=== PATIENT | female | born 1990 | race African-American/Black ===

== ENCOUNTER 2017-12-08 15:58 | Emergency (ER) | payer BC, OTHER ==
--- NOTE | 2017-12-08 16:56 | EDPHYS ---
Physician Documentation [facility] Name: Kera Deng Age: 27 yrs Sex: Female : 1990 Arrival Date: 12/08/2017 Time: 15:59 Bed 25 Private MD: ED Physician Jevon Mishra HPI: 12/08 16:54 This 27 yrs old Black Female presents to ER via Ambulatory with complaints of Rash. pm1 16:54 The patient's rash thought to be caused by an unknown cause. The rash is located on the pm1 right proximal inner thigh. The rash can be described as vesicular. Onset: The symptoms/episode began/occurred 2 day(s) ago. Associated signs and symptoms: Pertinent positives: Pain Pertinent negatives: fever, dysuria. Treatment given at home: none. The patient has not experienced similar symptoms in the past. 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 patient with vesicular rash without any drainage that is present to right inner thigh. Patient is and is sexually active with the use of protection. 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 - Social history:: Smoking status: Patient/guardian denies using tobacco. - Ebola Screening: : Patient negative for fever greater than or equal to 101.5 degrees Fahrenheit, and additional compatible Ebola Virus Disease symptoms Patient denies exposure to infectious person Patient denies travel to an Ebola-affected area in the 21 days before illness onset No symptoms or risks identified at this time. ROS: 16:54 Constitutional: Negative for fever, chills, and weight loss, Eyes: Negative for injury, pm1 pain, redness, and discharge, ENT: Negative for injury, pain, and discharge, Neck: Negative for injury, pain, and swelling, Cardiovascular: Negative for chest pain, palpitations, and edema, Respiratory: Negative for shortness of breath, cough, wheezing, and pleuritic chest pain, Abdomen/GI: Negative for abdominal pain, nausea, vomiting, diarrhea, and constipation, Back: Negative for injury and pain, : Negative for injury, bleeding, discharge, and swelling, MS/Extremity: Negative for injury and deformity. 16:54 Neuro: Negative for headache, weakness, numbness, tingling, and seizure. 16:54 Skin: Positive for rash, of the right proximal inner thigh. Exam: 16:54 Constitutional: This is a well developed, well nourished patient who is awake, alert, pm1 and in no acute distress. Head/Face: Normocephalic, atraumatic. Eyes: Pupils equal round and reactive to light, extra-ocular motions intact. Lids and lashes normal. Conjunctiva and sclera are non-icteric and not injected. Cornea within normal limits. Periorbital areas with no swelling, redness, or edema. ENT: Nares patent. No nasal discharge, no septal abnormalities noted. Tympanic membranes are normal and external auditory canals are clear. Oropharynx with no redness, swelling, or masses, exudates, or evidence of obstruction, uvula midline. Mucous membranes moist. Neck: Trachea midline, no thyromegaly or masses palpated, and no cervical lymphadenopathy. Supple, full range of motion without nuchal rigidity, or vertebral point tenderness. No Meningismus. Chest/axilla: Normal chest wall appearance and motion. Nontender with no deformity. No lesions are appreciated. Cardiovascular: Regular rate and rhythm with a normal S1 and S2. No gallops, murmurs, or rubs. Normal PMI, no JVD. No pulse deficits. Respiratory: Lungs have equal breath sounds bilaterally, clear to auscultation and percussion. No rales, rhonchi or wheezes noted. No increased work of breathing, no retractions or nasal flaring. 16:54 MS/ Extremity: Pulses equal, no cyanosis. Neurovascular intact. Full, normal range of motion. 16:54 Abdomen/GI: Inspection: gravid appearance, is noted, Palpation: abdomen is soft and non-tender, Rectal exam: is unremarkable, the exam is chaperoned by the nurse, No rash present in rectal area or perineum. 16:54 : Pelvic Exam: External exam: is normal, no lesions, no ulcerations, no warts seen, the nurse was present for the exam, Sexual behavior: the patient is sexually active, and reports a single partner, method of control is none. 16:54 Neuro: Orientation: is normal, Motor: is normal, moves all fours, Gait: is steady, at a normal pace, without difficulty. Vital Signs: 16:10 BP 150 / 76; Pulse 117; Resp 20; Temp 98.2; Pulse Ox 100% on R/A; Weight 110.68 kg; aj Height 5 ft. 5 in. (165.10 cm); 17:07 BP 148 / 73; Pulse 91; Resp 20; Pulse Ox 100% on R/A; Pain 6/10; ed1 16:10 Body Mass Index 40.60 (110.68 kg, 165.10 cm) aj MDM: 16:14 Patient medically screened. pm1 16:53 Data reviewed: vital signs. Data interpreted: Pulse oximetry: on room air is 100 %. pm1 Interpretation:. 16:53 Data interpreted: Pulse oximetry: Interpretation: normal. pm1 16:54 Counseling: I had a detailed discussion with the patient and/or guardian regarding: the pm1 historical points, exam findings, and any diagnostic results supporting the discharge/admit diagnosis, the need for outpatient follow up, an OB/Gyne specialist, to return to the emergency department if symptoms worsen or persist or if there are any questions or concerns that arise at home. Administered Medications: No medications were administered Disposition: 17:46 Co-signature as Attending Physician, Jevon Mishra MD I agree with the assessment and kdr plan of care. Disposition: 12/08/17 16:55 Discharged to Home. Impression: Herpesviral [herpes simplex] infections. - Condition is Stable. - Discharge Instructions: Genital Herpes. - Prescriptions for Valtrex 1 g Oral Tablet - take 1 tablet by ORAL route every 12 hours for 10 days; 20 tablet. - Medication Reconciliation Form, Thank You Letter, Antibiotic Education form. - Follow up: Emergency Department; When: As needed; Reason: Worsening of condition. Follow up: Private Physician; When: 2 - 3 days; Reason: Recheck today's complaints, Continuance of care, Re-evaluation by your physician. - Problem is new. - Symptoms have improved. Signatures: Shannon Gallo RN RN aj Rittger, Kevin, MD MD kdr Riggs, Erika, HEALTH AND PHYSICAL EDUCATION PROFESSOR HEALTH AND PHYSICAL EDUCATION PROFESSOR ed1 Álvaro Carrillo, PHYSICAL EDUCATION DEPARTMENT CHAIR PHYSICAL EDUCATION DEPARTMENT CHAIR pm1 Corrections: (The following items were deleted from the chart) 17:12 16:55 12/08/2017 16:55 Discharged to Home. Impression: Herpesviral [herpes simplex] ed1 infections. Condition is Stable. Forms are Medication Reconciliation Form, Thank You Letter, Antibiotic Education, Prescription Opioid Use. Follow up: Emergency Department; When: As needed; Reason: Worsening of condition. Follow up: Private Physician; When: 2 - 3 days; Reason: Recheck today's complaints, Continuance of care, Re-evaluation by your physician. Problem is new. Symptoms have improved. pm1
--- NOTE | 2017-12-08 16:56 | ER ---
Nurse's Notes [facility] Name: Kera Deng Age: 27 yrs Sex: Female : 1990 Arrival Date: 12/08/2017 Time: 15:59 Bed 25 Private MD: Diagnosis: Herpesviral [herpes simplex] infections Presentation: 12/08 16:08 Presenting complaint: Patient states: Vesicular rash to right upper thigh/groin area, aj that started 2 days ago while patient. Patient reports rash started with Itching. Transition of care: patient was not received from another setting of care. Onset of symptoms was December 06, 2017. Risk Assessment: Do you want to hurt yourself or someone else? Patient reports no desire to harm self or others. Initial Sepsis Screen: Does the patient meet any 2 criteria? No. Patient's initial sepsis screen is negative. Does the patient have a suspected source of infection? No. Patient's initial sepsis screen is negative. Care prior to arrival: None. 16:08 Method Of Arrival: Ambulatory 16:08 Acuity: MEG 4 aj Triage Assessment: 16:10 Bite description: bite. General: Appears in no apparent distress. comfortable, Behavior aj is anxious. Pain: Complains of pain in right femoral area. Neuro: Level of Consciousness is awake, alert, obeys commands, Oriented to person, place, time, situation, Appropriate for age. Respiratory: Airway is patent Respiratory effort is even, unlabored, Respiratory pattern is regular, symmetrical. Derm: Skin is intact, is healthy with good turgor, Skin is pink, warm \T\ dry. normal, Rash noted that is vesicular, on right femoral area. 17:25 Bite description: bite sustained to right femoral area by N/A, animal information: ed1 vaccination(s) is not applicable. 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 - Social history:: Smoking status: Patient/guardian denies using tobacco. - Ebola Screening: : Patient negative for fever greater than or equal to 101.5 degrees Fahrenheit, and additional compatible Ebola Virus Disease symptoms Patient denies exposure to infectious person Patient denies travel to an Ebola-affected area in the 21 days before illness onset No symptoms or risks identified at this time. Screenin:14 Abuse screen: Denies threats or abuse. Denies injuries from another. Nutritional ed1 screening: No deficits noted. Tuberculosis screening: No symptoms or risk factors identified. Fall Risk None identified. Assessment: 16:14 General: Appears uncomfortable, Behavior is calm, cooperative. Pain: Complains of pain ed1 in pelvis Pain does not radiate. Pain currently is 6 out of 10 on a pain scale. Quality of pain is described as sharp, Pain began 2-3 days ago. Neuro: Level of Consciousness is awake, alert, obeys commands, Oriented to person, place, time, situation. Cardiovascular: Denies chest pain, Heart tones S1 S2 present. Respiratory: Airway is patent Respiratory effort is even, unlabored, Respiratory pattern is regular, symmetrical, Breath sounds are clear bilaterally. GI: No signs and/or symptoms were reported involving the gastrointestinal system. : No signs and/or symptoms were reported regarding the genitourinary system. EENT: No signs and/or symptoms were reported regarding the EENT system. Derm: Skin is healthy with good turgor, Skin is dry, Skin is normal, Skin temperature is warm Rash noted that is vesicular, on medial aspect of right thigh. Musculoskeletal: Circulation, motion, and sensation intact. 16:20 General: The previous assessment is accurate. Call light remains within reach. . 17:07 Reassessment: Patient appears in no apparent distress at this time. No changes from ed1 previously documented assessment. Patient and/or family updated on plan of care and expected duration. Pain level reassessed. Patient is alert, oriented x 3, equal unlabored respirations, skin warm/dry/pink. Vital Signs: 16:10 BP 150 / 76; Pulse 117; Resp 20; Temp 98.2; Pulse Ox 100% on R/A; Weight 110.68 kg; aj Height 5 ft. 5 in. (165.10 cm); 17:07 BP 148 / 73; Pulse 91; Resp 20; Pulse Ox 100% on R/A; Pain 6/10; ed1 16:10 Body Mass Index 40.60 (110.68 kg, 165.10 cm) ED Course: 15:59 Patient arrived in ED. as 16:10 Triage completed. aj 16:10 Arm band placed on left wrist. Patient placed in an exam room. aj 16:13 Hilaria Jeffery LVN is Primary Nurse. ed1 16:14 Álvaro Carrillo NP is PHCP. pm1 16:14 Jevon Mishra MD is Attending Physician. pm1 16:14 Patient has correct armband on for positive identification. ed1 17:07 No provider procedures requiring assistance completed. Patient did not have IV access ed1 during this emergency room visit. Administered Medications: No medications were administered Outcome: 16:55 Discharge ordered by MD. pm1 17:07 Discharged to home ambulatory, with family. ed1 17:07 Condition: good 17:07 Discharge instructions given to patient, Instructed on discharge instructions, follow up and referral plans. medication usage, Demonstrated understanding of instructions, follow-up care, medications, Prescriptions given X 1. 17:12 Patient left the ED. ed1 Signatures: Shannon Gallo RN RN aj Martinez, Amelia as Smirch, Shelby, RN RN Hilaria Jeffery LVN LVN ed1 Álvaro Carrillo NP TIMBER ESTIMATOR pm1
== END 2017-12-08 17:12 | disposition home or self-care (01) ==
LOC: ER 15:58
DX: O26.40 Herpes gestationis, unspecified trimester (principal); Z3A.00 Weeks of gestation of pregnancy not specified
CPT/HCPCS: 99282

== ENCOUNTER 2018-10-11 13:13 | Emergency (ER) | payer OTHER, SELFPAY ==
--- NOTE | 2018-10-11 14:11 | ER ---
Nurse's Notes [facility] Name: Kera Deng Age: 28 yrs Sex: Female : 1990 Arrival Date: 10/11/2018 Time: 13:16 Bed 18 Private MD: Diagnosis: Abscess of breast associated with Presentation: 10/11 13:25 Presenting complaint: Patient states: left breast abscess, swelling x 2 days. sv Transition of care: patient was not received from another setting of care. Onset of symptoms was October 09, 2018. Care prior to arrival: None. 13:25 Method Of Arrival: Ambulatory sv 13:25 Acuity: MEG 3 sv Historical: - Allergies: 13:25 No Known Allergies; sv - PMHx: 13:25 None; sv - PSHx: 13:25 [place] Teeth; sv - Immunization history:: Adult Immunizations up to date. - Social history:: Smoking status: Patient/guardian denies using tobacco. - Ebola Screening: : No symptoms or risks identified at this time. Screenin:00 Abuse screen: Denies threats or abuse. Nutritional screening: No deficits noted. em Tuberculosis screening: No symptoms or risk factors identified. Fall Risk None identified. Assessment: 14:00 General: Appears in no apparent distress. comfortable, Behavior is calm, cooperative, em Denies fever. Pain: Complains of pain in left breast. Neuro: Level of Consciousness is awake, alert, obeys commands, Oriented to person, place, time, situation. Cardiovascular: Capillary refill < 3 seconds Patient's skin is warm and dry. Respiratory: Airway is patent Respiratory effort is even, unlabored, Respiratory pattern is regular, symmetrical. Derm: Skin is intact, is healthy with good turgor, Skin is pink, warm \T\ dry. Wound noted left breast Wound is tenderness and redness noted on left breast. Musculoskeletal: Capillary refill < 3 seconds, Range of motion: intact in all extremities. Vital Signs: 13:25 BP 125 / 69; Pulse 106; Resp 18; Temp 99(O); Pulse Ox 100% ; Weight 90.72 kg; Height 5 sv ft. 5 in. (165.10 cm); 14:00 BP 114 / 71; Pulse 78; Resp 18; Pulse Ox 99% on R/A; em 13:25 Body Mass Index 33.28 (90.72 kg, 165.10 cm) ED Course: 13:16 Patient arrived in ED. as 13:25 Triage completed. sv 13:26 Arm band placed on. sv 13:36 Delgado Flynn LVN is Primary Nurse. em 13:39 [facility]. nh 13:40 Jevon Mishra MD is Attending Physician. nh 14:00 Patient has correct armband on for positive identification. Bed in low position. Call em light in reach. Adult w/ patient. 14:36 No provider procedures requiring assistance completed. Patient did not have IV access em during this emergency room visit. Administered Medications: No medications were administered Outcome: 14:10 Discharge ordered by . nh 14:36 Discharged to home ambulatory, with family. em 14:36 Condition: stable 14:36 Discharge instructions given to patient, family, Instructed on discharge instructions, follow up and referral plans. medication usage, Demonstrated understanding of instructions, follow-up care, medications, Prescriptions given X 2. 14:37 Patient left the ED. em Signatures: Elidia Dasilva, RN RN Jen Siegel FNP FNP hi Delgado Flynn LVN LVN em Maida West as
--- NOTE | 2018-10-11 14:11 | EDPHYS ---
Physician Documentation [facility] Name: Kera Deng Age: 28 yrs Sex: Female : 1990 Arrival Date: 10/11/2018 Time: 13:16 Bed 18 Private MD: ED Physician Jevon Mishra HPI: 10/11 14:04 This 28 yrs old Black Female presents to ER via Ambulatory with complaints of Breast nh Pain/Swelling. 14:04 Onset: The symptoms/episode began/occurred 3 day(s) ago. Associated signs and symptoms: nh Pertinent positives: The patient does not have any pertinent positive signs or symptoms associated with pediatric illness. Pertinent negatives: abdominal pain, chest pain, congestion, constipation, cough, diarrhea, dysuria, earache, fever, headache, nasal discharge, seizure, shortness of breath, sore throat, vomiting, wheezing. 14:04 Modifying factors: The patient symptoms are alleviated by nothing, the patient symptoms nh are aggravated by nothing. The patient has not experienced similar symptoms in the past. The patient has not recently seen a physician. Patient reports painful lump under left breast x 3 days.. Historical: - Allergies: 13:25 No Known Allergies; sv - PMHx: 13:25 None; sv - PSHx: 13:25 [place] Teeth; sv - Immunization history:: Adult Immunizations up to date. - Social history:: Smoking status: Patient/guardian denies using tobacco. - Ebola Screening: : No symptoms or risks identified at this time. ROS: 14:04 Constitutional: Negative for fever, chills, and weight loss, Eyes: Negative for injury, nh pain, redness, and discharge, ENT: Negative for injury, pain, and discharge, Neck: Negative for injury, pain, and swelling, Cardiovascular: Negative for chest pain, palpitations, and edema, Respiratory: Negative for shortness of breath, cough, wheezing, and pleuritic chest pain, Abdomen/GI: Negative for abdominal pain, nausea, vomiting, diarrhea, and constipation, Back: Negative for injury and pain, : Negative for injury, bleeding, discharge, and swelling, MS/Extremity: Negative for injury and deformity, Neuro: Negative for headache, weakness, numbness, tingling, and seizure, Psych: Negative for depression, anxiety, suicide ideation, homicidal ideation, and hallucinations, Allergy/Immunology: Negative for hives, rash, and allergies, Endocrine: Negative for neck swelling, polydipsia, polyuria, polyphagia, and marked weight changes, Hematologic/Lymphatic: Negative for swollen nodes, abnormal bleeding, and unusual bruising. 14:04 Skin: Positive for abscess. Exam: 14:04 Constitutional: This is a well developed, well nourished patient who is awake, alert, nh and in no acute distress. Head/Face: Normocephalic, atraumatic. Eyes: Pupils equal round and reactive to light, extra-ocular motions intact. Lids and lashes normal. Conjunctiva and sclera are non-icteric and not injected. Cornea within normal limits. Periorbital areas with no swelling, redness, or edema. ENT: Nares patent. No nasal discharge, no septal abnormalities noted. Tympanic membranes are normal and external auditory canals are clear. Oropharynx with no redness, swelling, or masses, exudates, or evidence of obstruction, uvula midline. Mucous membranes moist. Neck: Trachea midline, no thyromegaly or masses palpated, and no cervical lymphadenopathy. Supple, full range of motion without nuchal rigidity, or vertebral point tenderness. No Meningismus. Chest/axilla: Normal chest wall appearance and motion. Nontender with no deformity. No lesions are appreciated. Cardiovascular: Regular rate and rhythm with a normal S1 and S2. No gallops, murmurs, or rubs. Normal PMI, no JVD. No pulse deficits. Respiratory: Lungs have equal breath sounds bilaterally, clear to auscultation and percussion. No rales, rhonchi or wheezes noted. No increased work of breathing, no retractions or nasal flaring. Abdomen/GI: Soft, non-tender, with normal bowel sounds. No distension or tympany. No guarding or rebound. No evidence of tenderness throughout. Back: No spinal tenderness. No costovertebral tenderness. Full range of motion. MS/ Extremity: Pulses equal, no cyanosis. Neurovascular intact. Full, normal range of motion. Neuro: Awake and alert, GCS 15, oriented to person, place, time, and situation. Cranial nerves II-XII grossly intact. Motor strength 5/5 in all extremities. Sensory grossly intact. Cerebellar exam normal. Normal gait. Psych: Awake, alert, with orientation to person, place and time. Behavior, mood, and affect are within normal limits. 14:04 Skin: induration, that is moderate is noted, located on the left breast. Vital Signs: 13:25 BP 125 / 69; Pulse 106; Resp 18; Temp 99(O); Pulse Ox 100% ; Weight 90.72 kg; Height 5 sv ft. 5 in. (165.10 cm); 14:00 BP 114 / 71; Pulse 78; Resp 18; Pulse Ox 99% on R/A; em 13:25 Body Mass Index 33.28 (90.72 kg, 165.10 cm) sv MDM: 13:40 Patient medically screened. nh 14:04 Data reviewed: vital signs, nurses notes, I have discussed the patient's nh presentation/case with the attending Emergency Department Physician; and as a result, I will discharge patient. Counseling: I had a detailed discussion with the patient and/or guardian regarding: the historical points, exam findings, and any diagnostic results supporting the discharge/admit diagnosis, the need for outpatient follow up, to return to the emergency department if symptoms worsen or persist or if there are any questions or concerns that arise at home. Administered Medications: No medications were administered Disposition: 10/11/18 14:10 Discharged to Home. Impression: Abscess of breast associated with . - Condition is Stable. - Discharge Instructions: Skin Abscess. - Prescriptions for Doxycycline Hyclate 100 mg Oral Tablet - take 1 tablet by ORAL route every 12 hours; 20 tablet. Bactrim DS 800- 160 mg Oral Tablet - take 1 tablet by ORAL route every 12 hours for 10 days; 20 tablet. - Medication Reconciliation Form, Thank You Letter, Antibiotic Education, Prescription Opioid Use form. - Follow up: Private Physician; When: 5 - 6 days; Reason: Recheck today's complaints. - Problem is new. - Symptoms are unchanged. Addendum: 10/13/2018 06:52 Co-signature as Attending Physician, Jevon Mishra MD I agree with the assessment and [facility] plan of care. Signatures: Elidia Dasilva, RN RN Jevon Kapadia MD MD kdr Jen Siegel, DIESEL ENGINE INSPECTOR DIESEL ENGINE INSPECTOR nh Delgado Flynn, ART SPECIALIST ART SPECIALIST em Corrections: (The following items were deleted from the chart) 10/11 14:37 14:10 10/11/2018 14:10 Discharged to Home. Impression: Abscess of breast associated em with . Condition is Stable. Forms are Medication Reconciliation Form, Thank You Letter, Antibiotic Education, Prescription Opioid Use. Follow up: Private Physician; When: 5 - 6 days; Reason: Recheck today's complaints. Problem is new. Symptoms are unchanged. nh
== END 2018-10-11 14:37 | disposition home or self-care (01) ==
LOC: ER 13:13
DX: O91.13 Abscess of breast associated with lactation (principal)
CPT/HCPCS: 99282

== ENCOUNTER 2019-07-24 09:46 | Emergency (ER) | payer SELFPAY ==
--- OUTSIDE RECORDS SUMMARY | 2019-07-24 09:48 | XMS REPORT ---
:1990 Author Organization [facility] Address [address] [place] [address] [address] [place] [address] Care Team Providers Name Role Phone Unavailable Unavailable Unavailable Problems This patient has no known problems. Allergies, Adverse Reactions, Alerts This patient has no known allergies or adverse reactions. Medications This patient has no known medications.
[2019-07-24] MEDS ORDERED: METHYLPREDNISOLONE 125 MG INJ ONE (10:15)
[2019-07-24] MEDS ORDERED: IBUPROFEN 400 MG TAB ONE (10:15)
--- NOTE | 2019-07-24 10:59 | ER ---
Nurse's Notes [facility] Name: Kera Deng Age: 29 yrs Sex: Female : 1990 Arrival Date: 07/24/2019 Time: 09:48 Bed 13 Private MD: Diagnosis: Acute pharyngitis Presentation: 07/23 10:13 Chief complaint: Patient states: Sore throat. Coronavirus screen: The patient has NOT ae4 traveled to a country currently being monitored by the CDC within the last 14 days. The patient has NOT had contact with any known and/or suspected case of coronavirus. Proceed with normal triage procedures. 10:13 Acuity: MEG 4 ae4 10:13 Method Of Arrival: Ambulatory ae4 ARMATURE TESTER: 10:01 LMP 07/16/2019 ae4 Vital Signs: 10:01 BP 121 / 74; Pulse 105; Resp 19; Temp 99.7; Weight 102.06 kg (R); Height 5 ft. 5 in. ae4 (165.10 cm); 10:12 Pulse Ox 99% on R/A; ae4 11:22 Temp 97.8(O); ae4 10:01 Body Mass Index 37.44 (102.06 kg, 165.10 cm) ae4 ED Course: 09:48 Patient arrived in ED. mr 09:50 Anmol Asher FNP-C is [facility]. la1 09:50 Jevon Mishra MD is Attending Physician. la1 09:51 Anmol Asher FNP-C [facility]. la1 09:51 Jevon Mishra MD is Attending Physician. la1 09:54 Isreal Zhong, VENKAT is Primary Nurse. ae4 10:13 Triage completed. ae4 Administered Medications: 10:15 Drug: SOLU-Medrol 125 mg Route: IM; Site: right gluteus; ae4 10:15 Drug: Ibuprofen 800 mg Route: PO; ae4 Outcome: 10:57 Discharge ordered by . la1 11:22 Patient left the ED. ae4 Signatures: Dianne Earl Anmol Asher FNP-C TRIAL MANAGEMENT ASSOCIATE-Cla1 Isreal Zhong, RN RN ae4
--- NOTE | 2019-07-24 10:59 | EDPHYS ---
Physician Documentation [facility] Name: Kera Deng Age: 29 yrs Sex: Female : 1990 Arrival Date: 07/24/2019 Time: 09:48 Bed 13 Private MD: ED Physician Jevon Mishra HPI: 07/23 10:00 This 29 yrs old Black Female presents to ER via Unassigned with complaints of Sore la1 Throat. 10:00 The patient presents with sore throat. The patient describes throat pain as raw, la1 scratchy. Onset: The symptoms/episode began/occurred 5 day(s) ago. Severity of symptoms: At their worst the symptoms were moderate. Associated signs and symptoms: Pertinent negatives chills, fever. The patient has not experienced similar symptoms in the past. pt was seen at urgent care on Saturday and given augmentin, states she is still not feeling better. 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 10:02 Neck: Negative for injury, pain, and swelling, Cardiovascular: Negative for chest pain, palpitations, and edema, Respiratory: Negative for shortness of breath, cough, wheezing, and pleuritic chest pain, Abdomen/GI: Negative for abdominal pain, nausea, vomiting, diarrhea, and constipation, Back: Negative for injury and pain, MS/Extremity: Negative for injury and deformity, Skin: Negative for injury, rash, and discoloration, Neuro: Negative for headache, weakness, numbness, tingling, and seizure. 10:02 ENT: Positive for sore throat. Exam: 10:02 Constitutional: This is a well developed, well nourished patient who is awake, alert, la1 and in no acute distress. Head/Face: Normocephalic, atraumatic. Eyes: Pupils equal round and reactive to light, extra-ocular motions intact. 10:02 Neck: Trachea midline, no thyromegaly or masses palpated, and no cervical lymphadenopathy. Supple, full range of motion without nuchal rigidity, or vertebral point tenderness. No Meningismus. Chest/axilla: Normal chest wall appearance and motion. Nontender with no deformity. No lesions are appreciated. Cardiovascular: Regular rate and rhythm with a normal S1 and S2. No gallops, murmurs, or rubs. Normal PMI, no JVD. No pulse deficits. Respiratory: Lungs have equal breath sounds bilaterally, clear to auscultation Back: No spinal tenderness. No costovertebral tenderness. Full range of motion. Skin: Warm, dry with normal turgor. Normal color with no rashes, no lesions, and no evidence of cellulitis. MS/ Extremity: Pulses equal, no cyanosis. Neurovascular intact. Full, normal range of motion. 10:02 ENT: External ear(s): are unremarkable, TM's: are normal, Nose: is normal, Mouth: is normal, Posterior pharynx: Tonsils: bilaterally enlarged, with erythema, with exudate, no ulcerations, Uvula: normal, midline, peritonsillar mass, is not appreciated. Vital Signs: 10:01 BP 121 / 74; Pulse 105; Resp 19; Temp 99.7; Weight 102.06 kg (R); Height 5 ft. 5 in. ae4 (165.10 cm); 10:12 Pulse Ox 99% on R/A; ae4 11:22 Temp 97.8(O); ae4 10:01 Body Mass Index 37.44 (102.06 kg, 165.10 cm) ae4 MDM: 09:51 Patient medically screened. la1 10:48 Data reviewed: vital signs, nurses notes, lab test result(s), and as a result, I will la1 discharge patient. Data interpreted: Pulse oximetry: on room air. Counseling: I had a detailed discussion with the patient and/or guardian regarding: the historical points, exam findings, and any diagnostic results supporting the discharge/admit diagnosis, lab results, the need for outpatient follow up, a family practitioner, to return to the emergency department if symptoms worsen or persist or if there are any questions or concerns that arise at home. Special discussion: Based on the history and exam findings, there is no indication for further emergent testing or inpatient evaluation. I discussed with the patient/guardian the need to see the primary care provider for further evaluation of the symptoms. ED course: discussed need for FU with PCP, no need for more abx at this time. Pt should continue taking augmentin and wait for culture reports, will provide steroids for symptomatic control. . 07/23 09:55 Order name: Strep ae4 07/23 10:00 Order name: Flu la1 07/23 10:35 Order name: Throat Culture EDDE Administered Medications: 10:15 Drug: SOLU-Medrol 125 mg Route: IM; Site: right gluteus; ae4 10:15 Drug: Ibuprofen 800 mg Route: PO; ae4 Disposition: 07/24/19 10:57 Discharged to Home. Impression: Acute pharyngitis. - Condition is Stable. - Discharge Instructions: Pharyngitis, Sore Throat, [id number]. - Prescriptions for Medrol (Alexx) 4 mg Oral Tablets, Dose Pack - take 1 tablet by ORAL route as directed - follow package instructions; 1 packet. - Medication Reconciliation Form, Thank You Letter form. - Follow up: Private Physician; When: 2 - 3 days; Reason: Recheck today's complaints, Re-evaluation by your physician. - Problem is new. - Symptoms have improved. Signatures: Dispatcher [employer] [facility] Anmol Asher, LOCKER ROOM MANAGER-C LOCKER ROOM MANAGER-Cla1 Isreal Zhong, RN RN ae4 Corrections: (The following items were deleted from the chart) 10:03 10:01 Influenza Screen (A \T\ B)+[id number].LAB.BRZ ordered. [facility] 11:22 10:57 07/24/2019 10:57 Discharged to Home. Impression: Acute pharyngitis. Condition is ae4 Stable. Forms are Medication Reconciliation Form, Thank You Letter, Antibiotic Education, Prescription Opioid Use. Follow up: Private Physician; When: 2 - 3 days; Reason: Recheck today's complaints, Re-evaluation by your physician. Problem is new. Symptoms have improved. la1
[2019-07-24 11:30] VITALS: BP 121/74
[2019-07-24 11:31] VITALS: O2SAT 99
[2019-07-24 11:32] VITALS: TEMP 97.8
== END 2019-07-24 11:22 | disposition home or self-care (01) ==
LOC: ER 09:46
DX: J02.9 Acute pharyngitis, unspecified (principal)
CPT/HCPCS: 87070; 87081; 87804; 96372; 99283; J2930

== ENCOUNTER 2019-12-14 09:36 | Emergency (ER) | payer SELFPAY, OTHER ==
--- NOTE | 2019-12-14 10:54 | ER ---
Nurse's Notes [facility] Name: Kera Deng Age: 29 yrs Sex: Female : 1990 Arrival Date: 12/14/2019 Time: 09:42 Bed 25 Private MD: Diagnosis: Acute upper respiratory infection, unspecified;Fever, unspecified Presentation: 12/13 10:16 Chief complaint: Patient states: Hx of Sinus infections/allergy. Started Saturday night, ca1 pressure on sinuses, head, around the eyes. Runny nose and congestion. Fatigued and tired. Body aches on Saturday, but not anymore. 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 Coronavirus screen: Client denies travel out of the [place] in the last 14 days. congestion, fatigue, headache, runny nose, Client presents with at least one sign or symptom that may indicate coronavirus-19. Standard/surgical mask placed on the client. Provider contacted for isolation considerations. Ebola Screen: Patient negative for fever greater than or equal to 101.5 degrees Fahrenheit, and additional compatible Ebola Virus Disease symptoms Patient denies exposure to infectious person. Patient denies travel to an Ebola-affected area in the 21 days before illness onset. No symptoms or risks identified at this time. Initial Sepsis Screen: Does the patient meet any 2 criteria? No. Patient's initial sepsis screen is negative. Does the patient have a suspected source of infection? No. Patient's initial sepsis screen is negative. Risk Assessment: Do you want to hurt yourself or someone else? Patient reports no desire to harm self or others. Onset of symptoms was December 14, 2019. 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 - Social history:: Smoking status: Patient denies any tobacco usage or history of. - Family history:: not pertinent. Screenin:23 Abuse screen: Denies threats or abuse. Denies injuries from another. Nutritional ca1 screening: No deficits noted. Tuberculosis screening: No symptoms or risk factors identified. Fall Risk None identified. Assessment: 10:23 General: Appears in no apparent distress. comfortable, Behavior is calm, cooperative, ca1 appropriate for age, Reports fatigue for 2-3 days. Pain: Complains of pain in forehead and nose Pain currently is 3 out of 10 on a pain scale. Pain began 2-3 days ago. Neuro: Level of Consciousness is awake, alert, obeys commands, Oriented to person, place, time, situation. Respiratory: Airway is patent Respiratory effort is even, unlabored, Respiratory pattern is regular, symmetrical, Breath sounds are clear bilaterally. EENT: Reports nasal congestion. Derm: Skin is intact, is healthy with good turgor, Skin is pink, warm \T\ dry. Musculoskeletal: Circulation, motion, and sensation intact. Capillary refill < 3 seconds. 11:12 Reassessment: Patient appears in no apparent distress at this time. Patient is alert, ca1 oriented x 3, equal unlabored respirations, skin warm/dry/pink. Vital Signs: 10:16 BP 114 / 85; Pulse 97; Resp 18 S; Temp 100.1(O); Pulse Ox 99% on R/A; Weight 102.06 kg ca1 (R); Height 5 ft. 5 in. (165.10 cm) (R); 11:12 Temp 97.5(O); ca1 10:16 Body Mass Index 37.44 (102.06 kg, 165.10 cm) ca1 ED Course: 09:42 Patient arrived in ED. ag5 10:19 Triage completed. ca1 10:20 Arm band placed on right wrist. ca1 10:23 Inder Washington MD is Attending Physician. nate 10:23 Patient has correct armband on for positive identification. Bed in low position. Call ca1 light in reach. Side rails up X 1. Pulse ox on. NIBP on. 10:48 COVID-19 Sent. ca1 10:50 Chiara Rivas RN is Primary Nurse. ca1 10:52 No provider procedures requiring assistance completed. Patient did not have IV access ca1 during this emergency room visit. 10:53 Benji Lovell MD is Referral Physician. nate Administered Medications: 10:51 Drug: Decadron 2 mg Route: PO; ca1 11:13 Follow up: Response: No adverse reaction ca1 10:52 Drug: Tylenol 650 mg Route: PO; ca1 11:13 Follow up: Response: No adverse reaction ca1 11:13 Follow up: Response: Temperature is decreased ca1 10:53 Drug: Zithromax 500 mg Route: PO; ca1 11:13 Follow up: Response: No adverse reaction ca1 Outcome: 10:53 Discharge ordered by MD. sullivan 11:15 Patient left the ED. ca1 Addendum: 12/15/2019 18:22 Addendum: COVID-19 Result: Positive result giiven to ED physician to notify pt. a a5 Physician: Inder Washington MD Physician was able to contact pt and pt was notified of positive COVID-19 swab result. Physician answered pt questions. Signatures: Inder Washington MD MD cha Calderon, Audri, RN RN aa5 Chiara Rivas RN RN ca1 Mike Lee ag5
--- NOTE | 2019-12-14 10:54 | EDPHYS ---
Physician Documentation [facility] Name: Kera Deng Age: 29 yrs Sex: Female : 1990 Arrival Date: 12/14/2019 Time: 09:42 Bed 25 Private MD: ED Physician Inder Washington HPI: 12/13 10:47 This 29 yrs old Black Female presents to ER via Ambulatory with complaints of Allergy nate Symptoms. 10:47 The patient or guardian reports cough, flu symptoms. Onset: The symptoms/episode nate began/occurred 2 day(s) ago. Severity of symptoms: At their worst the symptoms were mild, in the emergency department the symptoms are unchanged. Modifying factors: The symptoms are alleviated by nothing, the symptoms are aggravated by nothing. The patient reports fever, that was measured at 101 degrees Fahrenheit. Modifying factors: there are no obvious modifying factors. Associated signs and symptoms: Pertinent positives: fever, rhinorrhea, sore throat. Associated signs and symptoms: Pertinent positives: chills, cough. Severity of symptoms: At their worst the symptoms were mild moderate in the emergency department the symptoms are unchanged. 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 - Social history:: Smoking status: Patient denies any tobacco usage or history of. - Family history:: not pertinent. ROS: 10:47 Eyes: Negative for injury, pain, redness, and discharge, Neck: Negative for injury, nate pain, and swelling, Cardiovascular: Negative for chest pain, palpitations, and edema, Respiratory: Negative for shortness of breath, cough, wheezing, and pleuritic chest pain, Abdomen/GI: Negative for abdominal pain, nausea, vomiting, diarrhea, and constipation, Back: Negative for injury and pain, : Negative for injury, bleeding, discharge, and swelling, MS/Extremity: Negative for injury and deformity, Skin: Negative for injury, rash, and discoloration, Neuro: Negative for headache, weakness, numbness, tingling, and seizure, Psych: Negative for depression, anxiety, suicide ideation, homicidal ideation, and hallucinations, Allergy/Immunology: Negative for hives, rash, and allergies, Endocrine: Negative for neck swelling, polydipsia, polyuria, polyphagia, and marked weight changes. 10:47 Constitutional: Positive for 10:47 ENT: Positive for rhinorrhea. Exam: 10:47 Head/Face: Normocephalic, atraumatic. Eyes: Pupils equal round and reactive to light, nate extra-ocular motions intact. Lids and lashes normal. Conjunctiva and sclera are non-icteric and not injected. Cornea within normal limits. Periorbital areas with no swelling, redness, or edema. ENT: Nares patent. No nasal discharge, no septal abnormalities noted. Tympanic membranes are normal and external auditory canals are clear. Oropharynx with no redness, swelling, or masses, exudates, or evidence of obstruction, uvula midline. Mucous membranes moist. Neck: Trachea midline, no thyromegaly or masses palpated, and no cervical lymphadenopathy. Supple, full range of motion without nuchal rigidity, or vertebral point tenderness. No Meningismus. Chest/axilla: Normal chest wall appearance and motion. Nontender with no deformity. No lesions are appreciated. Cardiovascular: Regular rate and rhythm with a normal S1 and S2. No gallops, murmurs, or rubs. Normal PMI, no JVD. No pulse deficits. Respiratory: Lungs have equal breath sounds bilaterally, clear to auscultation and percussion. No rales, rhonchi or wheezes noted. No increased work of breathing, no retractions or nasal flaring. Abdomen/GI: Soft, non-tender, with normal bowel sounds. No distension or tympany. No guarding or rebound. No evidence of tenderness throughout. Back: No spinal tenderness. No costovertebral tenderness. Full range of motion. Skin: Warm, dry with normal turgor. Normal color with no rashes, no lesions, and no evidence of cellulitis. MS/ Extremity: Pulses equal, no cyanosis. Neurovascular intact. Full, normal range of motion. Neuro: Awake and alert, GCS 15, oriented to person, place, time, and situation. Cranial nerves II-XII grossly intact. Motor strength 5/5 in all extremities. Sensory grossly intact. Cerebellar exam normal. Normal gait. Psych: Awake, alert, with orientation to person, place and time. Behavior, mood, and affect are within normal limits. 10:47 ENT: Nose: External nose: no obvious acute abnormality, Nasal mucosa: cracked, nasal drainage, that is minimal, and is seen coming from both nares, that is clear. Vital Signs: 10:16 BP 114 / 85; Pulse 97; Resp 18 S; Temp 100.1(O); Pulse Ox 99% on R/A; Weight 102.06 kg ca1 (R); Height 5 ft. 5 in. (165.10 cm) (R); 11:12 Temp 97.5(O); ca1 10:16 Body Mass Index 37.44 (102.06 kg, 165.10 cm) ca1 MDM: 10:23 Patient medically screened. [facility] 10:50 Differential diagnosis: viral Infection, bacterial infection, URI, bronchitis, nate pneumonia. Differential Diagnosis: Bronchitis Influenza Upper Respiratory Infection Sinusitis Pharyngitis Otitis Media Allergic Rhinitis Viral Syndrome Pneumonia. Data reviewed: vital signs, nurses notes. Data interpreted: laboratory monitor: not applicable for this patient encounter. rate is 97 beats/min, rhythm is. Test interpretation: by ED physician or midlevel provider:. Counseling: I had a detailed discussion with the patient and/or guardian regarding: the historical points, exam findings, and any diagnostic results supporting the discharge/admit diagnosis, lab results, radiology results. 12/13 10:33 Order name: COVID-19 [facility] Administered Medications: 10:51 Drug: Decadron 2 mg Route: PO; ca1 11:13 Follow up: Response: No adverse reaction ca1 10:52 Drug: Tylenol 650 mg Route: PO; ca1 11:13 Follow up: Response: No adverse reaction ca1 11:13 Follow up: Response: Temperature is decreased ca1 10:53 Drug: Zithromax 500 mg Route: PO; ca1 11:13 Follow up: Response: No adverse reaction ca1 Disposition: 12/14/19 10:53 Discharged to Home. Impression: Acute upper respiratory infection, unspecified, Fever, unspecified. - Condition is Stable. - Discharge Instructions: Fever, Adult, Upper Respiratory Infection, Adult, Cool Mist Vaporizer, Upper Respiratory Infection, Adult, [id number], Cough, Adult, COVID-19. - Prescriptions for dexamethasone 2 mg Oral tablet - take 1 tablet by ORAL route 3 times per day; 15 tablet. Dexamethasone 0.5 mg Oral Tablet - take 1 tablet by ORAL route 3 times per day; 30 tablet. Zithromax Z- Alexx 250 mg Oral Tablet - take 1 tablet by ORAL route as directed for 5 days Day 1 - take two (2) tablets one time. Day 2, 3, 4 , 5 take one (1) tablet once daily.; 6 tablet. - Medication Reconciliation Form, Thank You Letter, Antibiotic Education, Prescription Opioid Use, Work release form form. - Follow up: Private Physician; When: 2 - 3 days; Reason: Recheck today's complaints, Continuance of care, Re-evaluation by your physician. Follow up: Benji Lovell MD; When: 1 - 2 days; Reason: Recheck today's complaints, Re-evaluation by your physician. - Problem is new. - Symptoms have improved. Signatures: Dispatcher [employer] EDInder Pandey MD MD cha Acob, Cheryl RN RN ca1 Corrections: (The following items were deleted from the chart) 11:15 10:53 12/14/2019 10:53 Discharged to Home. Impression: Acute upper respiratory ca1 infection, unspecified; Fever, unspecified. Condition is Stable. Forms are Medication Reconciliation Form, Thank You Letter, Antibiotic Education, Prescription Opioid Use. Follow up: Private Physician; When: 2 - 3 days; Reason: Recheck today's complaints, Continuance of care, Re-evaluation by your physician. Follow up: Benji Lovell; When: 1 - 2 days; Reason: Recheck today's complaints, Re-evaluation by your physician. Problem is new. Symptoms have improved. nate
[2019-12-14] MEDS ORDERED: dexAMETHasone 4 MG TAB ONE (11:05)
[2019-12-14] MEDS ORDERED: ACETAMINOPHEN 325 MG TABLET ONE (11:05)
[2019-12-14] MEDS ORDERED: AZITHROMYCIN 250 MG TAB ONE (11:05)
--- OUTSIDE RECORDS SUMMARY | 2019-12-14 11:12 | XMS REPORT | Continuity of Care Document ---
:1990 Author Organization [facility] t Address [address] [place] [address] [address] [place] [address] Care Team Providers Name Role Phone Unavailable Unavailable Unavailable Problems This patient has no known problems. Allergies, Adverse Reactions, Alerts This patient has no known allergies or adverse reactions. Medications This patient has no known medications. Procedures This patient has no known procedures. Results This patient has no known results.
[2019-12-14 11:28] VITALS: BP 114/85; O2SAT 99
[2019-12-14 11:29] VITALS: TEMP 97.5
== END 2019-12-14 11:15 | disposition home or self-care (01) ==
LOC: ER 09:36
DX: U07.1 COVID-19 (principal); J06.9 Acute upper respiratory infection, unspecified
CPT/HCPCS: 99283; J8540; U0002

== ENCOUNTER 2020-12-04 18:31 | Emergency (ER) | payer MEDICARE, OTHER, SELFPAY ==
--- OUTSIDE RECORDS SUMMARY | 2020-12-04 18:34 | XMS REPORT | Continuity of Care Document ---
:1990 Author Organization [facility] t Address [address] [place] [address] Care Team Providers Name Role Phone Les YEH Attending Clinician Jeronimo Brewster DO Attending Clinician Problems This patient has no known problems. Allergies, Adverse Reactions, Alerts This patient has no known allergies or adverse reactions. Medications This patient has no known medications. Procedures This patient has no known procedures. Encounters Start End Encounter Admission Attending Care Care Encounter Source Date/Time Date/Time Type Type Clinicians Facility Department ID 2020-09-07 2020-09-07 Outpatient [facility] [id number] [facility] 00:00:00 00:00:00 [facility] Man[facility] ent Clinics 2020-08-29 2020-08-29 TelemedicCHERYL Winkler [id number] 12:34:09 13:04:09 ne Visit Nava Moy [id number] Сергей [id number] Dom [phone] [address] 2020-08-222020-08-22 Outpatient [facility] [id number] [facility] 00:[facility] 00[facility]00:00 [facility] 2020-08-16 2020-08-16 Outpatient [facility] [id number] [facility] 00:00[facility] 00:00:[facility] 2020-08-02 2020-08-02 Patient Ney MNBRADY [id number] 00:00:00 00:00:00 Outreach [facility] [id number] [facility] [id number] HARSHA [phone] [id number] 2020-07-28 2020-07-28 Office CHERYL Saldana [id number] 08:44:06 09:14:06 Visit Nava Chinmay [id number] [place] [id number] Professkm [phone] [facility] [address] Results This patient has no known results.
--- NOTE | 2020-12-04 21:59 | RAD REPORT ---
EXAM DESCRIPTION: US - UPPER EXTREMITY VENOUS UNILATE - 12/04/2020 9:50 pm CLINICAL HISTORY: Left arm pain COMPARISON: No comparisons FINDINGS: The left internal jugular, subclavian, axillary, brachial, cephalic, basilic, radial, and ulnar veins are compressible and patent. IMPRESSION: No left upper extremity deep venous thrombosis identified
--- NOTE | 2020-12-04 22:01 | RAD REPORT ---
EXAM DESCRIPTION: RAD - Forearm Left - 12/04/2020 9:51 pm CLINICAL HISTORY: PAIN COMPARISON: No comparisons FINDINGS: No left forearm fracture identified. No radiopaque foreign body. IMPRESSION: Unremarkable left forearm
--- NOTE | 2020-12-06 16:55 | ER ---
Nurse's Notes [facility] Name: Kera Deng Age: 30 yrs Sex: Female : 1990 Arrival Date: 12/04/2020 Time: 18:50 Bed 17 Private MD: Diagnosis: Pain in left arm Presentation: 12/04 18:56 Chief complaint: Patient states: pain to L elbow/forearm that radiates at times towards ss L shoulder. Pt reports that she was diagnosed with anxiety in July and that is when the pain started. "It seems like when I think about it, it gets worse and if I am busy doing something than it isn't that bad. I just want to be safe.". Coronavirus screen: Client denies travel out of the [place] in the last 14 days. Ebola Screen: Patient denies exposure to infectious person. Patient denies travel to an Ebola-affected area in the 21 days before illness onset. Initial Sepsis Screen: Does the patient meet any 2 criteria? No. Patient's initial sepsis screen is negative. Does the patient have a suspected source of infection? No. Patient's initial sepsis screen is negative. Risk Assessment: Do you want to hurt yourself or someone else? Patient reports no desire to harm self or others. Onset of symptoms was July 2020. 18:56 Method Of Arrival: Ambulatory ss 18:56 Acuity: MEG 3 ss Historical: - Allergies: 19:04 No Known Allergies; ss - PMHx: 19:04 Anemia; Anxiety; ss - Immunization history:: Adult Immunizations up to date. - Social history:: Smoking status: Patient denies any tobacco usage or history of. Screenin:50 Abuse screen: Denies threats or abuse. Nutritional screening: No deficits noted. jb4 Tuberculosis screening: No symptoms or risk factors identified. Fall Risk None identified. Assessment: 20:50 General: Appears in no apparent distress. uncomfortable, Behavior is calm, cooperative, jb4 appropriate for age. Pain: Complains of pain in back and left arm Pain does not radiate. Pain currently is 5 out of 10 on a pain scale. Neuro: Level of Consciousness is awake, alert, obeys commands, Oriented to person, place, time, situation. Cardiovascular: Patient's skin is warm and dry. Respiratory: Airway is patent Respiratory effort is even, unlabored, Respiratory pattern is regular, symmetrical. GI: No deficits noted. : No signs and/or symptoms were reported regarding the genitourinary system. EENT: No signs and/or symptoms were reported regarding the EENT system. Derm: Skin is intact, Skin is dry, Skin is normal, Skin temperature is warm. Musculoskeletal: Circulation, motion, and sensation intact. Range of motion: intact in all extremities. 22:00 Reassessment: Patient appears in no apparent distress at this time. Patient and/or jb4 family updated on plan of care and expected duration. Pain level reassessed. Patient is alert, oriented x 3, equal unlabored respirations, skin warm/dry/pink. Vital Signs: 18:56 BP 131 / 89; Pulse 98; Resp 16; Temp 98.1(TE); Pulse Ox 100% on R/A; Weight 97.52 kg; ss Height 5 ft. 5 in. (165.10 cm); Pain 5/10; 22:00 BP 115 / 73; Pulse 78; Resp 16; Pulse Ox 99% on R/A; jb4 18:56 Body Mass Index 35.78 (97.52 kg, 165.10 cm) ED Course: 18:50 Patient arrived in ED. am2 19:04 Triage completed. ss 19:04 Arm band placed on right wrist. ss 20:50 Inder Nolan PA is PHCP. cp 20:50 Addison Acevedo MD is Attending Physician. cp 20:50 Patient has correct armband on for positive identification. Placed in gown. Bed in low jb4 position. Call light in reach. Side rails up X 1. Pulse ox on. NIBP on. 21:50 UPPER EXTREMITY VENOUS UNILATE In Process Unspecified. EDMS 21:51 XRAY Forearm LEFT In Process Unspecified. EDMS 22:30 No provider procedures requiring assistance completed. Patient did not have IV access jb4 during this emergency room visit. 22:48 Rufus Lawton, VENKAT is Primary Nurse. jb4 Administered Medications: No medications were administered Outcome: 22:19 Discharge ordered by . cp 22:30 Discharged to home ambulatory, with family. jb4 22:30 Condition: stable 22:30 Discharge instructions given to patient, Instructed on discharge instructions, follow up and referral plans. medication usage, Demonstrated understanding of instructions, follow-up care, medications, Prescriptions given X 1. 22:48 Patient left the ED. jb4 Signatures: Dispatcher [employer] EDMS Stephenie Bass RN RN Inder Muñoz PA PA cp Bryson, James, RN RN jb4 Shannon Borges
--- NOTE | 2020-12-06 16:55 | EDPHYS ---
Physician Documentation [facility] Name: Kera Deng Age: 30 yrs Sex: Female : 1990 Arrival Date: 12/04/2020 Time: 18:50 Bed 17 Private MD: ED Physician Addison Acevedo HPI: 12/04 21:15 This 30 yrs old Black Female presents to ER via Ambulatory with complaints of Left Arm cp Pain. 21:15 The patient or guardian complains of pain, that is chronic, tenderness. The complaints cp affect the dorsal aspect of left forearm. Context: resulted from unknown cause. Onset: The symptoms/episode began/occurred 4 month(s) ago. Treatment prior to arrival includes: no previous treatment. Modifying factors: the symptoms are aggravated by movement. Associated signs and symptoms: The patient has no apparent associated signs or symptoms. Patient reports intermittent radiating pain to left shoulder and left upper back. Historical: - Allergies: 19:04 No Known Allergies; ss - PMHx: 19:04 Anemia; Anxiety; ss - Immunization history:: Adult Immunizations up to date. - Social history:: Smoking status: Patient denies any tobacco usage or history of. ROS: 21:20 MS/extremity: Positive for pain, tenderness, Negative for injury or acute deformity, cp decreased range of motion, paresthesias. 21:20 Eyes: Negative for injury, pain, redness, and discharge. cp 21:20 Constitutional: Negative for body aches, chills, fever, poor PO intake. 21:20 Cardiovascular: Negative for chest pain, edema, palpitations. 21:20 Respiratory: Negative for cough, shortness of breath, wheezing. 21:20 Abdomen/GI: Negative for abdominal pain, nausea, vomiting, and diarrhea. 21:20 Back: Positive for radiated pain, of the left scapular area, Negative for injury or acute deformity. 21:20 Skin: Negative for rash. 21:20 Neuro: Negative for headache, numbness, tingling, weakness. 21:20 All other systems are negative. Exam: 21:25 Constitutional: The patient appears in no acute distress, alert, awake, cp non-diaphoretic, non-toxic, well developed, well nourished, obese. 21:25 Head/Face: Normocephalic, atraumatic. cp 21:25 Neck: C-spine: vertebral tenderness, is not appreciated, crepitus, is not appreciated, ROM/movement: is normal, is supple, without pain, no range of motions limitations, no nuchal rigidity. 21:25 Chest/axilla: Inspection: normal, Palpation: is normal, no crepitus, no tenderness. 21:25 Cardiovascular: Rate: normal, Rhythm: regular, Pulses: Pulses are 2+ in right radial artery and left radial artery. 21:25 Respiratory: the patient does not display signs of respiratory distress, Respirations: normal, no use of accessory muscles, no retractions, no splinting, labored breathing, is not present, Breath sounds: are clear throughout, no decreased breath sounds, no stridor, no wheezing. 21:25 Abdomen/GI: Exam negative for discomfort, distension, guarding, Inspection: abdomen appears normal. 21:25 Back: pain, that is very mild, of the left scapular area, ROM is normal. 21:25 Musculoskeletal/extremity: Extremities: grossly normal except: noted in the left forearm: tenderness, There is no evidence of deformity, rash, swelling, the left arm Sensation intact. Joints: All joints are normal except the left elbow displays mild tenderness to medial epicondyle. 21:25 Skin: cellulitis, is not appreciated, no rash present. Vital Signs: 18:56 BP 131 / 89; Pulse 98; Resp 16; Temp 98.1(TE); Pulse Ox 100% on R/A; Weight 97.52 kg; ss Height 5 ft. 5 in. (165.10 cm); Pain 5/10; 22:00 BP 115 / 73; Pulse 78; Resp 16; Pulse Ox 99% on R/A; jb4 18:56 Body Mass Index 35.78 (97.52 kg, 165.10 cm) ss MDM: 21:00 Patient medically screened. cp 22:00 Differential diagnosis: contusion, tendonitis, strain, DVT. cp 22:19 Patient medically screened. cp 22:19 Data reviewed: vital signs, nurses notes, radiologic studies, plain films, ultrasound. cp 22:19 Counseling: I had a detailed discussion with the patient and/or guardian regarding: the cp historical points, exam findings, and any diagnostic results supporting the discharge/admit diagnosis, radiology results, the need for outpatient follow up, a family practitioner, to return to the emergency department if symptoms worsen or persist or if there are any questions or concerns that arise at home. 12/04 21:04 Order name: XRAY Forearm LEFT; Complete Time: 22:18 cp 12/04 22:18 Interpretation: Report reviewed. cp 12/04 21:08 Order name: UPPER EXTREMITY VENOUS UNILATE; Complete Time: 22:18 EDMS 12/04 22:18 Interpretation: Report reviewed. cp Administered Medications: No medications were administered Disposition Summary: 12/04/20 22:19 Discharge Ordered Location: Home cp Problem: new cp Symptoms: have improved cp Condition: Stable cp Diagnosis - Pain in left arm cp Followup: cp - With: Private Physician - When: 2 - 3 days - Reason: Worsening of condition Discharge Instructions: - Discharge Summary Sheet cp - Musculoskeletal Pain cp Forms: - Medication Reconciliation Form cp - Thank You Letter cp - Antibiotic Education cp - Prescription Opioid Use cp Prescriptions: - Diclofenac Sodium 75 mg Oral Tablet Sustained Release - take 1 tablet by ORAL route 2 times per day; 30 tablet; Refills: 0, Product cp Selection Permitted Signatures: Dispatcher [employer] [facility] Stephenie Bass RN RN ss Inder Nolan PA PA cp Corrections: (The following items were deleted from the chart) 21:08 21:05 Extremity Venous [email or web address] ordered. [facility] 12/05 16:55 12/04 21:15 This 30 yrs old Black Female presents to ER via Ambulatory with complaints cp of Back Pain. cp
[2020-12-07 00:38] VITALS: TEMP 98.1
[2020-12-07 00:39] VITALS: BP 115/73; O2SAT 99
== END 2020-12-04 22:48 | disposition home or self-care (01) ==
LOC: ER 18:31
DX: M79.602 Pain in left arm (principal)
CPT/HCPCS: 93971; 99283

== ENCOUNTER 2021-03-28 12:19 | Emergency (ER) | payer MEDICARE, OTHER ==
--- OUTSIDE RECORDS SUMMARY | 2021-03-28 12:23 | XMS REPORT | Continuity of Care Document ---
:1990 Author Organization [facility] t Address [address] [place] [address] Care Team Providers Name Role Phone Pcp, Does Not Have A Primary Care Physician JENNIFER Attending Clinician Unavailable Jennifer YHE Attending Clinician Jeronimo Brewster DO Attending Clinician Payers Payer Name Policy Type Policy Number Effective Date Expiration Date S ource HIM BCBS BLUE [id number] 2020 ADVANTAGE O 00:00:00 Problems Condition Condition Condition Status Onset Resolution Last Treating Co mments Source Name Details Category Date Date Treatment Clinician Date Presence Presence Disease Active 2017-05 Unive rs of of 52 of of 52 0-24 ity of mg mg 00:00: [place] levonorges levonorges 00 Me dical trel-relea trel-relea Br anch sing sing intrauteri intrauteri ne device ne device (IUD) (IUD) Term Term Disease Active Univers 01-11 ity of 00:00: [place] 00 Medical Branch 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 [place] 2 (HSV-2[place] 2 (HSV-2) 00 Medi justo infection infection Bran ch affecting affecting in third in third trimester trimester Abnormal Abnormal Disease Active Unive rs maternal maternal 6-07 ity of glucose glucose 00:00: [place] tolerance, tolerance, 00 Me dical antepartum antepartum Br anch Back pain Back pain Disease Active Uni vers with with 6-01 ity of right-side [place] sciatica d sciatica 00 Me dical Branch Excessive Excessive Disease Active Uni vers weight weight 6-01 ity of gain gain 00:00: [place] affecting affecting 00 Medi justo Bran ch Enlarged Enlarged Disease Active Unive rs thyroid thyroid 4-06 ity of 00:00: [place] 00 Medical Branch Fatigue, Fatigue, Disease Active Unive rs unspecifie unspecifie 4-06 it y of d type d type 00:00: [place] 00 Medical Branch Yeast Yeast Disease Active Univers infection infection 4-04 ity of 00:00: [place] 00 Medical Branch UTI in UTI in Disease Active Overview: Univer s 309 Formattin i ty of 00:00: g of this [place] 00 note Medical might be Branch different from the original. SANJAY at next visit Rubella Rubella Disease Active Overview: Univ ers non-immune non-immune 306 Formattin ity of status, status, 00:00: g of this [place] antepartum antepartum 00 note Me dical might be Branch different from the original. Address pp Multiparit Multiparit Disease Active U nivers y y 3-05 ity of 00:00: [place] 00 Medical Branch History of History of Disease Active U nivers 3-05 ity of induced induced 00:00: [place] hypertensi hypertensi 00 Me dical on on Branch Supervisio Supervisio Disease Active U nivers n of n of 3-05 ity of high-risk high-risk 00:[place] just[place] Branch Obesity Obesity Disease Active Univers affecting affecting 3-05 [place] Anemia Anemia Disease Active 2015-05 Univers complicati complicati 1-10 it y of ng ng 00:00: [place] , , 00 Me dical third third Branch trimester trimester Family Family Disease Active Univers history of history of 12-01 it y of sickle sickle 00:00: [place] cell trait cell trait 00 Me dical Branch History of History of Disease Active U nivers abnormal abnormal 12-01 ity of cervical cervical 00:00: [place] Pap smear Pap smear 00 [facility] Branch Acanthosis Acanthosis Disease Active U nivers nigricans nigricans 12-01 ity of 00:00: [place] 00 Medical Branch Allergies, Adverse Reactions, Alerts Allergy Allergy Status Severity Reaction(s) Onset Inactive Treating Comm ents Source Name Type Date Date Clinician NO KNOWN Drug Active Univers ALLERGIE Class ity of [facility] Social History Social Habit Start Date Stop Date Quantity Comments Source History [facility] o [facility] [place] Alcohol Frequency Medical Branch History [facility] o f [place] Alcohol Std Drinks Medica l Branch History [facility] o [facility] Alcohol Binge Medical [facility] Exposure to Not sure [facility] SARS-CoV-2 (event) Medica l Branch Alcohol intake 2020-07-28 2020-07-28 0 /d [facility] 00:00:00 00:00:00 [facility] [place] Tobacco use and 2015-05-19 2015-05-19 Never used [facility] exposure 00:00:00 00:00:00 Medical Branch Alcohol Comment 2015-05-19 2015-05-19 socially [facility] 00:00:00 00:00:00 [facility] Branch Sex [birth year] [facility] 00:00:00 00:00:00 [facility] [place] Smoking Status Start Date Stop Date Source Never smoker [facility] Medications Ordered Filled Start Stop Current Ordering Indication Dosage Frequency Signature Comments Components Source Medication Medication Date Date Medication? Clinician (SIG) Name Name valacyclovi 2020- No Take by U nivers r HCl 02-03 mouth. ity of (VALTREX 09:09: 00:00 [place] ORAL) 23 :00 Medical Branch acyclovir 2020- Yes 400mg Take 1 Univ ers 400 mg 02-03 tablet by ity of tablet 00:00: 04:59 mouth 3 [place] 00 :00 (three) Medical times Branch daily for 7 days. LORazepam 2020- No .5mg Take 0.5 Uni vers 0.5 mg 4-19 04-19 mg by ity of tablet 18:26: 00:00 mouth. 26 :00 Medical Branch valacyclovi Yes Take by Un justin r HCl 3-18 mouth. ity of (VALTREX 14:01: [place] ORAL) 08 Medical Branch LORazepam Yes .5mg Take 0.5 Univ ers 0.5 mg 3-18 mg by ity of tablet 14:01: mouth. Medical Branch valacyclovi Yes Take by Un justin r HCl 3-18 mouth. ity of (VALTREX 14:01: [place] ORAL) 08 Medical Branch LORazepam Yes .5mg Take 0.5 Univ ers 0.5 mg 3-18 mg by ity of tablet 14:01: mouth. Medical Branch valacyclovi Yes Take by Un justin r HCl 3-18 mouth. ity of (VALTREX 14:01: [place] ORAL) Medical Branch LORazepam Yes .5mg Take 0.5 Univ ers 0.5 mg 3-18 mg by ity of tablet 14:01: mouth. Medical Branch valacyclovi Yes Take by Un justin r HCl 3-18 mouth. ity of (VALTREX 14:01: [place] ORAL) 08 Medical Branch SERTraline Yes [id number] 25mg Take 1 Univers (ZOLOFT) 25 3-18 [id number] tablet by ity of mg tablet 00:00: mouth 00 daily. Medical Branch SERTraline Yes [id number] 25mg Take 1 Univers (ZOLOFT) 25 3-18 [id number] tablet by ity of mg tablet 00:00: mouth 00 daily. Medical Branch SERTraline Yes [id number] 25mg Take 1 Univers (ZOLOFT) 25 3-18 [id number] tablet by ity of mg tablet 00:00: mouth 00 daily. Medical Branch SERTraline 2020- No [id number] 25mg Take 1 Univers (ZOLOFT) 25 3-18 04-19 [id number] tablet by ity of mg tablet 00:00: 00:00 mouth [place] 00 :00 daily. Medical Branch acyclovir 2020- No [id number] 400mg Take 1 Univers 400 mg 07-28- tablet by ity of tablet 00:00: 04:59 mouth 3 [place] 00 :00 (three) Medical times Branch daily for 7 days. acyclovir 2020- No [id number] 400mg Take 1 Univers 400 mg 07-28- tablet by ity of tablet 00:00: 04:59 mouth 3 [place] 00 :00 (three) Medical times Branch daily for 7 days. acyclovir 2020- No [id number] 400mg Take 1 Univers 400 mg 07-28- tablet by ity of tablet 00:00: 04:59 mouth 3 [place] 00 :00 (three) Medical times Branch daily for 7 days. ferrous 2018-0 Yes 325mg Take 1 Univers sulfate 325 9-03 tablet by ity of mg (65 mg 00:00: mouth 2 [place] iron) 00 (two) Medical tablet times Branch daily. ibuprofen 2018-0 Yes 600mg Take 1 Unive rs 600 mg 9-03 tablet by ity of tablet 00:00: mouth [place] 00 every 6 Medical (six) Branch hours as needed for Pain (scale 1-3) or Pain (scale 4-6) (Pain). Take with food or milk. ferrous 2018-0 Yes 325mg Take 1 Univers sulfate 325 9-03 tablet by ity of mg (65 mg 00:00: mouth 2 [place] iron) 00 (two) Medical tablet times Branch daily. ibuprofen 2018-0 Yes 600mg Take 1 Unive rs 600 mg 9-03 tablet by ity of tablet 00:00: mouth [place] 00 every 6 Medical (six) Branch hours as needed for Pain (scale 1-3) or Pain (scale 4-6) (Pain). Take with food or milk. ferrous 2018-0 Yes 325mg Take 1 Univers sulfate 325 9-03 tablet by ity of mg (65 mg 00:00: mouth 2 [place] iron) 00 (two) Medical tablet times Branch daily. ibuprofen 2018-0 Yes 600mg Take 1 Unive rs 600 mg 9-03 tablet by ity of tablet 00:00: mouth [place] 00 every 6 Medical (six) Branch hours as needed for Pain (scale 1-3) or Pain (scale 4-6) (Pain). Take with food or milk. ferrous 2018-0 Yes 325mg Take 1 Univers sulfate 325 9-03 tablet by ity of mg (65 mg 00:00: mouth 2 [place] iron) 00 (two) Medical tablet times Branch daily. ibuprofen 2018-0 Yes 600mg Take 1 Unive rs 600 mg 9-03 tablet by ity of tablet 00:00: mouth [place] 00 every 6 Medical (six) Branch hours as needed for Pain (scale 1-3) or Pain (scale 4-6) (Pain). Take with food or milk. ferrous 2018-0 Yes 325mg Take 1 Univers sulfate 325 9-03 tablet by ity of mg (65 mg 00:00: mouth 2 [place] iron) 00 (two) Medical tablet times Branch daily. ibuprofen 2018-0 Yes 600mg Take 1 Unive rs 600 mg 9-03 tablet by ity of tablet 00:00: mouth [place] 00 every 6 Medical (six) Branch hours as needed for Pain (scale 1-3) or Pain (scale 4-6) (Pain). Take with food or milk. Immunizations Ordered Filled Immunization Date Status Comments [facility] e Immunization Name Name [facility] 2018-01-13 Completed University of 00:00:00 [facility] 2018-01-13 Completed University of 00:00:00 [facility] 2018-01-13 Completed University of 00:00:00 [facility] 2018-01-13 Completed University of 00:00:00 [facility] 2018-01-13 Completed University of 00:00:00 [facility] TDAP 2017-11-12 Completed University of 00:00:00 [facility] TDAP 2017-11-12 Completed University of 00:00:00 [facility] TDAP 2017-11-12 Completed University of 00:00:00 [facility] TDAP 2017-11-12 Completed University of 00:00:00 [facility] TDAP 2017-11-12 Completed University of 00:00:00 [facility] TDAP 2016-03-15 Completed University of 00:00:00 [facility] TDAP 2016-03-15 Completed University of 00:00:00 [facility] TDAP 2016-03-15 Completed University of 00:00:00 [facility] TDAP 2016-03-15 Com[facility] 00:[facility]:00 [facility] Influenza Virus 2016-02-24 Completed Universit y of Vaccine Quad IM 3+ 00:00:00 [facility] Branch Influenza Virus 2016-02-24 Completed Universit y of Vaccine Quad IM 3+ 00:00:00 [facility] Influenza Virus 2016-02-24 Completed Universit y of Vaccine Quad IM 3+ 00:00:00 [facility] Influenza Virus 2016-02-24 Completed Universit y of Vaccine Quad IM 3+ 00:00:00 [facility] Influenza Virus 2016-02-24 Completed Universit y of Vaccine Quad IM 3+ 00:00:00 [facility] Vital Signs Vital Name Observation Time Observation Value Comments Source Body weight 2020-07-28 13:58:00 96.888 kg Universi ty of [facility] BMI 2020-07-28 13:58:00 35.54 kg/m2 Universi ty [facility] Systolic blood 2020-07-28 13:58:00 121 mm[Hg] Univer sity of pressure [facility] Diastolic blood 2020-07-28 13:58:00 82 mm[Hg] Unive rsity of pressure [facility] Heart rate 2020-07-28 13:58:00 92 /min Universi ty of [facility] Body temperature 2020-07-28 13:58:00 36.89 Sally Univ ersity of [facility] Respiratory rate 2020-07-28 13:58:00 18 /min [facility] Body height 2020-07-28 13:58:00 165.1 cm Universi ty [facility] Body weight 2020-07-28 13:58:00 96.888 kg Universi ty [facility] BMI 2020-07-28 13:58:00 35.54 kg/m2 Universi ty of [facility] Branch Systolic blood 2020-07-28 13:58:00 121 mm[Hg] Univer sity of pressure [facility] Diastolic blood 2020-07-28 13:58:00 82 mm[Hg] Unive rsity of pressure [facility] Heart rate 2020-07-28 13:58:00 92 /min Universi ty of [facility] Body temperature 2020-07-28 13:58:00 36.89 Sally [facility] Respiratory rate 2020-07-28 13:58:00 18 /min [facility] Body height 2020-07-28 13:58:00 165.1 cm [facility] Procedures This patient has no known procedures. Encounters Start End Encounter Admission Attending Care Care Encounter Source Date/Time Date/Time Type Type Clinicians Facility Department ID 2021-08-09 2021-08-09 Outpatient R JENNIFER [facility] [id number] Univers 14:30:00 14:30:[id number] [facility] 2021-08-09 2021-08-09 Outpatient R JENNIFER [facility] [id number] Univers 14:30:00 14:30:[address] [facility] 2021-02-03 2021-02-03 Patient Jennifer [facility] [id number] Univers 00:00:00 00:00:00 Secure Msg Nava [place] [id number] ity of [id number] Profess[place] [phone] [place] dicid [place]al [address] [place] [address] 2020-09-07 2020-09-07 Outpatient STLMLC [facility] [id number] [facility] 2020-08-29 2020-08-29 Outpatient R JENNIFER [facility] [id number] Univers 13:15:00 13:15:[id number] [facility] 2020-08-29 2020-08-29 Outpatient R JENNIFER [facility] [id number] Univers 13:15:00 13:15:[address] [facility] 2020-08-29 2020-08-29 [facility] [id number] Univers 12:34:09 13:04:09 ne Visit Nava [place] [id number] ity [id number] [phone] [place] [address] 2020-08-29 2020-08-29 Telemedici Jennifer [facility] [id number] 12:34:09 13:04:09 ne Visit Nava [place] [id number] [place] [id number] Professio [phone] [address] 2020-08-22 2020-08-22 [facility] [id number] 2020-08-16 2020-08-16 [facility] [id number] [facility] 2020-08-02 2020-08-02 [facility] [id number] Univers 00:00:00 00:00:00 Outreach Arnaldo PRIMARY [id number] i ty of [facility] [id number] [phone] [place] dic[address] 2020-08-02 2020-08-02 Patient Ney [facility] [id number] 00:00:00 00:00:00 Outreach Arnaldo PRIMARY [id number] Jeronimo CARE [id number] PAVILLION [phone] [facility] 2020-07-28 2020-07-28 Office Jennifer MDBRADY [id number] 08:44:06 09:14:06 Visit Nava [place]oy [id number] [place] [id number] Professio [phone] [address] 2020-07-28 2020-07-28 Office Jennifer [facility] [id number] [facility] 08:44:06 09:14:06 Visit Nava [place] [id number] i ty of [id number] [phone] [place] [address] 2020-07-28 2020-07-28 Outpatient R JENNIFER [facility] [id number] Univers 08:30:00 08:30:[id number] [facility] 2020-07-28 2020-07-28 Outpatient Temo RODRIGUEZ [facility] [id number] [facility] 08:30:00 08:30:[address] [facility] Results This patient has no known results.
[2021-03-28 13:11] LABS: Urine Blood Negative (Negative); Urine Glucose Negative (Negative); Urine Protein Negative (Negative); Urine Specific Gravity 1.025 (1.005-1.030); Urine pH 6.5 (5.0-7.0)
[2021-03-28 13:21] LABS: Urine Specific Gravity/Preg 1.025 (1.005-1.030)
--- NOTE | 2021-03-28 13:23 | RAD REPORT ---
EXAM DESCRIPTION: CT - Head Brain Wo Cont - 03/28/2021 1:16 pm CLINICAL HISTORY: HEADACHE COMPARISON: No comparisons TECHNIQUE: All CT scans are performed using dose optimization technique as appropriate and may inclu de automated exposure control or mA/KV adjustment according to patient size. FINDINGS: No intracranial hemorrhage, hydrocephalus or extra-axial fluid collection.No areas of brai n edema or evidence of midline shift. The paranasal sinuses and mastoids are clear. The calvarium is intact. IMPRESSION: No acute intracranial abnormality.
[2021-03-28 13:27] LABS: Urine Bacteria >50 /HPF (<20); Urine RBC <5 /HPF (NONE SEEN)
[2021-03-28 13:56] LABS: Basophils % 0.4 % (0-1.3); Hematocrit 35.4 % (36.0-45.0); Lymphocytes % 34.9 % (15.3-44.8); MPV 7.6 fL (7.6-11.3); RBC Red Blood Cell Count 4.74 M/uL (3.86-4.86)
[2021-03-28 14:10] LABS: BUN Blood Urea Nitrogen 13 mg/dL (7-18); Bicarbonate 23 mmol/L (21-32); Glucose Level 94 mg/dL (74-106); Sodium Level 140 mmol/L (136-145)
--- NOTE | 2021-03-28 14:32 | EDPHYS ---
Physician Documentation [facility] Name: Kera Deng Age: 30 yrs Sex: Female : 1990 Arrival Date: 03/28/2021 Time: 12:25 Bed 12 Private MD: ED Physician Levy Rodríguez HPI: 03/28 13:42 This 30 yrs old Black Female presents to ER via Ambulatory with complaints of High rn Blood Pressure, Headache. 13:42 The patient complains of pain to the top of head and forehead. The patient describes rn the headache as aching. 13:42 Onset: The symptoms/episode began/occurred yesterday. Associated signs and symptoms: rn Pertinent negatives: altered mental status, fever, nausea, neck stiffness, rash, vision changes, vision loss, vomiting, weakness, vertigo. Severity of symptoms: At its worst the pain was moderate, in the emergency department the pain has improved. Headache History: Denies prior headaches. The symptoms are alleviated by nothing. the symptoms are aggravated by nothing. The patient has not experienced similar symptoms in the past. The patient has not recently seen a physician. Patient reports feeling hot and flushed yesterday and began with headache. Denies history of headaches. No head injury. Noted to have high blood pressure when went to school nurse and does not have a history of high blood pressure. Does report poor sleeping habits recently and increased stress. Headache has improved but not totally gone.. Historical: - Allergies: 12:29 No Known Allergies; ll1 - PMHx: 12:29 Anemia; Anxiety; ll1 - PSHx: 12:29 None; ll1 - Immunization history:: Client reports having NOT received the Covid vaccine. Flu vaccine status is unknown. - Social history:: Smoking status: Patient denies any tobacco usage or history of. - Family history:: not pertinent. - Hospitalizations: : No recent hospitalization is reported. ROS: 13:42 Constitutional: Negative for fever, chills, and weight loss, Eyes: Negative for injury, rn pain, redness, and discharge, ENT: Negative for injury, pain, and discharge, Neck: Negative for injury, pain, and swelling, Cardiovascular: Negative for chest pain, palpitations, and edema, Respiratory: Negative for shortness of breath, cough, wheezing, and pleuritic chest pain, Abdomen/GI: Negative for abdominal pain, nausea, vomiting, diarrhea, and constipation, Back: Negative for injury and pain, : Negative for injury, bleeding, discharge, and swelling, MS/Extremity: Negative for injury and deformity, Skin: Negative for injury, rash, and discoloration, Neuro: Negative for weakness, numbness, tingling, and seizure. Exam: 13:42 Constitutional: This is a well developed, well nourished patient who is awake, alert, rn and in no acute distress. Head/Face: Normocephalic, atraumatic. Eyes: Periorbital areas with no swelling, redness, or edema. Neck: Trachea midline, no thyromegaly or masses palpated, and no cervical lymphadenopathy. Supple, full range of motion without nuchal rigidity, or vertebral point tenderness. No Meningismus. Cardiovascular: Regular rate and rhythm. No pulse deficits. Respiratory: No increased work of breathing, no retractions or nasal flaring. Abdomen/GI: Soft, non-tender Skin: Warm, dry MS/ Extremity: Pulses equal, no cyanosis. Neuro: Awake and alert, GCS 15, oriented to person, place, time, and situation. Cranial nerves II-XII grossly intact. Motor strength 5/5 in all extremities. Sensory grossly intact. Cerebellar exam normal. Normal gait. Vital Signs: 12:31 BP 127 / 75; Pulse 93; Resp 17; Temp 97.0; Pulse Ox 98% ; Weight 95.71 kg; Height 5 ft. ll1 5 in. (165.10 cm); Pain 4/10; 13:47 BP 117 / 80; Pulse 80; Resp 16; Pulse Ox 100% ; vg1 14:45 BP 108 / 62; Pulse 78; Resp 16; Pulse Ox 100% ; vg1 12:31 Body Mass Index 35.11 (95.71 kg, 165.10 cm) ll1 [place] Coma Score: 14:30 Eye Response: spontaneous(4). Verbal Response: oriented(5). Motor Response: obeys rn commands(6). Total: 15. MDM: 12:46 Patient medically screened. rn 14:30 Differential diagnosis: hypertensive headache, intracerebral hemorrhage, migraine, rn tension headache, vasomotor headache. Data reviewed: vital signs, nurses notes, lab test result(s), EKG, radiologic studies, CT scan, and as a result, I will discharge patient. Counseling: I had a detailed discussion with the patient and/or guardian regarding: the historical points, exam findings, and any diagnostic results supporting the discharge/admit diagnosis, lab results, radiology results, the need for outpatient follow up, to return to the emergency department if symptoms worsen or persist or if there are any questions or concerns that arise at home. Counseling: I had a detailed discussion with the patient and/or guardian regarding: the presence of at least one elevated blood pressure reading (>120/80) during this emergency department visit. Response to treatment: the patient's symptoms have markedly improved after treatment, and as a result, I will discharge patient. Special discussion: I have referred the patient to see his PCP for further evaluation of high blood pressure. I discussed with the patient/guardian in detail that at this point there is no indication for admission to the hospital. It is understood, however, that if the symptoms persist or worsen the patient needs to return immediately for re-evaluation. ED course: No acute findings and lab work/EKG/CT head. Will DC home with instructions to take blood pressure journal and presented to her PCP. Also recommend better sleep.. 03/28 12:54 Order name: CBC with Diff; Complete Time: 14:15 rn 03/28 12:54 Order name: Basic Metabolic Panel; Complete Time: 14:15 rn 03/28 12:54 Order name: CT Head Brain wo Cont; Complete Time: 13:25 rn 03/28 12:54 Order name: Urine Microscopic Only; Complete Time: 14:15 rn 03/28 13:10 Order name: Urine Dipstick-Ancillary; Complete Time: 13:25 EDMS 03/28 13:14 Order name: Urine --Ancillary (enter results); Complete Time: 13:25 bd 03/28 12:54 Order name: IV Start; Complete Time: 13:47 rn 03/28 12:54 Order name: Urine Dipstick-Ancillary (obtain specimen); Complete Time: 13:13 rn 03/28 12:54 Order name: Urine Test (obtain specimen); Complete Time: 13:13 rn 03/28 12:54 Order name: EKG; Complete Time: 12:55 rn 03/28 12:54 Order name: EKG - Nurse/Tech; Complete Time: 13:47 rn Administered Medications: No medications were administered Disposition Summary: 03/28/21 14:31 Discharge Ordered Location: Home rn Problem: new rn Symptoms: have improved rn Condition: Stable rn Diagnosis - Headache rn - Essential (primary) hypertension rn Followup: rn - With: Private Physician - When: As needed - Reason: Recheck today's complaints, Re-evaluation by your physician Discharge Instructions: - Discharge Summary Sheet rn - General Headache Without Cause rn - Hypertension, Adult rn - How to Take Your Blood Pressure, Hivy-jh-Udal rn Forms: - Medication Reconciliation Form rn - Thank You Letter rn - Antibiotic rn employee health - Prescription Opioid Use rn Signatures: Dispatcher [employer] Levy Bull MD MD rn Butch Tarango, RN RN 1
--- NOTE | 2021-03-28 14:32 | ER ---
Nurse's Notes [facility] Name: Kera Deng Age: 30 yrs Sex: Female : 1990 Arrival Date: 03/28/2021 Time: 12:25 Bed 12 Private MD: Diagnosis: Headache;Essential (primary) hypertension Presentation: 03/28 12:31 Chief complaint: Patient states: States she was hot yesterday at work, LOPEZ after work. ll1 Today she has LOPEZ, and just not feeling normal. Went to school nurse BP was 150/80. No fever or cough. Coronavirus screen: Vaccine status: Patient reports being unvaccinated. Client denies travel out of the [place] in the last 14 days. At this time, the client does not indicate any symptoms associated with coronavirus-19. Ebola Screen: Patient denies travel to an Ebola-affected area in the 21 days before illness onset. Initial Sepsis Screen: Does the patient meet any 2 criteria? No. Patient's initial sepsis screen is negative. Does the patient have a suspected source of infection? No. Patient's initial sepsis screen is negative. Risk Assessment: Do you want to hurt yourself or someone else? Patient reports no desire to harm self or others. Onset of symptoms was March 27, 2021. 12:31 Method Of Arrival: Ambulatory ll1 12:31 Acuity: MEG 3 ll1 Triage Assessment: 14:45 Headache History: The patient has had previous headaches and this one is similar to vg1 previous episodes. Historical: - Allergies: 12:29 No Known Allergies; ll1 - PMHx: 12:29 Anemia; Anxiety; ll1 - PSHx: 12:29 None; ll1 - Immunization history:: Client reports having NOT received the Covid vaccine. Flu vaccine status is unknown. - Social history:: Smoking status: Patient denies any tobacco usage or history of. - Family history:: not pertinent. - Hospitalizations: : No recent hospitalization is reported. Screenin:48 Abuse screen: Denies threats or abuse. Nutritional screening: No deficits noted. vg1 Tuberculosis screening: No symptoms or risk factors identified. Fall Risk No fall in past 12 months (0 pts). No secondary diagnosis (0 pts). No IV (0 pts). Ambulatory Aid- None/Bed Rest/Nurse Assist (0 pts). Gait- Normal/Bed Rest/Wheelchair (0 pts) Mental Status- Oriented to own ability (0 pts). Total [place] Fall Scale indicates No Risk (0-24 pts). Assessment: 12:46 General: Appears in no apparent distress. comfortable, Behavior is calm, cooperative. vg1 Pain: Complains of pain in head Pain currently is 6 out of 10 on a pain scale. Pain began 1 day ago. Neuro: Level of Consciousness is awake, alert, obeys commands, Oriented to person, place, time, situation, Reports headache Denies blurred vision dizziness, photophobia. Cardiovascular: Denies chest pain, Patient's skin is warm and dry. Respiratory: Airway is patent Respiratory effort is even, unlabored, Denies cough, shortness of breath. GI: Abdomen is round non-distended, Patient currently denies nausea, vomiting. : No signs and/or symptoms were reported regarding the genitourinary system. EENT: No signs and/or symptoms were reported regarding the EENT system. Derm: Skin is intact, is healthy with good turgor. Musculoskeletal: Circulation, motion, and sensation intact. 13:47 Reassessment: Patient appears in no apparent distress at this time. No changes from vg1 previously documented assessment. Patient and/or family updated on plan of care and expected duration. Pain level reassessed. Patient is alert, oriented x 3, equal unlabored respirations, skin warm/dry/pink. 14:44 Reassessment: Patient appears in no apparent distress at this time. Patient and/or vg1 family updated on plan of care and expected duration. Pain level reassessed. Patient is alert, oriented x 3, equal unlabored respirations, skin warm/dry/pink. Patient denies pain at this time. Vital Signs: 12:31 BP 127 / 75; Pulse 93; Resp 17; Temp 97.0; Pulse Ox 98% ; Weight 95.71 kg; Height 5 ft. ll1 5 in. (165.10 cm); Pain 4/10; 13:47 BP 117 / 80; Pulse 80; Resp 16; Pulse Ox 100% ; vg1 14:45 BP 108 / 62; Pulse 78; Resp 16; Pulse Ox 100% ; vg1 12:31 Body Mass Index 35.11 (95.71 kg, 165.10 cm) ll1 [place] Coma Score: 14:30 Eye Response: spontaneous(4). Verbal Response: oriented(5). Motor Response: obeys rn commands(6). Total: 15. ED Course: 12:25 Patient arrived in ED. mr 12:29 Arm band placed on Patient placed in an exam room, on a stretcher. ll1 12:34 Triage completed. ll1 12:45 Levy Rodríguez MD is Attending Physician. rn 12:46 Michelle Marie RN is Primary Nurse. vg1 12:48 Patient has correct armband on for positive identification. Bed in low position. Call vg1 light in reach. Side rails up X 1. 12:48 No provider procedures requiring assistance completed. vg1 13:16 CT Head Brain wo Cont In Process Unspecified. EDMS 13:47 Initial lab(s) drawn, by me, sent to lab. Inserted saline lock: 20 gauge in right vg1 antecubital area, using aseptic technique. Blood collected. 14:45 IV discontinued, intact, bleeding controlled, No redness/swelling at site. Pressure vg1 dressing applied. Administered Medications: No medications were administered Outcome: 14:31 Discharge ordered by . rn 14:45 Discharged to home ambulatory. vg1 14:45 Condition: stable 14:45 Discharge instructions given to patient, Instructed on discharge instructions, follow up and referral plans. Demonstrated understanding of instructions, follow-up care. 14:45 Patient left the ED. vg1 Signatures: Dispatcher [employer] SHASHIOR Rajat Dianne campbell Levy Rodríguez MD MD rn Garcia, Victoria, RN RN 1 Butch Tarango RN RN 1 Corrections: (The following items were deleted from the chart) 12:35 12:31 Chief complaint: Patient states: States she was hot yesterday at work, LOPEZ after ll1 work. Today she feels headache today, and just not feeling normal. Went to school nurse BP was 150/80. No fever or cough. ll1
[2021-03-28 15:10] VITALS: O2SAT 100
[2021-03-28 15:12] VITALS: TEMP 97
[2021-03-28 15:13] VITALS: BP 108/62
--- NOTE | 2021-03-29 17:00 | EKG ---
Test Date: 2021-03-28 Test Time: 13:36:06 Chief Passenger Ship Steward/Stewardess: AURELIO MEASUREMENT RESULTS: Intervals: Rate: 82 NM: 150 QRSD: 74 QT: 354 QTc: 413 Macy: P: 50 NM: 150 QRS: 57 T: 46 INTERPRETIVE STATEMENTS: Normal sinus rhythm Normal ECG No previous ECG available for comparison Electronically Signed On 03-29-21 16:57:16 METEOROLOGIST LIAISON by Liu Rodriguez
== END 2021-03-28 14:45 | disposition home or self-care (01) ==
LOC: ER 12:19
DX: I10 Essential (primary) hypertension (principal)
CPT/HCPCS: 36415; 70450; 80048; 81003; 81015; 81025; 85025; 93005; 99283

== ENCOUNTER 2023-09-12 23:17 | Emergency (ER) | payer OTHER ==
--- OUTSIDE RECORDS SUMMARY | 2023-09-12 23:21 | XMS REPORT | Continuity of Care Document ---
Author Name Unknown Address [address] [place] [address] [facility] thconnect Address [address] [place] [address] Care Team Providers Care Coal Trimmer Name Role Phone Pcp, Patient Does Not Have A Primary Care Physic paul Davide Parmar Attending Clinician Unavailable VONDA BUNCH Attending Clinician VONDA Locke Attending Clinician CARIOT Soria Attending Clinician UnavailCarito Calle CNM Attending Clinician [phone] NATALYA CHIANG Attending Clinician Unavailable NATALYA CHIANG Attending Clinician Unavailable Doctor Unassigned, [place] Attending Clinician SHANNON Sparks Attending Clinician Unavailable Shannon Eddy MD Attending Clinician [phone] Unknown, Attending Attending Clinician UnavailMIGUEL ÁNGEL Cowart Attending Clinician Unavailable Miguel Ángel Balderrama Attending Clinician SHEREE RODRIGUEZ Attending Clinician Unavailable Sheree Rodriguez PA-C Attending Clinician [phone] Meena Washington MD Attending Clinician [phone] Ebkaila DOWEL PIN MAN, Fredrick Attending Clinician [phone] FREDRICK ACEVEDO Attending Clinician Unavailable Richard Canales MD Attending Clinician [phone] RICHARD CANALES Attending Clinician Unavailable Silverio ROBLEDO, Gayle Attending Clinician Unavail jermaine Shepard RN, Ashely Issa Attending Clinician Unavailable Rubi ROBLEDO, Rianna Fitzgerald Attending Clinician Unavailab SHARON Hernandez III Attending Clinician Unavailprema Carpio III, MD, Sharon Soria Attending Clinician [phone] Frank ROBLEDO, Jenn Mishra Attending Clinician Unavaila ble Only, Ang Db Test Attending Clinician UnavailJamie EDWARDS, Yosvany Attending Clinician [phone] YOSVANY BARKER Attending Clinician Unavailable Arnaldo Brewster DO Attending Clinician [phone] Payers Payer Name Policy Type Policy Number Effective Date Expirati on Date Source Blue Cross and Blue Shield O C1 [id number] 2020 00:00:00 [facility] Problems Condition Name Condition Details Condition Category Status Onset Date Resolution Date Last Treatment Date Treating Clinician Comments Source Cramping affecting , antepartum Cramping affecting , antepartum Disease Active 06-25 00:00: 00 [facility] Declines flu vaccine Declines flu vaccine Disease Active 06-25 00:00: 00 [facility] Back pain affecting Back pain affecting Disease Active 06-25 00:00: 00 [facility] Scoliosis, unspecifie d Scoliosis, unspecifie d Disease Active 06-25 00:00: 00 [facility] Generalize d anxiety disorder Generalize d anxiety disorder Disease Active 2022-05 00:00: 00 [facility] Mixed hyperlipid emia Mixed hyperlipid emia Disease Active 2022-05 00:00: 00 [facility] Obesity (BMI 30-39.9) Obesity (BMI 30-39.9) Disease Active 2022-05 00:00: 00 [facility] Obesity affecting Obesity affecting Disease Active 2022-05 00:00: 00 [facility] Presence of of 52 mg levonorges trel-relea sing intrauteri ne device (IUD) Presence of of 52 mg levonorges trel-relea sing intrauteri ne device (IUD) Disease Active 2017-05 024 00:00: 00 [facility] Herpes simplex type 2 infection complicati ng Herpes simplex type 2 infection complicati ng Disease Active 8 00:00: 00 [facility] Back pain with right-side d sciatica Back pain with right-side d sciatica Disease Active 6 00:00: 00 [facility] Enlarged thyroid Enlarged thyroid Disease Active 08-16 00:00: 00 [facility] Fatigue, unspecifie d type Fatigue, unspecifie d type Disease Active 4 00:00: 00 [facility] Anemia of mother in , antepartum Anemia of mother in , antepartum Disease Active 08-16 00:00: 00 [facility] Yeast infection Yeast infection Disease Active 404 00:00: 00 [facility] Rubella non-immune status, antepartum Rubella non-immune status, antepartum Disease Active 07-16 00:00: 00 Overview: Formattin g of this note might be different from the original. Address pp [facility] Nausea and vomiting during Nausea and vomiting during Disease Active 2015-05 00:00: 00 [facility] Family history of sickle cell trait Family history of sickle cell trait Disease Active 12-01 00:00: 00 [facility] History of abnormal cervical Pap smear History of abnormal cervical Pap smear Disease Active 12-01 00:00: 00 [facility] Acanthosis nigricans Acanthosis nigricans Disease Active 12-01 00:00: 00 [facility] [id number] Panic disorder [episodic paroxysmal anxiety] Problem Active [facility] [id number] Other obesity due to excess calories Problem Active [facility] Allergies, Adverse Reactions, Alerts Allergy Name Allergy Type Status Severity Reaction(s) Onset Date Inactive Date Treating Clinician Comments Source NO KNOWN ALLERGIE S Drug Class Active [facility] Social History Social Habit Start Date Stop Date Quantity Comments Source ASSERTION 2023-05-03 00:00:00 [facility] History SDOH Alcohol Frequency [facility] History SDOH Alcohol Std Drinks [facility] History SDOH Alcohol Binge [facility] Gender identity [facility] Sexual orientation U [facility] History of Tobacco Use [facility] Sex Assigned At [facility] Alcohol intake 2023-08-20 00:00:00 2023-08-20 00:00:00 Ex-drinker (finding) [facility] History of Social function 2023-06-25 00:00:00 2023-06-25 00:00:00 [facility] Exposure to SARS-CoV-2 (event) 2022-04-05 00:00:00 2022-04-15 09:28:00 Not sure [facility] Tobacco use and exposure 2021-11-24 00:00:00 2021-11-24 00:00:00 Smokeless tobacco non-user [facility] Alcohol Comment 2015-05-19 00:00:00 2015-05-19 00:00:00 socially [facility] Smoking Status Start Date Stop Date Source Never smoked tobacco [facility] Medications Ordered Medication Name Filled Medication Name Start Date Stop Date Current Medication? Ordering Clinician Indication Dosage Frequency Signature (SIG) Comments Components Source Iron Fum & P-FA-Vit B & C No.9 (INTEGRA PLUS) 125 mg iron- 1 mg Cap 07-22 00:00: 00 Yes [id number] 1{capsu le} Take 1 capsule by mouth in the morning. [facility] ZINC ACETATE ORAL 06-25 13:57: 10 06-25 00:00 :00 No Take by mouth. [facility] multivitami n with minerals (MULTI-SHREYAS MIN W/MINERALS ORAL) 06-25 13:56: 48 06-25 00:00 :00 No Take by mouth. [facility] ascorbic acid (VITAMIN C ORAL) 06-25 13:56: 36 06-25 00:00 :00 No Take by mouth. [facility] proMETHazin e 25 mg tablet 06-25 00:00: 00 Yes [id number] 25mg Take 1 tablet by mouth every 4 (four) hours as needed for Nausea and Vomiting (N/V). [facility] PNV 67-iron ps-folate no.1-dha (VITAFOL ULTRA) 29 mg iron- 1 mg-200 mg Cap 06-25 00:00: 00 Yes [id number] 1{capsu le} Take 1 capsule by mouth in the morning. [facility] levonorgest reL (MIRENA) 20 mcg/24 hours (7 yrs) 52 mg IUD 2022-05 15:06: 54 04-15 00:00 :00 No 1{devic e} 1 Device by Intrauteri ne route once now. Insertion - 8 [facility] norethindro ne-e.estrad ioL-iron (LOESTRIN FE 06/01) 1 mg-20 mcg (21)/75 mg (7) tablet 2022-05- 00:00: 00 06-25 00:00 :00 No [id number] 1{tbl} Take 1 tablet by mouth in the morning. [facility] valACYclovi r (VALTREX) 1 gram tablet 2022-05 2- 00:00: 00 06-25 00:00 :00 No [id number] 1g Take 1 tablet by mouth in the morning and 1 tablet in the evening. [facility] benzonatate 100 mg capsule 2022-05- 00:00: 00 06-25 00:00 :00 No [id number] 200mg Take 2 capsules by mouth every 8 (eight) hours as needed for Cough. [facility] oseltamivir (TAMIFLU) 75 mg capsule 2022-05 1-20 00:00: 00 04-07 05:59 :00 No [id number] 75mg Take 1 capsule by mouth in the morning and 1 capsule in the evening. Do all this for 5 days. [facility] nirmatrelvi r-ritonavir (PAXLOVID) 300 mg (150 mg x 2)-100 mg tablet 8- 00:00: 00 01-13 04:59 :00 No [id number] 3{tbl} Take 3 tablets by mouth in the morning and 3 tablets in the evening. Do all this for 5 days. [facility] valACYclovi r (VALTREX) 500 mg tablet 2021-05 00:00: 00 06-25 00:00 :00 No [id number] 500mg Take 1 tablet by mouth in the morning and 1 tablet in the evening. [facility] penicillin g proc & benzathine (BICILLIN C-R) 1,200,000 unit/ 2 mL(600k/600 k) injection 1.2 Million Units 2021-05 2 16:45: 00 04-15 16:08 :00 No [id number] 1.210 [facility] fexofenadin e-pseudoeph edrine 180-240 mg per 24 hr tablet 2021-05 00:00: 00 06-25 00:00 :00 No [id number] 1{tbl} Take 1 tablet by mouth in the morning. [facility] oseltamivir (TAMIFLU) 75 mg capsule 2021-05 0- 00:00: 00 03-13 04:59 :00 No [id number] 75mg Take 1 capsule by mouth in the morning and 1 capsule in the evening. Do all this for 5 days. [facility] valACYclovi r (VALTREX) 500 mg tablet 9-19 00:00: 00 04-29 00:00 :00 No [id number] 500mg Take 1 tablet by mouth in the morning and 1 tablet in the evening. [facility] metroNIDAZO LE 500 mg tablet 11-27 00:00: 00 11-28 04:59 :00 No [id number] 2000mg Take 4 tablets by mouth once now for 1 dose. Do not drink alcohol while taking this medication . [facility] fluconazole (DIFLUCAN) 150 mg tablet 11-24 00:00: 00 11-29 04:59 :00 No [id number] 150mg Take 1 tablet by mouth every 72 (seventy-t wo) hours for 2 doses. [facility] metroNIDAZO LE 500 mg tablet 08-16 00:00: 00 11-27 00:00 :00 No [id number] 500mg Take 1 tablet by mouth every 12 (twelve) hours. [facility] metroNIDAZO LE 500 mg tablet 08-10 00:00: 00 11-27 00:00 :00 No [id number] 500mg Take 1 tablet by mouth every 12 (twelve) hours. [facility] levonorgest reL (MIRENA) 20 mcg/24 hours (7 yrs) 52 mg IUD 08-09 14:50: 12 Yes 1{devic e} 1 Device by Intrauteri ne route once now. Insertion - 8 [facility] multivitami n with minerals (MULTI-SHREYAS MIN W/MINERALS ORAL) 08-09 14:50: 12 Yes Take by mouth. [facility] nystatin 100,000 unit/gram powder 330 00:00: 00 06-25 00:00 :00 No [id number] Apply to area(s) 2 (two) times daily. [facility] Bactrim DS 800-160 MG Bactrim DS 800-160 MG 4-12 00:00: 00 08-27 00:00 :00 No 1{table t} BID Bactrim DS 800-160 MG ferrous sulfate 325 mg (65 mg iron) tablet 9- 00:00: 00 11-24 00:00 :00 No 325mg Take 1 tablet by mouth 2 (two) times daily. [facility] ibuprofen 600 mg tablet 01-13 00:00: 00 11-24 00:00 :00 No 600mg Take 1 tablet by mouth every 6 (six) hours as needed for Pain (scale 1-3) or Pain (scale 4-6) (Pain). Take with food or milk. [facility] Sertraline HCl 25 MG Sertraline HCl 25 MG No 1{table t} QD Sertraline HCl 25 MG Lorazepam 0.5 MG Lorazepam 0.5 MG No 1{table t_at_be dtime_a s_neede d} QD Lorazepam 0.5 MG Immunizations Ordered Immunization Name Filled Immunization Name Date Status Comments Source [facility] 2018-01-13 00:00:00 Completed [facility] MMR 2018-01-13 00:00:00 Completed [facility] 2018-01-13 00:00:00 Completed [facility] MMR 2018-01-13 00:00:00 Completed [facility] MMR 2018-01-13 00:00:00 Completed [facility] MMR 2018-01-13 00:00:00 Completed [facility] 2018-01-13 00:00:00 Completed [facility] MMR 2018-01-13 00:00:00 Completed [facility] MMR 2018-01-13 00:00:00 Completed [facility] MMR 2018-01-13 00:00:00 Completed [facility] MMR 2018-01-13 00:00:00 Completed [facility] MMR 2018-01-13 00:00:00 Completed [facility] MMR 2018-01-13 00:00:00 Completed [facility] MMR 2018-01-13 00:00:00 Completed [facility] TDAP 2017-11-12 00:00:00 Completed [facility] TDAP 2017-11-12 00:00:00 Completed [facility] TDAP 2017-11-12 00:00:00 Completed [facility] TDAP 2017-11-12 00:00:00 Completed [facility] TDAP 2017-11-12 00:00:00 Completed [facility] TDAP 2017-11-12 00:00:00 Completed [facility] TDAP 2017-11-12 00:00:00 Completed [facility] TDAP 2017-11-12 00:00:00 Completed [facility] TDAP 2017-11-12 00:00:00 Completed [facility] TDAP 2017-11-12 00:00:00 Completed [facility] TDAP 2017-11-12 00:00:00 Completed [facility] TDAP 2017-11-12 00:00:00 Completed [facility] TDAP 2017-11-12 00:00:00 Completed [facility] TDAP 2017-11-12 00:00:00 Completed [facility] TDAP 2016-03-15 00:00:00 Completed [facility] TDAP 2016-03-15 00:00:00 Completed [facility] TDAP 2016-03-15 00:00:00 Completed [facility] TDAP 2016-03-15 00:00:00 Completed [facility] TDAP 2016-03-15 00:00:00 Completed [facility] TDAP 2016-03-15 00:00:00 Completed [facility] TDAP 2016-03-15 00:00:00 Completed [facility] TDAP 2016-03-15 00:00:00 Completed [facility] TDAP 2016-03-15 00:00:00 Completed [facility] TDAP 2016-03-15 00:00:00 Completed [facility] TDAP 2016-03-15 00:00:00 Completed [facility] TDAP 2016-03-15 00:00:00 Completed [facility] TDAP 2016-03-15 00:00:00 Completed [facility] TDAP 2016-03-15 00:00:00 Completed [facility] Influenza Virus Vaccine Quad IM 3+ YRS 2016-02-24 00:00:00 Completed [facility] Influenza Virus Vaccine Quad IM 3+ YRS 2016-02-24 00:00:00 Completed [facility] Influenza Virus Vaccine Quad IM 3+ YRS 2016-02-24 00:00:00 Completed [facility] Influenza Virus Vaccine Quad IM 3+ YRS 2016-02-24 00:00:00 Completed [facility] Influenza Virus Vaccine Quad IM 3+ YRS 2016-02-24 00:00:00 Completed [facility] Influenza Virus Vaccine Quad IM 3+ YRS 2016-02-24 00:00:00 Completed [facility] Influenza Virus Vaccine Quad IM 3+ YRS 2016-02-24 00:00:00 Completed [facility] Influenza Virus Vaccine Quad IM 3+ YRS 2016-02-24 00:00:00 Completed [facility] Influenza Virus Vaccine Quad IM 3+ YRS 2016-02-24 00:00:00 Completed [facility] Influenza Virus Vaccine Quad IM 3+ YRS 2016-02-24 00:00:00 Completed [facility] Influenza Virus Vaccine Quad IM 3+ YRS 2016-02-24 00:00:00 Completed [facility] Influenza Virus Vaccine Quad IM 3+ YRS 2016-02-24 00:00:00 Completed [facility] Influenza Virus Vaccine Quad IM 3+ YRS 2016-02-24 00:00:00 Completed [facility] Influenza Virus Vaccine Quad IM 3+ YRS 2016-02-24 00:00:00 Completed [facility] Influenza Virus Vaccine Quad IM 3+ YRS Unknown Completed [facility] TDAP Unknown Completed [facility] TDAP Unknown Completed [facility] MMR Unknown Completed [facility] Influenza Virus Vaccine Quad IM 3+ YRS Unknown Completed [facility] TDAP Unknown Completed [facility] TDAP Unknown Completed [facility] MMR Unknown Completed [facility] Influenza Virus Vaccine Quad IM 3+ YRS Unknown Completed [facility] TDAP Unknown Completed [facility] TDAP Unknown Completed [facility] MMR Unknown Completed [facility] Influenza Virus Vaccine Quad IM 3+ YRS Unknown Completed [facility] TDAP Unknown Completed [facility] TDAP Unknown Completed [facility] MMR Unknown Completed [facility] Influenza Virus Vaccine Quad IM 3+ YRS Unknown Completed [facility] TDAP Unknown Completed [facility] TDAP Unknown Completed [facility] MMR Unknown Completed [facility] Influenza Virus Vaccine Quad IM 3+ YRS Unknown Completed [facility] TDAP Unknown Completed [facility] TDAP Unknown Completed [facility] MMR Unknown Completed [facility] Influenza Virus Vaccine Quad IM 3+ YRS Unknown Completed [facility] TDAP Unknown Completed [facility] TDAP Unknown Completed [facility] MMR Unknown Completed [facility] Influenza Virus Vaccine Quad IM 3+ YRS Unknown Completed [facility] TDAP Unknown Completed [facility] TDAP Unknown Completed [facility] MMR Unknown Completed [facility] Influenza Virus Vaccine Quad IM 3+ YRS Unknown Completed [facility] TDAP Unknown Completed [facility] TDAP Unknown Completed [facility] MMR Unknown Completed [facility] Influenza Virus Vaccine Quad IM 3+ YRS Unknown Completed [facility] TDAP Unknown Completed [facility] TDAP Unknown Completed [facility] MMR Unknown Completed [facility] Influenza Virus Vaccine Quad IM 3+ YRS Unknown Completed [facility] TDAP Unknown Completed [facility] TDAP Unknown Completed [facility] MMR Unknown Completed [facility] Influenza Virus Vaccine Quad IM 3+ YRS Unknown Completed [facility] TDAP Unknown Completed [facility] TDAP Unknown Completed [facility] MMR Unknown Completed [facility] Influenza Virus Vaccine Quad IM 3+ YRS Unknown Completed [facility] TDAP Unknown Completed [facility] TDAP Unknown Completed [facility] MMR Unknown Completed [facility] Influenza Virus Vaccine Quad IM 3+ YRS Unknown Completed [facility] TDAP Unknown Completed [facility] TDAP Unknown Completed [facility] MMR Unknown Completed [facility] Influenza Virus Vaccine Quad IM 3+ YRS Unknown Completed [facility] TDAP Unknown Completed [facility] TDAP Unknown Completed [facility] MMR Unknown Completed [facility] Influenza Virus Vaccine Quad IM 3+ YRS Unknown Completed [facility] TDAP Unknown Completed [facility] TDAP Unknown Completed [facility] MMR Unknown Completed [facility] Influenza Virus Vaccine Quad IM 3+ YRS Unknown Completed [facility] TDAP Unknown Completed [facility] TDAP Unknown Completed [facility] MMR Unknown Completed [facility] Influenza Virus Vaccine Quad IM 3+ YRS Unknown Completed [facility] TDAP Unknown Completed [facility] TDAP Unknown Completed [facility] MMR Unknown Completed [facility] Influenza Virus Vaccine Quad IM 3+ YRS Unknown Completed [facility] TDAP Unknown Completed [facility] TDAP Unknown Completed [facility] MMR Unknown Completed [facility] Vital Signs Vital Name Observation Time Observation Value Comments Primitivo garrett Systolic blood pressure 2023-08-20 18:03:00 137 mm[Hg] [facility] Diastolic blood pressure 2023-08-20 18:03:00 78 mm[Hg] [facility] Heart rate 2023-08-20 18:03:00 110 /min Unive [facility] Body temperature 2023-08-20 18:03:00 36.72 Sally [facility] Respiratory rate 2023-08-20 18:03:00 17 /min [facility] Body height 2023-08-20 18:03:[address] [facility] Body weight 2023-08-20 18:03:[address] [facility] BMI 2023-08-20 18:03:00 38.84 kg/m2 [facility] Systolic blood pressure 2023-07-23 16:05:00 115 mm[Hg] [facility] Diastolic blood pressure 2023-07-23 16:05:00 77 mm[Hg] [facility] Heart rate 2023-07-23 16:05:00 121 /min Unive [facility] Body temperature 2023-07-23 16:05:00 36.39 Sally [facility] Respiratory rate 2023-07-23 16:05:00 17 /min [facility] Body height 2023-07-23 16:05:[address] [facility] Body weight 2023-07-23 16:05:[address] [facility] BMI 2023-07-23 16:05:00 38.01 kg/m2 [facility] Systolic blood pressure 2023-06-25 19:25:00 138 mm[Hg] [facility] Diastolic blood pressure 2023-06-25 19:25:00 80 mm[Hg] [facility] Heart rate 2023-06-25 19:25:00 116 /min Unive [facility] Body temperature 2023-06-25 19:25:00 36.56 Sally [facility] Respiratory rate 2023-06-25 19:25:00 19 /min [facility] Body height 2023-06-25 19:25:00 165.1 cm [facility] Body weight 2023-06-25 19:25:00 103.783 kg [facility] BMI 2023-06-25 19:25:00 38.07 kg/m2 [facility] Systolic blood pressure 2023-04-15 21:34:00 134 mm[Hg] [facility] Diastolic blood pressure 2023-04-15 21:34:00 88 mm[Hg] [facility] Heart rate 2023-04-15 21:33:00 102 /min [facility] Body temperature 2023-04-15 21:33:00 36.5 Sally [facility] Respiratory rate 2023-04-15 21:33:00 18 /min [facility] Body height 2023-04-15 21:33:00 165.1 cm [facility] Body weight 2023-04-15 21:33:[address] [facility] BMI 2023-04-15 21:33:00 36.91 kg/m2 [facility] Oxygen saturation in Arterial blood by Pulse oximetry 2023-04-15 21:33:00 99 /min [facility] Systolic blood pressure 2023-04-01 18:38:00 118 mm[Hg] [facility] Diastolic blood pressure 2023-04-01 18:38:00 82 mm[Hg] [facility] Heart rate 2023-04-01 18:38:00 92 /min [facility] Body temperature 2023-04-01 18:38:00 37.11 Sally [facility] Respiratory rate 2023-04-01 18:38:00 18 /min [facility] Body weight 2023-04-01 18:38:[address] [facility] BMI 2023-04-01 18:38:00 37.18 kg/m2 [facility] Oxygen saturation in Arterial blood by Pulse oximetry 2023-04-01 18:38:00 92 /min [facility] Systolic blood pressure 2023-03-29 16:56:00 119 mm[Hg] [facility] Diastolic blood pressure 2023-03-29 16:56:00 73 mm[Hg] [facility] Heart rate 2023-03-29 16:56:00 105 /min [facility] Body weight 2023-03-29 16:56:00 99.882 kg [facility] BMI 2023-03-29 16:56:00 36.64 kg/m2 [facility] Systolic blood pressure 2023-01-07 21:48:00 122 mm[Hg] [facility] Diastolic blood pressure 2023-01-07 21:48:00 81 mm[Hg] [facility] Heart rate 2023-01-07 21:48:00 112 /min [facility] Body temperature 2023-01-07 21:48:00 37.28 Sally [facility] Respiratory rate 2023-01-07 21:48:00 20 /min [facility] Body weight 2023-01-07 21:48:[address] [facility] BMI 2023-01-07 21:48:00 37.44 kg/m2 [facility] Oxygen saturation in Arterial blood by Pulse oximetry 2023-01-07 21:48:00 99 /min [facility] Systolic blood pressure 2022-04-15 15:33:00 120 mm[Hg] [facility] Diastolic blood pressure 2022-04-15 15:33:00 78 mm[Hg] [facility] Heart rate 2022-04-15 15:33:00 122 /min [facility] Body temperature 2022-04-15 15:33:00 37.83 Sally [facility] Respiratory rate 2022-04-15 15:33:00 17 /min [facility] Body height 2022-04-15 15:33:00 165.1 cm [facility] Body weight 2022-04-15 15:33:00 96.934 kg [facility] BMI 2022-04-15 15:33:00 35.56 kg/m2 [facility] Oxygen saturation in Arterial blood by Pulse oximetry 2022-04-15 15:33:00 98 /min [facility] Systolic blood pressure 2022-03-07 16:02:00 116 mm[Hg] [facility] Diastolic blood pressure 2022-03-07 16:02:00 73 mm[Hg] [facility] Heart rate 2022-03-07 16:02:00 88 /min [facility] Body temperature 2022-03-07 16:02:00 36.89 Sally [facility] Respiratory rate 2022-03-07 16:02:00 18 /min [facility] Body height 2022-03-07 16:02:00 165.1 cm [facility] Body weight 2022-03-07 16:02:00 96.701 kg [facility] BMI 2022-03-07 16:02:00 35.48 kg/m2 [facility] Oxygen saturation in Arterial blood by Pulse oximetry 2022-03-07 16:02:00 100 /min [facility] Systolic blood pressure 2021-11-24 19:33:00 138 mm[Hg] [facility] Diastolic blood pressure 2021-11-24 19:33:00 81 mm[Hg] [facility] Heart rate 2021-11-24 19:33:00 103 /min [facility] Body temperature 2021-11-24 19:33:00 36.89 Sally [facility] Respiratory rate 2021-11-24 19:33:00 18 /min [facility] Body height 2021-11-24 19:33:00 165.1 cm [facility] Body weight 2021-11-24 19:33:00 99.791 kg [facility] BMI 2021-11-24 19:33:00 36.61 kg/m2 [facility] height 2020-09-07 16:30:00 65 [in_i] Commo n [facility] weight 2020-09-07 16:30:00 211.9 [lb_av] Co mmon [facility] temperature 2020-09-07 16:30:00 96.9 [degF] Com [facility] bmi 2020-09-07 16:30:00 35.26 kg/m2 Comm on [facility] oximetry 2020-09-07 16:30:00 98 % Commo n [facility] respiratory rate 2020-09-07 16:30:00 17 /min Common [facility] blood pressure systolic 2020-09-07 16:30:00 127 mm[Hg] [facility] blood pressure diastolic 2020-09-07 16:30:00 69 mm[Hg] [facility] height 2020-08-16 14:40:00 65 [in_i] Commo n [facility] weight 2020-08-16 14:40:00 211.6 [lb_av] Co on [facility] temperature 2020-08-16 14:40:00 97.3 [degF] Com mon [facility] bmi 2020-08-16 14:40:00 35.21 kg/m2 Comm on [facility] oximetry 2020-08-16 14:40:00 100 % Commo n [facility] respiratory rate 2020-08-16 14:40:00 17 /min [facility] blood pressure systolic 2020-08-16 14:40:00 125 mm[Hg] [facility] blood pressure diastolic 2020-08-16 14:40:00 75 mm[Hg] [facility] Procedures Procedure Date / Time Performed Performing Clinician Source ALPHA FETOPROTEIN-MATERNAL SER 2023-08-20 18:45:00 Carito Gleason [facility] POCT URINALYSIS 2023-08-20 18:03:00 Carito Gleason [facility] POCT URINALYSIS 2023-07-23 00:00:00 Carito Gleason [facility] GLUCOSE 1 HOUR POST PRANDIAL 2023-06-25 20:26:00 Carito Gleason [facility] THYROID STIMULATING HORMONE 2023-06-25 20:26:00 Carito Gleason [facility] CBC WITH DIFF 2023-06-25 20:26:00 Carito Gleason [facility] HEPATITIS B SURFACE ANTIGEN 2023-06-25 20:26:00 Carito Gleason [facility] HCV ANTIBODY 2023-06-25 20:26:00 [facility] 2023-06-25 20:26:00 Carito Gleason [facility] HIV 1/2 AG-AB WITH REFLEX 2023-06-25 20:26:00 Carito Gleason [facility] POCT TEST 2023-06-25 19:19:00 Yolanda Gleason [facility] POCT URINALYSIS W/O SPECIFIC GRAVITY 2023-06-25 19:19:00 Carito Gleason [facility] REPORT OF 2023-06-24 06:01:00 Doctor Venus nassigned, [place] [facility] PAP SMEAR-LIQUID BASED-CP 2023-04-15 21:58:00 Vonda Bunch [facility] CONSENT FOR CONTRACEPTION 2023-04-15 06:01:00 Doctor Unassigned, [place] [facility] POCT TEST 2023-04-15 00:00:00 Vonda Bunch [facility] POCT MOLECULAR FLU 2023-04-01 18:49:00 Unknown, Attend ing [facility] CONSENT FOR CONTRACEPTION 2023-03-29 06:01:00 Doctor Unassigned, [place] [facility] CONSENT/REFUSAL FOR DIAGNOSIS AND TREATMENT 2023-01-07 21:41:16 Doctor Unassigned, [place] [facility] ASSIGNMENT OF BENEFITS 2023-01-07 21:41:00 Docto r Unassigned, [place] [facility] POCT SARS-COV-2 ANTIGEN (BINAX NOW) 2023-01-07 21:34:00 Miguel Ángel Tavarez [facility] POCT MOLECULAR FLU 2022-04-15 15:39:00 Unknown, Attend [facility] POCT MOLECULAR STREP 2022-04-15 15:38:00 Unknown, Attsheron farr [facility] POCT MOLECULAR FLU 2022-03-07 16:11:00 Unknown, Attend [facility] Encounters Start Date/Time End Date/Time Encounter Type Admission Type Attending [facility] Care Facility Care Department Encounter ID Source 2021-06-07 13:12:47 [facility] [id number] [facility] 2021-06-07 12:57:23 [facility] [id number] [facility] 2021-06-07 12:50:05 [facility] [id number] [facility] 2021-06-07 12:48:30 [facility] [id number] [facility] 2023-09-10 00:00:00 2023-09-10 00:00:00 Case Management Carito Gleason [facility] CUTTING INSPECTOR [facility] 1.2.840.114 350.1.13.10 4.2.7.2.686 [id number] [facility] 2023-09-09 13:00:00 2023-09-09 13:00:00 Outpatient NATALYA FISHMAN SANGEETA [facility] [id number] [facility] 2023-08-20 12:45:00 2023-08-20 13:43:07 Outpatient CARITO FONTANA [facility] [id number] [facility] 2023-08-20 12:45:00 2023-08-20 13:43:07 Routine Visit PavelYolanda dyeadis Issa [facility] CUTTING INSPECTOR [facility] CHILD [facility] 1.2840.114 350.1.13.10 4.2.7.2.686 [id number] [facility] 2023-07-23 11:00:00 2023-07-23 11:30:38 Outpatient R CARITO GLEASON [facility] [id number] [facility] 2023-07-23 11:00:00 2023-07-23 11:30:38 Routine Visit OctavioYolanda fitzgeraldnda Maegan [facility] CUTTING INSPECTOR [facility] & CHILD [facility] 1.0.114 350.1.13.10 4.2.7.2.686 [id number] [facility] 2023-06-26 00:00:00 2023-06-26 00:00:00 Patient Secure [facility] & CHILD [facility] 1..114 350.1.13.10 4.2.7.2.686 [id number] 107 [id number] [facility] 2023-06-25 13:45:00 2023-06-25 14:34:23 Outpatient R OCTAVIOLia CARITO [facility] [id number] [facility] 2023-06-25 13:45:00 2023-06-25 14:34:23 Initial Visit OctavioliaCarito [facility] CUTTING INSPECTOR [facility] & CHILD [facility] 1..114 350.1.13.10 4.2.7.2.686 [id number] [facility] 2023-06-24 00:00:00 2023-06-24 00:00:00 Orders Only Doctor Unassigned, [place] [facility] 1.0.114 350.1.13.10 4.2.7.2.686 [id number] [facility] 2023-04-15 15:30:00 2023-04-15 16:01:09 Outpatient R MORENO-JAE S, VONDA MORENO-JAE S, VONDA [facility] [id number] [facility] 2023-04-15 15:30:00 2023-04-15 16:01:09 Office Visit Moreno-Jae s Vonda [facility] 1.840.114 350.1.13.10 4.2.7.2.686 [id number] [facility] 2023-04-15 00:00:00 2023-04-15 00:00:00 Orders Only Doctor Unassigned, [place] [facility] 1.84.114 350.1.13.10 4.2.7.2.686 [id number] [facility] 2023-04-01 12:20:00 2023-04-01 13:05:05 Outpatient R SHANNON EDDY [facility] [id number] [facility] 2023-04-01 12:20:00 2023-04-01 12:40:00 Urgent Care Shannon Eddy Unknown, Attending [facility] 1..840.114 350.1.13.10 4.2.7.2.686 [id number] [facility] 2023-03-29 11:00:00 2023-03-29 11:17:57 Outpatient R MORENO-JAE S, VONDA MORENO-JAE S, VONDA [facility] [id number] [facility] 2023-03-29 11:00:00 2023-03-29 11:17:57 Office Visit Moreno-Jae s Vonda [facility] 1..840.114 350.1.13.10 4.2.7.2.686 [id number] 134 [id number] [facility] 2023-03-29 00:00:00 2023-03-29 00:00:00 Orders Only Doctor Unassigned, [place] [facility] 1.2840.114 350.1.13.10 4.2.7.2.686 [id number] [facility] 2023-01-07 16:40:00 2023-01-07 16:52:58 Outpatient R MIGUEL ÁNGEL TAVAREZ [facility] [id number] [facility] 2023-01-07 16:40:00 2023-01-07 16:52:58 Urgent Care Miguel Ángel Tavarez Unknown, Attending [facility] 1.840.114 350.1.13.10 4.2.7.2.686 [id number] [facility] 2023-01-07 00:00:00 2023-01-07 00:00:00 Orders Only Doctor Unassigned, [place] [facility] 1..114 350.1.13.10 4.2.7.2.686 [id number] [facility] 2023-01-07 00:00:00 2023-01-07 00:00:00 Letter (Out) Miguel Ángel Tavarez [facility] 1.84.114 350.1.13.10 4.2.7.2.686 [id number] [facility] 2022-04-30 00:00:00 2022-04-30 00:00:00 Patient Secure Msg RodriguezSheree [facility] NAL BUILD[facility] 1.2840.114 350.1.13.10 4.2.7.2.686 [id number] 134 [id number] [facility] 2022-04-29 00:00:00 2022-04-29 00:00:00 Refill Sheree Rodriguez [facility] 1.2.840.114 350.1.13.10 4.2.7.2.686 [id number] [facility] 2022-04-29 00:00:00 2022-04-29 00:00:00 Refill Sheree Rodriguez [facility] 1.2.840.114 350.1.13.10 4.2.7.2.686 [id number] [facility] 2022-04-15 10:00:00 2022-04-15 10:37:41 Outpatient R SURJIT SHANNON [facility] [id number] [facility] 2022-04-15 10:00:00 2022-04-15 10:37:41 Urgent Care Meena Washington, [facility] 1..840.114 350.1.13.10 4.2.7.2.686 [id number] 370 [id number] [facility] 2022-04-15 00:00:00 2022-04-15 00:00:00 Letter (Out) [facility] 1.2.840.114 350.1.13.10 4.2.7.2.686 [id number] [facility] 2022-03-07 11:00:00 2022-03-07 11:20:00 Urgent Care Fredrick Acevedo, Attending [facility] OFFICE BUILDING 1..840.114 350.1.13.10 4.2.7.2.686 [id number] [facility] 2022-03-07 11:00:00 2022-03-07 11:00:00 Outpatient R FREDRICK ACEVEDO [facility] [id number] [facility] 2022-03-07 00:00:00 2022-03-07 00:00:00 Letter (Out) CurtisFredrick [facility] 1.20.114 350.1.13.10 4.2.7.2.686 [id number] [facility] 2022-01-29 00:00:00 2022-01-29 00:00:00 Case Management Les [facility] BUILDING 1.20.114 350.1.13.10 4.2.7.2.686 [id number] 134 [id number] [facility] 2022-01-29 00:00:00 2022-01-29 00:00:00 Patient Secure Msg Les [facility] BUILDING 1..114 350.1.13.10 4.2.7.2.686 [id number] [facility] 2021-12-06 00:00:00 2021-12-06 00:00:00 Patient Secure Msg Parker Richard [facility] 1.2840.114 350.1.13.10 4.2.7.2.686 [id number] [facility] 2021-11-27 00:00:00 2021-11-27 00:00:00 Case Management Richard Canales [facility] 1.20.114 350.1.13.10 4.2.7.2.686 [id number] [facility] 2021-11-24 16:15:00 2021-11-24 16:15:00 Office Visit Parker Richard [facility] 1.20.114 350.1.13.10 4.2.7.2.686 [id number] 134 [id number] [facility] 2021-11-24 16:15:00 2021-11-24 14:53:52 Outpatient R RICHARD CANALES [facility] [id number] Gabriella s [facility] 2021-11-24 00:00:00 2021-11-24 00:00:00 Patient Secure Msg [facility] 1.2.840.114 350.1.13.10 4.2.7.2.686 [id number] [facility] 2021-08-16 00:00:00 2021-08-16 00:00:00 Patient Secure Msg Ashely Shepard [facility] 1.2.840.114 350.1.13.10 4.2.7.2.686 [id number] 134 [id number] [facility] 2021-08-10 00:00:00 2021-08-10 00:00:00 Case Management Sheree Rodriguez [facility] 1.2.840.114 350.1.13.10 4.2.7.2.686 [id number] [facility] 2021-08-09 14:30:00 2021-08-09 15:21:31 Office Visit [facility] 1.2.840.114 350.1.13.10 4.2.7.2.686 [id number] [facility] 2021-08-09 14:30:00 2021-08-09 15:21:31 Outpatient R SHEREE RODRIGUEZ [facility] [id number] [facility] 2021-08-09 14:30:00 2021-08-09 14:30:00 Outpatient R SHEREE RODRIGUEZ [facility] [id number] [facility] 2021-08-09 00:00:00 2021-08-09 00:00:00 Letter (Out) Sheree Rodriguez [facility] NAL BUILDING 1.2.840.114 350.1.13.10 4.2.7.2.686 [id number] [facility] 2021-06-29 00:00:00 2021-06-29 00:00:00 Letter (Out) RubiRianna [facility] 1.2.840.114 350.1.13.10 4.2.7.2.686 [id number] [facility] 2021-06-28 09:20:00 2021-06-28 09:54:13 Outpatient SHARON HOWE III [facility] [id number] [facility] 2021-06-28 09:20:00 2021-06-28 09:40:00 Urgent Care Sharon Carpio Unknown, Attending Fredrick Acevedo [facility] 1..840.114 350.1.13.10 4.2.7.2.686 [id number] [facility] 2021-05-27 00:00:00 2021-05-27 00:00:00 Telephone Jenn Marie [facility] 1.2.840.114 350.1.13.10 4.2.7.2.686 [id number] [facility] 2021-05-26 11:45:00 2021-05-26 12:00:00 Laboratory Only Only, Ang Db Test Francisco [facility] 1.2.840.114 350.1.13.10 4.2.7.2.686 [id number] [facility] 2021-05-26 11:45:00 2021-05-26 11:45:00 Outpatient R FRANCISCO YOSVANY [facility] [id number] [facility] 2021-05-26 00:00:00 2021-05-26 00:00:00 Orders Only Doctor Unassigned, [place] [facility] 1.2.840.114 350.1.13.10 4.2.7.2.686 [id number] [facility] 2021-05-18 00:00:00 2021-05-18 00:00:00 Patient Secure [facility] 1.2.840.114 350.1.13.10 4.2.7.2.686 [id number] 134 [id number] [facility] 2021-05-01 00:00:00 2021-05-01 00:00:00 Patient Secure Sheree Samuels [facility] 1.2.840.114 350.1.13.10 4.2.7.2.686 [id number] [facility] 2021-05-01 00:00:00 2021-05-01 00:00:00 Telephone Sheree Rodriguez [facility] 1.2.840.114 350.1.13.10 4.2.7.2.686 [id number] 134 [id number] [facility] 2021-05-01 00:00:00 2021-05-01 00:00:00 Patient Secure Sheree Samuels [facility] 1.2.840.114 350.1.13.10 4.2.7.2.686 [id number] [facility] 2021-02-03 00:00:00 2021-02-03 00:00:00 Patient Secure Sheree Samuels [facility] Building 1.2.840.114 350.1.13.10 4.2.7.2.686 [id number] [facility] 2020-09-07 00:00:00 2020-09-07 00:00:00 OFFICE VISIT EST PT LEVEL 3 STLMLC STLMLC [id number] [facility] 2020-08-29 13:15:00 2020-08-29 13:15:00 Outpatient R SHEREE RODRIGUEZ [facility] [id number] [facility] 2020-08-29 12:34:09 2020-08-29 13:04:09 Telemedici ne Visit Sheree Rodriguez [facility] 1.2.840.114 350.1.13.10 4.2.7.2.686 [id number] [facility] 2020-08-29 12:34:09 2020-08-29 13:04:09 Telemedici ne Visit Sheree Rodriguez [facility] 1.2.840.114 350.1.13.10 4.2.7.2.686 [id number] 134 [id number] 2020-08-22 00:00:00 2020-08-22 00:00:00 (TEL) STLMLC STLMLC [id number] [facility] 2020-08-16 00:00:00 2020-08-16 00:00:00 PREV VISIT NEW AGE 18-39 STLMLC STLMLC [id number] [facility] 2020-08-02 00:00:00 2020-08-02 00:00:00 Patient Outreach Arnaldo Brewster [facility] 1.2.840.114 350.1.13.10 4.2.7.2.686 [id number] 2020-08-02 00:00:00 2020-08-02 00:00:00 Patient Outreach Arnaldo Brewster [facility] 1.2.840.114 350.1.13.10 4.2.7.2.686 [id number] [facility] 2020-07-28 08:44:06 2020-07-28 09:14:06 Office Visit VanSheree purcell [facility] 1.2.840.114 350.1.13.10 4.2.7.2.686 [id number] 134 [id number] 2020-07-28 08:44:06 2020-07-28 09:14:06 [facility] 1.2.840.114 350.1.13.10 4.2.7.2.686 [id number] [facility] 2020-07-28 08:30:00 2020-07-28 08:30:00 Outpatient R SHEREE RODRIGUEZ [facility] [id number] [facility] Results Test Description Test Time Test Comments Results Result Co mments Source [facility] URINALYSIS W SPECIFIC [id number] 18:03:00* Test Item Value Reference Range Interpretation Comme nts POCT U SP GRAV (test code = 3255) . 1.005-1.025 POCT PH U (test code = 3254) 7 mg/dl 5-8 POCT U LEUK EST (test code = 3263) Neg Negative - Negative POCT U NIT (test code = 3262) Neg Negative - Negati ve POCT U PROT (test code = 3259) Trace Negative - Negat feng POCT U GLU (test code = 3256) Nml Negative - Negati ve POCT U KETONE (test code = 3258) None Negative - Neg ative POCT U UROBILI (test code = 3260) . 0.2-1 POCT U BILI (test code = 3261) . Negative - Negat feng POCT U BLD (test code = 3257) Neg Negative - Negati ve POCT U COLOR (test code = 3266) . POCT U APPEAR (test code = 3267) . [facility] SPECIFIC [id number] 16:14:00* Test Item Value Reference Range Interpretation Comme nts POCT U SP GRAV (test code = 3255) . 1.005-1.025 POCT PH U (test code = 3254) 7 mg/dl 5-8 POCT U LEUK EST (test code = 3263) negative Negative - Negative POCT U NIT (test code = 3262) negative Negative - Negati ve POCT U PROT (test code = 3259) 1+ Negative - Negat feng POCT U GLU (test code = 3256) normal Negative - Negati ve POCT U KETONE (test code = 3258) negative Negative - Neg ative POCT U UROBILI (test code = 3260) . 0.2-1 POCT U BILI (test code = 3261) . Negative - Negat feng POCT U BLD (test code = 3257) negative Negative - Negati ve POCT U COLOR (test code = 3266) . POCT U APPEAR (test code = 3267) . [facility] URINALYSIS W SPECIFIC [id number] 16:14:00* Test Item Value Reference Range Interpretation Comme nts POCT U SP GRAV (test code = 3255) . 1.005-1.025 POCT PH U (test code = 3254) 7 mg/dl 5-8 POCT U LEUK EST (test code = 3263) negative Negative - Negative POCT U NIT (test code = 3262) negative Negative - Negati ve POCT U PROT (test code = 3259) 1+ Negative - Negat feng POCT U GLU (test code = 3256) normal Negative - Negati ve POCT U KETONE (test code = 3258) negative Negative - Neg ative POCT U UROBILI (test code = 3260) . 0.2-1 POCT U BILI (test code = 3261) . Negative - Negat feng POCT U BLD (test code = 3257) negative Negative - Negati ve POCT U COLOR (test code = 3266) . POCT U APPEAR (test code = 3267) . [facility] Urinalysis w/o Specific [id number] 19:20:00* Test Item Value Reference Range Interpretation Comme nts POCT PH U (test code = 3254) 5 mg/dl 5-8 POCT U LEUK EST (test code = 3263) ++ Negative - Negative POCT U NIT (test code = 3262) neg Negative - Negati ve POCT U PROT (test code = 3259) trace Negative - Negat feng POCT U GLU (test code = 3256) neg Negative - Negati ve POCT U KETONE (test code = 3258) neg Negative - Neg ative POCT U BLD (test code = 3257) trace Negative - Negati ve [facility] [id number] 19:19:00* Test Item Value Reference Range Interpretation Comme nts POCT PREG (test code = 1605) Positive On board controls acceptable with C Line (test code = 3574) Yes POCT PREG LOT # (test code = 3575) POCT PREG TEST DATE ( test code = 3576) [facility] [id number] 21:32:00* Test Item Value Reference Range Interpretation Comme nts POCT PREG (test code = 1605) Negative On board controls acceptable with C Line (test code = 3574) Yes POCT PREG LOT # (test code = 3575) POCT PREG TEST DATE ( test code = 3576) [facility] [id number] 21:32:00* Test Item Value Reference Range Interpretation Comme nts POCT PREG (test code = 1605) Negative On board controls acceptable with C Line (test code = 3574) Yes POCT PREG LOT # (test code = 3575) POCT PREG TEST DATE ( test code = 3576) [facility] MOLECULAR [id number] 18:53:30* Test Item Value Reference Range Interpretation Comme nts POCT Molecular FluB (test co de = 76820-3) Positive Negative A Lab Interpretation (test cod e = 27164-4) Abnormal [facility] SARS-COV-2 ANTIGEN (BINAX NOW)2023-01-07 21:49:00* Test Item Value Reference Range Interpretation Comme nts POCT SARS-COV-2 ANTIGEN (ron t code = 18306-5) Positive Not Detected A On board controls acceptable with C Line (test code = 3574) Yes Lab Interpretation (test cod e = 14147-6) Abnormal [facility] MOLECULAR [id number] 15:51:31* Test Item Value Reference Range Interpretation Comme nts POCT Molecular FluA (test co de = 56221-5) Negative Negative POCT Molecular FluB (test co de = 18171-0) Negative Negative Lab Interpretation (test cod e = 74584-7) Normal [facility] MOLECULAR [id number] 15:51:31* Test Item Value Reference Range Interpretation Comme nts POCT Molecular FluA (test co de = 37417-6) Negative Negative POCT Molecular FluB (test co de = 67692-9) Negative Negative Lab Interpretation (test cod e = 56072-8) Normal [facility] MOLECULAR [id number] 15:42:53* Test Item Value Reference Range Interpretation Comme nts POCT Molecular Strep (test c ode = 33842-9) Positive Negative A Lab Interpretation (test cod e = 44739-2) Abnormal [facility] MOLECULAR [id number] 15:42:53* Test Item Value Reference Range Interpretation Comme nts POCT Molecular Strep (test c ode = 61914-4) Positive Negative A Lab Interpretation (test cod e = 22645-9) Abnormal [facility] MOLECULAR [id number] 16:16:12* Test Item Value Reference Range Interpretation Comme nts POCT Molecular FluA (test co de = 33350-2) Positive Negative A Lab Interpretation (test cod e = 94558-6) Abnormal [facility] Notes Date/Time Note Provider Source 2023-07-23 11:00:00 [id number]+[id number]/os4Y3710-11-16W66:00:00A ddended by: CARITO GLEASON CNM on: 07/23/2023 01:36 PMModules accepted: Level of Service [id number] [id number]:36:00Addendum [id number] for patient [id number]t C-CDA narrative [address] R[id number] [id number]:36:001.2.840 .[id number]|[id number]. [id number] [facility]"
[2023-09-13 00:39] LABS: Absolute Eosinophils 0.2 K/uL (0-0.5); Absolute Lymphocytes (CBC) 2.3 K/uL (0.7-4.9); Absolute Neutrophil 7.9 K/uL (1.8-8.0); Basophils % 0.4 % (0-1.3); Eosinophils % 1.6 % (0-4.4); Hematocrit 32.3 % (36.0-45.0); Hemoglobin 10.4 g/dL (12.0-15.0); Lymphocytes % 20.1 % (15.3-44.8); MCH 24.6 pg (27.0-35.0); MCHC 32.1 g/dL (32.0-36.0); MCV 76.6 fL (80-100); MPV 7.8 fL (7.6-11.3); Monocytes % 8.8 % (3.3-12.3); Neutrophils % 69.1 % (41.7-73.7); Platelets 321 thou/uL (152-406); RBC Red Blood Cell Count 4.22 M/uL (3.86-4.86)
[2023-09-13 01:00] LABS: Anion Gap 11.1 mEq/L (5.0-15.0); Potassium 4.1 mEq/L (3.5-5.1); Troponin High Sensitivity 3.3 pg/mL (<58.9)
--- NOTE | 2023-09-13 01:14 | ER ---
Nurse's Notes [facility] Name: Kera Deng Age: 33 yrs Sex: Female : 1990 Arrival Date: 09/12/2023 Time: 23:17 Bed 5 Private MD: Diagnosis: Anxiety disorder, unspecified Presentation: 09/11 23:52 Chief complaint: Patient states: That she has recently been dealing with increased cm10 stressors and feeling more stressed. Pt states that her anxiety has been increased today. Pt states that she just wanted to get checked out because "my anxiety affects the left side of my body and I had a headache today.". Coronavirus screen: Client denies travel out of the [place] in the last 14 days. At this time, the client does not indicate any symptoms associated with coronavirus-19. Ebola Screen: Patient denies travel to an Ebola-affected area in the 21 days before illness onset. No symptoms or risks identified at this time. Initial Sepsis Screen: Does the patient meet any 2 criteria? HR > 90 bpm. Does the patient have a suspected source of infection? No. Patient's initial sepsis screen is negative. Risk Assessment: Do you want to hurt yourself or someone else? Patient reports no desire to harm self or others. Onset of symptoms was September 12, 2023. 23:52 Method Of Arrival: Ambulatory cm10 23:52 Acuity: MEG 3 cm10 Triage Assessment: 23:58 General: Appears in no apparent distress. Behavior is crying. Pain: Denies pain. Neuro: cm10 No deficits noted. Level of Consciousness is awake, alert, obeys commands, Oriented to person, place, time, situation, Appropriate for age. CRIBBER: 23:58 3, Full Term 2, Living 2, LMP 04/19/2023, Verified, EDC 01/24/2024, cm10 Gestational age from LMP: 21 weeks 0 days Historical: - Allergies: 23:57 No Known Allergies; cm10 - PMHx: 23:57 Anemia; Anxiety; cm10 - Immunization history:: Adult Immunizations up to date. - Infectious Disease History:: Denies. - Social history:: Smoking status: Patient denies any tobacco usage or history of. Screenin/03 00:36 Abuse screen: Denies threats or abuse. Denies injuries from another. Nutritional ha1 screening: No deficits noted. Tuberculosis screening: No symptoms or risk factors identified. 00:[address] [facility] ED Fall Risk Assessment (Adult) History of falling in the last 3 months, km8 including since admission No falls in past 3 months (0 pts) Confusion or Disorientation No (0 pts) Intoxicated or Sedated No (0 pts) Impaired Gait No (0 pts) Mobility Assist Device Used No (0 pt) Altered Elimination No (0 pt) Score/Fall Risk Level 0 - 2 = Low Risk Oriented to surroundings, Maintained a safe environment, Educated pt \\T\\ family on fall prevention, incl call for assistance when getting out of bed, Assessed \\T\\ reinforced patient's understanding of fall precautions. Assessment: 00:00 General: Appears comfortable, Behavior is cooperative. Pain: Complains of pain in left ha1 shoulder Pain does not radiate. Pain currently is 6 out of 10 on a pain scale. Quality of pain is described as aching. Neuro: Level of Consciousness is awake, alert, obeys commands, Oriented to person, place, time, situation. Cardiovascular: Patient's skin is warm and dry. Respiratory: Airway is patent Respiratory effort is even, unlabored, Respiratory pattern is regular, symmetrical. GI: Abdomen is round non-distended, obese. : No signs and/or symptoms were reported regarding the genitourinary system. Derm: Skin is pink, warm \\T\\ dry. Musculoskeletal: Circulation, motion, and sensation intact. Range of motion: intact in all extremities. 01:00 Reassessment: Patient and/or family updated on plan of care and expected duration. Pain ha1 level reassessed. Patient is alert, oriented x 3, equal unlabored respirations, skin warm/dry/pink. Patient states feeling better. Patient states symptoms have improved. Vital Signs: 09/11 23:52 BP 123 / 77; Pulse 105; Resp 18; Temp 98.1; Pulse Ox 100% on R/A; Weight 107.2 kg; cm10 Height 5 ft. 5 in. ; Pain 0/10; 09/12 00:35 BP 106 / 66; Pulse 88; Resp 18 S; Pulse Ox 100% on R/A; km8 01:29 BP 109 / 67; Pulse 89; Resp 16 S; Temp 97.9; Pulse Ox 99% on R/A; ha1 09/11 23:52 Body Mass Index 39.33 (107.20 kg, 165.1 cm) cm10 09/11 23:52 Pain Scale: Adult cm10 ED Course: 09/11 23:19 Patient arrived in ED. ra3 23:24 Mini Rodney PA-C is PHCP. sb4 23:24 Inder Washington MD is Attending Physician. sb4 23:57 Triage completed. cm10 23:58 Arm band placed on Patient placed in an exam room, on a stretcher, on pulse oximetry. cm10 09/12 00:00 Patient has correct armband on for positive identification. Placed in gown. Bed in low ha1 position. Call light in reach. Side rails up X 1. Adult w/ patient. 00:15 Missed attempt(s): 20 gauge in right antecubital area. Bleeding controlled, band aid ha1 applied, catheter tip intact. 00:33 Basic Metabolic Panel Sent. ha1 00:33 CBC with Diff Sent. ha1 00:33 Troponin HS Sent. ha1 00:54 No provider procedures requiring assistance completed. km8 01:30 Provided Education on: follow ups. ha1 01:30 Patient did not have IV access during this emergency room visit. ha1 Administered Medications: No medications were administered Medication: 00:54 VIS not applicable for this client. km8 Outcome: 01:14 Discharge ordered by . sb4 01:30 Discharged to home ambulatory, with family, ha1 01:30 Condition: stable 01:30 Discharge instructions given to patient, family, Instructed on discharge instructions, follow up and referral plans. Demonstrated understanding of instructions, follow-up care, 01:31 Patient left the ED. ha1 Signatures: Divya Abdul RN RN ha1 Mini Rodney PA-C PA-C sb4 Christina West RN RN cm10 Kim Escobedo RN RN km8 Lucero Hopkins ra3 Corrections: (The following items were deleted from the chart) 00:55 00:35 BP 102 / 65; Pulse 92bpm; Resp 18bpm; Spontaneous; Pulse Ox 100% RA; ha1 km8
--- NOTE | 2023-09-13 01:14 | EDPHYS ---
Physician Documentation [facility] Name: Kera Deng Age: 33 yrs Sex: Female : 1990 Arrival Date: 09/12/2023 Time: 23:17 Bed 5 Private MD: ED Physician Inder Washington HPI: 09/12 00:39 This 33 yrs old Black Female presents to ER via Ambulatory with complaints of 21wks sb4 preg,anxiety with left shoulder pain. 00:39 Patient presents with left arm pain that she believes is secondary to her anxiety but sb4 wanted to be sure it was not anything else. She is 21 weeks and has had adequate care, had her 20-week anatomy scan last week that was normal, is due in January. States that she has been very overwhelmed with work and her kids and is unsure how to cope with her. Does have help at home with her mom and her aunt. Denies any prior history of anxiety. Does not take any daily medications for anxiety or depression. 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 - Infectious Disease History:: Denies. - Social history:: Smoking status: Patient denies any tobacco usage or history of. ROS: 09/12 00:39 Constitutional: Negative for fever, chills, and weight loss, sb4 MS/extremity: Positive for Left arm pain, Psych: Positive for anxiety, All other systems are negative, Exam: 00:39 Head/Face: Normocephalic, atraumatic. Eyes: Extra-ocular motions intact. Periorbital sb4 areas with no swelling, redness, or edema. ENT: Mucous membranes moist. Cardiovascular: Regular rate and rhythm with a normal S1 and S2. Respiratory: Lungs have equal breath sounds bilaterally, clear to auscultation and percussion. No rales, rhonchi or wheezes noted. No increased work of breathing, no retractions or nasal flaring. Abdomen/GI: Soft, non-tender, no distension. Skin: Warm, dry with normal turgor. Normal color with no rashes, no lesions, and no evidence of cellulitis. MS/ Extremity: Pulses equal, no cyanosis. Neurovascular intact. Full, normal range of motion. 00:39 Constitutional: The patient appears alert, awake, anxious, Tearful Vital Signs: 09/11 23:52 BP 123 / 77; Pulse 105; Resp 18; Temp 98.1; Pulse Ox 100% on R/A; Weight 107.2 kg; cm10 Height 5 ft. 5 in. ; Pain 0/10; 09/12 00:35 BP 106 / 66; Pulse 88; Resp 18 S; Pulse Ox 100% on R/A; km8 01:29 BP 109 / 67; Pulse 89; Resp 16 S; Temp 97.9; Pulse Ox 99% on R/A; ha1 09/11 23:52 Body Mass Index 39.33 (107.20 kg, 165.1 cm) cm10 09/11 23:52 Pain Scale: Adult cm10 MDM: 09/11 23:42 Patient medically screened. [facility] 09/12 01:13 Data reviewed: vital signs, nurses notes, lab test result(s), EKG, and as a result, I [facility] will discharge patient. Counseling: I had a detailed discussion with the patient and/or guardian regarding the historical points, exam findings, and any diagnostic results supporting the discharge/admit diagnosis, lab results, to return to the emergency department if symptoms worsen or persist or if there are any questions or concerns that arise at home. 09/11 23:54 Order name: Basic Metabolic Panel; Complete Time: 01:01 [facility] 09/11 23:54 Order name: CBC with Diff; Complete Time: 00:45 [facility] 09/11 23:54 Order name: Troponin HS; Complete Time: 01:01 [facility] 09/11 23:54 Order name: Cardiac monitoring; Complete Time: 00:32 [facility] 09/11 23:54 Order name: EKG - Nurse/Tech; Complete Time: 01:09 [facility] 09/11 23:54 Order name: IV Saline Lock; Complete Time: 00:32 [facility] 09/11 23:54 Order name: Labs collected and sent; Complete Time: 00:32 [facility] 09/11 23:54 Order name: O2 Per Protocol; Complete Time: 00:32 sb4 09/11 23:54 Order name: O2 Sat Monitoring; Complete Time: 00:32 sb4 EC:11 Rate is 93 beats/min. Rhythm is regular, Normal Sinus Rhythm. CT interval is normal at sb4 160 msec. QRS interval is normal at 78 msec. QT interval is normal at 350 msec. No Q waves. T waves are Normal. No ST changes noted. Clinical impression: Normal ECG. Interpreted by me. Reviewed by me. Administered Medications: No medications were administered Disposition Summary: 09/13/23 01:14 Discharge Ordered Notes: Location: Home sb4 Problem: new sb4 Symptoms: have improved sb4 Condition: Stable sb4 Diagnosis - Anxiety disorder, unspecified sb4 Followup: sb4 - With: Private Physician - When: As needed - Reason: Recheck today's complaints, Re-evaluation by your physician Discharge Instructions: - Discharge Summary Sheet sb4 - Managing Stress During sb4 Forms: - Work release form ha1 - Patient Portal Instructions sb4 - Leadership Thank You Letter sb4 Signatures: Dispatcher [employer] Inder Mabry MD MD cha Brown, Sophia PA-C PA-C sb4 Christina West, RN RN cm10
[2023-09-13 02:08] VITALS: BP 109/67; TEMP 97.9; O2SAT 99
--- NOTE | 2023-09-13 14:35 | EKG ---
Test Date: 2023-09-13 Test Time: 01:03:37 Social Service Technician: AXEL MEASUREMENT RESULTS: Intervals: Rate: 93 MN: 160 QRSD: 78 QT: 350 QTc: 435 [place]: P: 54 MN: 160 QRS: 54 T: 32 INTERPRETIVE STATEMENTS: Normal sinus rhythm Normal ECG Compared to ECG 04/03/2023 22:28:35 No significant changes Electronically Signed On 09-13-23 14:35:09 CDT by Karan Childers
== END 2023-09-13 01:31 | disposition home or self-care (01) ==
LOC: ER 23:17
DX: O99.342 Other mental disorders complicating pregnancy, second trimester (principal); F41.9 Anxiety disorder, unspecified; Z3A.21 21 weeks gestation of pregnancy
CPT/HCPCS: 36415; 80048; 84484; 85025; 93005; 99283

== ENCOUNTER 2024-01-15 20:38 | Emergency (ER) | payer OTHER ==
--- OUTSIDE RECORDS SUMMARY | 2024-01-15 20:44 | XMS REPORT | Continuity of Care Document ---
Author Name Unknown Address [address] [facility] [address] [place] [address] [facility] thconnect Address [address] [facility] [address] [place] [address] Care Team Providers Care Animal Cytologist Name Role Phone Pcp, Patient Does Not Have A Primary Care Physic paul Davide Parmar Attending Clinician Unavailable VONDA BUNCH Attending Clinician VONDA Locke Attending Clinician GAMA Haskins Attending Clinician Unavailable Debbie Ochoa Attending Clinician + DEBBIE GUIDRY Attending Clinician Unavail able NATALYA SHETH Attending Clinician Unavailable NATALYA SHETH Attending Clinician Unavailable NATALYA SHETH Attending Clinician Unavailable Natalya Sheth MD Attending Clinician [phone] Jesus Manuel Baron MD Attending Clinician [phone] Daryl Yun MD Attending Clinician [phone] CARITO BARRERA Attending Clinician Unavaila ble Bruce CNM, Carito A Attending Clinician +[phone] Bruce CNM, Carito A Attending Clinician [phone] BETTYE CAT Attending Clinician Unavailable BETTYE CAT Attending Clinician Unavailable Ultrasound, Ang-Mfm Attending Clinician Unavaila ANDREW Guzman Attending Clinician Unavailable ANDREW CHARLES Attending Clinician Unavailable Lana Brooks DO Attending Clinician [phone] Visit, [facility] Nurse Attending Clinician Unava meño JIANGPDebbie Attending Clinician + Lab, [facility] Attending Clinician Unavailable JAKE RYAN Attending Clinician Unavailable Zainab Oliver Attending Clinician UnavailJake Ferris MD Attending Clinician [phone] Doctor Unassigned, [place] Attending Clinician U SHANNON Park Attending Clinician Unavailable Surjit SMITH, Shannon Attending Clinician [phone] Unknown, Attending Attending Clinician Unavailab MIGUEL ÁNGEL Sotelo Attending Clinician Unavailable Miguel Ángel Balderrama Attending Clinician [phone] SHEREE RODRIGUEZ Attending Clinician Unavailable Sheree Rodriguez PA-C Attending Clinician [phone] Meena Washington MD Attending Clinician +- [phone] EbFredrcik Shrestha Attending Clinician [phone] FREDRICK ACEVEDO Attending Clinician Unavailable Richard Canales MD Attending Clinician [phone] RICHARD CANALES Attending Clinician Unavailable Gayle Sawyer RN Attending Clinician Unavail jermaine Shepard RN, Ashely Issa Attending Clinician Unavailable Rubi ROBLEDO, Rianna Valdivia Attending Clinician Unavailab SHARON Hernandez III Attending Clinician Unavailprema Carpio III, MD, James C Attending Clinician [phone] Frank ROBLEDO, Jenn Mishra Attending Clinician Unavaila ble Only, Ang Db Test Attending Clinician UnavailYosvany Colindres Attending Clinician YOSVANY BARKER Attending Clinician Unavailable Arnaldo Brewster DO Attending Clinician VONDA BUNCH Admitting Clinician NATALYA Mercado Admitting Clinician Unavailable Natalya Sheth MD Admitting Clinician Payers Payer Name Policy Type Policy Number Effective Date Expirati on Date Source [facility] [id number] 2023 00:00:00 [employer] HMO C1 [id number] 2020 00:00:00 [facility] Problems Condition Name Condition Details Condition Category Status Onset Date Resolution Date Last Treatment Date Treating Clinician Comments Source (spontaneo us vaginal delivery) (spontaneo us vaginal delivery) Disease Active 01-11 00:00: 00 [facility] Single liveborn infant Single liveborn Disease Active 01-11 00:00: 00 [facility] Decreased movement affecting , antepartum Decreased movement affecting , antepartum Disease Active 01-09 00:00: 00 [facility] History of hemorrhage History of hemorrhage Disease Active 01-09 00:00: 00 [facility] History of shoulder dystocia in prior History of shoulder dystocia in prior Disease Active 01-09 00:00: 00 [facility] Gestationa l diabetes mellitus, antepartum Gestationa l diabetes mellitus, antepartum Disease Active 10-17 00:00: 00 Overview: Formattin g of this note might be different from the original. Failed 3hr gtt 11/07 glyburide 2.5. 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 Disease Active 09-16 00:00: 00 [facility] Declines flu vaccine Declines flu vaccine Disease Active 2 00:00: 00 [facility] Scoliosis, unspecifie d Scoliosis, unspecifie d Disease Active 2 00:00: 00 [facility] Generalize d anxiety disorder Generalize d anxiety disorder Disease Active 2022-05 2 00:00: 00 [facility] Obesity (BMI 30-39.9) Obesity (BMI 30-39.9) Disease Active 2022-05 00:00: 00 [facility] Obesity affecting Obesity affecting Disease Active 2022-05 00:00: 00 [facility] 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 Address pp [facility] [id number] Panic disorder [episodic paroxysmal anxiety] Problem Active [facility] [id number] Other obesity due to excess calories Problem Active [facility] Abnormal maternal glucose tolerance, antepartum Abnormal maternal glucose tolerance, antepartum Disease Resolve d 10-17 00:00: 00 2023-11-01 00:00:00 2023-11-01 12:27:13 [facility] Cramping affecting , antepartum Cramping affecting , antepartum Disease Resolve d 2-13 00:00: 00 2023-08-21 00:00:00 2023-08-21 18:46:27 [facility] Back pain affecting Back pain affecting Disease Resolve d 06-25 00:00: 00 2023-08-21 00:00:00 2023-08-21 18:46:30 [facility] Nausea and vomiting during Nausea and vomiting during Disease Resolve d 2015-05 2 00:00: 00 2023-08-21 00:00:00 2023-08-21 18:46:20 [facility] Mixed hyperlipid emia Mixed hyperlipid emia Disease Resolve d 2022-05 2 00:00: 00 2023-06-25 00:00:00 2023-06-25 13:30:25 [facility] Presence of of 52 mg levonorges trel-relea sing intrauteri ne device (IUD) Presence of of 52 mg levonorges trel-relea sing intrauteri ne device (IUD) Disease Resolve d 2017-05 0-24 00:00: 00 2023-06-25 00:00:00 2023-06-25 13:28:56 [facility] Back pain with right-side d sciatica Back pain with right-side d sciatica Disease Resolve d 6-01 00:00: 00 2023-06-25 00:00:00 2023-06-25 13:30:08 [facility] Fatigue, unspecifie d type Fatigue, unspecifie d type Disease Resolve d 0 4-06 00:00: 00 2023-06-25 00:00:00 2023-06-25 13:29:41 [facility] Family history of sickle cell trait Family history of sickle cell trait Disease Resolve d 12-01 00:00: 00 2023-06-25 00:00:00 2023-06-25 13:30:23 [facility] History of abnormal cervical Pap smear History of abnormal cervical Pap smear Disease Resolve d 12-01 00:00: 00 2023-06-25 00:00:00 2023-06-25 13:29:36 [facility] Acanthosis nigricans Acanthosis nigricans Disease Resolve d 12-01 00:00: 00 2023-06-25 00:00:00 2023-06-25 13:30:09 [facility] Yeast infection Yeast infection Disease Resolve d 2017-0 4-04 00:00: 00 2023-04-15 00:00:00 2023-04-15 15:06:06 [facility] Term Term Disease Resolve d 2017-0 9-01 00:00: 00 2021-08-09 00:00:00 2021-08-09 15:41:42 [facility] Excessive weight gain affecting Excessive weight gain affecting Disease Resolve d 2017-0 6-01 00:00: 00 2021-08-09 00:00:00 2021-08-09 15:41:47 [facility] UTI in UTI in Disease Resolve d 0 3-09 00:00: 00 2021-08-09 00:00:00 2021-08-09 15:42:02 [facility] Multiparit y Multiparit y Disease Resolve d 0 3-05 00:00: 00 2021-08-09 00:00:00 2021-08-09 15:41:57 [facility] History of induced hypertensi on History of induced hypertensi on Disease Resolve d 0 3-05 00:00: 00 2021-08-09 00:00:00 2021-08-09 15:41:55 [facility] Supervisio n of high-risk Supervisio n of high-risk Disease Resolve d 0 3-05 00:00: 00 2021-08-09 00:00:00 2021-08-09 15:41:54 [facility] Obesity affecting Obesity affecting Disease Resolve d 0 3-05 00:00: 00 2021-08-09 00:00:00 2021-08-09 15:41:58 [facility] Anemia complicati ng , third trimester Anemia complicati ng , third trimester Disease Resolve d 2015-05 1-10 00:00: 00 2021-08-09 00:00:00 2021-08-09 15:42:01 [facility] Full-term premature rupture of membranes Full-term premature rupture of membranes Disease Resolve d 9- 00:00: 00 2018-02-20 00:00:00 2018-02-20 14:29:46 [facility] 38 weeks gestation of 38 weeks gestation of Disease Resolve d 2017- 9- 00:00: 00 2018-02-20 00:00:00 2018-02-20 14:29:46 [facility] headache in second trimester headache in second trimester Disease Resolve d 5-04 00:00: 00 2018-01-03 00:00:00 2018-01-03 15:31:08 [facility] High-risk , second trimester High-risk , second trimester Disease Resolve d 4-06 00:00: 00 2018-01-03 00:00:00 2018-01-03 15:31:14 [facility] Other immediate hemorrhage , with delivery Other immediate hemorrhage , with delivery Disease Resolve d 2-23 00:00: 00 2017-07-15 00:00:00 2017-07-15 11:10:45 [facility] Gestationa l hypertensi on, third trimester Gestationa l hypertensi on, third trimester Disease Resolve d 2015-05 2-30 00:00: 00 2017-07-15 00:00:00 2017-07-15 11:10:43 [facility] High-risk , third trimester High-risk , third trimester Disease Resolve d 2015-05 1-16 00:00: 00 2017-07-15 00:00:00 2017-07-15 11:10:40 [facility] History of chlamydia History of chlamydia Disease Resolve d - 00:00: 00 2017-07-15 00:00:00 2017-07-15 11:10:31 [facility] Nausea and vomiting in prior to 22 weeks gestation Nausea and vomiting in prior to 22 weeks gestation Disease Resolve d - 00:00: 00 2017-07-15 00:00:00 2017-07-15 11:10:33 [facility] Slow transit constipati on Slow transit constipati on Disease Resolve d 12-01 00:00: 00 2017-07-15 00:00:00 2017-07-15 11:10:35 [facility] Elevated blood pressure affecting in third trimester, antepartum Elevated blood pressure affecting in third trimester, antepartum Disease Resolve d 2015-05 00:00: 00 2016-07-05 00:00:00 2016-07-05 15:50:43 [facility] Uterine size-date discrepanc y, antepartum , third trimester Uterine size-date discrepanc y, antepartum , third trimester Disease Resolve d 2015-05 00:00: 00 2016-07-05 00:00:00 2016-07-05 15:50:26 [facility] Excessive weight gain during , third trimester Excessive weight gain during , third trimester Disease Resolve d 2015-05 00:00: 00 2016-07-05 00:00:00 2016-07-05 15:50:49 [facility] Low back pain during in third trimester Low back pain during in third trimester Disease Resolve d 2015-05 00:00: 00 2016-07-05 00:00:00 2016-07-05 15:50:52 [facility] BV (bacterial vaginosis) BV (bacterial vaginosis) Disease Resolve d 12-05 00:00: 00 2016-07-05 00:00:00 2016-07-05 15:50:36 [facility] UTI in , first trimester UTI in , first trimester Disease Resolve d 12-01 00:00: 00 2016-07-05 00:00:00 2016-07-05 15:50:30 [facility] Vaginal discharge during in first trimester Vaginal discharge during in first trimester Disease Resolve d 12-01 00:00: 00 2016-07-05 00:00:00 2016-07-05 15:50:33 [facility] Liveborn infant, of correa , born in hospital by vaginal delivery Liveborn , of correa , born in hospital by vaginal delivery Disease Resolve d 05-25 00:00: 00 2016-05-31 00:00:00 2016-05-31 11:52:45 [facility] Third-stag e hemorrhage Third-stag e hemorrhage Disease Resolve d 05-25 00:00: 00 2016-05-31 00:00:00 2016-05-31 11:52:45 [facility] Uterine atony Uterine atony Disease Resolve d 05-25 00:00: 00 2016-05-31 00:00:00 2016-05-31 11:52:45 [facility] (spontaneo us vaginal delivery) (spontaneo us vaginal delivery) Disease Resolve d 05-25 00:00: 00 2016-05-31 00:00:00 2016-05-31 11:52:45 [facility] 37 weeks gestation of 37 weeks gestation of Disease Resolve d 05-23 00:00: 00 2016-05-31 00:00:00 2016-05-31 11:52:45 [facility] - induced hypertensi on in third trimester - induced hypertensi on in third trimester Disease Resolve d 2015-05 00:00: 00 2016-05-31 00:00:00 2016-05-31 11:52:45 [facility] 34 weeks gestation of 34 weeks gestation of Disease Resolve d 2015-05 00:00: 00 2016-05-31 00:00:00 2016-05-31 11:52:45 [facility] High-risk , second trimester High-risk , second trimester Disease Resolve d 12-29 00:00: 00 2016-03-28 00:00:00 2016-03-28 11:21:48 [facility] High-risk supervisio n, first trimester High-risk supervisio n, first trimester Disease Resolve d 12-01 00:00: 00 2015-12-30 00:00:00 2015-12-30 13:49:57 [facility] Allergies, Adverse Reactions, Alerts Allergy Name Allergy Type Status Severity Reaction(s) Onset Date Inactive Date Treating Clinician Comments Source NO KNOWN ALLERGIE S Drug Class Active [facility] Social History Social Habit Start Date Stop Date Quantity Comments Source ASSERTION 2023-05-03 00:00:00 [facility] History SDOH Alcohol Frequency [facility] History SDOH Alcohol Std Drinks [facility] History SDOH Alcohol Binge [facility] of Tobacco Use [facility] Sex Assigned At [facility] Alcoholic beverage intake 2024-01-11 00:00:00 2024-01-11 00:00:00 Ex-drinker (finding) [facility] Alcohol intake 2023-08-20 00:00:00 2023-08-20 00:00:00 Ex-drinker (finding) [facility] History of Social function 2023-06-25 00:00:00 2023-06-25 00:00:00 [facility] Exposure to SARS-CoV-2 (event) 2022-04-05 00:00:00 2022-04-15 09:28:00 Not sure [facility] Tobacco use and exposure 2021-11-24 00:00:00 2021-11-24 00:00:00 Smokeless tobacco non-user [facility] Alcohol Comment 2015-05-19 00:00:00 2015-05-19 00:00:00 socially [facility] Smoking Status Start Date Stop Date Source Never smoked tobacco [facility] Medications Ordered Medication Name Filled Medication Name Start Date Stop Date Current Medication? Ordering Clinician Indication Dosage Frequency Signature (SIG) Comments Components Source vitamin w/FA tablet 01-11 00:00: 00 Yes [id number] 1{tbl} Take 1 tablet by mouth in the morning. [facility] docusate 100 mg capsule 01-11 00:00: 00 Yes [id number] 200mg Take 2 capsules by mouth once daily as needed for Constipati on. [facility] ferrous sulfate 325 mg (65 mg iron) tablet 01-11 00:00: 00 Yes [id number] 325mg Take 1 tablet by mouth in the morning. [facility] ibuprofen 800 mg tablet 01-11 00:00: 00 Yes [id number] 800mg Take 1 tablet by mouth every 8 (eight) hours as needed (pain). Take with food or milk. [facility] rho(D) immune globulin (RHOPHYLAC) injection 300 mcg 01-10 11:11: 26 Yes 300ug [facility] ibuprofen (IBU) tablet 600 mg 01-10 11:11: 23 Yes 600mg 600 mg, Oral, Q6HPRN, Starting on 01/11/24 at 0611, Until Discontinu ed, Routine, Pain (scale 4-6) [facility] acetaminoph en (TYLENOL) tablet 650 mg 01-10 11:11: 23 Yes 650mg 650 mg, Oral, Q6HPRN, Starting on 01/11/24 at 0611, Until Discontinu ed, Routine, Pain (scale 1-3) [facility] diphenhydrA MINE (BENADRYL) tablet 25 mg 01-10 11:11: 23 Yes 25mg [facility] ondansetron (ZOFRAN (PF)) injection 4 mg 01-10 11:11: 23 Yes 4mg [facility] simethicone (GAS RELIEF (SIMETHICON E)) chewable tablet 160 mg 01-10 11:11: 23 Yes 160mg [facility] docusate (COLACE) capsule 200 mg 01-10 11:11: 23 Yes 200mg 200 mg, Oral, QDAILYPRN, Starting on 01/11/24 at 0611, Until Discontinu ed, Routine, Constipati on [facility] magnesium hydroxide (MILK OF MAGNESIA) 400 mg/5 mL suspension 30 mL 01-10 11:11: 23 Yes 30mL [facility] benzocaine- menthol (DERMOPLAST ) 20-0.5 % topical spray 01-10 11:11: 23 Yes Topical, PRN, Starting on 01/11/24 at 0611, Until Discontinu ed, Routine, Perineum discomfort [facility] morphine (2 mg/mL) injection 4 mg 01-10 08:30: 00 01-10 08:03 :00 No 4mg 4 mg, Slow IV Push, ONCE, 1 dose, On Sat01/11/24 at 0330, Routine [facility] ropivacaine 0.2 % (NAROPIN (PF)) epidural infusion 01-10 02:47: 00 01-10 12:32 :22 No Epidural, CONTINUOUS PRN, Starting on Sat01/10/24 at 2147, Until Sat01/11/24 at 0732, Routine, Intra-op [facility] lidocaine-e pinephrine (XYLOCAINE W/EPINEPHRI NE) 1.5 %-1:200,000 injection 01-10 02:42: 00 01-10 12:32 :22 No Epidural, ONCE INTRA PROCEDURE, Starting on Sat01/10/24 at 2142, Until Sat01/11/24 at 0732, Routine, Intra-op [facility] lactated ringers IV infusion 500 mL 01-10 01:45: 00 01-10 01:48 :11 No 500mL at 999 mL/hr, 500 mL, IV Infusion, ONCE, 1 dose, On Sat01/10/24 at 2045, Routine [facility] lactated ringers IV infusion 500 mL 01-10 00:48: 10 01-10 08:38 :09 No 500mL at 999 mL/hr, 500 mL, IV Infusion, PRN - SEE INSTRUCTIO NS, 1 dose, Starting on Sat01/10/24 at 1948, Until Sat01/11/24 at 0338, Routine [facility] sodium citrate-cit gretel acid (BICITRA) 500-334 mg/5 mL solution 30 mL 01-10 00:48: 10 01-10 01:46 :00 No 30mL 30 mL, Oral, PRE-PROCED URE ONCE, 1 dose, Starting on Sat01/10/24 at 1948, Until Sat01/10/24 at 2046, Routine, Surgery/Pr ocedure [facility] Sliding Scale Insulin-Reg ular 01-09 21:30: 00 01-10 11:11 :25 No Subcutaneo us, AC+HS, First dose on Sat01/10/24 at 1630, Until Discontinu ed, Routine [facility] oxytocin (PITOCIN) 30 units in NS 500 mL IV infusion 01-09 17:14: 10 01-10 11:11 :25 No 2mU/min at 2-40 mL/hr, IV Infusion, TITRATE, Starting on Sat01/10/24 at 1214, Until 01/11/24 at 0611, [facility],000 mL 01-09 17:13: 16 01-10 11:11 :25 No 1000mL at 1-125 mL/hr, IV Infusion, TITRATE, Starting on Sat01/10/24 at 1213, Until 01/11/24 at 0611, Routine [facility] valACYclovi r (VALTREX) 500 mg tablet 12-26 00:00: 00 01-11 00:00 :00 No [id number] 500mg Take 1 tablet by mouth in the morning and 1 tablet in the evening. [facility] valACYclovi r (VALTREX) tablet 1,000 mg 11-21 21:40: 00 11-21 21:56 :00 No 1000mg 1,000 mg, Oral, ONCE NOW, 1 dose, On Sat11/22/23 at 1645, [facility] ondansetron (ZOFRAN) tablet 8 mg 11-21 21:25: 00 11-21 21:30 :00 No 8mg 8 mg, Oral, ONCE, 1 dose, On Sat11/22/23 at 1630, [facility] glyBURIDE 5 mg tablet 11-14 00:00: 00 01-11 00:00 :00 No [id number] 5mg Take 1 tablet by mouth at bedtime. [facility] glyBURIDE 2.5 mg tablet 6-28 00:00: 00 11-14 00:00 :00 No [id number] 2.5mg Take 1 tablet by mouth at bedtime. [facility] metroNIDAZO LE 500 mg tablet 11-04 00:00: 00 11-12 04:59 :00 Yes [id number] 500mg Take 1 tablet by mouth in the morning and 1 tablet in the evening. Do all this for 7 days. [facility] fluconazole (DIFLUCAN) 150 mg tablet 11-04 00:00: 00 11-05 04:59 :00 Yes [id number] 150mg Take 1 tablet by mouth once now for 1 dose. [facility] Blood-Gluco se Meter (ONETOUCH ULTRA2 METER) Kit 10-20 00:00: 00 01-11 00:00 :00 No [id number] Check blood glucose 4x daily [facility] blood sugar diagnostic (ONETOUCH ULTRA TEST) strip 10-20 00:00: 00 01-11 00:00 :00 No [id number] Check blood glucose 4x daily [facility] Lancets (ONETOUCH ULTRASOFT LANCETS) [facility] 10-20 00:00: 00 01-11 00:00 :00 No [id number] Check blood glucose 4x daily [facility] Blood-Gluco se Meter (FREESTYLE LITE METER) Kit 10-17 00:00: 00 01-11 00:00 :00 No [id number] Check blood glucose 4x daily [facility] lancets (FREESTYLE LANCETS) 28 gauge Misc 10-17 00:00: 00 01-11 00:00 :00 No [id number] Check glucose 4x daily [facility] blood sugar diagnostic (FREESTYLE LITE STRIPS) strip 10-17 00:00: 00 01-11 00:00 :00 No [id number] Check blood glucose 4x daily [facility] SERTraline (ZOLOFT) 50 mg tablet 5-28 00:00: 00 01-11 00:00 :00 No [id number] 109 50mg Take 1 tablet by mouth in the morning. [facility] SERTraline (ZOLOFT) 50 mg tablet 5-07 00:00: 00 10-07 00:00 :00 No [id number] 109 50mg Take 1 tablet by mouth in the morning. [facility] Iron Fum & P-FA-Vit B & C No.9 (INTEGRA PLUS) 125 mg iron- 1 mg Cap 3-12 00:00: 00 01-11 00:00 :00 No [id number] 1{capsu le} Take 1 capsule by mouth in the morning. [facility] ZINC ACETATE ORAL 2- 13:57: 10 06-25 00:00 :00 No Take by mouth. [facility] multivitami n with minerals (MULTI-SHREYAS MIN W/MINERALS ORAL) 06-25 13:56: 48 06-25 00:00 :00 No Take by mouth. [facility] ascorbic acid (VITAMIN C ORAL) 2- 13:56: 36 06-25 00:00 :00 No Take by mouth. [facility] proMETHazin e 25 mg tablet 2- 00:00: 00 01-11 00:00 :00 No [id number] 25mg Take 1 tablet by mouth every 4 (four) hours as needed for Nausea and Vomiting (N/V). [facility] PNV 67-iron ps-folate no.1-dha (VITAFOL ULTRA) 29 mg iron- 1 mg-200 mg Cap 2-13 00:00: 00 01-11 00:00 :00 No [id number] 1{capsu le} Take 1 capsule by mouth in the morning. [facility] levonorgest reL (MIRENA) 20 mcg/24 hours (7 yrs) 52 mg IUD 2022-05 2- 15:06: 54 04-15 00:00 :00 No 1{devic e} 1 Device by Intrauteri ne route once now. Insertion -201 8 [facility] belkys eckertestrad ioL-iron (LOESTRIN FE 06/01) 1 mg-20 mcg (21)/75 mg (7) tablet 2022-05- 00:00: 00 06-25 00:00 :00 No [id number] 1{tbl} Take 1 tablet by mouth in the morning. [facility] valACYclovi r (VALTREX) 1 gram tablet 2022-05 00:00: 00 06-25 00:00 :00 No [id number] 1g Take 1 tablet by mouth in the morning and 1 tablet in the evening. [facility] benzonatate 100 mg capsule 2022-05 00:00: 00 06-25 00:00 :00 No [id number] 200mg Take 2 capsules by mouth every 8 (eight) hours as needed for Cough. [facility] oseltamivir (TAMIFLU) 75 mg capsule 2022-05 00:00: 00 04-07 05:59 :00 No [id number] 75mg Take 1 capsule by mouth in the morning and 1 capsule in the evening. Do all this for 5 days. [facility] nirmatrelvi r-ritonavir (PAXLOVID) 300 mg (150 mg x 2)-100 mg tablet 01-07 00:00: 00 01-13 04:59 :00 No [id number] 3{tbl} Take 3 tablets by mouth in the morning and 3 tablets in the evening. Do all this for 5 days. [facility] valACYclovi r (VALTREX) 500 mg tablet 2021-05 00:00: 00 06-25 00:00 :00 No [id number] 500mg Take 1 tablet by mouth in the morning and 1 tablet in the evening. [facility] penicillin g proc & benzathine (BICILLIN C-R) 1,200,000 unit/ 2 mL(600k/600 k) injection 1.2 Million Units 2021-05 16:45: 00 04-15 16:08 :00 No [id number] 1.210 [facility] fexofenadin e-pseudoeph edrine 180-240 mg per 24 hr tablet 2021-05 2-04 00:00: 00 06-25 00:00 :00 No [id number] 1{tbl} Take 1 tablet by mouth in the morning. [facility] oseltamivir (TAMIFLU) 75 mg capsule 2021-05 0-26 00:00: 00 03-13 04:59 :00 No [id number] 75mg Take 1 capsule by mouth in the morning and 1 capsule in the evening. Do all this for 5 days. [facility] valACYclovi r (VALTREX) 500 mg tablet 9-19 00:00: 00 04-29 00:00 :00 No [id number] 500mg Take 1 tablet by mouth in the morning and 1 tablet in the evening. [facility] metroNIDAZO LE 500 mg tablet 7-18 00:00: 00 11-28 04:59 :00 No [id number] 2000mg Take 4 tablets by mouth once now for 1 dose. Do not drink alcohol while taking this medication . [facility] fluconazole (DIFLUCAN) 150 mg tablet 7-15 00:00: 00 11-29 04:59 :00 No [id number] 150mg Take 1 tablet by mouth every 72 (seventy-t wo) hours for 2 doses. [facility] metroNIDAZO LE 500 mg tablet 4-06 00:00: 00 11-27 00:00 :00 No [id number] 500mg Take 1 tablet by mouth every 12 (twelve) hours. [facility] metroNIDAZO LE 500 mg tablet 3-31 00:00: 00 11-27 00:00 :00 No [id number] 500mg Take 1 tablet by mouth every 12 (twelve) hours. [facility] levonorgest reL (MIRENA) 20 mcg/24 hours (7 yrs) 52 mg IUD 3-30 14:50: 12 Yes 1{devic e} 1 Device by Intrauteri ne route once now. Insertion - 8 [facility] multivitami n with minerals (MULTI-SHREYAS MIN W/MINERALS ORAL) 08-09 14:50: 12 Yes Take by mouth. [facility] nystatin 100,000 unit/gram powder 08-09 00:00: 00 06-25 00:00 :00 No [id number] Apply to area(s) 2 (two) times daily. [facility] Bactrim DS 800-160 MG Bactrim DS 800-160 MG 08-22 00:00: 00 08-27 00:00 :00 No 1{table t} BID Bactrim DS 800-160 MG ferrous sulfate 325 mg (65 mg iron) tablet 01-13 00:00: 00 11-24 00:00 :00 No 325mg Take 1 tablet by mouth 2 (two) times daily. [facility] ibuprofen 600 mg tablet 01-13 00:00: 00 11-24 00:00 :00 No 600mg Take 1 tablet by mouth every 6 (six) hours as needed for Pain (scale 1-3) or Pain (scale 4-6) (Pain). Take with food or milk. [facility] Sertraline HCl 25 MG Sertraline HCl 25 MG No 1{table t} QD Sertraline HCl 25 MG Lorazepam 0.5 MG Lorazepam 0.5 MG No 1{table t_at_be dtime_a s_neede d} QD Lorazepam 0.5 MG Immunizations Ordered Immunization Name Filled Immunization Name Date Status Comments Source [facility] 2018-01-13 00:00:00 Completed [facility] 2018-01-13 00:00:00 [facility] 2018-01-13 00:00:00 [facility] 2018-01-13 00:00:00 [facility] 2018-01-13 00:00:00 [facility] 2018-01-13 00:00:00 [facility] 2018-01-13 00:00:00 [facility] 2018-01-13 00:00:00 Completed [facility] MMR 2018-01-13 00:00:00 Completed [facility] MMR 2018-01-13 00:00:00 Completed [facility] MMR 2018-01-13 00:00:00 Completed [facility] MMR 2018-01-13 00:00:00 Completed [facility] MMR 2018-01-13 00:00:00 Completed [facility] MMR 2018-01-13 00:00:00 Completed [facility] TDAP 2017-11-12 00:00:00 Completed [facility] TDAP 2017-11-12 00:00:00 Completed [facility] TDAP 2017-11-12 00:00:00 Completed [facility] TDAP 2017-11-12 00:00:00 Completed [facility] TDAP 2017-11-12 00:00:00 Completed [facility] TDAP 2017-11-12 00:00:00 Completed [facility] TDAP 2017-11-12 00:00:00 Completed [facility] TDAP 2017-11-12 00:00:00 Completed [facility] TDAP 2017-11-12 00:00:00 Completed [facility] TDAP 2017-11-12 00:00:00 Completed [facility] TDAP 2017-11-12 00:00:00 Completed [facility] TDAP 2017-11-12 00:00:00 Completed [facility] TDAP 2017-11-12 00:00:00 Completed [facility] TDAP 2017-11-12 00:00:00 Completed [facility] TDAP 2016-03-15 00:00:00 Completed [facility] TDAP 2016-03-15 00:00:00 Completed [facility] TDAP 2016-03-15 00:00:00 Completed [facility] TDAP 2016-03-15 00:00:00 Completed [facility] TDAP 2016-03-15 00:00:00 Completed [facility] TDAP 2016-03-15 00:00:00 Completed [facility] TDAP 2016-03-15 00:00:00 Completed [facility] TDAP 2016-03-15 00:00:00 Completed [facility] TDAP 2016-03-15 00:00:00 Completed [facility] TDAP 2016-03-15 00:00:00 Completed [facility] TDAP 2016-03-15 00:00:00 Completed [facility] TDAP 2016-03-15 00:00:00 Completed [facility] TDAP 2016-03-15 00:00:00 Completed [facility] TDAP 2016-03-15 00:00:00 Completed [facility] Influenza Virus Vaccine Quad IM 3+ YRS 2016-02-24 00:00:00 Completed [facility] Influenza Virus Vaccine Quad IM 3+ YRS 2016-02-24 00:00:00 Completed [facility] Influenza Virus Vaccine Quad IM 3+ YRS 2016-02-24 00:00:00 Completed [facility] Influenza Virus Vaccine Quad IM 3+ YRS 2016-02-24 00:00:00 Completed [facility] Influenza Virus Vaccine Quad IM 3+ YRS 2016-02-24 00:00:00 Completed [facility] Influenza Virus Vaccine Quad IM 3+ YRS 2016-02-24 00:00:00 Completed [facility] Influenza Virus Vaccine Quad IM 3+ YRS 2016-02-24 00:00:00 Completed [facility] Influenza Virus Vaccine Quad IM 3+ YRS 2016-02-24 00:00:00 Completed [facility] Influenza Virus Vaccine Quad IM 3+ YRS 2016-02-24 00:00:00 Completed [facility] Influenza Virus Vaccine Quad IM 3+ YRS 2016-02-24 00:00:00 Completed [facility] Influenza Virus Vaccine Quad IM 3+ YRS 2016-02-24 00:00:00 Completed [facility] Influenza Virus Vaccine Quad IM 3+ YRS 2016-02-24 00:00:00 Completed [facility] Influenza Virus Vaccine Quad IM 3+ YRS 2016-02-24 00:00:00 Completed [facility] Influenza Virus Vaccine Quad IM 3+ YRS 2016-02-24 00:00:00 Completed [facility] Influenza Virus Vaccine Quad IM 3+ YRS Unknown Completed [facility] TDAP Unknown Completed [facility] TDAP Unknown Completed [facility] MMR Unknown Completed [facility] Influenza Virus Vaccine Quad IM 3+ YRS Unknown Completed [facility] TDAP Unknown Completed [facility] TDAP Unknown Completed [facility] MMR Unknown Completed [facility] Influenza Virus Vaccine Quad IM 3+ YRS Unknown Completed [facility] TDAP Unknown Completed [facility] TDAP Unknown Completed [facility] MMR Unknown Completed [facility] Influenza Virus Vaccine Quad IM 3+ YRS Unknown Completed [facility] TDAP Unknown Completed [facility] TDAP Unknown Completed [facility] MMR Unknown Completed [facility] Influenza Virus Vaccine Quad IM 3+ YRS Unknown Completed [facility] TDAP Unknown Completed [facility] TDAP Unknown Completed [facility] MMR Unknown Completed [facility] Influenza Virus Vaccine Quad IM 3+ YRS Unknown Completed [facility] TDAP Unknown Completed [facility] TDAP Unknown Completed [facility] MMR Unknown Completed [facility] Influenza Virus Vaccine Quad IM 3+ YRS Unknown Completed [facility] TDAP Unknown Completed [facility] TDAP Unknown Completed [facility] MMR Unknown Completed [facility] Influenza Virus Vaccine Quad IM 3+ YRS Unknown Completed [facility] TDAP Unknown Completed [facility] TDAP Unknown Completed [facility] MMR Unknown Completed [facility] Influenza Virus Vaccine Quad IM 3+ YRS Unknown Completed [facility] TDAP Unknown Completed [facility] TDAP Unknown Completed [facility] MMR Unknown Completed [facility] Influenza Virus Vaccine Quad IM 3+ YRS Unknown Completed [facility] TDAP Unknown Completed [facility] TDAP Unknown Completed [facility] MMR Unknown Completed [facility] Influenza Virus Vaccine Quad IM 3+ YRS Unknown Completed [facility] TDAP Unknown Completed [facility] TDAP Unknown Completed [facility] MMR Unknown Completed [facility] Influenza Virus Vaccine Quad IM 3+ YRS Unknown Completed [facility] TDAP Unknown Completed [facility] TDAP Unknown Completed [facility] MMR Unknown Completed [facility] Influenza Virus Vaccine Quad IM 3+ YRS Unknown Completed [facility] TDAP Unknown Completed [facility] TDAP Unknown Completed [facility] MMR Unknown Completed [facility] Influenza Virus Vaccine Quad IM 3+ YRS Unknown Completed [facility] TDAP Unknown Completed [facility] TDAP Unknown Completed [facility] MMR Unknown Completed [facility] Influenza Virus Vaccine Quad IM 3+ YRS Unknown Completed [facility] TDAP Unknown Completed [facility] TDAP Unknown Completed [facility] MMR Unknown Completed [facility] Influenza Virus Vaccine Quad IM 3+ YRS Unknown Completed [facility] TDAP Unknown Completed [facility] TDAP Unknown Completed [facility] MMR Unknown Completed [facility] TDAP Unknown Completed [facility] Influenza Virus Vaccine Quad IM 3+ YRS Unknown Completed [facility] TDAP Unknown Completed [facility] TDAP Unknown Completed [facility] MMR Unknown Completed [facility] TDAP Unknown Completed [facility] Influenza Virus Vaccine Quad IM 3+ YRS Unknown Completed [facility] TDAP Unknown Completed [facility] TDAP Unknown Completed [facility] MMR Unknown Completed [facility] TDAP Unknown Completed [facility] Influenza Virus Vaccine Quad IM 3+ YRS Unknown Completed [facility] TDAP Unknown Completed [facility] TDAP Unknown Completed [facility] MMR Unknown Completed [facility] Influenza Virus Vaccine Quad IM 3+ YRS Unknown Completed [facility] TDAP Unknown Completed [facility] TDAP Unknown Completed [facility] MMR Unknown Completed [facility] TDAP Unknown Completed [facility] Influenza Virus Vaccine Quad IM 3+ YRS Unknown Completed [facility] TDAP Unknown Completed [facility] TDAP Unknown Completed [facility] MMR Unknown Completed [facility] TDAP Unknown Completed [facility] Influenza Virus Vaccine Quad IM 3+ YRS Unknown Completed [facility] TDAP Unknown Completed [facility] TDAP Unknown Completed [facility] MMR Unknown Completed [facility] Influenza Virus Vaccine Quad IM 3+ YRS Unknown Completed [facility] TDAP Unknown Completed [facility] TDAP Unknown Completed [facility] MMR Unknown Completed [facility] TDAP Unknown Completed [facility] Influenza Virus Vaccine Quad IM 3+ YRS Unknown Completed [facility] TDAP Unknown Completed [facility] TDAP Unknown Completed [facility] MMR Unknown Completed [facility] TDAP Unknown Completed [facility] Influenza Virus Vaccine Quad IM 3+ YRS Unknown Completed [facility] TDAP Unknown Completed [facility] TDAP Unknown Completed [facility] MMR Unknown Completed [facility] TDAP Unknown Completed [facility] Influenza Virus Vaccine Quad IM 3+ YRS Unknown Completed [facility] TDAP Unknown Completed [facility] TDAP Unknown Completed [facility] MMR Unknown Completed [facility] TDAP Unknown Completed [facility] Influenza Virus Vaccine Quad IM 3+ YRS Unknown Completed [facility] TDAP Unknown Completed [facility] TDAP Unknown Completed [facility] MMR Unknown Completed [facility] TDAP Unknown Completed [facility] Influenza Virus Vaccine Quad IM 3+ YRS Unknown Completed [facility] TDAP Unknown Completed [facility] TDAP Unknown Completed [facility] MMR Unknown Completed [facility] TDAP Unknown Completed [facility] Influenza Virus Vaccine Quad IM 3+ YRS Unknown Completed [facility] TDAP Unknown Completed [facility] TDAP Unknown Completed [facility] MMR Unknown Completed [facility] TDAP Unknown Completed [facility] Influenza Virus Vaccine Quad IM 3+ YRS Unknown Completed [facility] TDAP Unknown Completed [facility] TDAP Unknown Completed [facility] MMR Unknown Completed [facility] TDAP Unknown Completed [facility] Influenza Virus Vaccine Quad IM 3+ YRS Unknown Completed [facility] TDAP Unknown Completed [facility] TDAP Unknown Completed [facility] MMR Unknown Completed [facility] TDAP Unknown Completed [facility] Influenza Virus Vaccine Quad IM 3+ YRS Unknown Completed [facility] TDAP Unknown Completed [facility] TDAP Unknown Completed [facility] MMR Unknown Completed [facility] TDAP Unknown Completed [facility] Influenza Virus Vaccine Quad IM 3+ YRS Unknown Completed [facility] TDAP Unknown Completed [facility] TDAP Unknown Completed [facility] MMR Unknown Completed [facility] TDAP Unknown Completed [facility] Influenza Virus Vaccine Quad IM 3+ YRS Unknown Completed [facility] TDAP Unknown Completed [facility] TDAP Unknown Completed [facility] MMR Unknown Completed [facility] TDAP Unknown Completed [facility] Influenza Virus Vaccine Quad IM 3+ YRS Unknown Completed [facility] TDAP Unknown Completed [facility] TDAP Unknown Completed [facility] MMR Unknown Completed [facility] TDAP Unknown Completed [facility] Influenza Virus Vaccine Quad IM 3+ YRS Unknown Completed [facility] TDAP Unknown Completed [facility] TDAP Unknown Completed [facility] MMR Unknown Completed [facility] TDAP Unknown Completed [facility] Influenza Virus Vaccine Quad IM 3+ YRS Unknown Completed [facility] TDAP Unknown Completed [facility] TDAP Unknown Completed [facility] MMR Unknown Completed [facility] TDAP Unknown Completed [facility] Influenza Virus Vaccine Quad IM 3+ YRS Unknown Completed [facility] TDAP Unknown Completed [facility] TDAP Unknown Completed [facility] MMR Unknown Completed [facility] TDAP Unknown Completed [facility] Influenza Virus Vaccine Quad IM 3+ YRS Unknown Completed [facility] TDAP Unknown Completed [facility] TDAP Unknown Completed [facility] MMR Unknown Completed [facility] TDAP Unknown Completed [facility] Influenza Virus Vaccine Quad IM 3+ YRS Unknown Completed [facility] TDAP Unknown Completed [facility] TDAP Unknown Completed [facility] MMR Unknown Completed [facility] TDAP Unknown Completed [facility] MMR Unknown Completed [facility] Influenza Virus Vaccine Quad IM 3+ YRS Unknown Completed [facility] TDAP Unknown Completed [facility] TDAP Unknown Completed [facility] MMR Unknown Completed [facility] TDAP Unknown Completed [facility] MMR Unknown Completed [facility] Influenza Virus Vaccine Quad IM 3+ YRS Unknown Completed [facility] TDAP Unknown Completed [facility] TDAP Unknown Completed [facility] MMR Unknown Completed [facility] Influenza Virus Vaccine Quad IM 3+ YRS Unknown Completed [facility] TDAP Unknown Completed [facility] TDAP Unknown Completed [facility] MMR Unknown Completed [facility] Influenza Virus Vaccine Quad IM 3+ YRS Unknown Completed [facility] TDAP Unknown Completed [facility] TDAP Unknown Completed [facility] MMR Unknown Completed [facility] Influenza Virus Vaccine Quad IM 3+ YRS Unknown Completed [facility] TDAP Unknown Completed [facility] TDAP Unknown Completed [facility] MMR Unknown Completed [facility] Influenza Virus Vaccine Quad IM 3+ YRS Unknown Completed [facility] TDAP Unknown Completed [facility] TDAP Unknown Completed [facility] MMR Unknown Completed [facility] Influenza Virus Vaccine Quad IM 3+ YRS Unknown Completed [facility] TDAP Unknown Completed [facility] TDAP Unknown Completed [facility] MMR Unknown Completed [facility] Influenza Virus Vaccine Quad IM 3+ YRS Unknown Completed [facility] TDAP Unknown Completed [facility] TDAP Unknown Completed [facility] MMR Unknown Completed [facility] Influenza Virus Vaccine Quad IM 3+ YRS Unknown Completed [facility] TDAP Unknown Completed [facility] TDAP Unknown Completed [facility] MMR Unknown Completed [facility] Influenza Virus Vaccine Quad IM 3+ YRS Unknown Completed [facility] TDAP Unknown Completed [facility] TDAP Unknown Completed [facility] MMR Unknown Completed [facility] Influenza Virus Vaccine Quad IM 3+ YRS Unknown Completed [facility] TDAP Unknown Completed [facility] TDAP Unknown Completed [facility] MMR Unknown Completed [facility] Influenza Virus Vaccine Quad IM 3+ YRS Unknown Completed [facility] TDAP Unknown Completed [facility] TDAP Unknown Completed [facility] MMR Unknown Completed [facility] Influenza Virus Vaccine Quad IM 3+ YRS Unknown Completed [facility] TDAP Unknown Completed [facility] TDAP Unknown Completed [facility] MMR Unknown Completed [facility] Influenza Virus Vaccine Quad IM 3+ YRS Unknown Completed [facility] TDAP Unknown Completed [facility] TDAP Unknown Completed [facility] MMR Unknown Completed [facility] Influenza Virus Vaccine Quad IM 3+ YRS Unknown Completed [facility] TDAP Unknown Completed [facility] TDAP Unknown Completed [facility] MMR Unknown Completed [facility] Influenza Virus Vaccine Quad IM 3+ YRS Unknown Completed [facility] TDAP Unknown Completed [facility] TDAP Unknown Completed [facility] MMR Unknown Completed [facility] Influenza Virus Vaccine Quad IM 3+ YRS Unknown Completed [facility] TDAP Unknown Completed [facility] TDAP Unknown Completed [facility] MMR Unknown Completed [facility] Influenza Virus Vaccine Quad IM 3+ YRS Unknown Completed [facility] TDAP Unknown Completed [facility] TDAP Unknown Completed [facility] MMR Unknown Completed [facility] Influenza Virus Vaccine Quad IM 3+ YRS Unknown Completed [facility] TDAP Unknown Completed [facility] TDAP Unknown Completed [facility] MMR Unknown Completed [facility] Vital Signs Vital Name Observation Time Observation Value Comments S ource Systolic blood pressure 2024-01-12 15:11:00 133 mm[Hg] [facility] Diastolic blood pressure 2024-01-12 15:11:00 88 mm[Hg] [facility] Heart rate 2024-01-12 15:11:00 86 /min [facility] Body temperature 2024-01-12 15:11:00 36.61 Sally [facility] Respiratory rate 2024-01-12 15:11:00 16 /min [facility] Oxygen saturation in Arterial blood by Pulse oximetry 2024-01-12 15:11:00 99 /min [facility] Body height 2024-01-10 17:20:00 165.1 cm [facility] Body weight 2024-01-10 17:20:00 113.399 kg [facility] BMI 2024-01-10 17:20:00 41.60 kg/m2 [facility] Systolic blood pressure 2024-01-10 12:40:00 131 mm[Hg] [facility] Diastolic blood pressure 2024-01-10 12:40:00 80 mm[Hg] [facility] Heart rate 2024-01-10 12:40:00 103 /min [facility] Body temperature 2024-01-10 12:40:00 36.22 Sally [facility] Respiratory rate 2024-01-10 12:40:00 17 /min [facility] Body height 2024-01-10 12:40:00 165.1 cm [facility] Body weight 2024-01-10 12:40:00 113.263 kg [facility] BMI 2024-01-10 12:40:00 41.55 kg/m2 [facility] Systolic blood pressure 2024-01-07 12:43:00 129 mm[Hg] [facility] Diastolic blood pressure 2024-01-07 12:43:00 78 mm[Hg] [facility] Heart rate 2024-01-07 12:43:00 98 /min [facility] Body temperature 2024-01-07 12:43:00 36.17 Sally [facility] Respiratory rate 2024-01-07 12:43:00 18 /min [facility] Body height 2024-01-07 12:43:00 165.1 cm [facility] Body weight 2024-01-07 12:43:00 112.095 kg [facility] BMI 2024-01-07 12:43:00 41.12 kg/m2 [facility] Systolic blood pressure 2024-01-03 12:36:00 126 mm[Hg] [facility] Diastolic blood pressure 2024-01-03 12:36:00 74 mm[Hg] [facility] Heart rate 2024-01-03 12:36:00 101 /min [facility] Body temperature 2024-01-03 12:36:00 36.39 Sally [facility] Respiratory rate 2024-01-03 12:36:00 18 /min [facility] Body height 2024-01-03 12:36:00 165.1 cm [facility] Body weight 2024-01-03 12:36:00 111.766 kg [facility] BMI 2024-01-03 12:36:00 41.00 kg/m2 [facility] Systolic blood pressure 2023-12-31 12:23:00 123 mm[Hg] [facility] Diastolic blood pressure 2023-12-31 12:23:00 73 mm[Hg] [facility] Heart rate 2023-12-31 12:23:00 104 /min [facility] Body temperature 2023-12-31 12:23:00 36 Sally [facility] Respiratory rate 2023-12-31 12:23:00 18 /min [facility] Body height 2023-12-31 12:23:00 165.1 cm [facility] Body weight 2023-12-31 12:23:00 112.175 kg [facility] BMI 2023-12-31 12:23:00 41.15 kg/m2 [facility] Systolic blood pressure 2023-12-27 12:00:00 125 mm[Hg] [place] [facility] Diastolic blood pressure 2023-12-27 12:00:00 79 mm[Hg] [facility] Heart rate 2023-12-27 12:00:00 111 /min [facility] Body temperature 2023-12-27 11:53:00 35.83 Sally [facility] Respiratory rate 2023-12-27 11:53:00 18 /min [facility] Body height 2023-12-27 11:53:00 165.1 cm [facility] Body weight 2023-12-27 11:53:00 112.52 kg [facility] BMI 2023-12-27 11:53:00 41.28 kg/m2 [facility] Systolic blood pressure 2023-12-24 12:19:00 138 mm[Hg] [facility] Diastolic blood pressure 2023-12-24 12:19:00 86 mm[Hg] [facility] Heart rate 2023-12-24 12:19:00 102 /min [facility] Body temperature 2023-12-24 12:19:00 35.5 Sally [facility] Respiratory rate 2023-12-24 12:19:00 18 /min [facility] Body height 2023-12-24 12:19:00 165.1 cm [facility] Body weight 2023-12-24 12:19:00 112.764 kg [facility] BMI 2023-12-24 12:19:00 41.37 kg/m2 [facility] Systolic blood pressure 2023-12-19 19:47:00 122 mm[Hg] [place] [facility] Diastolic blood pressure 2023-12-19 19:47:00 77 mm[Hg] [facility] Heart rate 2023-12-19 19:47:00 100 /min [facility] Body temperature 2023-12-19 19:47:00 36.22 Sally [facility] Body height 2023-12-19 19:47:00 165.1 cm [facility] Body weight 2023-12-19 19:47:00 112.764 kg [facility] BMI 2023-12-19 19:47:00 41.37 kg/m2 [facility] Systolic blood pressure 2023-12-17 20:17:00 128 mm[Hg] [facility] Diastolic blood pressure 2023-12-17 20:17:00 74 mm[Hg] [facility] Heart rate 2023-12-17 20:17:00 91 /min [facility] Body temperature 2023-12-17 20:17:00 36.17 Sally [facility] Respiratory rate 2023-12-17 20:17:00 20 /min [facility] Body height 2023-12-17 20:17:00 165.1 cm [facility] Body weight 2023-12-17 20:17:00 112.492 kg [facility] BMI 2023-12-17 20:17:00 41.27 kg/m2 [facility] Systolic blood pressure 2023-12-13 13:40:00 117 mm[Hg] [facility] acute hospital Diastolic blood pressure 2023-12-13 13:40:00 75 mm[Hg] General acute hospital Heart rate 2023-12-13 13:40:00 108 /min [facility] Body temperature 2023-12-13 13:40:00 36.39 Sally [facility] Respiratory rate 2023-12-13 13:40:00 17 /min [facility] Body weight 2023-12-13 13:40:00 110.451 kg [facility] BMI 2023-12-13 13:40:00 40.52 kg/m2 [facility] Systolic blood pressure 2023-12-10 20:07:00 123 mm[Hg] General acute hospital Diastolic blood pressure 2023-12-10 20:07:00 78 mm[Hg] General acute hospital Heart rate 2023-12-10 20:07:00 113 /min [facility] Body temperature 2023-12-10 20:03:00 36.22 Sally [facility] Respiratory rate 2023-12-10 20:03:00 18 /min [facility] Body height 2023-12-10 20:03:00 165.1 cm [facility] Body weight 2023-12-10 20:03:00 110.876 kg [facility] BMI 2023-12-10 20:03:00 40.68 kg/m2 [facility] Systolic blood pressure 2023-12-06 13:15:00 124 mm[Hg] General acute hospital Diastolic blood pressure 2023-12-06 13:15:00 75 mm[Hg] General acute hospital Heart rate 2023-12-06 13:15:00 102 /min [facility] Body temperature 2023-12-06 13:15:00 35.56 Sally [facility] Respiratory rate 2023-12-06 13:15:00 20 /min [facility] Body height 2023-12-06 13:15:00 165.1 cm [facility] Body weight 2023-12-06 13:15:00 110.819 kg [facility] BMI 2023-12-06 13:15:00 40.66 kg/m2 [facility] Systolic blood pressure 2023-12-03 19:53:00 126 mm[Hg] General acute hospital Diastolic blood pressure 2023-12-03 19:53:00 81 mm[Hg] General acute hospital Heart rate 2023-12-03 19:53:00 116 /min [facility] Body temperature 2023-12-03 19:53:00 36.33 Sally [facility] Respiratory rate 2023-12-03 19:53:00 18 /min [facility] Body height 2023-12-03 19:53:00 165.1 cm [facility] Body weight 2023-12-03 19:53:00 109.856 kg [facility] BMI 2023-12-03 19:53:00 40.30 kg/m2 [facility] Systolic blood pressure 2023-11-27 14:03:00 127 mm[Hg] General acute hospital Diastolic blood pressure 2023-11-27 14:03:00 75 mm[Hg] General acute hospital Heart rate 2023-11-27 14:03:00 96 /min [facility] Body temperature 2023-11-27 14:02:00 35.94 Sally [facility] Respiratory rate 2023-11-27 14:02:00 18 /min [facility] Body height 2023-11-27 14:02:00 165.1 cm [facility] Body weight 2023-11-27 14:02:00 108.183 kg [facility] BMI 2023-11-27 14:02:00 39.69 kg/m2 [facility] Systolic blood pressure 2023-11-22 21:31:00 127 mm[Hg] General acute hospital Diastolic blood pressure 2023-11-22 21:31:00 64 mm[Hg] General acute hospital Respiratory rate 2023-11-22 21:31:00 16 /min [facility] Heart rate 2023-11-22 21:30:00 98 /min [facility] Oxygen saturation in Arterial blood by Pulse oximetry 2023-11-22 21:30:00 100 /min [facility] acute hospital Body temperature 2023-11-22 19:00:00 36.61 Sally [facility] Body height 2023-11-22 18:37:00 165.1 cm [facility] Body weight 2023-11-22 18:37:00 108.636 kg [facility] BMI 2023-11-22 18:37:00 39.85 kg/m2 [facility] Systolic blood pressure 2023-11-15 16:13:00 117 mm[Hg] General acute hospital Diastolic blood pressure 2023-11-15 16:13:00 81 mm[Hg] General acute hospital Heart rate 2023-11-15 16:13:00 110 /min [facility] Body temperature 2023-11-15 16:13:00 36.11 Sally [facility] Respiratory rate 2023-11-15 16:13:00 18 /min [facility] Body height 2023-11-15 16:13:00 165.1 cm [facility] Body weight 2023-11-15 16:13:00 109.572 kg [facility] BMI 2023-11-15 16:13:00 40.20 kg/m2 [facility] Systolic blood pressure 2023-11-08 15:57:00 115 mm[Hg] General acute hospital Diastolic blood pressure 2023-11-08 15:57:00 77 mm[Hg] General acute hospital Heart rate 2023-11-08 15:57:00 107 /min [facility] Body temperature 2023-11-08 15:54:00 36.11 Sally [facility] Respiratory rate 2023-11-08 15:54:00 20 /min [facility] Body height 2023-11-08 15:54:00 165.1 cm [facility] Body weight 2023-11-08 15:54:00 110.252 kg [facility] BMI 2023-11-08 15:54:00 40.45 kg/m2 [facility] Systolic blood pressure 2023-11-01 15:19:00 138 mm[Hg] General acute hospital Diastolic blood pressure 2023-11-01 15:19:00 80 mm[Hg] General acute hospital Heart rate 2023-11-01 15:19:00 109 /min Unive [facility] Body temperature 2023-11-01 15:07:00 35.89 Sally [facility] Respiratory rate 2023-11-01 15:07:00 20 /min [facility] Body height 2023-11-01 15:07:00 165.1 cm [facility] Body weight 2023-11-01 15:07:00 109.487 kg Univ [facility] BMI 2023-11-01 15:07:00 40.17 kg/m2 [facility] Body temperature 2023-10-24 15:18:00 36.06 Sally [facility] Respiratory rate 2023-10-24 15:18:00 18 /min [facility] Body height 2023-10-24 15:18:00 165.1 cm [facility] Body weight 2023-10-24 15:18:00 109.374 kg [facility] BMI 2023-10-24 15:18:00 40.13 kg/m2 [facility] Systolic blood pressure 2023-10-08 17:39:00 128 mm[Hg] General acute hospital Diastolic blood pressure 2023-10-08 17:39:00 79 mm[Hg] General acute hospital Heart rate 2023-10-08 17:39:00 116 [facility] Body temperature 2023-10-08 17:39:00 36.33 Sally [facility] Respiratory rate 2023-10-08 17:39:00 18 /min [facility] Body height 2023-10-08 17:39:00 165.1 cm [facility] Body weight 2023-10-08 17:39:00 109.181 kg [facility] BMI 2023-10-08 17:39:00 40.05 kg/m2 [facility] Systolic blood pressure 2023-09-17 20:04:00 127 mm[Hg] [place] [facility] Diastolic blood pressure 2023-09-17 20:04:00 74 mm[Hg] General acute hospital Heart rate 2023-09-17 20:04:00 115 /min [facility] Body temperature 2023-09-17 20:01:00 36.22 Sally [facility] Respiratory rate 2023-09-17 20:01:00 20 /min [facility] Body height 2023-09-17 20:01:00 165.1 cm [facility] Body weight 2023-09-17 20:01:00 107.729 kg [facility] BMI 2023-09-17 20:01:00 39.52 kg/m2 [facility] Systolic blood pressure 2023-08-20 18:03:00 137 mm[Hg] [place] [facility] Diastolic blood pressure 2023-08-20 18:03:00 78 mm[Hg] General acute hospital Heart rate 2023-08-20 18:03:00 110 /min Unive [facility] Body temperature 2023-08-20 18:03:00 36.72 Sally [facility] Respiratory rate 2023-08-20 18:03:00 17 /min [facility] Body height 2023-08-20 18:03:00 165.1 cm [facility] Body weight 2023-08-20 18:03:00 105.858 kg [facility] BMI 2023-08-20 18:03:00 38.84 kg/m2 [facility] Systolic blood pressure 2023-07-23 16:05:00 115 mm[Hg] General acute hospital Diastolic blood pressure 2023-07-23 16:05:00 77 mm[Hg] General acute hospital Heart rate 2023-07-23 16:05:00 121 /min Unive [facility] Body temperature 2023-07-23 16:05:00 36.39 Sally [facility] Respiratory rate 2023-07-23 16:05:00 17 /min [facility] Body height 2023-07-23 16:05:00 165.1 cm [facility] Body weight 2023-07-23 16:05:00 103.602 kg [facility] BMI 2023-07-23 16:05:00 38.01 kg/m2 [facility] Systolic blood pressure 2023-06-25 19:25:00 138 mm[Hg] General acute hospital Diastolic blood pressure 2023-06-25 19:25:00 80 mm[Hg] General acute hospital Heart rate 2023-06-25 19:25:00 116 /min Unive [facility] Body temperature 2023-06-25 19:25:00 36.56 Sally [facility] Respiratory rate 2023-06-25 19:25:00 19 /min [facility] Body height 2023-06-25 19:25:00 165.1 cm [facility] Body weight 2023-06-25 19:25:00 103.783 kg [facility] BMI 2023-06-25 19:25:00 38.07 kg/m2 [facility] Systolic blood pressure 2023-04-15 21:34:00 134 mm[Hg] General acute hospital Diastolic blood pressure 2023-04-15 21:34:00 88 mm[Hg] General acute hospital Heart rate 2023-04-15 21:33:00 102 /min Un[facility] Body temperature 2023-04-15 21:33:00 36.5 Sally [facility] Respiratory rate 2023-04-15 21:33:00 18 /min [facility] Body height 2023-04-15 21:33:00 165.1 cm [facility] Body weight 2023-04-15 21:33:00 100.608 kg [facility] BMI 2023-04-15 21:33:00 36.91 kg/m2 [facility] Oxygen saturation in Arterial blood by Pulse oximetry 2023-04-15 21:33:00 99 /min General acute hospital Systolic blood pressure 2023-04-01 18:38:00 118 mm[Hg] General acute hospital Diastolic blood pressure 2023-04-01 18:38:00 82 mm[Hg] General acute hospital Heart rate 2023-04-01 18:38:00 92 /min Un[facility] Body temperature 2023-04-01 18:38:00 37.11 Sally [facility] Respiratory rate 2023-04-01 18:38:00 18 /min [facility] Body weight 2023-04-01 18:38:00 101.334 kg [facility] BMI 2023-04-01 18:38:00 37.18 kg/m2 [facility] Oxygen saturation in Arterial blood by Pulse oximetry 2023-04-01 18:38:00 92 /min General acute hospital Systolic blood pressure 2023-03-29 16:56:00 119 mm[Hg] General acute hospital Diastolic blood pressure 2023-03-29 16:56:00 73 mm[Hg] General acute hospital Heart rate 2023-03-29 16:56:00 105 /min Un[facility] Body weight 2023-03-29 16:56:00 99.882 kg [facility] BMI 2023-03-29 16:56:00 36.64 kg/m2 [facility] Systolic blood pressure 2023-01-07 21:48:00 122 mm[Hg] General acute hospital Diastolic blood pressure 2023-01-07 21:48:00 81 mm[Hg] General acute hospital Heart rate 2023-01-07 21:48:00 112 /min Un[facility] Body temperature 2023-01-07 21:48:00 37.28 Sally [facility] Respiratory rate 2023-01-07 21:48:00 20 /min [facility] Body weight 2023-01-07 21:48:00 102.059 kg [facility] BMI 2023-01-07 21:48:00 37.44 kg/m2 [facility] Oxygen saturation in Arterial blood by Pulse oximetry 2023-01-07 21:48:00 99 /min General acute hospital Systolic blood pressure 2022-04-15 15:33:00 120 mm[Hg] General acute hospital Diastolic blood pressure 2022-04-15 15:33:00 78 mm[Hg] General acute hospital Heart rate 2022-04-15 15:33:00 122 /min Un[facility] Body temperature 2022-04-15 15:33:00 37.83 Sally [facility] Respiratory rate 2022-04-15 15:33:00 17 /min [facility] Body height 2022-04-15 15:33:00 165.1 cm [facility] Body weight 2022-04-15 15:33:00 96.934 kg Univ [facility] BMI 2022-04-15 15:33:00 35.56 kg/m2 [facility] Oxygen saturation in Arterial blood by Pulse oximetry 2022-04-15 15:33:00 98 /min General acute hospital Systolic blood pressure 2022-03-07 16:02:00 116 mm[Hg] General acute hospital Diastolic blood pressure 2022-03-07 16:02:00 73 mm[Hg] General acute hospital Heart rate 2022-03-07 16:02:00 88 /min Un[facility] Body temperature 2022-03-07 16:02:00 36.89 Sally [facility] Respiratory rate 2022-03-07 16:02:00 18 /min [facility] Body height 2022-03-07 16:02:00 165.1 cm [facility] Body weight 2022-03-07 16:02:00 96.701 kg [facility] BMI 2022-03-07 16:02:00 35.48 kg/m2 [facility] Oxygen saturation in Arterial blood by Pulse oximetry 2022-03-07 16:02:00 100 /min General acute hospital Systolic blood pressure 2021-11-24 19:33:00 138 mm[Hg] General acute hospital Diastolic blood pressure 2021-11-24 19:33:00 81 mm[Hg] General acute hospital Heart rate 2021-11-24 19:33:00 103 /min Un[facility] Body temperature 2021-11-24 19:33:00 36.89 Sally [facility] Respiratory rate 2021-11-24 19:33:00 18 /min [facility] Body height 2021-11-24 19:33:00 165.1 cm [facility] Body weight 2021-11-24 19:33:00 99.791 kg [facility] BMI 2021-11-24 19:33:00 36.61 kg/m2 [facility] height 2020-09-07 16:30:00 65 [in_i] Commo n [facility] weight 2020-09-07 16:30:00 211.9 [lb_av] Co mmon [facility] temperature 2020-09-07 16:30:00 96.9 [degF] Com mon [facility] bmi 2020-09-07 16:30:00 35.26 kg/m2 Comm on [facility] oximetry 2020-09-07 16:30:00 98 % Commo n [facility] respiratory rate 2020-09-07 16:30:00 17 /min Common [facility] blood pressure systolic 2020-09-07 16:30:00 127 mm[Hg] Common [facility] blood pressure diastolic 2020-09-07 16:30:00 69 mm[Hg] [facility] height 2020-08-16 14:40:00 65 [in_i] Commo n [facility] weight 2020-08-16 14:40:00 211.6 [lb_av] Co on [facility] temperature 2020-08-16 14:40:00 97.3 [degF] Com mon [facility] bmi 2020-08-16 14:40:00 35.21 kg/m2 Comm on [facility] oximetry 2020-08-16 14:40:00 100 % Commo n [facility] respiratory rate 2020-08-16 14:40:00 17 /min Common [facility] blood pressure systolic 2020-08-16 14:40:00 125 mm[Hg] Common [facility] blood pressure diastolic 2020-08-16 14:40:00 75 mm[Hg] [facility] Procedures Procedure Date / Time Performed Performing Clinician Source CBC WITH DIFF 2024-01-12 09:10:00 Temo Javier [facility] VENOUS CORD GAS 2024-01-11 09:21:00 Felicia Stubbs [facility] POCT GLUCOSE (AUTOMATED) 2024-01-11 06:49:00 Domenic Jhon lea [facility] POCT GLUCOSE (AUTOMATED) 2024-01-11 03:05:00 Domenic Jhon brownta [facility] CENTRAL NEURAXIAL BLOCK 2024-01-11 02:39:00 Jesus Manuel Benson [facility] POCT GLUCOSE (AUTOMATED) 2024-01-10 22:38:00 Domenic Jhon lea [facility] HEPATITIS B SURFACE ANTIGEN 2024-01-10 17:47:00 Felicia Stubbs [facility] HB ABO GROUPING 2024-01-10 17:47:00 Felicia Stubbs [facility] RHO (D) IMMUNE GLOBULIN 2024-01-10 17:47:00 Demetrice Sawyer [facility] SYPHILIS IGG/IGM 2024-01-10 17:47:00 [facility] 2024-01-10 17:44:00 Domenic Jhon brownta [facility] NON-STRESS TEST 2024-01-10 13:51:19 Celso Guidry [facility] POCT GLUCOSE (AUTOMATED) 2024-01-10 13:30:00 Debbie Guidry [facility] POCT URINALYSIS 2024-01-10 12:55:00 Carito Barrera [facility] NON-STRESS TEST 2024-01-07 13:59:47 Sherry Barrera [facility] POCT URINALYSIS 2024-01-07 12:49:00 Carito Barrera [facility] NON-STRESS TEST 2024-01-03 13:15:22 Sherry Barrera [facility] POCT URINALYSIS 2024-01-03 00:00:00 Carito Barrera [facility] NON-STRESS TEST 2023-12-31 12:58:47 Sherry Barrera [facility] POCT URINALYSIS 2023-12-31 12:26:00 Carito Barrera [facility] NON-STRESS TEST 2023-12-27 12:43:16 Sherry Barrera [facility] POCT URINALYSIS 2023-12-27 11:57:00 Carito Barrera [facility] NON-STRESS TEST 2023-12-24 16:30:21 Sherry Barrera [facility] POCT URINALYSIS 2023-12-24 12:22:00 Carito Barrera [facility] NON-STRESS TEST 2023-12-20 00:53:32 Sherry Barrera [facility] POCT URINALYSIS 2023-12-19 20:58:00 Carito Barrera [facility] NON-STRESS TEST 2023-12-17 21:09:44 Sherry Barrera [facility] POCT URINALYSIS 2023-12-17 20:17:00 Carito Barrera [facility] NON-STRESS TEST 2023-12-13 16:41:14 Sherry Barrera [facility] POCT URINALYSIS 2023-12-13 00:00:00 Carito Barrera [facility] NON-STRESS TEST 2023-12-10 23:29:50 Sherry Barrera [facility] POCT URINALYSIS 2023-12-10 20:12:00 Carito Barrera [facility] SECOND AND THIRD TRIMESTER ULTRASOUND 2023-12-07 15:22:00 Carito Barrera [facility] NON-STRESS TEST 2023-12-06 20:29:19 Sherry Barrera [facility] POCT URINALYSIS 2023-12-06 13:16:00 Carito Barrera [facility] NON-STRESS TEST 2023-12-03 20:59:50 Sherry Barrera [facility] POCT URINALYSIS 2023-12-03 19:27:00 Carito Barrera [facility] POCT URINALYSIS 2023-11-27 14:14:00 Carito Barrera [facility] SGOT (ASPARTATE AMINO TRANSFER) 2023-11-22 20:05:00 [facility] CREATININE 2023-11-22 20:05:00 [facility] ALANINE AMINO TRANSFERASE(SGPT 2023-11-22 20:05:00 [facility] LACTATE DEHYDROGENASE 2023-11-22 20:05:00 [facility] URIC ACID 2023-11-22 20:05:00 [facility] COMP. METABOLIC PANEL (87182) 2023-11-22 20:05:00 [facility] CBC WITH DIFF 2023-11-22 20:05:00 [facility] PROTEIN CREAT RATIO URINE RANDOM 2023-11-22 20:05:00 [facility] POCT GLUCOSE (AUTOMATED) 2023-11-22 18:36:00 Doc tor Unassigned, [place] [facility] POCT URINALYSIS 2023-11-15 16:43:00 Carito Barrera [facility] TDAP VACCINE, >11 YRS, IM 2023-11-01 15:43:35 Carito Barrera [facility] POCT URINALYSIS 2023-11-01 15:17:00 Carito Barrera [facility] 3 HR GLUCOSE TOLERANCE TEST 2023-10-14 15:09:00 Carito Barrera [facility] 2 HR GLUCOSE TOLERANCE TEST 2023-10-14 14:09:00 Carito Barrera [facility] 1 HR GLUCOSE TOLERANCE TEST 2023-10-14 13:09:00 Carito Barrera [facility] GLUCOSE FASTING 2023-10-14 12:06:00 Carito Barrera [facility] 3 HR GLUCOSE TOLERANCE PANEL 2023-10-14 12:06:00 Carito Barrera [facility] POCT URINALYSIS 2023-10-08 19:18:00 Carito Barrera [facility] POCT URINALYSIS 2023-09-17 20:02:00 Carito Barrera [facility] SECOND AND THIRD TRIMESTER ULTRASOUND 2023-09-09 19:40:46 Carito Barrera [facility] ALPHA FETOPROTEIN-MATERNAL SER 2023-08-20 18:45:00 Carito Barrera [facility] POCT URINALYSIS 2023-08-20 18:03:00 Carito Barrera [facility] POCT URINALYSIS 2023-07-23 00:00:00 Carito Barrera [facility] GLUCOSE 1 HOUR POST PRANDIAL 2023-06-25 20:26:00 Carito Barrera [facility] THYROID STIMULATING HORMONE 2023-06-25 20:26:00 Carito Barrera [facility] CBC WITH DIFF 2023-06-25 20:26:00 Carito Barrera [facility] HEPATITIS B SURFACE ANTIGEN 2023-06-25 20:26:00 Carito Barrera [facility] HCV ANTIBODY 2023-06-25 20:26:00 [facility] 2023-06-25 20:26:00 Carito Barrera [facility] HIV 1/2 AG-AB WITH REFLEX 2023-06-25 20:26:00 Carito Barrera [facility] POCT TEST 2023-06-25 19:19:00 Karyn Barrera [facility] POCT URINALYSIS W/O SPECIFIC GRAVITY 2023-06-25 19:19:00 Carito Barrera [facility] REPORT OF 2023-06-24 06:01:00 Doctor Venus bryantgned, [place] [facility] PAP SMEAR-LIQUID BASED-CP 2023-04-15 21:58:00 Lanette Bunchsol [facility] CONSENT FOR CONTRACEPTION 2023-04-15 06:01:00 Doctor Unassigned, [place] [facility] POCT TEST 2023-04-15 00:00:00 Lanette Bunchsol [facility] POCT MOLECULAR FLU 2023-04-01 18:49:00 Unknown, Attend [facility] CONSENT FOR CONTRACEPTION 2023-03-29 06:01:00 Doctor Unassigned, [place] [facility] CONSENT/REFUSAL FOR DIAGNOSIS AND TREATMENT 2023-01-07 21:41:16 Doctor Unassigned, [place] [facility] ASSIGNMENT OF BENEFITS 2023-01-07 21:41:00 Docto r Unassigned, [place] [facility] POCT SARS-COV-2 ANTIGEN (BINAX NOW) 2023-01-07 21:34:00 Miguel Ángel Palumbo [facility] POCT MOLECULAR FLU 2022-04-15 15:39:00 Unknown, Attend [facility] POCT MOLECULAR STREP 2022-04-15 15:38:00 Unknown, Roz farr [facility] POCT MOLECULAR FLU 2022-03-07 16:11:00 Unknown, Attend [facility] Encounters Start Date/Time End Date/Time Encounter Type Admission Type Attending [facility] Care Facility Care Department Encounter ID Source 2023-11-22 17:14:51 Outpatient X [facility] BELIA [id number] [facility] 2021-06-07 13:12:47 Outpatient Parmar, [facility] [id number] [facility] 2021-06-07 12:57:23 Outpatient Parmar, [facility] [id number] [facility] 2021-06-07 12:50:05 Outpatient Parmar, [facility] [id number] [facility] 2021-06-07 12:48:30 Outpatient Parmar, [facility] [id number] [facility] 2024-01-14 00:00:00 2024-01-14 15:21:19 Telephone Debbie Guidry [facility] ATTENDANT [facility] [id number] [facility] 2024-01-14 08:00:00 2024-01-14 08:00:00 Outpatient R DEBBIE GUIDRY [facility] [id number] [facility] 2024-01-10 11:13:00 2024-01-12 13:41:00 Inpatient NATALYA FISHMAN, NATALYA LEVIN [facility] [id number] [facility] 2024-01-10 11:13:00 2024-01-12 13:41:00 Hospital Encounter Natalya Sheth [facility] [id number] [facility] 2024-01-10 20:55:00 2024-01-11 05:22:00 Anesthesia Event Jesus Manuel Baron Daniel [facility] [id number] [id number] [id number] [facility] 2024-01-10 07:45:00 2024-01-10 08:53:17 Outpatient R DEBBIE GUIDRY [facility] [id number] [facility] 2024-01-10 07:45:00 2024-01-10 08:53:17 Routine Visit Debbie Guidry FLBRADY ATTENDANT [facility] [id number] [id number] [id number] [facility] 2024-01-07 07:30:00 2024-01-07 08:31:05 Outpatient R CARITO BARRERA [facility] [id number] [facility] 2024-01-07 07:30:00 2024-01-07 08:31:05 [facility] 1..840.114 [id number] [id number] [facility] 2024-01-03 06:45:00 2024-01-03 08:15:21 Outpatient R CARITO BARRERA [facility] [id number] [facility] 2024-01-03 06:45:00 2024-01-03 08:15:21 [facility] 1..840.114 350.1.13.10 [id number] [facility] 2023-12-31 07:00:00 2023-12-31 07:57:21 Outpatient R [facility]ARR[facility]A [facility] [facility] [id number] [facility] 2023-12-31 07:00:00 2023-12-31 07:57:21 Routine Visit Carito Barrera [facility] ATTENDANT HONOR BAR [facility] ..840.114 350.1.13.10 4.2.7.2.686 [id number] 107 [id number] [facility] 2023-12-27 06:45:00 2023-12-27 07:50:24 Outpatient R CARITO BARRERA [facility] [id number] [facility] 2023-12-27 06:45:00 2023-12-27 07:50:24 [facility] BAR [facility] 1.2.840.114 350.1.13.10 4.2.7.2.686 [id number] 107 [id number] [facility] 2023-12-26 00:00:00 2023-12-26 07:16:31 Patient Secure Msg Carito Barrera [facility] ATTENDANT HONOR BAR [facility] 1.2.840.114 350.1.13.10 4.2.7.2.686 [id number] 107 [id number] [facility] 2023-12-24 07:00:00 2023-12-24 08:25:27 Outpatient R CARITO BARRERA [facility] [id number] [facility] 2023-12-24 07:00:00 2023-12-24 08:25:27 Routine Visit Carito Barrera [facility] ATTENDANT HONOR [facility] 1.2840.114 350.1.13.10 4.2.7.2.686 [id number] 107 [id number] [facility] 2023-12-19 14:45:00 2023-12-19 16:20:41 Outpatient R CARITO BARRERA [facility] [id number] [facility] 2023-12-19 14:45:00 2023-12-19 16:20:41 Routine Visit Carito Barrera [facility] ATTENDANT HONOR BAR [facility] 1.2.840.114 350.1.13.10 4.2.7.2.686 [id number] 107 [id number] [facility] 2023-12-17 14:45:00 2023-12-17 15:54:15 Outpatient R CARITO BARRERA [facility] [id number] [facility] 2023-12-17 14:45:00 2023-12-17 15:54:15 Routine Visit Carito Barrera [facility] ATTENDANT HONOR BAR [facility] 1.2.840.114 350.1.13.10 4.2.7.2.686 [id number] 107 [id number] [facility] 2023-12-13 08:45:00 2023-12-13 09:20:29 Outpatient R CÉSARKARYN RESENDEZNDA [facility] [id number] [facility] 2023-12-13 08:45:00 2023-12-13 09:20:29 Routine Visit Bruce Carito [facility] ATTENDANT HONOR BAR [facility] 1..840.114 350.1.13.10 4.2.7.2.686 [id number] 107 [id number] [facility] 2023-12-10 15:30:00 2023-12-10 15:41:54 Outpatient [facility] [id number] [facility] 2023-12-10 15:30:00 2023-12-10 15:41:54 [facility]ine [facility]iolia [facility] ATTEND[facility] HON[facility] BAR [facility] ..840.114 350.1.13.10 4.2.7.2.686 [id number] 107 [id number] [facility] 2023-12-08 00:00:00 2023-12-08 17:24:36 Case Management Octaviolia [facility] ATTENDANT HONOR BAR [facility] ..840.114 350.1.13.10 4.2.7.2.686 [id number] 107 [id number] [facility] 2023-12-07 10:15:00 2023-12-07 10:23:36 Outpatient P BETTYE CAT FARANAK [facility] [id number] [facility] 2023-12-07 10:15:00 2023-12-07 10:23:36 Production Tester Visit Ultrasound, PhoebeBettye Spaulding [facility] ATTENDANT HONOR BAR [facility] 1.2.840.114 350.1.13.10 4.2.7.2.686 [id number] [facility] 2023-12-06 07:15:00 2023-12-06 08:53:07 Outpatient R ANDREW CHARLES JELISA [facility] [id number] [facility] 2023-12-06 07:15:00 2023-12-06 08:53:07 Routine Visit Carito Barrera Jelisa [facility] ATTENDANT HONOR BAR [facility] 1..840.114 350.1.13.10 4.2.7.2.686 [id number] 107 [id number] [facility] 2023-12-03 14:45:00 2023-12-03 15:31:27 Outpatient R CARITO BARRERA [facility] [id number] [facility] 2023-12-03 14:45:00 2023-12-03 15:31:27 Routine Visit Carito Barrera [facility] ATTENDANT HONOR BAR [facility] 1..840.114 350.1.13.10 4.2.7.2.686 [id number] 107 [id number] [facility] 2023-11-27 09:00:00 2023-11-27 09:32:41 Outpatient R CARITO BARRERA [facility] [id number] [facility] 2023-11-27 09:00:00 2023-11-27 09:32:41 Routine Visit Carito Barrera [facility] ATTENDANT HONOR BAR [facility] 1..840.114 350.1.13.10 4.2.7.2.686 [id number] 107 [id number] [facility] 2023-10-17 00:00:00 2023-11-23 18:25:06 Patient Secure Msg Carito Barrera [facility] ATTENDANT HONOR BAR [facility] 1.840.114 350.1.13.10 4.2.7.2.686 [id number] 107 [id number] [facility] 2023-11-22 13:39:00 2023-11-22 17:05:00 Outpatient X MENA-JAE S, VONDA MENA-JAE S, VONDA [facility] BELIA [id number] [facility] 2023-11-22 13:39:00 2023-11-22 17:05:00 Emergency Todd Lanara Anne-Marie Mena-Jae s, Vonda [facility] 1.84.114 350.1.13.10 4.2.7.2.686 [id number] [facility] 2023-11-21 11:00:00 2023-11-21 11:00:00 Outpatient R CARITO BARRERA [facility] [id number] [facility] 2023-11-15 11:15:00 2023-11-15 11:36:59 Outpatient R CARITO BARRERA [facility] [id number] [facility] 2023-11-15 11:15:00 2023-11-15 11:36:59 Routine Visit Carito Barrera [facility] ATTENDANT HONOR BAR [facility] 1.840.114 350.1.13.10 4.2.7.2.686 [id number] 107 [id number] [facility] 2023-11-08 10:30:00 2023-11-08 11:19:34 Outpatient R CARITO BARRERA [facility] [id number] [facility] 2023-11-08 10:30:00 2023-11-08 11:19:34 Routine Visit Carito Barrera [facility] ATTENDANT HONOR BAR [facility] 1.840.114 350.1.13.10 4.2.7.2.686 [id number] 107 [id number] [facility] 2023-11-05 00:00:00 2023-11-05 06:47:48 Case Management Carito Barrera [facility] ATTENDANT HONOR BAR [facility] 1..840.114 350.1.13.10 4.2.7.2.686 [id number] 107 [id number] [facility] 2023-11-01 10:30:00 2023-11-01 11:16:27 Outpatient R CARITO BARRERA [facility] [id number] [facility] 2023-11-01 10:30:00 2023-11-01 11:16:27 Routine Visit Carito Barrera [facility] ATTENDANT HONOR BAR [facility] 1..840.114 350.1.13.10 4.2.7.2.686 [id number] 107 [id number] [facility] 2023-10-24 10:30:00 2023-10-24 10:45:00 Nurse Visit Visit, Ang-Rmchp Nurse Debbie Guidry [facility] ATTENDANT HONOR [facility] 1..840.114 350.1.13.10 4.2.7.2.686 [id number] 107 [id number] [facility] 2023-10-24 10:30:00 2023-10-24 10:30:00 Outpatient R DEBBIE GUIDRY [facility] [id number] [facility] 2023-10-22 10:00:00 2023-10-22 10:00:00 Outpatient R [facility] [id number] [facility] 2023-10-21 00:00:00 2023-10-21 12:22:46 Patient Secure Msg [facility]END[facility] HONOR [facility] 1..840.114 350.1.13.10 4.2.7.2.686 [id number] 107 [id number] [facility] 2023-10-21 00:00:00 2023-10-21 12:20:02 Telephone Chao Debbie C [facility] ATTENDANT HONOR BAR [facility] 1.2.840.114 350.1.13.10 4.2.7.2.686 [id number] 107 [id number] [facility] 2023-10-21 00:00:00 2023-10-21 09:13:17 Telephone DerekrandDebbie nesbitt [facility] ATTENDANT HONOR BAR [facility] 1.2.840.114 350.1.13.10 4.2.7.2.686 [id number] 107 [id number] [facility] 2023-10-18 00:00:00 2023-10-18 14:43:22 Telephone DerekrandDebbie nesbitt [facility] ATTENDANT HONOR [facility] 1.2.840.114 350.1.13.10 4.2.7.2.686 [id number] 107 [id number] [facility] 2023-10-14 08:15:00 2023-10-14 10:11:52 Outpatient R CARITO BARRERA [facility] [id number] [facility] 2023-10-14 08:15:00 2023-10-14 10:11:52 Production Tester Visit Lab, Ang-Rmchp Carito Barrera [facility] ATTENDANT HONOR BAR [facility] 1.2.840.114 350.1.13.10 4.2.7.2.686 [id number] 107 [id number] [facility] 2023-09-09 00:00:00 2023-10-12 18:07:46 Patient Secure Carito Bond [facility] ATTENDANT HONOR BAR [facility] 1.2.840.114 350.1.13.10 4.2.7.2.686 [id number] 107 [id number] [facility] 2023-10-11 10:30:00 2023-10-11 11:03:09 Outpatient R JAKE RYAN [facility] [id number] [facility] 2023-10-11 10:30:00 2023-10-11 11:03:09 Telemedici ne Visit Benito Zainab KiranJake Hank [facility] ATTENDANT HONOR BAR [facility] 1.2.840.114 350.1.13.10 4.2.7.2.686 [id number] 107 [id number] [facility] 2023-10-09 00:00:00 2023-10-09 08:10:17 Telephone Carito Barrera [facility] ATTENDANT HONOR BAR [facility] 1.2.840.114 350.1.13.10 4.2.7.2.686 [id number] 107 [id number] [facility] 2023-10-09 00:00:00 2023-10-09 07:49:34 Case Management Carito Barrera [facility] ATTENDANT HONOR BAR [facility] 1.2.840.114 350.1.13.10 4.2.7.2.686 [id number] 107 [id number] [facility] 2023-10-08 12:30:00 2023-10-08 13:00:51 Outpatient R CARITO BARRERA [facility] [id number] [facility] 2023-10-08 12:30:00 2023-10-08 13:00:51 Routine Visit Carito Barrera [facility] ATTENDANT HONOR BAR [facility] 1.2.840.114 350.1.13.10 4.2.7.2.686 [id number] 107 [id number] [facility] 2023-09-17 15:00:00 2023-09-17 15:37:08 Outpatient R CARITO BARRERA [facility] [id number] [facility] 2023-09-17 15:00:00 2023-09-17 15:37:08 Routine Visit Carito Barrera [facility] ATTENDANT HONOR BAR [facility] 1.2.840.114 350.1.13.10 4.2.7.2.686 [id number] 107 [id number] [facility] 2023-09-10 00:00:00 2023-09-10 00:00:00 Case Management Carito Barrera [facility] ATTENDANT HONOR BAR [facility] 1.2.840.114 350.1.13.10 4.2.7.2.686 [id number] 107 [id number] [facility] 2023-09-09 13:00:00 2023-09-09 13:34:05 Production Tester Visit Ultrasound, Natalya Ornelas [facility] ATTENDANT HONOR BAR [facility] 1.2.840.114 350.1.13.10 4.2.7.2.686 [id number] [facility] 2023-09-09 13:00:00 2023-09-09 13:34:05 [facility] [id number] [facility] 2023-08-20 12:45:00 2023-08-20 13:43:07 Outpatient R CARITO BARRERA [facility] [id number] [facility] 2023-08-20 12:45:00 2023-08-20 13:43:07 Routine Visit Carito Barrera [facility] ATTENDANT HONOR BAR [facility] 1.2.840.114 350.1.13.10 4.2.7.2.686 [id number] 107 [id number] [facility] 2023-07-23 11:00:00 2023-07-23 11:30:38 Outpatient R CARITO BARRERA [facility] [id number] [facility] 2023-07-23 11:00:00 2023-07-23 11:30:38 Routine Visit Carito Barrera [facility] ATTENDANT HONOR BAR [facility] 1.2840.114 350.1.13.10 4.2.7.2.686 [id number] 107 [id number] [facility] 2023-06-26 00:00:00 2023-06-26 00:00:00 Patient Secure Msg Eva Barreraa Maegan [facility] ATTENDANT HONOR BAR [facility] 1.20.114 350.1.13.10 4.2.7.2.686 [id number] 107 [id number] [facility] 2023-06-25 13:45:00 2023-06-25 14:34:23 Outpatient R CARITO BARRERA [facility] [id number] [facility] 2023-06-25 13:45:00 2023-06-25 14:34:23 Initial Visit [facility] HON[facility] BAR [facility] 1.0.114 350.1.13.10 4.2.7.2.686 [id number] 107 [id number] [facility] 2023-06-24 00:00:00 2023-06-24 00:00:00 Orders Only Doctor Unassigned, [place] [facility] 1.2840.114 350.1.13.10 4.2.7.2.686 [id number] [facility] 2023-04-15 15:30:00 2023-04-15 16:01:09 Outpatient R VONDA STEWART MARISOL [facility] [id number] [facility] 2023-04-15 15:30:00 2023-04-15 16:01:09 Office Visit Vonda Stewart [facility] 1.0.114 350.1.13.10 4.2.7.2.686 [id number] 134 [id number] [facility] 2023-04-15 00:00:00 2023-04-15 00:00:00 Orders Only Doctor Unassigned, [place] [facility] 1.2840.114 350.1.13.10 4.2.7.2.686 [id number] [facility] 2023-04-01 12:20:00 2023-04-01 13:05:05 Outpatient R SHANNON EDDY [facility] [id number] [facility] 2023-04-01 12:20:00 2023-04-01 12:40:00 Urgent Care Shannon Eddy Unknown, Attending [facility] 1..840.114 350.1.13.10 4.2.7.2.686 [id number] 370 [id number] [facility] 2023-03-29 11:00:00 2023-03-29 11:17:57 Outpatient R LANETTE STEWARTSOL LANETTE STEWARTSOL [facility] [id number] [facility] 2023-03-29 11:00:00 2023-03-29 11:17:57 Office Visit Lanette Stewartsol [facility] NAL [facility]ILD[facility] 1..840.114 350.1.13.10 4.2.7.2.686 [id number] 134 [id number] [facility] 2023-03-29 00:00:00 2023-03-29 00:00:00 Orders Only Doctor Unassigned, [place] [facility] 1.840.114 350.1.13.10 4.2.7.2.686 [id number] [facility] 2023-01-07 16:40:00 2023-01-07 16:52:58 Outpatient R MIGUEL ÁNGEL PALUMBO [facility] [id number] [facility] 2023-01-07 16:40:00 2023-01-07 16:52:58 Urgent Care Miguel Ángel Palumbo Unknown, Attending [facility] 1.2.840.114 350.1.13.10 4.2.7.2.686 [id number] 370 [id number] [facility] 2023-01-07 00:00:00 2023-01-07 00:00:00 Orders Only Doctor Unassigned, [place] [facility] 1.2.840.114 350.1.13.10 4.2.7.2.686 [id number] [facility] 2023-01-07 00:00:00 2023-01-07 00:00:00 Letter (Out) [facility] 1.2.840.114 350.1.13.10 4.2.7.2.686 [id number] 370 [id number] [facility] 2022-04-30 00:00:00 2022-04-30 00:00:00 Patient Secure Jennifer Sheree [facility] 1.2.840.114 350.1.13.10 4.2.7.2.686 [id number] 134 [id number] [facility] 2022-04-29 00:00:00 2022-04-29 00:00:00 Rusty Jennifer Sheree [facility] 1.2.840.114 350.1.13.10 4.2.7.2.686 [id number] 134 [id number] [facility] 2022-04-29 00:00:00 2022-04-29 00:00:00 Rusty Jennifer Sheree [facility] 1.2.840.114 350.1.13.10 4.2.7.2.686 [id number] 134 [id number] [facility] 2022-04-15 10:00:00 2022-04-15 10:37:41 Outpatient R SURJIT SHANNON [facility] [id number] [facility] 2022-04-15 10:00:00 2022-04-15 10:37:41 Urgent Care Meena Washington, Attending Surjit [facility] DEAN?[facility] 1.84114 350.1.13.10 4.2.7.2.686 [id number] 370 [id number] [facility] 2022-04-15 00:00:00 2022-04-15 00:00:00 Letter (Out) Meena Washington [facility] DEAN?[facility] 1.84114 350.1.13.10 4.2.7.2.686 [id number] 370 [id number] [facility] 2022-03-07 11:00:00 2022-03-07 11:20:00 Urgent Care Fredrick Acevedo, Attending [facility] 1.114 350.1.13.10 4.2.7.2.686 [id number] 370 [id number] [facility] 2022-03-07 11:00:00 2022-03-07 11:00:00 Outpatient R NARESHFREDRICK Mora [facility] [id number] [facility] 2022-03-07 00:00:00 2022-03-07 00:00:00 Letter (Out) Fredrick Acevedo [facility] DEAN?[facility] 1.84114 350.1.13.10 4.2.7.2.686 [id number] 370 [id number] [facility] 2022-01-29 00:00:00 2022-01-29 00:00:00 Case Management Sheree [facility] 1.84114 350.1.13.10 4.2.7.2.686 [id number] 134 [id number] [facility] 2022-01-29 00:00:00 2022-01-29 00:00:00 Patient Secure Msg Sheree Rodriguez [facility] 1.2.840.114 350.1.13.10 4.2.7.2.686 [id number] 134 [id number] [facility] 2021-12-06 00:00:00 2021-12-06 00:00:00 Patient Secure Msg Richard Canales [facility] 1.840.114 350.1.13.10 4.2.7.2.686 [id number] 134 [id number] [facility] 2021-11-27 00:00:00 2021-11-27 00:00:00 Case Management Parker Richard [facility] 1.84.114 350.1.13.10 4.2.7.2.686 [id number] 134 [id number] [facility] 2021-11-24 16:15:00 2021-11-24 16:15:00 Office Visit Richard Canales [facility] 1..840.114 350.1.13.10 4.2.7.2.686 [id number] 134 [id number] [facility] 2021-11-24 16:15:00 2021-11-24 14:53:52 Outpatient R RICHARD CANALES [facility] [id number] [facility] 2021-11-24 00:00:00 2021-11-24 00:00:00 Patient Secure Msg Gayle Sawyer [facility] 1.2.840.114 350.1.13.10 4.2.7.2.686 [id number] 134 [id number] [facility] 2021-08-16 00:00:00 2021-08-16 00:00:00 Patient Secure Msg Case, Ashely A [facility] 1.2840.114 350.1.13.10 4.2.7.2.686 [id number] 134 [id number] [facility] 2021-08-10 00:00:00 2021-08-10 00:00:00 Case Management IsaacSheree purcell [facility] 1.2840.114 350.1.13.10 4.2.7.2.686 [id number] 370 [id number] [facility] 2021-08-09 14:30:00 2021-08-09 15:21:31 Office Visit Jennifer Sheree [facility] 1.2840.114 350.1.13.10 4.2.7.2.686 [id number] 134 [id number] [facility] 2021-08-09 14:30:00 2021-08-09 15:21:31 [facility] [id number] [facility] 2021-08-09 14:30:00 2021-08-09 14:30:00 Outpatient R [facility]ER [facility] [id number] [facility] 2021-08-09 00:00:00 2021-08-09 00:00:00 Letter (Out) Jennifer [facility] 1.2840.114 350.1.13.10 4.2.7.2.686 [id number] 134 [id number] [facility] 2021-06-29 00:00:00 2021-06-29 00:00:00 Letter (Out) Rianna Venegas [facility] 1.2840.114 350.1.13.10 4.2.7.2.686 [id number] [facility] 2021-06-28 09:20:00 2021-06-28 09:54:13 Outpatient R SHARON CARPIO III [facility] [id number] [facility] 2021-06-28 09:20:00 2021-06-28 09:40:00 Urgent Care Sharon Carpio Unknown, Attending Fredrick Acevedo [facility] 1.2840.114 350.1.13.10 4.2.7.2.686 [id number] [facility] 2021-05-27 00:00:00 2021-05-27 00:00:00 Telephone Jenn Marie [facility] 1.84.114 350.1.13.10 4.2.7.2.686 [id number] [facility] 2021-05-26 11:45:00 2021-05-26 12:00:00 Laboratory Only Only, Ang Db Test Francisco [facility] OFF[facility] BU[facility] 1.84.114 350.1.13.10 4.2.7.2.686 [id number] [facility] 2021-05-26 11:45:00 2021-05-26 11:45:00 Outpatient R FRANCISCO YOSVANY [facility] [id number] [facility] 2021-05-26 00:00:00 2021-05-26 00:00:00 Orders Only Doctor Unassigned, [place] [facility] 1.114 350.1.13.10 4.2.7.2.686 [id number] [facility] 2021-05-18 00:00:00 2021-05-18 00:00:00 Patient Secure Sheree Samuels [facility] 1.84.114 350.1.13.10 4.2.7.2.686 [id number] 134 [id number] [facility] 2021-05-01 00:00:00 2021-05-01 00:00:00 Patient Secure Msg Sheree Rodriguez [facility] 1.2.840.114 350.1.13.10 4.2.7.2.686 [id number] 134 [id number] [facility] 2021-05-01 00:00:00 2021-05-01 00:00:00 Telephone Sheree Rodriguez [facility] 1.2.840.114 350.1.13.10 4.2.7.2.686 [id number] 134 [id number] [facility] 2021-05-01 00:00:00 2021-05-01 00:00:00 Patient Secure Msg Sheree Rodriguez [facility] 1.2.840.114 350.1.13.10 4.2.7.2.686 [id number] 134 [id number] [facility] 2021-02-03 00:00:00 2021-02-03 00:00:00 Patient Secure Msg Sheree Rodriguez [facility] 1.2.840.114 350.1.13.10 4.2.7.2.686 [id number] 134 [id number] [facility] 2020-09-07 00:00:00 2020-09-07 00:00:00 OFFICE VISIT EST PT LEVEL 3 STLMLC STL[facility]C [id number] [facility] 2020-08-29 13:15:00 2020-08-29 13:15:00 Outpatient R SHEREE RODRIGUEZ [facility] [id number] [facility] 2020-08-29 12:34:09 2020-08-29 13:04:09 Telemedici ne Visit Sheree Rodriguez [facility] 1.2.840.114 350.1.13.10 4.2.7.2.686 [id number] 134 [id number] [facility] 2020-08-29 12:34:09 2020-08-29 13:04:09 Telemedici ne Visit Sheree Rodriguez [facility] 1.2.840.114 350.1.13.10 4.2.7.2.686 [id number] 134 [id number] 2020-08-22 00:00:00 2020-08-22 00:00:00 [facility] [id number] [facility] 2020-08-16 00:00:00 2020-08-16 00:00:00 PREV VISIT NEW AGE 18-39 [facility] [id number] [facility] 2020-08-02 00:00:00 2020-08-02 00:00:00 Patient Outreach Arnaldo Brewster [facility] 1.2.840.114 350.1.13.10 4.2.7.2.686 [id number] [facility] 2020-08-02 00:00:00 2020-08-02 00:00:00 Patient Outreach Arnaldo Brewster [facility] 1.2.840.114 350.1.13.10 4.2.7.2.686 [id number] 2020-07-28 08:44:06 2020-07-28 09:14:06 Office Visit IsaacSheree purcell [facility] [id number] 2020-07-28 08:44:06 2020-07-28 09:14:06 Office Visit Sheree Rodriguez [facility] [id number] [facility] 2020-07-28 08:30:00 2020-07-28 08:30:00 Outpatient R SHEREE RODRIGUEZ [facility] [id number] [facility] Results Test Description Test Time Test Comments Results Result Co mments Source [facility] IMMUNE [id number] 11:17:39* Test Item Value Reference Range Interpretation Comme nts RHIG CANDIDATE? (test code = 5188) No- see comment Patient is not a candidate for RhIg- Patient is Rh Positive.Performed at [facility] Laboratory Services - [facility] Blood [id number] [place] [id number] Free: [phone] No. [id number] [facility] [id number] 09:49:45* Test Item Value Reference Range Interpretation Comme nts VENOUS BASE EXCESS, CORD (te st code = 5206306891) -1.9 mEq/L VENOUS PH, CORD (test code = 6610157907) 7.34 7.25-7.45 VENOUS PC02, CORD (test code = 8107409780) 46 27-49 VENOUS PO2, CORD (test code = 1051950331) 25 17-41 VENOUS BICARBONATE, CORD (te st code = 3689174626) 24 12-29 QUES [facility] [id number] 09:49:28* Test Item Value Reference Range Interpretation Comme nts BASE EXCESS, CORD (test code = 9733830892) -3.8 mEq/L QUES AC PH, CORD (BEAKER) (test c ode = 9016263936) 7.26 7.18-7.38 PC02, CORD (test code = 3224532560) 55 32-66 PO2, CORD (test code = 1541904425) 18 10-30 BICARBONATE, CORD (test code = 8187983944) 24 17-27 [facility]2024-01-11 06:50:00* Test Item Value Reference Range Interpretation Comme nts POCT GLU (test code = 1044384408) 117 mg/dL 70-110 H Lab Interpretation (test cod e = 97382-7) Abnormal General acute hospital GLUCOSE (AUTOMATED)2024-01-11 03:15:31* Test Item Value Reference Range Interpretation Comme [facility] PO[facility]U (test code = 4023260199) 132 mg/dL 70-110 H Lab Interpretation (test cod e = 98722-0) Abnormal [facility] [id number] 02:39:00 Jesus Manuel Baron MD ? ? 01/10/2024 11:58 PM Central Neuraxial Block Date/Time: 01/10/2024 9:39PM Performed by: Jesus Manuel Baron MDAuthorized by: Natalya Sheth MD ?Patient Location: OBReason for Block: OB request, Patient request, Labor analgesia, Surgical anesthesia and Post-op pain m anagementStaff: ?Anesthesiologist: Daryl Yun MD ?Resident/CASKET LINER: Jesus Manuel Baron MD ?Performed by: resident/CRNAPreanesthetic Checklist: patient identified, IV checked, risks and benefits explained, monitors and equipment checked, timeout performed, pre-op evaluation, site marked and anesthesia consentProcedure: ?Type of Neuraxial: Epidural ?Epidural Description: 1st attempt and DPE ? Sterility Prep cap, drape, gloves, hand hygiene and mask ?Patient Position: sitting ?Prep: Betadine and patient draped ? ?Monitoring: heart rate, continuous pulse ox, heart rate / toco and NIBP ?Location: lumbar (1-5) ?Lumbar: L3-L4 ?Approach: midline ? ?Technique: catheter and TAM saline ?Guidance with: landmark technique}Epidural/Spinal Trinidad and/or Catheter: ?Epidural/Spinal Kit: BBraun ?Needle Type: Tuohy ?Needle Gauge: 17 G ?Needle Length: 3.5 in (8.89 cm) ?Needle Insertion Depth:7 ?Catheter Type: multiport ? ?Catheter Size: 19 G ? ?Catheter at Skin Depth: 12 ?Number of Attempts: 4 ?Test Dose: negative and lidocaine 1.5% with epinephrine 1-to-200,000 ? ?Dose: 3 cc ? ?CatheterSecurement Method: surgical tape and TegadermAssessment: ?Block Outcome: a full evaluation is pending, patient comfortable and patient tolerated procedure well ? ?Procedure Assessment: patient tolerated procedure well with no complicationsNotes: ? Patient identified; pre-procedure verification.Patient prepped and draped in standard sterile fashion using betadine x 3Subcutaneous infiltration with 1% Lidocaine Multiple attempts by CA-2 at L4-L5 and one at L3-L4.Attending one attempt at L3- L4 withsuccess. DPE used with return of CSF.TAM at 7 cm; catheter secured at 12 cm with mastisol, tegadermx2 and 3-inch clear tape.Aspiration test negative x 3Test dose negativePatient tolerated procedure well with no immediate complications Epidural expectations; PCEA explained and fall precautions given. General acute hospital GLUCOSE (AUTOMATED)2024-01-10 22:39:30* Test Item Value Reference Range Interpretation Comme nts POCT GLU (test code = 3256945612) 110 mg/dL 70-110 Lab Interpretation (test cod e = 06316-5) Normal [facility]entonHepatitis B Surface [id number] 19:44:14 * Test Item Value Reference Range Interpretation Comme nts HBsAg Semi-Quantitative (ron t code = 5195-3) 0.11 Negative [facility]entonType and Screen - ONCE [id number] 18:02:00 * Test Item Value Reference Range Interpretation Comme nts ABO & RH (test code = 20) A POSITIVE IAT (test code = 1185) Negative General acute hospital GLUCOSE (AUTOMATED)2024-01-10 17:53:29* Test Item Value Reference Range Interpretation Comme nts POCT GLU (test code = 9678061182) 94 mg/dL 70-110 Lab Interpretation (test cod e = 02130-3) Normal General acute hospital GLUCOSE (AUTOMATED)2024-01-10 13:33:25* Test Item Value Reference Range Interpretation Comme nts POCT GLU (test code = 8807883418) 142 mg/dL 70-110 H Lab Interpretation (test cod e = 25612-4) Abnormal General acute hospital URINALYSIS W SPECIFIC [id number] 12:56:00* Test Item Value Reference Range Interpretation Comme nts POCT U SP GRAV (test code = 3255) . 1.005-1.025 POCT PH U (test code = 3254) . 5-8 POCT U LEUK EST (test code = 3263) . Negative - N egative POCT U NIT (test code = 3262) . Negative - Negati ve POCT U PROT (test code = 3259) + Negative - Negat feng POCT U GLU (test code = 3256) neg Negative - Negati ve POCT U KETONE (test code = 3258) . Negative - Neg ative POCT U UROBILI (test code = 3260) . 0.2-1 POCT U BILI (test code = 3261) . Negative - Negat feng POCT U BLD (test code = 3257) . Negative - Negati ve POCT U COLOR (test code = 3266) POCT U APPEAR (test code = 3267) General acute hospital URINALYSIS W SPECIFIC [id number] 12:49:00* Test Item Value Reference Range Interpretation Comme nts POCT U SP GRAV (test code = 3255) . 1.005-1.025 POCT PH U (test code = 3254) 5 mg/dl 5-8 POCT U LEUK EST (test code = 3263) Trace Negative - Negative POCT U NIT (test code = 3262) Neg Negative - Negati ve POCT U PROT (test code = 3259) Trace Negative - Negat feng POCT U GLU (test code = 3256) Nml Negative - Negati ve POCT U KETONE (test code = 3258) Neg Negative - Neg ative POCT U UROBILI (test code = 3260) .. 0.2-1 POCT U BILI (test code = 3261) . Negative - Negat feng POCT U BLD (test code = 3257) Trace Negative - Negati ve POCT U COLOR (test code = 3266) POCT U APPEAR (test code = 3267) .. General acute hospital URINALYSIS W SPECIFIC [id number] 12:38:00* Test Item Value Reference Range Interpretation Comme nts POCT U SP GRAV (test code = 3255) . 1.005-1.025 POCT PH U (test code = 3254) 6 mg/dl 5-8 POCT U LEUK EST (test code = 3263) trace Negative - Negative POCT U NIT (test code = 3262) neg Negative - Negati ve POCT U PROT (test code = 3259) 1+ Negative - Negat feng POCT U GLU (test code = 3256) normal Negative - Negati ve POCT U KETONE (test code = 3258) neg Negative - Neg ative POCT U UROBILI (test code = 3260) . 0.2-1 POCT U BILI (test code = 3261) . Negative - Negat feng POCT U BLD (test code = 3257) trace Negative - Negati ve POCT U COLOR (test code = 3266) . POCT U APPEAR (test code = 3267) . General acute hospital URINALYSIS W SPECIFIC [id number] 12:26:00* Test Item Value Reference Range Interpretation Comme nts POCT U SP GRAV (test code = 3255) . 1.005-1.025 POCT PH U (test code = 3254) 7 mg/dl 5-8 POCT U LEUK EST (test code = 3263) trace Negative - Negative POCT U NIT (test code = 3262) neg Negative - Negati ve POCT U PROT (test code = 3259) trace Negative - Negat feng POCT U GLU (test code = 3256) neg Negative - Negati ve POCT U KETONE (test code = 3258) neg Negative - Neg ative POCT U UROBILI (test code = 3260) . 0.2-1 POCT U BILI (test code = 3261) . Negative - Negat feng POCT U BLD (test code = 3257) neg Negative - Negati ve POCT U COLOR (test code = 3266) . POCT U APPEAR (test code = 3267) . General acute hospital URINALYSIS W SPECIFIC [id number] 11:57:00* Test Item Value Reference Range Interpretation Comme nts POCT U SP GRAV (test code = 3255) . 1.005-1.025 POCT PH U (test code = 3254) 5 mg/dl 5-8 POCT U LEUK EST (test code = 3263) Trace Negative - Negative POCT U NIT (test [...] POCT U BLD (test code = 3257) Trace Negative - Negati ve POCT U COLOR (test code = 3266) . POCT U APPEAR (test code = 3267) . General acute hospital URINALYSIS W SPECIFIC [id number] 12:23:00* Test Item Value Reference Range Interpretation Comme nts POCT U SP GRAV (test code = 3255) . 1.005-1.025 POCT PH U (test code = 3254) 5 mg/dl 5-8 POCT U LEUK EST (test code = 3263) trace Negative - Negative POCT U NIT (test code = 3262) neg Negative - Negati ve POCT U PROT (test code = 3259) trace Negative - Negat feng POCT U GLU (test code = 3256) neg Negative - Negati ve POCT U KETONE (test code = 3258) neg Negative - Neg ative POCT U UROBILI (test code = 3260) . 0.2-1 POCT U BILI (test code = 3261) . Negative - Negat feng POCT U BLD (test code = 3257) neg Negative - Negati ve POCT U COLOR (test code = 3266) . POCT U APPEAR (test code = 3267) . General acute hospital URINALYSIS W SPECIFIC [id number] 21:00:00* Test Item Value Reference Range Interpretation Comme [...] POCT U GLU (test code = 3256) 50 Negative - Negati ve POCT U KETONE (test code = 3258) negative Negative - Neg ative POCT U UROBILI (test code = 3260) negative 0.2-1 POCT U BILI (test code = 3261) negative Negative - Negat feng POCT U BLD (test code = 3257) negative Negative - Negati ve POCT U COLOR (test code = 3266) POCT U APPEAR (test code = 3267) General acute hospital URINALYSIS W SPECIFIC [id number] 20:17:00* Test Item Value Reference Range Interpretation Comme nts POCT U SP GRAV (test code = 3255) . 1.005-1.025 POCT PH U (test code = 3254) 8 mg/dl 5-8 POCT U LEUK EST (test code = 3263) Trace Negative - Negative POCT U NIT (test code = 3262) Neg Negative - Negati ve POCT U PROT (test code = 3259) 1+ Negative - Negat feng POCT U GLU (test code = 3256) Nml Negative - Negati ve POCT U KETONE (test code = 3258) Neg Negative - Neg ative POCT U UROBILI (test code = 3260) . 0.2-1 POCT U BILI (test code = 3261) . Negative - Negat feng POCT U BLD (test code = 3257) Trace Negative - Negati ve POCT U COLOR (test code = 3266) . POCT U APPEAR (test code = 3267) . General acute hospital URINALYSIS W SPECIFIC [id number] 13:50:00* Test Item Value Reference Range Interpretation Comme nts POCT U SP GRAV (test code = 3255) . 1.005-1.025 POCT PH U (test code = 3254) 5 mg/dl 5-8 POCT U LEUK EST (test code = 3263) trace Negative - Negative POCT U NIT (test code = 3262) negative Negative - Negati ve POCT U PROT (test code = 3259) trace Negative - Negat feng POCT U GLU (test code = 3256) 50 Negative - Negati ve POCT U KETONE (test code = 3258) neg Negative - Neg ative POCT U UROBILI (test code = 3260) . 0.2-1 POCT U BILI (test code = 3261) . Negative - Negat feng POCT U BLD (test code = 3257) trace Negative - Negati ve POCT U COLOR (test code = 3266) . POCT U APPEAR (test code = 3267) . General acute hospital URINALYSIS W SPECIFIC [id number] 20:12:00* Test Item Value Reference Range Interpretation Comme nts POCT U SP GRAV (test code = 3255) . 1.005-1.025 POCT PH U (test code = 3254) 6 mg/dl 5-8 POCT U LEUK EST (test code = 3263) Trace Negative - Negative POCT U NIT (test code = 3262) Neg Negative - Negati ve POCT U PROT (test code = 3259) Trace Negative - Negat feng POCT U GLU (test code = 3256) 50 Negative - Negati ve POCT U KETONE (test code = 3258) None Negative - Neg ative POCT U UROBILI (test code = 3260) . 0.2-1 POCT U BILI (test code = 3261) . Negative - Negat feng POCT U BLD (test code = 3257) Trace Negative - Negati ve POCT U COLOR (test code = 3266) . POCT U APPEAR (test code = 3267) . General acute hospital URINALYSIS W SPECIFIC [id number] 13:16:00* Test Item Value Reference Range Interpretation Comme nts POCT U SP GRAV (test code = 3255) . 1.005-1.025 POCT PH U (test code = 3254) 6 mg/dl 5-8 POCT U LEUK EST (test [...] POCT U BLD (test code = 3257) Trace Negative - Negati ve POCT U COLOR (test code = 3266) . POCT U APPEAR (test code = 3267) .. General acute hospital URINALYSIS W SPECIFIC [id number] 19:27:00* Test Item Value Reference Range Interpretation Comme nts POCT U SP GRAV (test code = 3255) . 1.005-1.025 POCT PH U (test code = 3254) 5 mg/dl 5-8 POCT U LEUK EST (test code = 3263) Trace Negative - Negative POCT U NIT (test code = 3262) Neg Negative - Negati ve POCT U PROT (test code = 3259) Trace Negative - Negat feng POCT U GLU (test code = 3256) 50 Negative - Negati ve POCT U KETONE (test code = 3258) Neg Negative - Neg ative POCT U UROBILI (test code = 3260) . 0.2-1 POCT U BILI (test code = 3261) . Negative - Negat feng POCT U BLD (test code = 3257) Trace Negative - Negati ve POCT U COLOR (test code = 3266) . POCT U APPEAR (test code = 3267) General acute hospital URINALYSIS W SPECIFIC [id number] 14:14:00* Test Item Value Reference Range Interpretation Comme nts POCT U SP GRAV (test code = 3255) . 1.005-1.025 POCT PH U (test code = 3254) 5 mg/dl 5-8 POCT U LEUK EST (test code = 3263) Trace Negative - Negative POCT U NIT (test [...] POCT U BLD (test code = 3257) Trace Negative - Negati ve POCT U COLOR (test code = 3266) . POCT U APPEAR (test code = 3267) .. General acute hospital GLUCOSE (AUTOMATED)2023-11-22 18:38:47* Test Item Value Reference Range Interpretation Comme nts POCT GLU (test code = 3996129218) 135 mg/dL 70-110 H Lab Interpretation (test cod e = 06119-5) Abnormal General acute hospital URINALYSIS W SPECIFIC [id number] 16:45:00* Test Item Value Reference Range Interpretation Comme nts POCT U SP GRAV (test code = 3255) .. 1.005-1.025 POCT PH U (test code = 3254) 6 mg/dl 5-8 POCT U LEUK EST (test code = 3263) Trace Negative - Negative POCT U NIT (test [...] POCT U BLD (test code = 3257) Trace Negative - Negati ve POCT U COLOR (test code = 3266) POCT U APPEAR (test code = 3267) General acute hospital URINALYSIS W SPECIFIC [id number] 15:17:00* Test Item Value Reference Range Interpretation Comme nts POCT U SP GRAV (test code = 3255) . 1.005-1.025 POCT PH U (test code = 3254) 6 mg/dl 5-8 POCT U LEUK EST (test code = 3263) Trace Negative - Negative POCT U NIT (test [...] POCT U BLD (test code = 3257) Trace Negative - Negati ve POCT U COLOR (test code = 3266) . POCT U APPEAR (test code = 3267) [facility] [id number] 19:18:00* Test Item Value Reference Range Interpretation Comme nts POCT U SP GRAV (test code = 3255) . 1.005-1.025 POCT PH U (test code = 3254) 8 mg/dl 5-8 POCT U LEUK EST (test code = 3263) + Negative - Negative POCT U NIT (test code = 3262) neg Negative - Negati ve POCT U PROT (test code = 3259) trace Negative - Negat feng POCT U GLU (test code = 3256) neg Negative - Negati ve POCT U KETONE (test code = 3258) neg Negative - Neg ative POCT U UROBILI (test code = 3260) . 0.2-1 POCT U BILI (test code = 3261) . Negative - Negat feng POCT U BLD (test code = 3257) neg Negative - Negati ve POCT U COLOR (test code = 3266) POCT U APPEAR (test code = 3267) [facility] [id number] 20:02:00* Test Item Value Reference Range Interpretation Comme nts POCT U SP GRAV (test code = 3255) . 1.005-1.025 POCT PH U (test code = 3254) 5 mg/dl 5-8 POCT U LEUK EST (test code = 3263) Trace Negative - Negative POCT U NIT (test [...] POCT U BLD (test code = 3257) Trace Negative - Negati ve POCT U COLOR (test code = 3266) POCT U APPEAR (test code = 3267) [facility] FETOPROTEIN-MATERNAL [id number] 17:54:20* Test Item Value Reference Range Interpretation Comme nts AFP-MS (test code = 0301972331) 35.2 ng/mL AFP-MS MoM (test code = 9089848623) 1.05 WEIGHT (test code = 4523711938) 233.375 lbs RACE (test code = 5397263736) Black GEST. AGE (test code = 2904689300) 17w4d INS. DEP (test code = 7645055695) No LMP (test code = 6181183576) [id number] US DATE (test code = 7755922515) PE DATE (test code = 2596426315) METHOD (test code = 7986226015) LMP MULT GEST (test code = 1756325191) No Down Syndrome History (test code = 8086251864) No NTD HX (test code = 4597266166) No INITAL OR REPEAT (test code = 3662117626) Initial Testing SMOKER (test code = 9245946185) No RH (test code = 1045176229) Positive OSB INTERP (test code = 0528401052) See Note The maternal ser um AFP result is NOT elevated for a of thisgestational age. The risk of an open neural tube defect is less thanthe screening cut-off. OSB RSK (test code = 7012301631) 1:8930 The risk of OSB is equal to 1:8930The OSB cut-off is 2.59 (1:104) OSB SCRN (test code = 9727220979) Negative General acute hospital URINALYSIS W SPECIFIC [id number] 18:03:00* Test Item Value Reference Range Interpretation [...] U APPEAR (test code = 3267) . General acute hospital URINALYSIS W SPECIFIC [id number] 16:14:00* Test Item Value Reference Range Interpretation [...] U APPEAR (test code = 3267) . General acute hospital URINALYSIS W SPECIFIC [id number] 16:14:00* Test Item Value Reference Range Interpretation [...] U APPEAR (test code = 3267) . General acute hospital Urinalysis w/o Specific [id number] 19:20:00* Test Item Value Reference Range Interpretation [...] = 3257) trace Negative - Negati ve General acute hospital [id number] 19:19:00* Test Item Value Reference Range Interpretation Comme nts POCT PREG (test code = 1605) Positive On board controls acceptable with C Line (test code = 3574) Yes POCT PREG LOT # (test code = 3575) POCT PREG TEST DATE ( test code = 3576) General acute hospital [id number] 21:32:00* Test Item Value Reference Range Interpretation Comme nts POCT PREG (test code = 1605) Negative On board controls acceptable with C Line (test code = 3574) Yes POCT PREG LOT # (test code = 3575) POCT PREG TEST DATE ( test code = 3576) General acute hospital [id number] 21:32:00* Test Item Value Reference Range Interpretation Comme nts POCT PREG (test code = 1605) Negative On board controls acceptable with C Line (test code = 3574) Yes POCT PREG LOT # (test code = 3575) POCT PREG TEST DATE ( test code = 3576) General acute hospital MOLECULAR [id number] 18:53:30* Test Item Value Reference Range Interpretation Comme nts POCT Molecular FluB (test co de = 83827-0) Positive Negative A Lab Interpretation (test cod e = 99687-8) Abnormal General acute hospital SARS-COV-2 ANTIGEN (BINAX NOW)2023-01-07 21:49:00* Test Item Value Reference Range Interpretation Comme nts POCT SARS-COV-2 ANTIGEN (ron t code = 41472-5) Positive Not Detected A On board controls acceptable with C Line (test code = 3574) Yes Lab Interpretation (test cod e = 23347-9) Abnormal General acute hospital MOLECULAR [id number] 15:51:31* Test Item Value Reference Range Interpretation Comme nts POCT Molecular FluA (test co de = 90480-1) Negative Negative POCT Molecular FluB (test co de = 78670-2) Negative Negative Lab Interpretation (test cod e = 08741-9) Normal General acute hospital MOLECULAR [id number] 15:51:31* Test Item Value Reference Range Interpretation Comme nts POCT Molecular FluA (test co de = 63596-9) Negative Negative POCT Molecular FluB (test co de = 62316-3) Negative Negative Lab Interpretation (test cod e = 62796-7) Normal General acute hospital MOLECULAR [id number] 15:42:53* Test Item Value Reference Range Interpretation Comme nts POCT Molecular Strep (test c ode = 53549-3) Positive Negative A Lab Interpretation (test cod e = 45375-9) Abnormal General acute hospital MOLECULAR [id number] 15:42:53* Test Item Value Reference Range Interpretation Comme nts POCT Molecular Strep (test c ode = 32041-9) Positive Negative A Lab Interpretation (test cod e = 05720-8) Abnormal General acute hospital MOLECULAR [id number] 16:16:12* Test Item Value Reference Range Interpretation Comme nts POCT Molecular FluA (test co de = 69690-7) Positive Negative A Lab Interpretation (test cod e = 28067-1) Abnormal [facility] History and Physical Notes Date/Time Note Provider Source 2024-01-10 12:28:07 TRIAGE/L&D HISTORY & PHYSICAL IDENTIFYING DATA Kera Tracy is 33 year old, Black or , 38w0d, female with SANDRA 01/24/2024, by Last Menstrual Period. : 1990 Primary Care Physician: PATIENT DOES NOT HAVE A PCP CHIEF COMPLAINT DFM HISTORY OF PRESENT ILLNESS Kera Tracy is a 33 year old at 38w0d who presents for DFM Patient denies vaginal bleeding, denies leakage of fluid, denies contractions. Patient denies headache, denies nausea/vomiting, denies RUQ pain, denies visual abnormalities. Endorses normal movement. PAST OBSTETRIC HISTORY OB History Para Term AB Living 3 2 2 0 0 2 SAB IAB Ectopic Multiple Live Births 0 0 0 0 2 # Outcome Date GA Lbr Aldo/2nd Weight Sex Delivery Anes PTL Lv 3 Current 2 Term 01/12/18 38w3d 4451 g M VAGINAL EPI DIANN 1 Term 05/24/16 37w5d 3685 g M VAGINAL EPI DIANN Comments: Maternal Age: 24 years old, G 1, P 1 Mother's Blood Type: A+ Baby's Blood Type: A-, CARLENE negative Maternal Serological Test: negative Maternal Group B Strep Screening: negative Complications: PIH AROM 9 hours prior to delivery with clear fluid. Labor Complications: none problems: Early hypoglycemia which resolved with early feeding OAE: passed, 05/26/2016 Hepatitis B Vaccine: Most Recent Immunizations Administered Date(s) Administered Hep B, Adol or Pedi Dosage 05/24/2016 screen drawn, results pending. 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 09/17/2023 Declines flu vaccine 06/25/2023 Scoliosis, unspecified 06/25/2023 Generalized anxiety disorder 04/15/2023 Obesity affecting 03/29/2023 Herpes simplex type 2 infection complicating 01/10/2018 Anemia of mother in , antepartum 08/16/2017 Enlarged thyroid 08/16/2017 Rubella non-immune status, antepartum 07/16/2017 Operations: Past Surgical History: Procedure Laterality Date TOOTH EXTRACTION Bilateral wisdom teeth TOOTH EXTRACTION 2014 Past Medical History: Diagnosis Date Anemia Mild Anxiety 07/21/2019 [facility] / Chest Heaviness and Tightness BV (bacterial vaginosis) 12/06/2015 Enlarged thyroid 08/16/2017 Family history of sickle cell trait 12/02/2015 Generalized anxiety disorder 04/15/2023 Genital herpes HSV II by PCR, last outbreak 2022 Pap smear abnormality of cervix [address] Santamaria / 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 05/04/2016 STD (sexually transmitted disease) HSV II CURRENT HEALTH STATUS Medications: Current Facility-Administered Medications Medication Dose Route Frequency Last Rate Last Admin D5W-LR IV infusion 1,000 mL 1,000 mL IV Infusion TITRATE 125 mL/hr at 01/10/24 1250 1,000 mL at 01/10/24 1250 dextrose 50 % in water (D50W) injection 25 mL 25 mL Slow IV Push PRN glucagon HCL injection 1 mg 1 mg Intramuscular PRN lactated ringers IV infusion 500 mL 500 mL IV Infusion PRN - SEE INSTRUCTIONS lidocaine 1% (PF) (XYLOCAINE) injection 0.3 mL 0.3 mL Infiltration PRN - SEE INSTRUCTIONS lidocaine 1% (XYLOCAINE) 10 mg/mL (1 %) injection 50 mL 50 mL Infiltration PRN - SEE INSTRUCTIONS oxytocin (PITOCIN) 30 units in NS 500 mL IV infusion 2-40 sandra-units/min IV Infusion TITRATE Sliding Scale Insulin-Regular Subcutaneous AC+HS sodium citrate-citric acid (BICITRA) 500-334 mg/5 mL solution 30 mL 30 mL Oral PRE-PROCEDURE ONCE Allergies and drug reactions: Patient has no known allergies. HOME MEDICATIONS Medications Prior to Admission Medication Sig Dispense Refill Last Dose valACYclovir (VALTREX) 500 mg tablet Take 1 tablet by mouth in the morning and 1 tablet in the evening. 60 tablet 0 glyBURIDE 5 mg tablet Take 1 tablet by mouth at bedtime. 30 tablet 3 11/21/2023 blood sugar diagnostic (ONETOUCH ULTRA TEST) strip Check blood glucose 4x daily 100 Each 3 11/22/2023 Blood-Glucose Meter (ONETOUCH ULTRA2 METER) Kit Check blood glucose 4x daily 1 Kit 0 11/22/2023 Lancets (IncuvoTOUCH ULTRASOFT LANCETS) Misc Check blood glucose 4x daily 100 Each 3 11/22/2023 blood sugar diagnostic (FREESTYLE LITE STRIPS) strip Check blood glucose 4x daily 100 Each 3 11/22/2023 Blood-Glucose Meter (FREESTYLE LITE METER) Kit Check blood glucose 4x daily 1 Kit 0 11/22/2023 lancets (FREESTYLE LANCETS) 28 gauge Misc Check glucose 4x daily 100 Each 3 11/22/2023 SERTraline (ZOLOFT) 50 mg tablet Take 1 tablet by mouth in the morning. 30 tablet 11 Past Month Iron Fum & P-FA-Vit B & C No.9 (INTEGRA PLUS) 125 mg iron- 1 mg Cap Take 1 capsule by mouth in the morning. 30 capsule 6 11/22/2023 PNV 67-iron ps-folate no.1-dha (VITAFOL ULTRA) 29 mg iron- 1 mg-200 mg Cap Take 1 capsule by mouth in the morning. 60 capsule 6 11/22/2023 proMETHazine 25 mg tablet Take 1 tablet by mouth every 4 (four) hours as needed for Nausea and Vomiting (N/V). 30 tablet 2 > Month SOCIAL HISTORY Tobacco History: Social History Tobacco Use Smoking Status Never Smokeless Tobacco Never Drug History: Social History Substance and Sexual Activity Drug Use No Alcohol History: Social History Substance and Sexual Activity Alcohol Use Not Currently Comment: socially FAMILY HISTORY Family History Problem Relation Age of Onset Hypertension Mother Other - see comments NoFHx kidney stones Arthritis NoFHx Asthma NoFHx defects NoFHx Breast Cancer NoFHx Colon Cancer NoFHx Ovarian Cancer NoFHx Uterine Cancer NoFHx Cancer NoFHx Depression NoFHx Diabetes NoFHx Genetic NoFHx Heart NoFHx High cholesterol NoFHx Mental retardation NoFHx Neurological NoFHx Osteoporosis NoFHx Psychiatry NoFHx REVIEW OF SYSTEMS General: negative Skin: negative HEENT: negative Neck: negative HEME: negative Resp: negative Cardio: negative GI: negative : negative Endo: negative Neuro: negative Back: negative JAZMÍN: negative Psych: negative VITAL SIGNS BP: (120-144)/(69-86) Temp: [36.2 ?C (97.2 ?F)-36.6 ?C (97.8 ?F)] Temp source: Oral (01/09 1139) Pulse: [91-103] Resp: [17-20] SpO2: [100 %] Height: [165.1 cm (5' 5")] Weight: [113.3 kg (249 lb 11.2 oz)-113.8 kg (250 lb 14.4 oz)] BMI (calculated): [0-41.6] PHYSICAL EXAMINATIONS General: patient alert and in no acute distress HEENT: symmetric, negative for masses Lungs: unlabored breathing Breast: deferred Cardiology: peripheral pulses intact and regular Abdomen: soft, non-tender, non-distended, no liver, spleen or abnormal masses palpated and Gravid Extremities: no clubbing, cyanosis, or edema Neuro: patient moving all extremities, no facial droop : SVE- REVIEW OF LABORATORY, PATHOLOGY, AND RADIOLOGY DATA Lab results: Type & Screen Lab Results Component Value Date/Time IABORH A POSITIVE 01/10/2024 12:47 PM IAT Negative 01/10/2024 12:47 PM Serologies Lab Results Component Value Date/Time VZVIGG Positive 06/25/2023 02:26 PM HIVMULTIPLEX Non-reactive 07/15/2017 11:52 AM RUBG Equivocal 06/25/2023 02:26 PM SYPIGG Non-reactive 11/15/2023 11:37 AM SYPIGG Nonreactive 07/15/2017 11:53 AM HBSAG Negative 01/10/2024 12:47 PM HBSAG 0.11 01/10/2024 12:47 PM Chlamydia Lab Results Component Value Date/Time VCAA Negative 12/27/2023 07:45 AM Group B Strep Lab Results Component Value Date/Time CGB Negative 12/27/2023 07:45 AM GTT Lab Results Component Value Date/Time GLUF 98 10/14/2023 07:06 AM OXNU6HT 176 (H) 10/14/2023 08:09 AM GLU3H 97 10/14/2023 10:09 AM CBC Lab Results Component Value Date/Time HGB 10.3 (L) 12/27/2023 07:45 AM HCT 32.2 (L) 12/27/2023 07:45 AM PLT 340 12/27/2023 07:45 AM Active Hospital Problems Diagnosis Date Noted Decreased movement affecting , antepartum 01/10/2024 History of hemorrhage 01/10/2024 History of shoulder dystocia in prior 01/10/2024 Gestational diabetes mellitus, antepartum 10/18/2023 Failed 3hr gtt 11/07 glyburide 2.5. QHS started Serial growth, NST 2x/w at 32w Obesity affecting 03/29/2023 Herpes simplex type 2 infection complicating 01/10/2018 Anemia of mother in , antepartum 08/16/2017 Rubella non-immune status, antepartum 07/16/2017 Address pp Resolved Hospital Problems No resolved problems to display. Present on Admission: Decreased movement affecting , antepartum Rubella non-immune status, antepartum Obesity affecting Herpes simplex type 2 infection complicating Gestational diabetes mellitus, antepartum Anemia of mother in , antepartum History of hemorrhage History of shoulder dystocia in prior Placenta Accreta Screening Prior ? : No Prior Uterine Surgery?: No Placenta low lying/previa in current ? : No Ultrasound suspicion of PASD in current ?: (not specifically mentioned) Screening outcome: A positive screening outcome indicates a history of prior delivery or prior uterine surgery, AND the presence of either a placenta low lying/previa or ultrasound suspicion of PASD in the current . Negative screening. ASSESSMENT AND PLAN Kera Tracy is a 33 year old at 38w0d by d/u(20) who presents for DFM. IOL - pt reports decreased movement starting today and says her clinic told her an NST was not reassuring after 1h of monitoring - (-) Vaginal Bleeding, (-) Leakage of Fluid, (-) Contractions, decreased Movement - SVE: Plan: - Admit for IOL at 38 weeks due to DFM. Plan for FB and Pitocin - Epidural Plans: Desires Hx of shoulder - 30 second shoulder dystocia documented in 2018 delivery of G2 - relieved with Katherine and suprapubic pressure - weight was 4451g - discussed risk of shoulder dystocia given history and reviewed RBA of induction of labor, pt desires to proceed with IOL Hx of PPH - in G1 pt experienced PPH due to uterine atony - EBL was 650cc, meeting criteria for PPH at that time - pt was stable for discharge without transfusion or additional intervention HSV - reports first outbreak in 2017 - last outbreak November 22, 2023, lesions are always on her lower extremity and she has never had urogenital tract lesions - has been on Valtrex BID suppression therapy and reports adherence - denies prodromal symptoms or active lesions - no lesions visualized on speculum exam Class A2 Diabetes - Dx based on failed 1 and 3 hour GTT - Currently on glyburide 5mg daily - Baseline EKG: not done - 24-hour Urine Protein: not done HGB A1C (%) Date Value 11/15/2023 5.4 - FSBG on admission: 142 Plan: - SSI during labor with FSBG Q4H, then Q2H in active labor MPDPS - Consents signed on 11/01/23 - Counseled and Declines - Past Surgical Hx: none - Current Weight: 250 lbs Plan: - Declined, no tubal Antepartum course reviewed - sero negative, Rnot immune, VZVimmune, HPV not immune, A positive/IAT negative, GBS negative, Pap NILM (04/2023) - H/H, plt: 10.3 / 32.2, 340 on 12/27/23 - PP control plan: will consider options Fetus - Presentation on admission: cephalic - anterior placenta - EFW: 3179 g, 45%tile, AC 54%tile - FHT reactive and reassuring - Normal anatomy scan D/w Dr. Anastasia Vargas MD PhD Associated attestation - Natalya Sheth MD - 01/10/2024 4:49 PM CDT I personally examined the patient on 01/10/[address] Vargas's resident note as written. I actively participated in the decision-making process. Please see the resident's note for additional details. [facility] - [facility] Procedure Notes Date/Time Note Provider Source 2024-01-10 21:57:50 Associated Order(s): Central Neuraxial Block Central Neuraxial Block Date/Time: 01/10/2024 9:39 PM Performed by: Jesus Manuel Baron MD Authorized by: Natalya Sheth MD Patient Location: OB Reason for Block: OB request, Patient request, Labor analgesia, Surgical anesthesia and Post-op pain management Staff: Anesthesiologist: Daryl Yun MD Resident/CASKET LINER: Jesus Manuel Baron MD Performed by: resident/CASKET LINER Preanesthetic Checklist: patient identified, IV checked, risks and benefits explained, monitors and equipment checked, timeout performed, pre-op evaluation, site marked and anesthesia consent Procedure: Type of Neuraxial: Epidural Epidural Description: 1st attempt and DPE Sterility Prep cap, drape, gloves, hand hygiene and mask Patient Position: sitting Prep: Betadine and patient draped Monitoring: heart rate, continuous pulse ox, heart rate / toco and NIBP Location: lumbar (1-5) Lumbar: L3-L4 Approach: midline Technique: catheter and TAM saline Guidance with: landmark technique} Epidural/Spinal Trinidad and/or Catheter: Epidural/Spinal Kit: BBraun Needle Type: Tuohy Needle Gauge: 17 G Needle Length: 3.5 in (8.89 cm) Needle Insertion Depth: 7 Catheter Type: multiport Catheter Size: 19 G Catheter at Skin Depth: 12 Number of Attempts: 4 Test Dose: negative and lidocaine 1.5% with epinephrine 1-to-200,000 Dose: 3 cc Catheter Securement Method: surgical tape and Tegaderm Assessment: Block Outcome: a full evaluation is pending, patient comfortable and patient tolerated procedure well Procedure Assessment: patient tolerated procedure well with no complications Notes: Patient identified; pre-procedure verification. Patient prepped and draped in standard sterile fashion using betadine x 3 Subcutaneous infiltration with 1% Lidocaine Multiple attempts by CA-2 at L4-L5 and one at L3-L4. Attending one attempt at L3-L4 with success. DPE used with return of CSF. TAM at 7 cm; catheter secured at 12 cm with mastisol, tegaderm x2 and 3-inch clear tape. Aspiration test negative x 3 Test dose negative Patient tolerated procedure well with no immediate complications Epidural expectations; PCEA explained and fall precautions given. AN-ANESTHESIOLOGY [facility] 2024-01-10 16:08:44 Procedure(s): INSERT CERVICAL DILATOR Pre-Procedure Diagnose(s): 38 weeks gestation of Post-Procedure Diagnose(s): 38 weeks gestation of Kera Tracy is a 33 year old female 38w0d Jang insertion: Insertion date and time: 01/10/24 1500 Jang catheter inserted through cervix in sterile fashion and inflated with 60 cc sterile saline. Jang bulb firmly in place inside internal os. Catheter taped to patient leg under traction. Patient tolerated procedure well. Please use the table below for: SVE 350/-3 CERVIX: Consistency: moderately soft; Position: median, Station: -3 Score 0 1 2 3 Dilation (cm) 0 cm 1-2 cm 3-4 cm >5 cm Effacement 0 - 30 % 40 - 50 % 60 - 70 % > 80 % Consistency of the cervix Stiff Moderately soft Very soft Position of the cervix Posterior Median Anterior Station -3 -2 -1 to 0 +1, +2 John Vargas MD, PhD Obstetrics & Gynecology, PGY-2 T [facility] Notes Date/Time Note Provider Source 2024-01-14 15:21:12 Noted. Deidra Marie LVN [facility] 2024-01-14 15:12:45 Tiffany will call patient she has the paperwork. Onelia Acevedo [facility] 2024-01-14 15:01:22 Patient stated she needed her short term disability paperwork filled out by the end of this week. Stated her job has faxed over paperwork and stated another STOVE REFINISHER can fill out since her STOVE REFINISHER is not in clinic. Informed her will route message but can not guarantee paper work will be filled out by another STOVE REFINISHER and might need to wait until her STOVE REFINISHER is back. Pt verbalized understanding. [facility] 2024-01-14 14:42:40 Pt is requesting call back, states spoke with someone about forms. Please call back [phone] (home) ASHLEY Gould [facility] 2024-01-12 12:36:47 Problem: Falls, Risk of Goal: Absence of falls Outcome: Adequate for discharge Problem: Discharge Planning - Goal: Adequate for discharge Outcome: Adequate for discharge Goal: Mood stable Outcome: Adequate for discharge Problem: Complications of hemorrhage (risk or actual) Goal: Absence of active bleeding Outcome: Adequate for discharge Goal: Absence of complications Outcome: Adequate for discharge [facility] 2024-01-12 12:02:09 Images from the original note were not included. This note was copied from a baby's chart. Assessment (most recent) Assessment - 01/12/24 1145 General Information Visit Follow-up Percent of weight loss- 2.55 Breast Pump Has Infant Oral Assessment Oral assessment Deferred Date of 01/11/24 Time of 0408 location Mother Baby Unit mother is hold swaddled; having just finished feeding a bottle of formula Breast Assessment Breast Assessment Deferred Legal Clerk Observation Pumping No Reported reports has not breastfed yet today. States she hopes to begin breastpumping once she gets home. Follow up Mom will call staff;[facility] warmline;[facility] office Recommended Feeding Plan Recommended feeding plan Frequent xtdl-sk-[id number] time with parents;On-demand , 8-12 times in 24 hours not to exceed 6 hours between feeds;Mother choosing to supplement with formula after breastfeeds;Offer both breasts prior to formula supplementation;Pump/hand express minimum 8 times in 24 hours including nights. Pump for 15-25 min. OTHER $ SERVICES Follow-up Swetha NOVAKN, RNC-OB, IBCLC Swetha Garcia RN [facility] 2024-01-12 05:19:22 Problem: Falls, Risk of Goal: Absence of falls Outcome: Progressing as expected Problem: Discharge Planning - Goal: Adequate for discharge Outcome: Progressing as expected Goal: Mood stable Outcome: Progressing as expected Problem: Complications of hemorrhage (risk or actual) Goal: Absence of active bleeding Outcome: Progressing as expected Goal: Absence of complications Outcome: Progressing as expected [facility] 2024-01-11 09:30:00 Images from the original note were not included. This note was copied from a baby's chart. Assessment (most recent) Assessment - 01/11/24 0930 General Information Visit Initial grandmother at bedside and involved in this visit Number of voids last 24 hours- Infant 0 Number of stools last 24 hours- 0 Mom's age (years) 33 years Gestational age 39 weeks 3 Parity 3 Living Children 3 Feeding plan Breast Breastfeed previously No Used pump previously No Planned maternity leave 6 Weeks Breast Pump Ordered from [employer] Breast Pump [employer] Medicaid;[place] Delivery method Risk factors GDM;Obesity enlarged thyroid; HSV DM controlled by Meds Infant Oral Assessment Date of 01/11/24 Time of 0408 Infant location Mother Baby Unit attempting to breastfeed Breast Assessment Breast Assessment Initial Symmetry Symmetrical Size XL (F+) Shape Rounded;Pendulous recommended bra-without underwire Other Soft heavy Nipple & Areola Assessment Left Areola Pliable Right Areola Pliable Left Nipple Colostrum visible;Intact;Everted;Med ium;Wide Right Nipple Intact;Everted;Medium;Wide Literature Resources Resources guide;Understanding Mother and Baby Care; channel turned on NB channel with this visit Education 6 months exclusive , up to and beyond 1 year with complimentary foods; hunger cues;On-demand feeds at least 8 or more over 24 hours;Diaper counts/color;Benefits of breastmilk;Hand expression;Risk of formula supplementation;Delay of pacifier/artificial nipples up to 4 weeks;Benefits of skin to skin contact;Encouraged rooming-in;Waking techniques;Signs of an effective latch;Infant stomach size;Paced bottle feeding;Burping;How to obtain pump for after discharge Handouts given Croatian Legal Clerk Observation Assist with latch Infant came from complex nursery with no feeds Position left side Football;Infant latched effectively;Suckled in coordinated bursts;Audible swallows;Nipple rounded upon release 30 minutes Interventions Taught hand expression was skin to skin; deep latch video Follow up Follow up in hospital Recommended Feeding Plan Recommended feeding plan On-demand , 8-12 times in 24 hours not to exceed 6 hours between feeds;Frequent ggpu-ik-[id number] time with parents OTHER $ SERVICES Initial Marilyn Hernadez RN, BSN, IBCLC Marilyn Hernadez RN [facility] 2024-01-11 08:40:50 Problem: Falls, Risk of Goal: Absence of falls Outcome: Progressing as expected Problem: Discharge Planning - Goal: Adequate for discharge Outcome: Progressing as expected Goal: Mood stable Outcome: Progressing as expected Problem: Complications of hemorrhage (risk or actual) Goal: Absence of active bleeding Outcome: Progressing as expected Goal: Absence of complications Outcome: Progressing as expected Kristan Antoine RN [facility] 2024-01-11 07:32:31 Patient: Kera Tracy Procedure Summary Date: 01/10/24 Room / Location: Anesthesia Start: 2054 Anesthesia Stop: 01/11/24521 Procedure: CENTRAL NEURAXIAL BLOCK Diagnosis: Scheduled Providers: Responsible Provider: Daryl Yun MD Anesthesia Type: Epidural ASA Status: 3 Anesthesia Type: Epidural Last vitals BP Temp Pulse Resp SpO2 There were no known notable events for this encounter. Anesthesia Post Evaluation Patient location during evaluation: PACU Patient participation: complete - patient participated Level of consciousness: awake and alert Pain management: satisfactory to patient Airway patency: patent Cardiovascular status: acceptable and blood pressure returned to baseline Respiratory status: acceptable Hydration status: acceptable AN-ANESTHESIOLOGY ANESTHESIOLOGIST [facility] 2024-01-11 06:23:08 Problem: Falls, Risk of Goal: Absence of falls Outcome: Progressing as expected Problem: Discharge Planning - Goal: Adequate for discharge Outcome: Progressing as expected Goal: Mood stable Outcome: Progressing as expected Problem: Complications of hemorrhage (risk or actual) Goal: Absence of active bleeding Outcome: Progressing as expected Goal: Absence of complications Outcome: Progressing as expected Problem: Intrapartum process (including labor pain) Goal: Absence of or reduction of complications of labor Outcome: Resolved Goal: Able to cope with pain Outcome: Resolved Goal: Adequate to move to next level of care Outcome: Resolved Goal: Reduction in pain sensation Outcome: Resolved [facility] 2024-01-11 04:24:43 DELIVERY BY SPONTANEOUS VAGINAL DELIVERY Delivery Date: 01/11/2024 Delivery Time: 4:08 AM Review the Delivery Report for details. The patient was admitted to the Labor & Delivery unit for IOL at 38w1d due to DFM. Delivery Physician: Leticia Taylor MD OB Faculty: Bettye Cat MD Relief Operator Resident: Demetrice Javier MD Intrapartum Anesthesia/Analgesia: Epidural Mode of Delivery: Delivery of correa fetus with cephalic presentation Fetus Spontaneous vaginal delivery of head with cephalic position, left occipital anterior. As the head crowned and distended the perineum, no episiotomy was performed. A blue towel was used to protect the perineum as the head crowned and delivered. The other hand was used to exert pressure on the occiput to control the delivery of the head. The perineum was pushed with a towel-draped hand as the head and mouth was delivered over the perineum. The head was allowed to rotate externally to achieve natural body posture. Examination of neck revealed no umbilical cord. The shoulder was delivered by gentle downward traction applied to head and downward traction for the delivery of anterior shoulder. This was followed by upward traction with delivery of posterior shoulder and body. A normal, female was delivered. The umbilical cord was clamped, cut and the infant was handed off the field to the circulating nurse. The pediatricians were at the stand to evaluate the new born. Placenta Placenta was delivered spontaneously while the abdominal hand lifted the uterus cephalad and other hand keeping the umbilical cord slightly taut. Laceration Laceration Repair: No laceration repair needed. Fourth Stage Fourth stage of labor was managed by uterine massage with abdominal hand and infusion 30 units of pitocin mixed with intravenous fluid. EBL: 200 ml APGARs: 8 , 9 Weight: 3020 g Complications: none Leticia Taylor MD 01/11/24 4:25 AM Associated attestation - Bettye Cat MD - 01/11/2024 6:28 AM CDT I was the faculty on L&D on 01/11/2024. I was present for delivery of a viable . No complications noted. Bettye Cat MD -OBSTETRICS & GYNECOLOGY [facility] 2024-01-10 21:52:32 Name/ MRN / Age / Gender: Kera Tracy, [id number] 33 year old female BMI: Estimated body mass index is 41.6 kg/m? as calculated from the following: Height as of this encounter: 1.651 m (5' 5"). Weight as of this encounter: 113.4 kg (250 lb). Allergies: Patient has no known allergies. Last Vitals: BP Readings from Last 1 Encounters: 01/10/24 119/67 Pulse Readings from Last 1 Encounters: 01/10/24 129 SpO2 Readings from Last 1 Encounters: 01/10/24 100% Date of Surgery: 01/10/2024 Surgeon: * No surgeons listed * Procedure: CENTRAL NEURAXIAL BLOCK OR Location: [place] ANESTH[facility] OUT OF OR - OR LOCATION Anesthesia Preop Eval (physical exam) Anesthesia Preop: Chart Review and Dpeg-cb-Fovi [facility] Communication: 33F at 38w0d by d/u(20) requesting epidural. Past history of PPH of 650 with previous delivery and shoulder dystocia with second delivery, HSV, A2DM, Scoliosis without requiring treatment PONV Risk Factors: female Anesthesia History Anesthesia History Negative (-) Hx of anesthetic complications Previous Anesthetics/Airways Cardiovascular Negative Cardiac ROS Comments: BP Readings from Last 3 Encounters: 01/10/24 : 119/67 01/10/24 : 131/80 01/07/24 : 129/78 Pulmonary Negative Pulmonary ROS Neuro/Musculoskeletal Negative Neuro/Musculosketal ROS (+) Scoliosis (-) Spinal Cord injury (-) Positioning limitations GI/Hepatic Negative GI/Hepatic ROS Comments: ALBUMIN (g/dL) Date Value 11/22/2023 3.9 TOTAL BILI (mg/dL) Date Value 11/22/2023 0.5 ALT(SGPT) (U/L) Date Value 05/29/2016 63 ALTv (U/L) Date Value 11/22/2023 12 11/22/2023 12 AST(SGOT) (U/L) Date Value 11/22/2023 25 11/22/2023 24 ALK PHOS (U/L) Date Value 11/22/2023 110 Hematology Negative Hematology ROS Comments: WBC (10*3/?L) Date Value 12/27/2023 9.45 HGB (g/dL) Date Value 12/27/2023 10.3 (L) PLT (10*3/?L) Date Value 12/27/2023 340 No results found for: "PTINR" No results found for: "APTTMNNM" No results found for: "APTTPAT" Type and Screen Ordered: Yes Patient Accepts Blood Transfusion: Yes Renal Negative Renal ROS Comments: CREATININE (mg/dL) Date Value 11/22/2023 0.75 11/22/2023 0.74 K (mmol/L) Date Value 11/22/2023 4.0 NA (mmol/L) Date Value 11/22/2023 134 (L) Skin Negative Skin ROS Endo/Other Comments: No results found for: "[id number]" HGB A1C Date Value Ref Range Status 11/15/2023 5.4 4.0 - 5.7 % Final (+) Diabetes Mellitus Other ATTENDANT HONOR BAR Comments: 33 year old female at 38w0d requesting central neuraxial anesthesia Kera Tracy is a 33 year old at 38w0d by d/u(20) who presents for DFM. IOL - pt reports decreased movement starting today and says her clinic told her an NST was not reassuring after 1h of monitoring - (-) Vaginal Bleeding, (-) Leakage of Fluid, (-) Contractions, decreased Movement - SVE: Plan: - Admit for IOL at 38 weeks due to DFM. 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 - last outbreak November 22, 2023, lesions are always on her lower extremity and she has never had urogenital tract lesions - has been on Valtrex BID suppression therapy and reports adherence - denies prodromal symptoms or active lesions - no lesions visualized on speculum exam Class A2 Diabetes - Dx based on failed 1 and 3 hour GTT - Currently on glyburide 5mg daily - Baseline EKG: not done - 24-hour Urine Protein: not done HGB A1C (%) Date Value 11/15/2023 5.4 - FSBG on admission: 142 Plan: - SSI during labor with FSBG Q4H, then Q2H in active labor MPDPS - Consents signed on 11/01/23 - Counseled and Declines - Past Surgical Hx: none - Current Weight: 250 lbs Plan: - Declined, no tubal Antepartum course reviewed - sero negative, Rnot immune, VZVimmune, HPV not immune, A positive/IAT negative, GBS negative, Pap NILM (04/2023) - H/H, plt: 10.3 / 32.2, 340 on 12/27/23 - PP control plan: will consider options Fetus - Presentation on admission: cephalic - anterior placenta - EFW: 3179 g, 45%tile, AC 54%tile - FHT reactive and reassuring - Normal anatomy scan Pediatric Pediatric N/A N/A Preoperative Medication Instructions Continue taking all prescribed medications except: GERA inhibitors, ARBs, diuretics, all oral diabetes medications Anticoagulant Therapy: Defer to surgeons Insulin: Take 1/2 dose the night prior to surgery. Hold on DOS. Phentermine: Alert [facility] anesthesiologist SGLT2 Inhibitors: "gliflozins" to be held for 3 days prior to elective surgeries GLP1 Agonosit: stop 7 days prior to surgery MAC Cases: Continue taking GERA inhibitors and ARBs ASA Classification ASA: 3 Labs: Chemistry 11/22/2023 CBC 12/27/2023 134 (L) 104 10 96 9.45 10.3 (L) 340 4.0 22 (L) 0.75; 0.74 32.2 (L) eGFR: 108.6; 110.4 Date: 11/22/2023 ANC: 6.46 Date: 12/27/2023 LFTs 11/22/2023 Coags AST: 25; 24 AP: 110 Prot: 7.7 Ca: 9.4 PT: - Date: - ALT: 12; 12 T Buddy: 0.5 Alb: 3.9 PTT: - Date: - PO4: - Date: - INR: - Date: - Cardiac Endocrine & other pBNP: - Date: - A1C: 5.4 Date: 11/15/2023 Trop I: - Date: - POCT A1C: - Date: - CK: - Date: - TSH: 1.93 Date: 11/15/2023 CKMB: - Date: - FT4: - Date: - LDL: - Date: - Lact: - Date: - Procal: - Date: - Respiratory -|-|-|-|- D-dimer: - ABG Date: - Date: - Miscellaneous Type and Screen: A POSITIVE Antibody: Negative Date: 01/10/2024 POCT : Positive Date: 06/25/2023 Current Medications: No outpatient medications have been marked as taking for the 01/10/24 encounter (Hospital Encounter). Previous Surgeries: Past Surgical History: Procedure Laterality Date TOOTH EXTRACTION Bilateral wisdom teeth TOOTH EXTRACTION 2015 Anesthesia Physical Exam General no apparent distress and alert and oriented x 3 Neuro/Psych Dental no notable dental hx Abdominal GI exam normal Airway Mallampati score:III Neck ROM: full Mouth opening:normal Extremity Pulmonary pulmonary exam normal Other Cardiovascular cardiovascular exam normal Anesthesia Plan ASA Status: 3 Plan discussed during pre-op evaluation: General, Epidural and Spinal Anesthetic plan on DOS: Epidural Anesthesia plan discussed with: patient or assistance representative Post-Operative Analgesia: routine analgesia & antiemetics Recovery Plan: LDR Additional comments: [facility] 2024-01-10 20:04:35 Problem: Intrapartum process (including labor pain) Goal: Absence of or reduction of complications of labor 01/10/2024 2004 by Arcelia Vásquez RN Outcome: Progressing as expected 01/10/2024 2004 by Arcelia Vásquez RN Outcome: Progressing as expected Goal: Able to cope with pain 01/10/2024 2004 by Arcelia Vásquez RN Outcome: Progressing as expected 01/10/2024 2004 by Arcelia Vásquez RN Outcome: Progressing as expected Goal: Adequate to move to next level of care 01/10/2024 2004 by Arcelia Vásquez RN Outcome: Progressing as expected 01/10/2024 2004 by Arcelia Vásquez RN Outcome: Progressing as expected Goal: Reduction in pain sensation 01/10/2024 2004 by Arcelia Vásquez RN Outcome: Progressing as expected 01/10/2024 2004 by Arcelia Vásquez RN Outcome: Progressing as expected Problem: Falls, Risk of Goal: Absence of falls 01/10/2024 2004 by Arcelia Vásquez RN Outcome: Progressing as expected 01/10/2024 2004 by Arcelia Vásquez RN Outcome: Progressing as expected Arcelia Vásquez RN [facility] 2024-01-10 14:17:54 Problem: Intrapartum process (including labor pain) Goal: Absence of or reduction of complications of labor Outcome: Progressing as expected Goal: Able to cope with pain Outcome: Progressing as expected Goal: Adequate to move to next level of care Outcome: Progressing as expected Goal: Reduction in pain sensation Outcome: Progressing as expected [facility] 2023-11-22 13:45:05 Called report to Annel ROBLEDO. Dr. Pérez wants patient to be evaluated by L&D. Patient blood pressure still elevated and reports of lightheadedness. [facility] 2023-11-22 13:36:51 Patient arrived in wheelchair c/o of feeling faint this morning. Patient was able to ambulate around a store when she started to feel like she was going to pass out. Complaining mid back pain. 31 weeks. G3. Blood sugar 135 Karina Escalante RN [facility] 2023-10-21 12:22:53 Pt notified via [employer]. Deidra Marie LVN [facility] 2023-10-21 12:16:00 Supplies sent to pharmacy on file NONA Agarwal 10/21/2023 12:19 PM [facility] 2023-10-21 09:05:26 Pharmacy stated supplies are not covered and needs to be changed to one touch ultra or one touch verio. Order resent to pharmacy, pt notified. Deidra Marie LVN [facility] 2023-10-18 14:46:45 Patient diagnosed with GDM per provider. Advised patient that blood glucose monitor and supplies have been sent to her pharmacy on file. Advised patient that she will need to come in for a diabetic teaching as a nurse visit with supplies from pharmacy. Patient verbalizes understanding. Appt scheduled. Caitlyn Wills RN 10/18/23 2:46 PM Caitlyn Wills RN [facility] 2023-10-18 14:39:51 Please notify the patient she failed her 3hr gtt, she is now considered GDM, please have her clam picker her supplies, RTC for diabetic education and labs NONA Agarwal 10/18/2023 2:40 PM [facility] 2023-10-09 08:06:37 Patient informed of results and need for 3 hr gtt. Lab appt made for 10/13 at 7 am, informed to be fasting, verbalized understanding. Deidra Marie CORK INSULATOR HELPER [facility] 2023-10-09 07:49:46 Please call patient and set up 3 hour gtt [facility] 2023-07-23 11:00:00 Addended by: CARITO BARRERA CNM on: 07/23/2023 01:36 PM Modules accepted: Level of Service [facility]
--- NOTE | 2024-01-15 21:02 | ER ---
Nurse's Notes [facility] Name: Kera Deng Age: 33 yrs Sex: Female : 1990 Arrival Date: 01/15/2024 Time: 20:38 Bed 11 Private MD: Diagnosis: Person with feared health complaint in whom no diagnosis is made Presentation: 01/14 20:45 Chief complaint: Patient states: Gave on Saturday and has been feeling like her cm10 breasts are inflamed. Pt states that today she started feeling weak. Coronavirus screen: Client denies travel out of the [place] in the last 14 days. At this time, the client does not indicate any symptoms associated with coronavirus-19. Ebola Screen: Patient denies travel to an Ebola-affected area in the 21 days before illness onset. No symptoms or risks identified at this time. Initial Sepsis Screen: Does the patient meet any 2 criteria? No. Patient's initial sepsis screen is negative. Does the patient have a suspected source of infection? No. Patient's initial sepsis screen is negative. Risk Assessment: Do you want to hurt yourself or someone else? Patient reports no desire to harm self or others. Onset of symptoms was January 15, 2024. 20:45 Method Of Arrival: Ambulatory cm10 20:45 Acuity: MEG 4 cm10 Triage Assessment: 20:48 General: Appears in no apparent distress. comfortable, Behavior is calm, cooperative. cm10 Neuro: No deficits noted. Level of Consciousness is awake, alert, obeys commands, Oriented to person, place, time, situation, Appropriate for age. Respiratory: No deficits noted. Airway is patent Respiratory effort is even, unlabored, Respiratory pattern is regular, symmetrical. AUTOMATION MANAGER: 21:08 Not cm10 Historical: - Allergies: 20:48 No Known Allergies; cm10 - PMHx: 20:48 Anemia; Anxiety; cm10 - Immunization history:: Adult Immunizations up to date. - Infectious Disease History:: Denies. - Social history:: Smoking status: Patient denies any tobacco usage or history of. Screenin:06 [facility] ED Fall Risk Assessment (Adult) History of falling in the last 3 months, cm10 including since admission No falls in past 3 months (0 pts) Confusion or Disorientation No (0 pts) Intoxicated or Sedated No (0 pts) Impaired Gait No (0 pts) Mobility Assist Device Used No (0 pt) Altered Elimination No (0 pt) Score/Fall Risk Level 0 - 2 = Low Risk Oriented to surroundings, Maintained a safe environment, Provided non-skid footwear. Abuse screen: Denies threats or abuse. Denies injuries from another. Nutritional screening: No deficits noted. Tuberculosis screening: No symptoms or risk factors identified. Assessment: 21:06 Pain: Complains of pain in Both breasts. cm10 Vital Signs: 20:45 BP 149 / 104; Pulse 89; Resp 18; Temp 97.8; Pulse Ox 100% on R/A; Height 5 ft. 5 in. ; cm10 Pain 3/10; 20:50 Weight 110.4 kg; cm10 20:45 Pain Scale: Adult cm10 ED Course: 20:41 Patient arrived in ED. ra3 20:42 Melva Vann FNP-C is [facility]. kb 20:42 Inder Washington MD is Attending Physician. kb 20:48 Triage completed. cm10 20:48 Arm band placed on Patient placed in an exam room, on a stretcher. cm10 21:07 Patient has correct armband on for positive identification. Provided Education on: cm10 Follow-up instructions.. Cardiac monitoring not applicable on this patient. 21:07 No provider procedures requiring assistance completed. Patient did not have IV access cm10 during this emergency room visit. Administered Medications: No medications were administered Medication: 21:06 VIS not applicable for this client. cm10 Outcome: 21:02 Discharge ordered by . matt 21:07 Discharged to home ambulatory, cm10 21:07 Condition: good 21:07 Discharge instructions given to patient, Instructed on discharge instructions, follow up and referral plans. Demonstrated understanding of instructions, follow-up care, 21:11 Patient left the ED. cm10 Signatures: Melva Vann FNP-C FNP-Ckb Martinez, Clarissa, RN RN cm10 Lucero Hopkins ra3
--- NOTE | 2024-01-15 21:03 | EDPHYS ---
Physician Documentation [facility] Name: Kera Deng Age: 33 yrs Sex: Female : 1990 Arrival Date: 01/15/2024 Time: 20:38 Bed 11 Private MD: ED Physician Inder Washington HPI: 01/14 21:33 This 33 yrs old Black Female presents to ER via Ambulatory with complaints of Breast kb Problem - inflammed, Anxiety. 21:33 Pt is a 33 year old female who gave 5 days ago and presents for soreness and kb inflammation to breasts. States she was reading about mastitis and wanted to make sure she didn't have it. . CONTINUOUS IMPROVEMENT SPECIALIST: 21:08 Not cm10 Historical: - Allergies: 20:48 No Known Allergies; cm10 - PMHx: 20:48 Anemia; Anxiety; cm10 - Immunization history:: Adult Immunizations up to date. - Infectious Disease History:: Denies. - Social history:: Smoking status: Patient denies any tobacco usage or history of. ROS: 21:30 Constitutional: As per HPI kb Exam: 21:30 Constitutional: This is a well developed, well nourished patient who is awake, alert, kb and in no acute distress. Head/Face: Normocephalic, atraumatic. ENT: Moist Mucous membranes Chest/axilla: Normal chest wall appearance and motion. Cardiovascular: Regular rate Respiratory: Respirations even and unlabored. No increased work of breathing. Talking in full sentences Skin: Warm, dry with normal turgor. Normal color. MS/ Extremity: Pulses equal, no cyanosis. Neurovascular intact. Full, normal range of motion. Neuro: Awake and alert, GCS 15, oriented to person, place, time, and situation. Moves all extremities. Normal gait. Vital Signs: 20:45 BP 149 / 104; Pulse 89; Resp 18; Temp 97.8; Pulse Ox 100% on R/A; Height 5 ft. 5 in. ; cm10 Pain 3/10; 20:50 Weight 110.4 kg; cm10 20:45 Pain Scale: Adult cm10 MDM: 20:43 Patient medically screened. kb 21:30 Differential diagnosis: mastitis, clogged duct. Data reviewed: vital signs, nurses kb notes. Counseling: I had a detailed discussion with the patient and/or guardian regarding the historical points, exam findings, and any diagnostic results supporting the discharge/admit diagnosis, the need for outpatient follow up, an OB/Gyne specialist, to return to the emergency department if symptoms worsen or persist or if there are any questions or concerns that arise at home. ED course: Pt is afebrile, no erythema, swelling, warmth, firm areas or other signs of infection. Administered Medications: No medications were administered Disposition: 01/15 07:12 Co-signature as Attending Physician, Inder Washington MD I agree with the assessment and nate plan of care. Disposition Summary: 01/15/24 21:02 Discharge Ordered Notes: Location: Home kb Condition: Stable kb Diagnosis - Person with feared health complaint in whom no diagnosis is made kb Followup: kb - With: Emergency Department - When: As needed - Reason: Worsening of condition Followup: kb - With: Private Physician - When: 2 - 3 days - Reason: Recheck today's complaints, Continuance of care, Re-evaluation by your physician Discharge Instructions: - Discharge Summary Sheet kb - and Mastitis kb - Mastitis, [id number] kb Forms: - Medication Reconciliation Form kb - Antibiotic Education kb - Prescription Opioid Use kb - Patient Portal Instructions kb - Leadership Thank You Letter kb Signatures: Melva Vann, HARDNESS TESTER-C HARDNESS TESTER-Inder Funez MD MD cha Martinez, Clarissa, RN RN cm10
[2024-01-15 21:35] VITALS: BP 149/104; TEMP 97.8; O2SAT 100
== END 2024-01-15 21:11 | disposition home or self-care (01) ==
LOC: ER 20:38
DX: Z71.1 Person with feared health complaint in whom no diagnosis is made (principal)
CPT/HCPCS: 99282

== ENCOUNTER 2024-04-27 20:15 | Emergency (ER) | payer OTHER ==
--- OUTSIDE RECORDS SUMMARY | 2024-04-27 20:21 | XMS REPORT | Continuity of Care Document ---
Author Name Unknown Address [address] [facility] [address] [place] [address] [facility] thconnect Address [address] [facility] [address] [place] [address] Care Team Providers Care Tc Operator Name Role Phone PCP, PATIENT DOES NOT HAVE A Primary Care Physic paul Unavailable Davide Parmar Attending Clinician Unavailable CARITO BARRERA Attending Clinician UnavailYosvany Perdomo Attending Clinician [phone] Unknown, Attending Attending Clinician UnavailYOSVANY Tang Attending Clinician Unavailable Preston Salazar Attending Clinician [phone] PRESTON ENGLAND Attending Clinician Unavailable VONDA BUNCH Attending Clinician VONDA Locke Attending Clinician Carito Bhat CNM Attending Clinician Phoebe MarRmchp Attending Clinician Unavailable INDUCTION, GAMA Attending Clinician Unavailable Akinsipe WHCNP, Debbie C Attending Clinician + AKINSIPE, DEBBIE C Attending Clinician Unavail able NATALYA SHETH Attending Clinician Unavailable NATALYA SHETH Attending Clinician Unavailable NATALYA SHETH Attending Clinician Unavailable Natalya Sheth MD Attending Clinician [phone] Jesus Manuel Baron MD Attending Clinician [phone] Daryl Yun MD Attending Clinician [phone], [facility] Attending Clinician Unavailable Carito Barrera CNM Attending Clinician [phone] BETTYE CAT Attending Clinician Unavailable BETTYE CAT Attending Clinician Un[facility]ician Unavaila ANDREW Guzman Attending Clinician Unavailable ANDREW CHARLES Attending Clinician Unavailable Lana Brooks DO Attending Clinician [phone] Visit, [facility] Nurse Attending Clinician Unava ilable Akinsipe WHCNP, Debbie C Attending Clinician + Lab, [facility] Attending Clinician Unavailable JAKE RYAN Attending Clinician Unavailable Zainab Oliver Attending Clinician UnavailJake Ferris MD Attending Clinician [phone] Doctor Unassigned, [place] Attending Clinician U [place]ANNON [place] Attending Clinician Unavailable Shannon Eddy MD Attending Clinician [phone] Unknown, Attending Attending Clinician Unavailab MIGUEL ÁNGEL Sotelo Attending Clinician Unavailable Miguel Ángel Balderrama Attending Clinician [phone] SHEREE RODRIGUEZ Attending Clinician Unavailable Sheree Rodriguez PA-C Attending Clinician [phone] Meena Washington MD Attending Clinician [phone] Fredrick Mullins Attending Clinician [phone] FREDRICK ACEVEDO Attending Clinician Unavailable Richard Canales MD Attending Clinician [phone] RICHARD CANALES Attending Clinician Unavailable Silverio ROBLEDO, Gayle Attending Clinician Unavail able Devyn RN, Ashely Issa Attending Clinician Unavailable Rubi ROBLEDO, Rianna Fitzgerald Attending Clinician UnavailSHARON Silver III Attending Clinician Unavailprema Carpio III, MD, Sharon Soria Attending Clinician [phone] Frank ROBLEDO, Jenn Mishra Attending Clinician Unavaila ble Only, Ang Db Test Attending Clinician UnavailJamie LARSONP, Yosvany Attending Clinician Arnaldo Brewster DO Attending Clinician VONDA BUNCH Admitting Clinician NATALYA Mercado Admitting Clinician Unavailable Domenic SMITH, Natalya Admitting Clinician Payers Payer Name Policy Type Policy Number Effective Date Expirati on Date Source [facility] [id number] 2023 00:00:00 [employer] O C1 [id number] 2020 00:00:00 [facility] Problems Condition Name Condition Details Condition Category Status Onset Date Resolution Date Last Treatment Date Treating Clinician Comments Source Obesity (BMI 30-39.9) Obesity (BMI 30-39.9) Disease Active 2023-05 0- 00:00: 00 [facility] Gestationa l diabetes mellitus (GDM) controlled on oral hypoglycem ic drug Gestationa l diabetes mellitus (GDM) controlled on oral hypoglycem ic drug Disease Active 10-17 00:00: 00 Overview: Formattin g of this note might be different from the original. Failed 3hr gtt 11/07 glyburide 2.5. 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 Disease Active 09-16 00:00: 00 [facility] Declines flu vaccine Declines flu vaccine Disease Active 2- 00:00: 00 [facility] Generalize d anxiety disorder Generalize d anxiety disorder Disease Active 2022-05 2-04 00:00: 00 [facility] Obesity (BMI 30-39.9) Obesity (BMI 30-39.9) Disease Active 2022-05 00:00: 00 [facility] Anemia, Anemia, Disease Active 2015-05 00:00: 00 [facility] [id number] Panic disorder [episodic paroxysmal anxiety] Problem Active [facility] [id number] Other obesity due to excess calories Problem Active [facility] Obesity affecting Obesity affecting Disease Resolve d 2022-05 00:00: 00 2024-02-21 00:00:00 2024-02-21 09:45:38 [facility] Enlarged thyroid Enlarged thyroid Disease Resolve d 4-06 00:00: 00 2024-02-21 00:00:00 2024-02-21 09:45:36 [facility] (spontaneo us vaginal delivery) (spontaneo us vaginal delivery) Disease Resolve d 0 9-01 00:00: 00 2024-01-31 00:00:00 2024-01-31 10:05:21 [facility] Single liveborn infant Single liveborn infant Disease Resolve d 0 9-01 00:00: 00 2024-01-31 00:00:00 2024-01-31 10:05:22 [facility] Decreased movement affecting , antepartum Decreased movement affecting , antepartum Disease Resolve d 0 8-30 00:00: 00 2024-01-31 00:00:00 2024-01-31 10:05:08 [facility] History of hemorrhage History of hemorrhage Disease Resolve d 2023-0 8-30 00:00: 00 2024-01-31 00:00:00 2024-01-31 10:05:10 [facility] History of shoulder dystocia in prior History of shoulder dystocia in prior Disease Resolve d 2023-0 8-30 00:00: 00 2024-01-31 00:00:00 2024-01-31 10:05:17 [facility] Scoliosis, unspecifie d Scoliosis, unspecifie d Disease Resolve d 2-13 00:00: 00 2024-01-31 00:00:00 2024-01-31 11:39:57 [facility] 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 Address pp [facility] Abnormal maternal glucose tolerance, antepartum Abnormal maternal glucose tolerance, antepartum Disease Resolve d 6-07 00:00: 00 2023-11-01 00:00:00 2023-11-01 12:27:13 [facility] Cramping affecting , antepartum Cramping affecting , antepartum Disease Resolve d 2-13 00:00: 00 2023-08-21 00:00:00 2023-08-21 18:46:27 [facility] Back pain affecting Back pain affecting Disease Resolve d 2-13 00:00: 00 2023-08-21 00:00:00 2023-08-21 18:46:30 [facility] Nausea and vomiting during Nausea and vomiting during Disease Resolve d 2015- 2-22 00:00: 00 2023-08-21 00:00:00 2023-08-21 18:46:20 [facility] Nausea and vomiting during Nausea and vomiting during Disease Resolve d 2015-05 2- 00:00: 00 2023-08-21 00:00:00 2023-08-21 18:46:20 [facility] Mixed hyperlipid emia Mixed hyperlipid emia Disease Resolve d 2022-05 2-04 00:00: 00 2023-06-25 00:00:00 2023-06-25 13:30:25 [facility] Presence of of 52 mg levonorges trel-relea sing intrauteri ne device (IUD) Presence of of 52 mg levonorges trel-relea sing intrauteri ne device (IUD) Disease Resolve d 2017-05 0-24 00:00: 00 2023-06-25 00:00:00 2023-06-25 13:28:56 [facility] Back pain with right-side d sciatica Back pain with right-side d sciatica Disease Resolve d 6-01 00:00: 00 2023-06-25 00:00:00 2023-06-25 13:30:08 [facility] Fatigue, unspecifie d type Fatigue, unspecifie d type Disease Resolve d 4-06 00:00: 00 2023-06-25 00:00:00 2023-06-25 13:29:41 [facility] Family history of sickle cell trait Family history of sickle cell trait Disease Resolve d 12-01 00:00: 00 2023-06-25 00:00:00 2023-06-25 13:30:23 [facility] History of abnormal cervical Pap smear History of abnormal cervical Pap smear Disease Resolve d 7 00:00: 00 2023-06-25 00:00:00 2023-06-25 13:29:36 [facility] Acanthosis nigricans Acanthosis nigricans Disease Resolve d 7- 00:00: 00 2023-06-25 00:00:00 2023-06-25 13:30:09 [facility] Yeast infection Yeast infection Disease Resolve d 4-04 00:00: 00 2023-04-15 00:00:00 2023-04-15 15:06:06 [facility] Term Term Disease Resolve d 0 9-01 00:00: 00 2021-08-09 00:00:00 2021-08-09 15:41:42 [facility] Excessive weight gain affecting Excessive weight gain affecting Disease Resolve d 0 6-01 00:00: 00 2021-08-09 00:00:00 2021-08-09 15:41:47 [facility] UTI in UTI in Disease Resolve d 0 3-09 00:00: 00 2021-08-09 00:00:00 2021-08-09 15:42:02 [facility] Multiparit y Multiparit y Disease Resolve d 3-05 00:00: 00 2021-08-09 00:00:00 2021-08-09 15:41:57 [facility] History of induced hypertensi on History of induced hypertensi on Disease Resolve d 3-05 00:00: 00 2021-08-09 00:00:00 2021-08-09 15:41:55 [facility] Supervisio n of high-risk Supervisio n of high-risk Disease Resolve d 3-05 00:00: 00 2021-08-09 00:00:00 2021-08-09 15:41:54 [facility] Obesity affecting Obesity affecting Disease Resolve d 3-05 00:00: 00 2021-08-09 00:00:00 2021-08-09 15:41:58 [facility] Anemia complicati ng , third trimester Anemia complicati ng , third trimester Disease Resolve d 2015-05 1-10 00:00: 00 2021-08-09 00:00:00 2021-08-09 15:42:01 [facility] Full-term premature rupture of membranes Full-term premature rupture of membranes Disease Resolve d 0 9- 00:00: 00 2018-02-20 00:00:00 2018-02-20 14:29:46 [facility] 38 weeks gestation of 38 weeks gestation of Disease Resolve d 2017-0 9-01 00:00: 00 2018-02-20 00:00:00 2018-02-20 14:29:46 [facility] headache in second trimester headache in second trimester Disease Resolve d 2017-0 5-04 00:00: 00 2018-01-03 00:00:00 2018-01-03 15:31:08 [facility] High-risk , second trimester High-risk , second trimester Disease Resolve d 2017-0 4-06 00:00: 00 2018-01-03 00:00:00 2018-01-03 15:31:14 [facility] Other immediate hemorrhage , with delivery Other immediate hemorrhage , with delivery Disease Resolve d 2016-0 2-23 00:00: 00 2017-07-15 00:00:00 2017-07-15 11:10:45 [facility] Gestationa l hypertensi on, third trimester Gestationa l hypertensi on, third trimester Disease Resolve d 2015-05 2-30 00:00: 00 2017-07-15 00:00:00 2017-07-15 11:10:43 [facility] High-risk , third trimester High-risk , third trimester Disease Resolve d 2015-05 1-16 00:00: 00 2017-07-15 00:00:00 2017-07-15 11:10:40 [facility] History of chlamydia History of chlamydia Disease Resolve d - 00:00: 00 2017-07-15 00:00:00 2017-07-15 11:10:31 [facility] Nausea and vomiting in prior to 22 weeks gestation Nausea and vomiting in prior to 22 weeks gestation Disease Resolve d 7- 00:00: 00 2017-07-15 00:00:00 2017-07-15 11:10:33 [facility] Slow transit constipati on Slow transit constipati on Disease Resolve d 7- 00:00: 2017-07-15 00:00:00 2017-07-15 11:10:35 [facility] Nausea and vomiting in prior to 22 weeks gestation Nausea and vomiting in prior to 22 weeks gestation Disease Resolve d 12-01 00:00: 00 2017-07-15 00:00:00 2017-07-15 11:10:33 [facility] Elevated blood pressure affecting in third trimester, antepartum Elevated blood pressure affecting in third trimester, antepartum Disease Resolve d 2015-05 00:00: 00 2016-07-05 00:00:00 2016-07-05 15:50:43 [facility] Uterine size-date discrepanc y, antepartum , third trimester Uterine size-date discrepanc y, antepartum , third trimester Disease Resolve d 2015-05 00:00: 00 2016-07-05 00:00:00 2016-07-05 15:50:26 [facility] Excessive weight gain during , third trimester Excessive weight gain during , third trimester Disease Resolve d 2015-05 00:00: 00 2016-07-05 00:00:00 2016-07-05 15:50:49 [facility] Low back pain during in third trimester Low back pain during in third trimester Disease Resolve d 2015-05 00:00: 00 2016-07-05 00:00:00 2016-07-05 15:50:52 [facility] BV (bacterial vaginosis) BV (bacterial vaginosis) Disease Resolve d 12-05 00:00: 00 2016-07-05 00:00:00 2016-07-05 15:50:36 [facility] UTI in , first trimester UTI in , first trimester Disease Resolve d 12-01 00:00: 00 2016-07-05 00:00:00 2016-07-05 15:50:30 [facility] Vaginal discharge during in first trimester Vaginal discharge during in first trimester Disease Resolve d 12-01 00:00: 00 2016-07-05 00:00:00 2016-07-05 15:50:33 [facility] Liveborn , of correa , born in hospital by vaginal delivery Liveborn infant, of correa , born in hospital by vaginal delivery Disease Resolve d 05-25 00:00: 00 2016-05-31 00:00:00 2016-05-31 11:52:45 [facility] Third-stag e hemorrhage Third-stag e hemorrhage Disease Resolve d 05-25 00:00: 00 2016-05-31 00:00:00 2016-05-31 11:52:45 [facility] Uterine atony Uterine atony Disease Resolve d 05-25 00:00: 00 2016-05-31 00:00:00 2016-05-31 11:52:45 [facility] (spontaneo us vaginal delivery) (spontaneo us vaginal delivery) Disease Resolve d 05-25 00:00: 00 2016-05-31 00:00:00 2016-05-31 11:52:45 [facility] 37 weeks gestation of 37 weeks gestation of Disease Resolve d 05-23 00:00: 00 2016-05-31 00:00:00 2016-05-31 11:52:45 [facility] - induced hypertensi on in third trimester - induced hypertensi on in third trimester Disease Resolve d 2015-05 00:00: 00 2016-05-31 00:00:00 2016-05-31 11:52:45 [facility] 34 weeks gestation of 34 weeks gestation of Disease Resolve d 2015-05 00:00: 00 2016-05-31 00:00:00 2016-05-31 11:52:45 [facility] High-risk , second trimester High-risk , second trimester Disease Resolve d 12-29 00:00: 00 2016-03-28 00:00:00 2016-03-28 11:21:48 [facility] High-risk supervisio n, first trimester High-risk supervisio n, first trimester Disease Resolve d 12-01 00:00: 00 2015-12-30 00:00:00 2015-12-30 13:49:57 [facility] Allergies, Adverse Reactions, Alerts Allergy Name Allergy Type Status Severity Reaction(s) Onset Date Inactive Date Treating Clinician Comments Source NO KNOWN ALLERGIE S Drug Class Active [facility] Social History Social Habit Start Date Stop Date Quantity Comments Source ASSERTION 2023-05-03 00:00:00 [facility] History SDOH Alcohol Frequency [facility] History SDOH Alcohol Std Drinks [facility] History SDOH Alcohol Binge [facility] Gender identity [facility] of [facility] Sex Assigned [facility] [employer] [facility] Alcoholic beverage intake 2024-04-25 00:00:00 2024-04-25 00:00:00 Ex-drinker (finding) [facility] History of Social function 2024-02-21 00:00:00 2024-02-21 00:00:00 [facility] Alcohol intake 2023-08-20 00:00:00 2023-08-20 00:00:00 Ex-drinker (finding) [facility] Exposure to SARS-CoV-2 (event) 2022-04-05 00:00:00 2022-04-15 09:28:00 Not sure [facility] Tobacco use and exposure 2021-11-24 00:00:00 2021-11-24 00:00:00 Smokeless tobacco non-user [facility] Alcohol Comment 2015-05-19 00:00:00 2015-05-19 00:00:00 socially [facility] Smoking Status Start Date Stop Date Source Never smoked tobacco [facility] Medications Ordered Medication Name Filled Medication Name Start Date Stop Date Current Medication? Ordering Clinician Indication Dosage Frequency Signature (SIG) Comments Components Source promethazin e-dextromet horphan 6.25-15 mg/5 mL syrup 2023-05 2- 00:00: 00 Yes [id number] 5mL Take 5 mL by mouth 4 (four) times daily as needed for Cold symptoms. [facility] norethindro ne-e.estrad ioL-iron 1.5 mg-30 mcg (21)/75 mg (7) tablet 2023-05 0-11 00:00: 00 Yes [id number] 1{tbl} Take 1 tablet by mouth in the morning. [facility] vitamin w/FA tablet 01-11 00:00: 00 Yes [id number] 1{tbl} Take 1 tablet by mouth in the morning. [facility] docusate 100 mg capsule 01-11 00:00: 02-20 00:00 :00 No [id number] 200mg Take 2 capsules by mouth once daily as needed for Constipati on. [facility] ferrous sulfate 325 mg (65 mg iron) tablet 01-11 00:00: 02-20 00:00 :00 No [id number] 325mg Take 1 tablet by mouth in the morning. [facility] ibuprofen 800 mg tablet 01-11 00:00: 02-20 00:00 :00 No [id number] 800mg Take 1 tablet by mouth every 8 (eight) hours as needed (pain). Take with food or milk. [facility] rho(D) immune globulin (RHOPHYLAC) injection 300 mcg 01-10 11:11: 26 Yes 300ug [facility] ibuprofen (IBU) tablet 600 mg 01-10 11:11: 23 Yes 600mg 600 mg, Oral, Q6HPRN, Starting on 01/11/24 at 0611, Until Discontinu ed, Routine, Pain (scale 4-6) [facility] acetaminoph en (TYLENOL) tablet 650 mg 01-10 11:11: 23 Yes 650mg 650 mg, Oral, Q6HPRN, Starting on 01/11/24 at 0611, Until Discontinu ed, Routine, Pain (scale 1-3) [facility] diphenhydrA MINE (BENADRYL) tablet 25 mg 01-10 11:11: 23 Yes 25mg [facility] ondansetron (ZOFRAN (PF)) injection 4 mg 01-10 11:11: 23 Yes 4mg [facility] simethicone (GAS RELIEF (SIMETHICON E)) chewable tablet 160 mg 01-10 11:11: 23 Yes 160mg [facility] docusate (COLACE) capsule 200 mg 01-10 11:11: 23 Yes 200mg 200 mg, Oral, QDAILYPRN, Starting on 01/11/24 at 0611, Until Discontinu ed, Routine, Constipati on [facility] magnesium hydroxide (MILK OF MAGNESIA) 400 mg/5 mL suspension 30 mL 01-10 11:11: 23 Yes 30mL [facility] benzocaine- menthol (DERMOPLAST ) 20-0.5 % topical spray 01-10 11:11: 23 Yes Topical, PRN, Starting on 01/11/24 at 0611, Until Discontinu ed, Routine, Perineum discomfort [facility] morphine (2 mg/mL) injection 4 mg 01-10 08:30: 00 01-10 08:03 :00 No 4mg 4 mg, Slow IV Push, ONCE, 1 dose, On Sat01/11/24 at 0330, Routine [facility] ropivacaine 0.2 % (NAROPIN (PF)) epidural infusion 01-10 02:47: 00 01-10 12:32 :22 No Epidural, CONTINUOUS PRN, Starting on Sat01/10/24 at 2147, Until 01/11/24 at 0732, Routine, Intra-op [facility] lidocaine-e pinephrine (XYLOCAINE W/EPINEPHRI NE) 1.5 %-1:200,000 injection 01-10 02:42: 00 01-10 12:32 :22 No Epidural, ONCE INTRA PROCEDURE, Starting on Sat01/10/24 at 2142, Until 01/11/24 at 0732, Routine, Intra-op [facility] lactated ringers IV infusion 500 mL 01-10 01:45: 00 01-10 01:48 :11 No 500mL at 999 mL/hr, 500 mL, IV Infusion, ONCE, 1 dose, On Sat01/10/24 at 2045, Routine [facility] lactated ringers IV infusion 500 mL 01-10 00:48: 10 01-10 08:38 :09 No 500mL at 999 mL/hr, 500 mL, IV Infusion, PRN - SEE INSTRUCTIO NS, 1 dose, Starting on Sat01/10/24 at 1948, Until 01/11/24 at 0338, Routine [facility] sodium citrate-cit gretel acid (BICITRA) 500-334 mg/5 mL solution 30 mL 01-10 00:48: 10 01-10 01:46 :00 No 30mL 30 mL, Oral, PRE-PROCED URE ONCE, 1 dose, Starting on Sat01/10/24 at 1948, Until Sat01/10/24 at 2046, Routine, Surgery/Pr ocedure [facility] Sliding Scale Insulin-Reg ular 01-09 21:30: 00 01-10 11:11 :25 No Subcutaneo us, AC+HS, First dose on Sat01/10/24 at 1630, Until Discontinu ed, Routine [facility] oxytocin (PITOCIN) 30 units in NS 500 mL IV infusion 01-09 17:14: 10 01-10 11:11 :25 No 2mU/min at 2-40 mL/hr, IV Infusion, TITRATE, Starting on Sat01/10/24 at 1214, Until 01/11/24 at 0611, ERMELINDA [facility] D5W-LR IV infusion 1,000 mL 01-09 17:13: 16 01-10 11:11 :25 No 1000mL at 1-125 mL/hr, IV Infusion, TITRATE, Starting on Sat01/10/24 at 1213, Until 01/11/24 at 0611, Routine [facility] valACYclovi r (VALTREX) 500 mg tablet 12-26 00:00: 00 01-11 00:00 :00 No [id number] 500mg Take 1 tablet by mouth in the morning and 1 tablet in the evening. [facility] valACYclovi r (VALTREX) tablet 1,000 mg 11-21 21:40: 00 11-21 21:56 :00 No 1000mg 1,000 mg, Oral, ONCE NOW, 1 dose, On Sat11/22/23 at 1645, ERMELINDA [facility] ondansetron (ZOFRAN) tablet 8 mg 11-21 21:25: 00 11-21 21:30 :00 No 8mg 8 mg, Oral, ONCE, 1 dose, On Sat11/22/23 at 1630, ERMELINDA [facility] glyBURIDE 5 mg tablet 11-14 00:00: 00 01-11 00:00 :00 No [id number] 5mg Take 1 tablet by mouth at bedtime. [facility] glyBURIDE 2.5 mg tablet 11-07 00:00: 00 11-14 00:00 :00 No [id number] 2.5mg Take 1 tablet by mouth at bedtime. [facility] metroNIDAZO LE 500 mg tablet 11-04 00:00: 00 11-12 04:59 :00 No [id number] 500mg Take 1 tablet by mouth in the morning and 1 tablet in the evening. Do all this for 7 days. [facility] fluconazole (DIFLUCAN) 150 mg tablet 11-04 00:00: 00 11-05 04:59 :00 No [id number] 150mg Take 1 tablet by mouth once now for 1 dose. [facility] Blood-Gluco se Meter (ONETOUCH ULTRA2 METER) Kit 10-20 00:00: 00 01-11 00:00 :00 No [id number] Check blood glucose 4x daily [facility] blood sugar diagnostic (ONETOUCH ULTRA TEST) strip 10-20 00:00: 00 01-11 00:00 :00 No [id number] Check blood glucose 4x daily [facility] Lancets (ONETOUCH ULTRASOFT LANCETS) Misc 10-20 00:00: 00 01-11 00:00 :00 No [id number] Check blood glucose 4x daily [facility] Blood-Gluco se Meter (FREESTYLE LITE METER) Kit 10-17 00:00: 00 01-11 00:00 :00 No [id number] Check blood glucose 4x daily [facility] lancets (FREESTYLE LANCETS) 28 gauge Misc 10-17 00:00: 00 01-11 00:00 :00 No [id number] Check glucose 4x daily [facility] [facility] blood sugar diagnostic (FREESTYLE LITE STRIPS) strip 10-17 00:00: 00 01-11 00:00 :00 No [id number] Check blood glucose 4x daily [facility] SERTraline (ZOLOFT) 50 mg tablet 10-07 00:00: 00 01-11 00:00 :00 No [id number] 109 50mg Take 1 tablet by mouth in the morning. [facility] SERTraline (ZOLOFT) 50 mg tablet 09-16 00:00: 00 10-07 00:00 :00 No [id number] 109 50mg Take 1 tablet by mouth in the morning. [facility] Iron Fum & P-FA-Vit B & C No.9 (INTEGRA PLUS) 125 mg iron- 1 mg Cap 07-22 00:00: 00 01-11 00:00 :00 No [id number] 1{capsu le} Take 1 capsule by mouth in the morning. [facility] ZINC ACETATE ORAL 06-25 13:57: 10 06-25 00:00 :00 No Take by mouth. [facility] multivitami n with minerals (MULTI-SHREYAS MIN W/MINERALS ORAL) 06-25 13:56: 48 06-25 00:00 :00 No Take by mouth. [facility] ascorbic acid (VITAMIN C ORAL) 06-25 13:56: 36 06-25 00:00 :00 No Take by mouth. [facility] proMETHazin e 25 mg tablet 06-25 00:00: 00 01-11 00:00 :00 No [id number] 25mg Take 1 tablet by mouth every 4 (four) hours as needed for Nausea and Vomiting (N/V). [facility] PNV 67-iron ps-folate no.1-dha (VITAFOL ULTRA) 29 mg iron- 1 mg-200 mg Cap - 00:00: 00 01-11 00:00 :00 No [id number] 1{capsu le} Take 1 capsule by mouth in the morning. [facility] levonorgest reL (MIRENA) 20 mcg/24 hours (7 yrs) 52 mg IUD 2022-05- 15:06: 54 04-15 00:00 :00 No 1{devic e} 1 Device by Intrauteri ne route once now. Insertion - 8 [facility] norethindro ne-e.estrad ioL-iron (LOESTRIN FE 06/01) 1 mg-20 mcg (21)/75 mg (7) tablet 2022-05 00:00: 00 06-25 00:00 :00 No [id number] 1{tbl} Take 1 tablet by mouth in the morning. [facility] valACYclovi r (VALTREX) 1 gram tablet 2022-05 00:00: 00 06-25 00:00 :00 No [id number] 1g Take 1 tablet by mouth in the morning and 1 tablet in the evening. [facility] benzonatate 100 mg capsule 2022-05 00:00: 00 06-25 00:00 :00 No [id number] 200mg Take 2 capsules by mouth every 8 (eight) hours as needed for Cough. [facility] oseltamivir (TAMIFLU) 75 mg capsule 2022-05 00:00: 00 04-07 05:59 :00 No [id number] 75mg Take 1 capsule by mouth in the morning and 1 capsule in the evening. Do all this for 5 days. [facility] nirmatrelvi r-ritonavir (PAXLOVID) 300 mg (150 mg x 2)-100 mg tablet 2023-0 8-28 00:00: 00 01-13 04:59 :00 No [id number] 3{tbl} Take 3 tablets by mouth in the morning and 3 tablets in the evening. Do all this for 5 days. [facility] valACYclovi r (VALTREX) 500 mg tablet 2021-05 2-20 00:00: 00 06-25 00:00 :00 No [id number] 500mg Take 1 tablet by mouth in the morning and 1 tablet in the evening. [facility] penicillin g proc & benzathine (BICILLIN C-R) 1,200,000 unit/ 2 mL(600k/600 k) injection 1.2 Million Units 2021-05 16:45: 00 04-15 16:08 :00 No [id number] 1.210 [facility] fexofenadin e-pseudoeph edrine 180-240 mg per 24 hr tablet 2021-05 00:00: 00 06-25 00:00 :00 No [id number] 1{tbl} Take 1 tablet by mouth in the morning. [facility] oseltamivir (TAMIFLU) 75 mg capsule 2021-05 0-26 00:00: 00 03-13 04:59 :00 No [id number] 75mg Take 1 capsule by mouth in the morning and 1 capsule in the evening. Do all this for 5 days. [facility] valACYclovi r (VALTREX) 500 mg tablet 9-19 00:00: 00 04-29 00:00 :00 No [id number] 500mg Take 1 tablet by mouth in the morning and 1 tablet in the evening. [facility] metroNIDAZO LE 500 mg tablet 7-18 00:00: 00 11-28 04:59 :00 No [id number] 2000mg Take 4 tablets by mouth once now for 1 dose. Do not drink alcohol while taking this medication . [facility] fluconazole (DIFLUCAN) 150 mg tablet 7-15 00:00: 00 11-29 04:59 :00 No [id number] 150mg Take 1 tablet by mouth every 72 (seventy-t wo) hours for 2 doses. [facility] metroNIDAZO LE 500 mg tablet 4-06 00:00: 00 11-27 00:00 :00 No [id number] 500mg Take 1 tablet by mouth every 12 (twelve) hours. [facility] metroNIDAZO LE 500 mg tablet 331 00:00: 00 11-27 00:00 :00 No [id number] 500mg Take 1 tablet by mouth every 12 (twelve) hours. [facility] levonorgest reL (MIRENA) 20 mcg/24 hours (7 yrs) 52 mg IUD 08-09 14:50: 12 Yes 1{devic e} 1 Device by Intrauteri ne route once now. Insertion - 8 [facility] multivitami n with minerals (MULTI-SHREYAS MIN W/MINERALS ORAL) 08-09 14:50: 12 Yes Take by mouth. [facility] nystatin 100,000 unit/gram powder 08-09 00:00: 00 06-25 00:00 :00 No [id number] Apply to area(s) 2 (two) times daily. [facility] Bactrim DS 800-160 MG Bactrim DS 800-160 MG 12 00:00: 00 08-27 00:00 :00 No 1{table t} BID Bactrim DS 800-160 MG ferrous sulfate 325 mg (65 mg iron) tablet 01-13 00:00: 00 11-24 00:00 :00 No 325mg Take 1 tablet by mouth 2 (two) times daily. [facility] ibuprofen 600 mg tablet 01-13 00:00: 00 11-24 00:00 :00 No 600mg Take 1 tablet by mouth every 6 (six) hours as needed for Pain (scale 1-3) or Pain (scale 4-6) (Pain). Take with food or milk. [facility] Sertraline HCl 25 MG Sertraline HCl 25 MG No 1{table t} QD Sertraline HCl 25 MG Lorazepam 0.5 MG Lorazepam 0.5 MG No 1{table t_at_be dtime_a s_neede d} QD Lorazepam 0.5 MG Immunizations Ordered Immunization Name Filled Immunization Name Date Status Comments Source [facility] 2024-01-12 00:00:00 Completed [facility] TDAP 2023-11-01 00:00:00 Completed [facility] MMR 2018-01-13 00:00:00 Completed [facility] MMR 2018-01-13 00:00:00 Completed [facility] MMR 2018-01-13 00:00:00 Completed [facility] MMR 2018-01-13 00:00:00 Completed [facility] MMR 2018-01-13 00:00:00 Completed [facility] MMR 2018-01-13 00:00:00 Completed [facility] MMR 2018-01-13 00:00:00 Completed [facility] MMR 2018-01-13 00:00:00 Completed [facility] MMR 2018-01-13 00:00:00 Completed [facility] MMR 2018-01-13 00:00:00 Completed [facility] MMR 2018-01-13 00:00:00 Completed [facility] MMR 2018-01-13 00:00:00 Completed [facility] MMR 2018-01-13 00:00:00 Completed [facility] MMR 2018-01-13 00:00:00 Completed [facility] TDAP 2017-11-12 00:00:00 Completed TDAP 2017-11-12 00:00:00 Completed [facility] TDAP 2017-11-12 00:00:00 Completed [facility] TDAP 2017-11-12 00:00:00 Completed [facility] TDAP 2017-11-12 00:00:00 Completed [facility] TDAP 2017-11-12 00:00:00 Completed [facility] TDAP 2017-11-12 00:00:00 Completed [facility] TDAP 2017-11-12 00:00:00 Completed [facility] TDAP 2017-11-12 00:00:00 Completed [facility] TDAP 2017-11-12 00:00:00 Completed [facility] TDAP 2017-11-12 00:00:00 Completed [facility] TDAP 2017-11-12 00:00:00 Completed [facility] TDAP 2017-11-12 00:00:00 Completed [facility] TDAP 2017-11-12 00:00:00 Completed [facility] TDAP 2016-03-15 00:00:00 Completed TDAP 2016-03-15 00:00:00 Completed [facility] TDAP 2016-03-15 00:00:00 Completed [facility] TDAP 2016-03-15 00:00:00 Completed [facility] TDAP 2016-03-15 00:00:00 Completed [facility] TDAP 2016-03-15 00:00:00 Completed [facility] TDAP 2016-03-15 00:00:00 Completed [facility] TDAP 2016-03-15 00:00:00 Completed [facility] TDAP 2016-03-15 00:00:00 Completed [facility] TDAP 2016-03-15 00:00:00 Completed [facility] TDAP 2016-03-15 00:00:00 Completed [facility] TDAP 2016-03-15 00:00:00 Completed [facility] TDAP 2016-03-15 00:00:00 Completed [facility] TDAP 2016-03-15 00:00:00 Completed [facility] Influenza Virus Vaccine Quad IM 3+ YRS 2016-02-24 00:00:00 Completed [facility] Influenza Virus Vaccine Quad IM 3+ YRS 2016-02-24 00:00:00 Completed [facility] Influenza Virus Vaccine Quad IM 3+ YRS 2016-02-24 00:00:00 Completed [facility] Influenza Virus Vaccine Quad IM 3+ YRS 2016-02-24 00:00:00 Completed [facility] Influenza Virus Vaccine Quad IM 3+ YRS 2016-02-24 00:00:00 Completed [facility] Influenza Virus Vaccine Quad IM 3+ YRS 2016-02-24 00:00:00 Completed [facility] Influenza Virus Vaccine Quad IM 3+ YRS 2016-02-24 00:00:00 Completed [facility] Influenza Virus Vaccine Quad IM 3+ YRS 2016-02-24 00:00:00 Completed [facility] Influenza Virus Vaccine Quad IM 3+ YRS 2016-02-24 00:00:00 Completed [facility] Influenza Virus Vaccine Quad IM 3+ YRS 2016-02-24 00:00:00 Completed [facility] Influenza Virus Vaccine Quad IM 3+ YRS 2016-02-24 00:00:00 Completed [facility] Influenza Virus Vaccine Quad IM 3+ YRS 2016-02-24 00:00:00 Completed [facility] Influenza Virus Vaccine Quad IM 3+ YRS 2016-02-24 00:00:00 Completed [facility] Influenza Virus Vaccine Quad IM 3+ YRS 2016-02-24 00:00:00 Completed [facility] Influenza Virus Vaccine Quad IM 3+ YRS Unknown Completed [facility] TDAP Unknown Completed [facility] MMR Unknown Completed [facility] Influenza Virus Vaccine Quad IM 3+ YRS Unknown Completed [facility] TDAP Unknown Completed [facility] MMR Unknown Completed [facility] Influenza Virus Vaccine Quad IM 3+ YRS Unknown Completed [facility] TDAP Unknown Completed [facility] MMR Unknown Completed [facility] Influenza Virus Vaccine Quad IM 3+ YRS Unknown Completed [facility] TDAP Unknown Completed [facility] MMR Unknown Completed [facility] Influenza Virus Vaccine Quad IM 3+ YRS Unknown Completed [facility] TDAP Unknown Completed [facility] MMR Unknown Completed [facility] Influenza Virus Vaccine Quad IM 3+ YRS Unknown Completed [facility] TDAP Unknown Completed [facility] MMR Unknown Completed [facility] Influenza Virus Vaccine Quad IM 3+ YRS Unknown Completed [facility] TDAP Unknown Completed [facility] MMR Unknown Completed [facility] Influenza Virus Vaccine Quad IM 3+ YRS Unknown Completed [facility] TDAP Unknown Completed [facility] MMR Unknown Completed [facility] Influenza Virus Vaccine Quad IM 3+ YRS Unknown Completed [facility] MMR Unknown Completed [facility] TDAP Unknown Completed [facility] Influenza Virus Vaccine Quad IM 3+ YRS Unknown Completed [facility] TDAP Unknown Completed [facility] MMR Unknown Completed [facility] Influenza Virus Vaccine Quad IM 3+ YRS Unknown Completed [facility] MMR Unknown Completed [facility] Influenza Virus Vaccine Quad IM 3+ YRS Unknown Completed [facility] TDAP Unknown Completed [facility] MMR Unknown Completed [facility] TDAP Unknown Completed [facility] Influenza Virus Vaccine Quad IM 3+ YRS Unknown Completed [facility] TDAP Unknown Completed [facility] MMR Unknown Completed [facility] Influenza Virus Vaccine Quad IM 3+ YRS Unknown Completed [facility] TDAP Unknown Completed [facility] MMR Unknown Completed [facility] Influenza Virus Vaccine Quad IM 3+ YRS Unknown Completed [facility] TDAP Unknown Completed [facility] MMR Unknown Completed [facility] Influenza Virus Vaccine Quad IM 3+ YRS Unknown Completed [facility] TDAP Unknown Completed [facility] MMR Unknown Completed [facility] Influenza Virus Vaccine Quad IM 3+ YRS Unknown Completed [facility] TDAP Unknown Completed [facility] MMR Unknown Completed [facility] Influenza Virus Vaccine Quad IM 3+ YRS Unknown Completed [facility] TDAP Unknown Completed [facility] MMR Unknown Completed [facility] Influenza Virus Vaccine Quad IM 3+ YRS Unknown Completed [facility] TDAP Unknown Completed [facility] MMR Unknown Completed [facility] Influenza Virus Vaccine Quad IM 3+ YRS Unknown Completed [facility] TDAP Unknown Completed [facility] MMR Unknown Completed [facility] Influenza Virus Vaccine Quad IM 3+ YRS Unknown Completed [facility] TDAP Unknown Completed [facility] MMR Unknown Completed [facility] Influenza Virus Vaccine Quad IM 3+ YRS Unknown Completed [facility] TDAP Unknown Completed [facility] MMR Unknown Completed [facility] Influenza Virus Vaccine Quad IM 3+ YRS Unknown Completed [facility] TDAP Unknown Completed [facility] MMR Unknown Completed [facility] Influenza Virus Vaccine Quad IM 3+ YRS Unknown Completed [facility] TDAP Unknown Completed [facility] MMR Unknown Completed [facility] Influenza Virus Vaccine Quad IM 3+ YRS Unknown Completed [facility] TDAP Unknown Completed [facility] MMR Unknown Completed [facility] Influenza Virus Vaccine Quad IM 3+ YRS Unknown Completed [facility] TDAP Unknown Completed [facility] MMR Unknown Completed [facility] Influenza Virus Vaccine Quad IM 3+ YRS Unknown Completed [facility] TDAP Unknown Completed [facility] MMR Unknown Completed [facility] Influenza Virus Vaccine Quad IM 3+ YRS Unknown Completed [facility] TDAP Unknown Completed [facility] MMR Unknown Completed [facility] Influenza Virus Vaccine Quad IM 3+ YRS Unknown Completed [facility] TDAP Unknown Completed [facility] MMR Unknown Completed [facility] Influenza Virus Vaccine Quad IM 3+ YRS Unknown Completed [facility] TDAP Unknown Completed [facility] MMR Unknown Completed [facility] Influenza Virus Vaccine Quad IM 3+ YRS Unknown Completed [facility] TDAP Unknown Completed [facility] MMR Unknown Completed [facility] Influenza Virus Vaccine Quad IM 3+ YRS Unknown Completed [facility] TDAP Unknown Completed [facility] MMR Unknown Completed [facility] Influenza Virus Vaccine Quad IM 3+ YRS Unknown Completed [facility] TDAP Unknown Completed [facility] MMR Unknown Completed [facility] Influenza Virus Vaccine Quad IM 3+ YRS Unknown Completed [facility] TDAP Unknown Completed [facility] MMR Unknown Completed [facility] Influenza Virus Vaccine Quad IM 3+ YRS Unknown Completed [facility] TDAP Unknown Completed [facility] MMR Unknown Completed [facility] Influenza Virus Vaccine Quad IM 3+ YRS Unknown Completed [facility] TDAP Unknown Completed [facility] MMR Unknown Completed [facility] Influenza Virus Vaccine Quad IM 3+ YRS Unknown Completed [facility] TDAP Unknown Completed [facility] MMR Unknown Completed [facility] Influenza Virus Vaccine Quad IM 3+ YRS Unknown Completed [facility] TDAP Unknown Completed [facility] MMR Unknown Completed [facility] Influenza Virus Vaccine Quad IM 3+ YRS Unknown Completed [facility] TDAP Unknown Completed [facility] MMR Unknown Completed [facility] Influenza Virus Vaccine Quad IM 3+ YRS Unknown Completed [facility] TDAP Unknown Completed [facility] MMR Unknown Completed [facility] Influenza Virus Vaccine Quad IM 3+ YRS Unknown Completed [facility] TDAP Unknown Completed [facility] MMR Unknown Completed [facility] Influenza Virus Vaccine Quad IM 3+ YRS Unknown Completed [facility] TDAP Unknown Completed [facility] MMR Unknown Completed [facility] Influenza Virus Vaccine Quad IM 3+ YRS Unknown Completed [facility] TDAP Unknown Completed [facility] MMR Unknown Completed [facility] Influenza Virus Vaccine Quad IM 3+ YRS Unknown Completed [facility] TDAP Unknown Completed [facility] MMR Unknown Completed [facility] Influenza Virus Vaccine Quad IM 3+ YRS Unknown Completed [facility] TDAP Unknown Completed [facility] MMR Unknown Completed [facility] Influenza Virus Vaccine Quad IM 3+ YRS Unknown Completed [facility] TDAP Unknown Completed [facility] MMR Unknown Completed [facility] Influenza Virus Vaccine Quad IM 3+ YRS Unknown Completed [facility] TDAP Unknown Completed [facility] MMR Unknown Completed [facility] Influenza Virus Vaccine Quad IM 3+ YRS Unknown Completed [facility] MMR Unknown Completed [facility] TDAP Unknown Completed [facility] Influenza Virus Vaccine Quad IM 3+ YRS Unknown Completed [facility] TDAP Unknown Completed [facility] MMR Unknown Completed [facility] Influenza Virus Vaccine Quad IM 3+ YRS Unknown Completed [facility] TDAP Unknown Completed [facility] MMR Unknown Completed [facility] Influenza Virus Vaccine Quad IM 3+ YRS Unknown Completed [facility] MMR Unknown Completed [facility] TDAP Unknown Completed [facility] Influenza Virus Vaccine Quad IM 3+ YRS Unknown Completed [facility] TDAP Unknown Completed [facility] MMR Unknown Completed [facility] Influenza Virus Vaccine Quad IM 3+ YRS Unknown Completed [facility] TDAP Unknown Completed [facility] MMR Unknown Completed [facility] Influenza Virus Vaccine Quad IM 3+ YRS Unknown Completed [facility] TDAP Unknown Completed [facility] MMR Unknown Completed [facility] Influenza Virus Vaccine Quad IM 3+ YRS Unknown Completed [facility] MMR Unknown Completed [facility] TDAP Unknown Completed [facility] Influenza Virus Vaccine Quad IM 3+ YRS Unknown Completed [facility] TDAP Unknown Completed [facility] MMR Unknown Completed [facility] Influenza Virus Vaccine Quad IM 3+ YRS Unknown Completed [facility] TDAP Unknown Completed [facility] MMR Unknown Completed [facility] Vital Signs Vital Name Observation Time Observation Value Comments S ource Systolic blood pressure 2024-04-25 15:15:00 164 mm[Hg] [facility] Diastolic blood pressure 2024-04-25 15:15:00 89 mm[Hg] [facility] Heart rate 2024-04-25 15:15:00 111 /min [facility] Body temperature 2024-04-25 15:15:00 37 Sally [facility] Respiratory rate 2024-04-25 15:15:00 20 /min [facility] Body height 2024-04-25 15:15:00 165.1 cm [facility] Body weight 2024-04-25 15:15:00 102.785 kg [facility] BMI 2024-04-25 15:15:00 37.71 kg/m2 [facility] Oxygen saturation in Arterial blood by Pulse oximetry 2024-04-25 15:15:00 98 /min [facility] Systolic blood pressure 2024-04-24 01:33:00 137 mm[Hg] [facility] Diastolic blood pressure 2024-04-24 01:33:00 88 mm[Hg] [facility] Heart rate 2024-04-24 01:33:00 77 /min [facility] Body temperature 2024-04-24 01:33:00 37.06 Sally [facility] Respiratory rate 2024-04-24 01:33:00 15 /min [facility] Body height 2024-04-24 01:33:00 165.1 cm [facility] Body weight 2024-04-24 01:33:00 103.057 kg [facility] BMI 2024-04-24 01:33:00 37.81 kg/m2 [facility] Oxygen saturation in Arterial blood by Pulse oximetry 2024-04-24 01:33:00 98 /min [facility] Systolic blood pressure 2024-02-21 14:34:00 136 mm[Hg] [facility] Diastolic blood pressure 2024-02-21 14:34:00 89 mm[Hg] [facility] Heart rate 2024-02-21 14:34:00 73 /min [facility] Body temperature 2024-02-21 14:34:00 36.17 Sally [facility] Respiratory rate 2024-02-21 14:34:00 20 /min [facility] Body height 2024-02-21 14:34:00 165.1 cm [facility] Body weight 2024-02-21 14:34:00 104.923 kg [facility] BMI 2024-02-21 14:34:00 38.49 kg/m2 [facility] Systolic blood pressure 2024-01-31 15:23:00 112 mm[Hg] [facility] Diastolic blood pressure 2024-01-31 15:23:00 82 mm[Hg] [facility] Heart rate 2024-01-31 15:18:00 81 /min [facility] Body temperature 2024-01-31 15:18:00 36.06 Sally [facility] Respiratory rate 2024-01-31 15:18:00 18 /min [facility] Body height 2024-01-31 15:18:00 165.1 cm [facility] Body weight 2024-01-31 15:18:00 103.448 kg [facility] BMI 2024-01-31 15:18:00 37.95 kg/m2 [facility] Systolic blood pressure 2024-01-12 15:11:00 133 mm[Hg] [facility] Diastolic blood pressure 2024-01-12 15:11:00 88 mm[Hg] [facility] Heart rate 2024-01-12 15:11:00 86 /min [facility] Body temperature 2024-01-12 15:11:00 36.61 Sally [facility] Respiratory rate 2024-01-12 15:11:00 16 /min [facility] Oxygen saturation in Arterial blood by Pulse oximetry 2024-01-12 15:11:00 99 /min [facility] Body height 2024-01-10 17:20:00 165.1 cm [facility] Body weight 2024-01-10 17:20:00 113.399 kg [facility] BMI 2024-01-10 17:20:00 41.60 kg/m2 [facility] Systolic blood pressure 2024-01-10 12:40:00 131 mm[Hg] [facility] Diastolic blood pressure 2024-01-10 12:40:00 80 mm[Hg] [facility] Heart rate 2024-01-10 12:40:00 103 /min [facility] Body temperature 2024-01-10 12:40:00 36.22 Sally [facility] Respiratory rate 2024-01-10 12:40:00 17 /min [facility] Body height 2024-01-10 12:40:00 165.1 cm [facility] Body weight 2024-01-10 12:40:00 113.263 kg [facility] BMI 2024-01-10 12:40:00 41.55 kg/m2 [facility] Systolic blood pressure 2024-01-07 12:43:00 129 mm[Hg] [facility] Diastolic blood pressure 2024-01-07 12:43:00 78 mm[Hg] [facility] Heart rate 2024-01-07 12:43:00 98 /min [facility] Body temperature 2024-01-07 12:43:00 36.17 [facility] Respiratory rate 2024-01-07 12:43:00 18 /min [facility] Body height 2024-01-07 12:43:00 165.1 cm [facility] Body weight 2024-01-07 12:43:00 112.095 kg [facility] BMI 2024-01-07 12:43:00 41.12 kg/m2 [facility] Systolic blood pressure 2024-01-03 12:36:00 126 mm[Hg] [facility] Diastolic blood pressure 2024-01-03 12:36:00 74 mm[Hg] [facility] Heart rate 2024-01-03 12:36:00 101 /min [facility] Body temperature 2024-01-03 12:36:00 36.39 Sally [facility] Respiratory rate 2024-01-03 12:36:00 18 /min [facility] Body height 2024-01-03 12:36:00 [facility] 2024-01-03 12:36:00 111.766 kg [facility] BMI 2024-01-03 12:36:00 41.00 kg/m2 [facility] Systolic blood pressure 2023-12-31 12:23:00 123 mm[Hg] [facility] Diastolic blood pressure 2023-12-31 12:23:00 73 mm[Hg] [facility] Heart rate 2023-12-31 12:23:00 104 /min [facility] Body temperature 2023-12-31 12:23:00 36 Sally [facility] Respiratory rate 2023-12-31 12:23:00 18 /min [facility] Body height 2023-12-31 12:23:00 165.1 cm [facility] Body weight 2023-12-31 12:23:00 112.175 kg [facility] BMI 2023-12-31 12:23:00 41.15 kg/m2 [facility] Systolic blood pressure 2023-12-27 12:00:00 125 mm[Hg] [place] [facility] Diastolic blood pressure 2023-12-27 12:00:00 79 mm[Hg] [facility] Heart rate 2023-12-27 12:00:00 111 /min [facility] Body temperature 2023-12-27 11:53:00 35.83 Sally [facility] Respiratory rate 2023-12-27 11:53:00 18 /min [facility] Body height 2023-12-27 11:53:00 165.1 cm [facility] Body weight 2023-12-27 11:53:00 112.52 kg [facility] BMI 2023-12-27 11:53:00 41.28 kg/m2 [facility] Systolic blood pressure 2023-12-24 12:19:00 138 mm[Hg] [facility] Diastolic blood pressure 2023-12-24 12:19:00 86 mm[Hg] [facility] Heart rate 2023-12-24 12:19:00 102 /min [facility] Body temperature 2023-12-24 12:19:00 35.5 Sally [facility] Respiratory rate 2023-12-24 12:19:00 18 /min [facility] Body height 2023-12-24 12:19:00 165.1 [facility] weight 2023-12-24 12:19:00 112.764 kg [facility] BMI 2023-12-24 12:19:00 41.37 kg/m2 [facility] Systolic blood pressure 2023-12-19 19:47:00 122 mm[Hg] [facility] Diastolic blood pressure 2023-12-19 19:47:00 77 mm[Hg] [facility] Heart rate 2023-12-19 19:47:00 100 /min [facility] Body temperature 2023-12-19 19:47:00 36.22 [facility] Body height 2023-12-19 19:47:00 165.1 cm [facility] Body weight 2023-12-19 19:47:00 112.764 kg [facility] BMI 2023-12-19 19:47:00 41.37 kg/m2 [facility] Systolic blood pressure 2023-12-17 20:17:00 128 mm[Hg] [facility] Diastolic blood pressure 2023-12-17 20:17:00 74 mm[Hg] [facility] Heart rate 2023-12-17 20:17:00 91 /min [facility] Body temperature 2023-12-17 20:17:00 36.17 Sally [facility] Respiratory rate 2023-12-17 20:17:00 20 /min [facility] Body height 2023-12-17 20:17:00 165.1 cm [facility] Body weight 2023-12-17 20:17:00 112.492 kg [facility] BMI 2023-12-17 20:17:00 41.27 kg/m2 [facility] Systolic blood pressure 2023-12-13 13:40:00 117 mm[Hg] [facility] Diastolic blood pressure 2023-12-13 13:40:00 75 mm[Hg] [facility] Heart rate 2023-12-13 13:40:00 108 /min [facility] Body temperature 2023-12-13 13:40:00 36.39 Sally [facility] Respiratory rate 2023-12-13 13:40:00 17 /min [facility] Body weight 2023-12-13 13:40:00 110.451 kg [facility] BMI 2023-12-13 13:40:00 40.52 kg/m2 [facility] Systolic blood pressure 2023-12-10 20:07:00 123 mm[Hg] [facility] Diastolic blood pressure 2023-12-10 20:07:00 78 mm[Hg] [facility] Heart rate 2023-12-10 20:07:00 113 /min [facility] Body temperature 2023-12-10 20:03:00 36.22 Sally [facility] Respiratory rate 2023-12-10 20:03:00 18 /min [facility] Body height 2023-12-10 20:03:00 165.1 cm [facility] Body weight 2023-12-10 20:03:00 110.876 kg [facility] BMI 2023-12-10 20:03:00 40.68 kg/m2 [facility] Systolic blood pressure 2023-12-06 13:15:00 124 mm[Hg] [facility] Diastolic blood pressure 2023-12-06 13:15:00 75 mm[Hg] [facility] Heart rate 2023-12-06 13:15:00 102 /min [facility] Body temperature 2023-12-06 13:15:00 35.56 Sally [facility] Respiratory rate 2023-12-06 13:15:00 20 /min [facility] Body height 2023-12-06 13:15:00 165.1 [facility] Body weight 2023-12-06 13:15:00 110.819 kg [facility] BMI 2023-12-06 13:15:00 40.66 kg/m2 [facility] Systolic blood pressure 2023-12-03 19:53:00 126 mm[Hg] [facility] Diastolic blood pressure 2023-12-03 19:53:00 81 mm[Hg] [facility] Heart rate 2023-12-03 19:53:00 116 /min [facility] Body temperature 2023-12-03 19:53:00 36.33 Sally [facility] Respiratory rate 2023-12-03 19:53:00 18 /min [facility] Body height 2023-12-03 19:53:00 165.1 cm [facility] Body weight 2023-12-03 19:53:00 109.856 kg [facility] BMI 2023-12-03 19:53:00 40.30 kg/m2 [facility] Systolic blood pressure 2023-11-27 14:03:00 127 mm[Hg] [facility] Diastolic blood pressure 2023-11-27 14:03:00 75 mm[Hg] [facility] Heart rate 2023-11-27 14:03:00 96 /min [facility] Body temperature 2023-11-27 14:02:00 35.94 Sally [facility] Respiratory rate 2023-11-27 14:02:00 18 /min [facility] Body height 2023-11-27 14:02:00 165.1 cm [facility] Body weight 2023-11-27 14:02:00 108.183 kg [facility] BMI 2023-11-27 14:02:00 39.69 kg/m2 [facility] Systolic blood pressure 2023-11-22 21:31:00 127 mm[Hg] [facility] Diastolic blood pressure 2023-11-22 21:31:00 64 mm[Hg] [facility] Respiratory rate 2023-11-22 21:31:00 16 /min [facility] Heart rate 2023-11-22 21:30:00 98 /min [facility] Oxygen saturation in Arterial blood by Pulse oximetry 2023-11-22 21:30:00 100 /min [facility] Body temperature 2023-11-22 19:00:[address] [facility] Body height 2023-11-22 18:37:00 165.1 cm [facility] Body weight 2023-11-22 18:37:00 108.636 kg [facility] BMI 2023-11-22 18:37:00 39.85 kg/m2 [facility] Systolic blood pressure 2023-11-15 16:13:00 117 mm[Hg] [facility] Diastolic blood pressure 2023-11-15 16:13:00 81 mm[Hg] [facility] Heart rate 2023-11-15 16:13:00 110 /min [facility] Body temperature 2023-11-15 16:13:[address] [facility] Respiratory rate 2023-11-15 16:13:00 18 /min [facility] Body height 2023-11-15 16:13:00 165.1 cm [facility] Body weight 2023-11-15 16:13:00 109.572 kg [facility] BMI 2023-11-15 16:13:00 40.20 kg/m2 [facility] Systolic blood pressure 2023-11-08 15:57:00 115 mm[Hg] [facility] Diastolic blood pressure 2023-11-08 15:57:00 77 mm[Hg] [facility] Heart rate 2023-11-08 15:57:00 107 /min [facility] Body temperature 2023-11-08 15:54:[address] [facility] Respiratory rate 2023-11-08 15:54:00 20 /min [facility] Body height 2023-11-08 15:54:00 165.1 cm [facility] Body weight 2023-11-08 15:54:00 110.252 kg [facility] BMI 2023-11-08 15:54:00 40.45 kg/m2 [facility] Systolic blood pressure 2023-11-01 15:19:00 138 mm[Hg] [facility] Diastolic blood pressure 2023-11-01 15:19:00 80 mm[Hg] [facility] Heart rate 2023-11-01 15:19:00 109 /min [facility] Body temperature 2023-11-01 15:07:00 35.89 [facility] Respiratory rate 2023-11-01 15:07:00 20 /min [facility] Body height 2023-11-01 15:07:00 165.1 cm [facility] Body weight 2023-11-01 15:07:00 109.487 kg [facility] BMI 2023-11-01 15:07:00 40.17 kg/m2 [facility] Body temperature 2023-10-24 15:18:00 36.06 Sally [facility] Respiratory rate 2023-10-24 15:18:00 18 /min [facility] Body height 2023-10-24 15:18:00 165.1 cm [facility] Body weight 2023-10-24 15:18:00 109.374 kg [facility] BMI 2023-10-24 15:18:00 40.13 kg/m2 [facility] Systolic blood pressure 2023-10-08 17:39:00 128 mm[Hg] [facility] Diastolic blood pressure 2023-10-08 17:39:00 79 mm[Hg] [facility] Heart rate 2023-10-08 17:39:00 116 /min [facility] Body temperature 2023-10-08 17:39:00 36.33 Sally [facility] Respiratory rate 2023-10-08 17:39:00 18 /min [facility] Body height 2023-10-08 17:39:00 165.1 cm [facility] Body weight 2023-10-08 17:39:00 109.181 kg [facility] BMI 2023-10-08 17:39:00 40.05 kg/m2 [facility] Systolic blood pressure 2023-09-17 20:04:00 127 mm[Hg] [facility] Diastolic blood pressure 2023-09-17 20:04:00 74 mm[Hg] [facility] Heart rate 2023-09-17 20:04:00 115 /min [facility] Body temperature 2023-09-17 20:01:00 36.22 [facility] Respiratory rate 2023-09-17 20:01:00 20 /min [facility] Body height 2023-09-17 20:01:00 165.1 cm [facility] Body weight 2023-09-17 20:01:00 107.729 kg [facility] BMI 2023-09-17 20:01:00 39.52 kg/m2 [facility] Systolic blood pressure 2023-08-20 18:03:00 137 mm[Hg] [facility] Diastolic blood pressure 2023-08-20 18:03:00 78 mm[Hg] [facility] Heart rate 2023-08-20 18:03:00 110 /min [facility] Body temperature 2023-08-20 18:03:00 36.72 Sally [facility] Respiratory rate 2023-08-20 18:03:00 17 /min [facility] Body height 2023-08-20 18:03:00 165.1 cm [facility] Body weight 2023-08-20 18:03:00 105.858 kg [facility] BMI 2023-08-20 18:03:00 38.84 kg/m2 [facility] Systolic blood pressure 2023-07-23 16:05:00 115 mm[Hg] [facility] Diastolic blood pressure 2023-07-23 16:05:00 77 mm[Hg] [facility] Heart rate 2023-07-23 16:05:00 121 /min [facility] Body temperature 2023-07-23 16:05:00 36.39 Sally [facility] Respiratory rate 2023-07-23 16:05:00 17 /min [facility] Body height 2023-07-23 16:05:00 165.1 cm [facility] Body weight 2023-07-23 16:05:00 103.602 kg [facility] BMI 2023-07-23 16:05:00 38.01 kg/m2 [facility] Systolic blood pressure 2023-06-25 19:25:00 138 mm[Hg] [facility] Diastolic blood pressure 2023-06-25 19:25:00 80 mm[Hg] [facility] Heart rate 2023-06-25 19:25:00 116 /min [facility] Body temperature 2023-06-25 19:25:00 36.56 Sally [facility] Respiratory rate 2023-06-25 19:25:00 19 /min [facility] Body height 2023-06-25 19:25:00 165.1 cm [facility] Body weight 2023-06-25 19:25:00 103.783 kg [facility] BMI 2023-06-25 19:25:00 38.07 kg/m2 [facility] Systolic blood pressure 2023-04-15 21:34:00 134 mm[Hg] [facility] Diastolic blood pressure 2023-04-15 21:34:00 88 mm[Hg] [facility] Heart rate 2023-04-15 21:33:00 102 /min [facility] Body temperature 2023-04-15 21:33:00 36.5 Sally [facility] Respiratory rate 2023-04-15 21:33:00 18 /min [facility] Body height 2023-04-15 21:33:00 165.1 cm [facility] Body weight 2023-04-15 21:33:00 100.608 kg [facility] BMI 2023-04-15 21:33:00 36.91 kg/m2 [facility] Oxygen saturation in Arterial blood by Pulse oximetry 2023-04-15 21:33:00 99 /min [facility] Systolic blood pressure 2023-04-01 18:38:00 118 mm[Hg] [facility] Diastolic blood pressure 2023-04-01 18:38:00 82 mm[Hg] [facility] Heart rate 2023-04-01 18:38:00 92 /min [facility] Body temperature 2023-04-01 18:38:00 37.11 Sally [facility] Respiratory rate 2023-04-01 18:38:00 18 /min [facility] Body weight 2023-04-01 18:38:00 101.334 kg [facility] BMI 2023-04-01 18:38:00 37.18 kg/m2 [facility] Oxygen saturation in Arterial blood by Pulse oximetry 2023-04-01 18:38:00 92 /min [facility] Systolic blood pressure 2023-03-29 16:56:00 119 mm[Hg] [facility] Diastolic blood pressure 2023-03-29 16:56:00 73 mm[Hg] [facility] Heart rate 2023-03-29 16:56:00 105 /min [facility] Body weight 2023-03-29 16:56:00 99.882 kg [facility] BMI 2023-03-29 16:56:00 36.64 kg/m2 [facility] Systolic blood pressure 2023-01-07 21:48:00 122 mm[Hg] [facility] Diastolic blood pressure 2023-01-07 21:48:00 81 mm[Hg] [facility] Heart rate 2023-01-07 21:48:00 112 /min [facility] Body temperature 2023-01-07 21:48:00 37.28 Sally [facility] Respiratory rate 2023-01-07 21:48:00 20 /min [facility] Body weight 2023-01-07 21:48:00 102.059 kg [facility] BMI 2023-01-07 21:48:00 37.44 kg/m2 [facility] Oxygen saturation in Arterial blood by Pulse oximetry 2023-01-07 21:48:00 99 /min [facility] Systolic blood pressure 2022-04-15 15:33:00 120 mm[Hg] [facility] Diastolic blood pressure 2022-04-15 15:33:00 78 mm[Hg] [facility] Heart rate 2022-04-15 15:33:00 122 /min [facility] Body temperature 2022-04-15 15:33:00 37.83 Sally [facility] Respiratory rate 2022-04-15 15:33:00 17 /min [facility] Body height 2022-04-15 15:33:00 165.1 cm [facility] Body weight 2022-04-15 15:33:00 96.934 kg [facility] BMI 2022-04-15 15:33:00 35.56 kg/m2 [facility] Oxygen saturation in Arterial blood by Pulse oximetry 2022-04-15 15:33:00 98 /min [facility] Systolic blood pressure 2022-03-07 16:02:00 116 mm[Hg] [facility] Diastolic blood pressure 2022-03-07 16:02:00 73 mm[Hg] [facility] Heart rate 2022-03-07 16:02:00 88 /min [facility] Body temperature 2022-03-07 16:02:00 36.89 Sally [facility] Respiratory rate 2022-03-07 16:02:00 18 /min [facility] Body height 2022-03-07 16:02:00 165.1 cm [facility] Body weight 2022-03-07 16:02:00 96.701 kg [facility] BMI 2022-03-07 16:02:00 35.48 kg/m2 [facility] Oxygen saturation in Arterial blood by Pulse oximetry 2022-03-07 16:02:00 100 /min [facility] Systolic blood pressure 2021-11-24 19:33:00 138 mm[Hg] [facility] Diastolic blood pressure 2021-11-24 19:33:00 81 mm[Hg] [facility] Heart rate 2021-11-24 19:33:00 103 /min [facility] Body temperature 2021-11-24 19:33:00 36.89 Sally [facility] Respiratory rate 2021-11-24 19:33:00 18 /min [facility] Body height 2021-11-24 19:33:00 165.1 cm [facility] Body weight 2021-11-24 19:33:00 99.791 kg [facility] BMI 2021-11-24 19:33:00 36.61 kg/m2 [facility] height 2020-09-07 16:30:00 65 [in_i] Commo n [facility] weight 2020-09-07 16:30:00 211.9 [lb_av] Co mmon [facility] temperature 2020-09-07 16:30:00 96.9 [degF] Com mon [facility] bmi 2020-09-07 16:30:00 35.26 kg/m2 Comm on [facility] oximetry 2020-09-07 16:30:00 98 % Commo n [facility] respiratory rate 2020-09-07 16:30:00 17 /min Common [facility] blood pressure systolic 2020-09-07 16:30:00 127 mm[Hg] Common [facility] blood pressure diastolic 2020-09-07 16:30:00 69 mm[Hg] [facility] height 2020-08-16 14:40:00 65 [in_i] Commo n [facility] weight 2020-08-16 14:40:00 211.6 [lb_av] Co mmon [facility] temperature 2020-08-16 14:40:00 97.3 [degF] Com mon [facility] bmi 2020-08-16 14:40:00 35.21 kg/m2 Comm on [facility] oximetry 2020-08-16 14:40:00 100 % Commo n [facility] respiratory rate 2020-08-16 14:40:00 17 /min Common [facility] blood pressure systolic 2020-08-16 14:40:00 125 mm[Hg] Common [facility] blood pressure diastolic 2020-08-16 14:40:00 75 mm[Hg] [facility] Procedures Procedure Date / Time Performed Performing Clinician Source POCT MOLECULAR STREP 2024-04-25 15:15:00 Unknown, Atte yordan [facility] POCT MOLECULAR FLU 2024-04-24 01:41:00 Unknown, Attend ing [facility] POCT TEST 2024-02-21 14:48:00 Karyn Barrera [facility] CBC WITH DIFF 2024-01-12 09:10:00 Temo Javier [facility] VENOUS CORD GAS 2024-01-11 09:21:00 Felicia Stubbs [facility] POCT GLUCOSE (AUTOMATED) 2024-01-11 06:49:00 Jhon Sheth lea [facility] POCT GLUCOSE (AUTOMATED) 2024-01-11 03:05:00 Jhon Sheth lea [facility] CENTRAL NEURAXIAL BLOCK 2024-01-11 02:39:00 Jesus Manuel Benson [facility] POCT GLUCOSE (AUTOMATED) 2024-01-10 22:38:00 Jhon Sheth lea [facility] HEPATITIS B SURFACE ANTIGEN 2024-01-10 17:47:00 Felicia Stubbs [facility] HB ABO GROUPING 2024-01-10 17:47:00 Felicia Stubbs [facility] RHO (D) IMMUNE GLOBULIN 2024-01-10 17:47:00 Demetrice Sawyer [facility] SYPHILIS IGG/IGM 2024-01-10 17:47[facility] 2024-01-10 17:44:00 Jhon Sheth [facility] NON-STRESS TEST 2024-01-10 13:51:19 Celso Guidry [facility] POCT GLUCOSE (AUTOMATED) 2024-01-10 13:30:00 Debbie Guidry [facility] POCT URINALYSIS 2024-01-10 12:55:00 Carito Barrera [facility] NON-STRESS TEST 2024-01-07 13:59:47 Sherry Barrera [facility] POCT URINALYSIS 2024-01-07 12:49:00 Carito Barrera [facility] DIABETES TESTING REPORTS 2024-01-06 21:57:05 Doc tor Unassigned, [place] [facility] NON-STRESS TEST 2024-01-03 13:15:22 Sherry Barrera [facility] POCT URINALYSIS 2024-01-03 00:00:00 Carito Barrera [facility] NON-STRESS TEST 2023-12-31 12:58:47 Sherry Barrera [facility] POCT URINALYSIS 2023-12-31 12:26:00 Carito Barrera [facility] NON-STRESS TEST 2023-12-27 12:43:16 Sherry Barrera [facility] POCT URINALYSIS 2023-12-27 11:57:00 Carito Barrera [facility] NON-STRESS TEST 2023-12-24 16:30:21 Sherry Barrera [facility] POCT URINALYSIS 2023-12-24 12:22:00 Carito Barrera [facility] NON-STRESS TEST 2023-12-20 00:53:32 Sherry Barrera [facility] POCT URINALYSIS 2023-12-19 20:58:00 Carito Barrera [facility] NON-STRESS TEST 2023-12-17 21:09:44 Sherry Barrera [facility] POCT URINALYSIS 2023-12-17 20:17:00 Carito Barrera [facility] NON-STRESS TEST 2023-12-13 16:41:14 Sherry Barrera [facility] POCT URINALYSIS 2023-12-13 00:00:00 Carito Barrera [facility] NON-STRESS TEST 2023-12-10 23:29:50 Sherry Barrera [facility] POCT URINALYSIS 2023-12-10 20:12:00 Carito Barrera [facility] SECOND AND THIRD TRIMESTER ULTRASOUND 2023-12-07 15:22:00 Carito Barrera [facility] NON-STRESS TEST 2023-12-06 20:29:19 Sherry Barrera [facility] POCT URINALYSIS 2023-12-06 13:16:00 Carito Barrera [facility] NON-STRESS TEST 2023-12-03 20:59:50 Sherry Barrera [facility] POCT URINALYSIS 2023-12-03 19:27:00 Carito Barrera [facility] POCT URINALYSIS 2023-11-27 14:14:00 Carito Barrera [facility] SGOT (ASPARTATE AMINO TRANSFER) 2023-11-22 20:05:00 [facility] CREATININE 2023-11-22 20:05:00 [facility] ALANINE AMINO TRANSFERASE(SGPT 2023-11-22 20:05:00 [facility] LACTATE DEHYDROGENASE 2023-11-22 20:05:00 [facility] URIC ACID 2023-11-22 20:05:00 [facility] COMP. METABOLIC PANEL (99590) 2023-11-22 20:05:00 Vonda Bunch [facility] CBC WITH DIFF 2023-11-22 20:05:00 Anthony Bunch [facility] PROTEIN CREAT RATIO URINE RANDOM 2023-11-22 20:05:00 Vonda Bunch [facility] POCT GLUCOSE (AUTOMATED) 2023-11-22 18:36:00 Doc tor Unassigned, [place] [facility] POCT URINALYSIS 2023-11-15 16:43:00 Carito Barrera [facility] TDAP VACCINE, >11 YRS, IM 2023-11-01 15:43:35 Carito Barrera [facility] POCT URINALYSIS 2023-11-01 15:17:00 Carito Barrera [facility] 3 HR GLUCOSE TOLERANCE TEST 2023-10-14 15:09:00 Carito Barrera [facility] 2 HR GLUCOSE TOLERANCE TEST 2023-10-14 14:09:00 Carito Barrera [facility] 1 HR GLUCOSE TOLERANCE TEST 2023-10-14 13:09:00 Carito Barrera [facility] GLUCOSE FASTING 2023-10-14 12:06:00 Carito Barrera [facility] 3 HR GLUCOSE TOLERANCE PANEL 2023-10-14 12:06:00 Carito Barrera [facility] POCT URINALYSIS 2023-10-08 19:18:00 Carito Barrera [facility] POCT URINALYSIS 2023-09-17 20:02:00 Carito Barrera [facility] SECOND AND THIRD TRIMESTER ULTRASOUND 2023-09-09 19:40:46 Carito Barrera [facility] ALPHA FETOPROTEIN-MATERNAL SER 2023-08-20 18:45:00 Carito Barrera [facility] POCT URINALYSIS 2023-08-20 18:03:00 Carito Barrera [facility] POCT URINALYSIS 2023-07-23 00:00:00 Carito Barrera [facility] GLUCOSE 1 HOUR POST PRANDIAL 2023-06-25 20:26:00 Carito Barrera [facility] THYROID STIMULATING HORMONE 2023-06-25 20:26:00 Carito Barrera [facility] CBC WITH DIFF 2023-06-25 20:26:00 Carito Barrera [facility] HEPATITIS B SURFACE ANTIGEN 2023-06-25 20:26:00 Carito Barrera [facility] HCV ANTIBODY 2023-06-25 20:26:00 [facility] 2023-06-25 20:26:00 Carito Barrera [facility] HIV 1/2 AG-AB WITH REFLEX 2023-06-25 20:26:00 Carito Barrera [facility] POCT TEST 2023-06-25 19:19:00 Karyn Barrera [facility] POCT URINALYSIS W/O SPECIFIC GRAVITY 2023-06-25 19:19:00 Carito Barrera [facility] REPORT OF 2023-06-24 06:01:00 Doctor Venus nassigned, [place] [facility] PAP SMEAR-LIQUID BASED-CP 2023-04-15 21:58:00 Vonda Bunch [facility] CONSENT FOR CONTRACEPTION 2023-04-15 06:01:00 Doctor Unassigned, [place] [facility] POCT TEST 2023-04-15 00:00:00 Vonda Bunch [facility] POCT MOLECULAR FLU 2023-04-01 18:49:00 Unknown, Attend ing [facility] CONSENT FOR CONTRACEPTION 2023-03-29 06:01:00 Doctor Unassigned, [place] [facility] CONSENT/REFUSAL FOR DIAGNOSIS AND TREATMENT 2023-01-07 21:41:16 Doctor Unassigned, [place] [facility] ASSIGNMENT OF BENEFITS 2023-01-07 21:41:00 Docto r Unassigned, [place] [facility] POCT SARS-COV-2 ANTIGEN (BINAX NOW) 2023-01-07 21:34:00 Miguel Ángel Palubmo [facility] POCT MOLECULAR FLU 2022-04-15 15:39:00 Unknown, Attend [facility] POCT MOLECULAR STREP 2022-04-15 15:38:00 Unknown, Atte yordan [facility] POCT MOLECULAR FLU 2022-03-07 16:11:00 Unknown, Attend [facility] Encounters Start Date/Time End Date/Time Encounter Type Admission Type Attending [facility] Care Facility Care Department Encounter ID Source 2023-11-22 17:14:51 Outpatient X [facility] [id number] [facility] 2021-06-07 13:12:47 Outpatient Parmar[facility] [id number] [facility] 2021-06-07 12:57:23 Outpatient Parmar, [facility] [id number] [facility] 2021-06-07 12:50:05 Outpatient Parmar, [facility] [id number] [facility] 2021-06-07 12:48:30 Outpatient Parmar, [facility] [id number] [facility] 2024-04-25 09:00:00 2024-04-25 09:20:00 Urgent Care Yosvany Singh Unknown, Attending [facility] 1.2.840.114 350.1.13.10 4.2.7.2.686 [id number] [facility] 2024-04-25 09:00:00 2024-04-25 09:00:00 Outpatient YOSVANY CULP [facility] [id number] [facility] 2024-04-23 19:40:00 2024-04-23 20:00:00 Urgent Care [place] Unknown, Attending [facility] 1..840.114 350.1.13.10 4.2.7.2.686 [id number] [facility] 2024-04-23 19:40:00 2024-04-23 19:40:00 Outpatient PRESTON FLORES [facility] [id number] [facility] 2024-02-27 00:00:00 2024-02-27 13:09:13 Patient Secure Carito Bond [facility] 1..840.114 350.1.13.10 4.2.7.2.686 [id number] [facility] 2024-02-26 08:15:00 2024-02-26 10:20:01 Outpatient CARITO FONTANA [facility] [id number] [facility] 2024-02-26 08:15:00 2024-02-26 10:20:01 Training And Development Manager Visit Lab, Carito Jack Lab, Lillian [facility] 1..840.114 350.1.13.10 4.2.7.2.686 [id number] [facility] 2024-02-21 09:15:00 2024-02-21 09:54:53 Outpatient CARITO FONTANA [facility] [id number] [facility] 2024-02-21 09:15:00 2024-02-21 09:54:53 Office Visit Carito Barrera [facility] 1..840.114 350.1.13.10 4.2.7.2.686 [id number] [facility] 2023-12-26 00:00:00 2024-02-01 18:25:33 Patient Secure Msg Carito Barrera [facility] MATERNAL & CHILD [facility] 1.2.840.114 350.1.13.10 4.2.7.2.686 [id number] [facility] 2024-01-31 10:15:00 2024-01-31 10:46:29 Outpatient R OCTAVIOLia CARITO [facility] [id number] [facility] 2024-01-31 10:15:00 2024-01-31 10:46:29 Routine Visit Carito Barrera [facility] & CHILD [facility] 1.2.840.114 350.1.13.10 4.2.7.2.686 [id number] [facility] 2024-01-14 00:00:00 2024-01-14 15:21:19 Telephone Debbie Guidry [facility] & CHILD [facility] 1..840.114 350.1.13.10 4.2.7.2.686 [id number] [facility] 2024-01-14 08:00:00 2024-01-14 08:00:00 Outpatient R DEBBIE GUIDRY [facility] [id number] [facility] 2024-01-10 11:13:00 2024-01-12 13:41:00 Inpatient P NATALYA SHETH, NATALYA LEVIN [facility] [id number] [facility] 2024-01-10 11:13:00 2024-01-12 13:41:00 Hospital Encounter Natalya Sheth [facility] 1.2.840.114 350.1.13.10 4.2.7.2.686 [id number] [facility] 2024-01-10 20:55:00 2024-01-11 05:22:00 Anesthesia Event Jesus Manuel Baron Daniel [facility] 1..840.114 350.1.13.10 4.2.7.2.686 [id number] [facility] 2024-01-10 07:45:00 2024-01-10 08:53:17 Outpatient R DEBBIE GUIDRY [facility] [id number] [facility] 2024-01-10 07:45:00 2024-01-10 08:53:17 Routine Visit DerekrandDebbie nesbitt [facility] MATERNAL & CHILD [facility] 1..840.114 350.1.13.10 4.2.7.2.686 [id number] 107 [id number] [facility] 2024-01-07 07:30:00 2024-01-07 08:31:05 Outpatient R CARITO BARRERA [facility] [id number] [facility] 2024-01-07 07:30:00 2024-01-07 08:31:05 Routine Visit Carito Barrera [facility] MATERNAL & CHILD [facility] 1..840.114 350.1.13.10 4.2.7.2.686 [id number] [facility] 2024-01-03 08:00:00 2024-01-03 08:15:31 Outpatient R CARITO BARRERA [facility] [id number] [facility] 2024-01-03 08:00:00 2024-01-03 08:15:31 Routine Visit 1, Ang-Joelchp Nst Ultrasound Carito Barrera 1, Ang-[place] Nst Ultrasound [facility] MATERNAL & CHILD [facility] 1..840.114 350.1.13.10 4.2.7.2.686 [id number] [facility] 2024-01-03 06:45:00 2024-01-03 08:15:21 Routine Visit Carito Barrera [facility] MATERNAL & CHILD [facility] 1.2.840.114 350.1.13.10 4.2.7.2.686 [id number] [facility] 2023-12-31 07:00:00 2023-12-31 07:57:21 Outpatient R CARITO BARRERA [facility] [id number] [facility] 2023-12-31 07:00:00 2023-12-31 07:57:21 Routine Visit Carito Barrera [facility] MATERNAL & CHILD [facility] 1.2.840.114 350.1.13.10 4.2.7.2.686 [id number] [facility] 2023-12-27 06:45:00 2023-12-27 07:50:24 Outpatient R CARITO BARRERA [facility] [id number] [facility] 2023-12-27 06:45:00 2023-12-27 07:50:24 Routine Visit Carito Barrera [facility] MATERNAL & CHILD [facility] 1.2.840.114 350.1.13.10 4.2.7.2.686 [id number] [facility] 2023-12-26 00:00:00 2023-12-26 07:16:31 Patient Secure Msg Carito Barrera [facility] MATERNAL & CHILD [facility] 1.2.840.114 350.1.13.10 4.2.7.2.686 [id number] [facility] 2023-12-24 07:00:00 2023-12-24 08:25:27 Outpatient R CARITO BARRERA [facility] [id number] [facility] 2023-12-24 07:00:00 2023-12-24 08:25:27 Routine Visit Carito Barrera [facility] MATERNAL & CHILD [facility] 1..840.114 350.1.13.10 4.2.7.2.686 [id number] [facility] 2023-12-19 14:45:00 2023-12-19 16:20:41 Outpatient R CARITO BARRERA [facility] [id number] [facility] 2023-12-19 14:45:00 2023-12-19 16:20:41 Routine Visit Carito Barrera [facility] MATERNAL & CHILD [facility] 1..840.114 350.1.13.10 4.2.7.2.686 [id number] [facility] 2023-12-17 14:45:00 2023-12-17 15:54:15 Outpatient R CARITO BARRERA [facility] [id number] [facility] 2023-12-17 14:45:00 2023-12-17 15:54:15 Routine Visit Carito Barrera [facility] & CHILD [facility] ..840.114 350.1.13.10 4.2.7.2.686 [id number] [facility] 2023-12-13 08:45:00 2023-12-13 09:20:29 Outpatient R CARITO BARRERA [facility] [id number] [facility] 2023-12-13 08:45:00 2023-12-13 09:20:29 Routine Visit Carito Barrera [facility] & CHILD [facility] ..840.114 350.1.13.10 4.2.7.2.686 [id number] 107 [id number] [facility] 2023-12-10 15:30:00 2023-12-10 15:41:54 Outpatient R CARITO BARRERA [facility] [id number] [facility] 2023-12-10 15:30:00 2023-12-10 15:41:54 Routine Visit Carito Barrera [facility] & CHILD [facility] 1.2.840.114 350.1.13.10 4.2.7.2.686 [id number] [facility] 2023-12-08 00:00:00 2023-12-08 17:24:36 [facility] & CHILD [facility] 1.2.840.114 350.1.13.10 4.2.7.2.686 [id number] [facility] 2023-12-07 10:15:00 2023-12-07 10:23:36 Outpatient P BETTYE CAT FARANAK [facility] [id number] [facility] 2023-12-07 10:15:00 2023-12-07 10:23:36 Training And Development Manager [facility] 1..840.114 350.1.13.10 4.2.7.2.686 [id number] [facility] 2023-12-06 07:15:00 2023-12-06 08:53:07 Outpatient R ANDREW CHARLES JELISA [facility] [id number] [facility] 2023-12-06 07:15:00 2023-12-06 08:53:07 Routine Visit Carito Barrera Jelisa [facility] & CHILD [facility] 1.2.840.114 350.1.13.10 4.2.7.2.686 [id number] [facility] 2023-12-03 14:45:00 2023-12-03 15:31:27 Outpatient R CARITO BARRERA [facility] [id number] [facility] 2023-12-03 14:45:00 2023-12-03 15:31:27 Routine Visit Carito Barrera [facility] MATERNAL & CHILD [facility] 1.2.840.114 350.1.13.10 4.2.7.2.686 [id number] [facility] 2023-11-27 09:00:00 2023-11-27 09:32:41 Outpatient R CARITO BARRERA [facility] [id number] [facility] 2023-11-27 09:00:00 2023-11-27 09:32:41 Routine Visit Octaviolia Carito Maegan [facility] & CHILD [facility] 1..840.114 350.1.13.10 4.2.7.2.686 [id number] [facility] 2023-10-17 00:00:00 2023-11-23 18:25:06 Patient Secure Msg [facility] & CHILD [facility] 1..840.114 350.1.13.10 4.2.7.2.686 [id number] [facility] 2023-11-22 13:39:00 2023-11-22 17:05:00 Outpatient X REE Langford, VONDA CONTRERAS [facility] [id number] [facility] 2023-11-22 13:39:00 2023-11-22 17:05:00 Emergency Lnaa Brooks Marisol [facility] 1..840.114 350.1.13.10 4.2.7.2.686 [id number] [facility] 2023-11-21 11:00:00 2023-11-21 11:00:00 Outpatient R CARITO BARRERA [facility] [id number] [facility] 2023-11-15 11:15:00 2023-11-15 11:36:59 Outpatient R CARITO BARRERA [facility] [id number] [facility] 2023-11-15 11:15:00 2023-11-15 11:36:59 [facility] & CHILD [facility] 1.2.840.114 350.1.13.10 4.2.7.2.686 [id number] [facility] 2023-11-08 10:30:00 2023-11-08 11:19:34 Outpatient R CARITO BARRERA [facility] [id number] [facility] 2023-11-08 10:30:00 2023-11-08 11:19:34 [facility] & CHILD [facility] 1..840.114 350.1.13.10 4.2.7.2.686 [id number] 107 [id number] [facility] 2023-11-05 00:00:00 2023-11-05 06:47:48 Case Management [facility] 1..840.114 350.1.13.10 4.2.7.2.686 [id number] [facility] 2023-11-01 10:30:00 2023-11-01 11:16:27 Outpatient R CARITO BARRERA [facility] [id number] [facility] 2023-11-01 10:30:00 2023-11-01 11:16:27 [facility] & CHILD [facility] 1..840.114 350.1.13.10 4.2.7.2.686 [id number] [facility] 2023-10-24 10:30:00 2023-10-24 10:45:00 Nurse Visit Visit, Ang-Rmchp Nurse Debbie Guidry [facility] CHILD [facility] 1.2.840.114 350.1.13.10 4.2.7.2.686 [id number] [facility] 2023-10-24 10:30:00 2023-10-24 10:30:00 Outpatient R DEBBIE GUIDRY [facility] [id number] [facility] 2023-10-22 10:00:00 2023-10-22 10:00:00 Outpatient R [facility] [id number] [facility] 2023-10-21 00:00:00 2023-10-21 12:22:46 Patient Secure Carito Bond [facility] 1.2.840.114 350.1.13.10 4.2.7.2.686 [id number] 107 [id number] [facility] 2023-10-21 00:00:00 2023-10-21 12:20:02 Telephone Debbie Guidry [facility] 1.2.840.114 350.1.13.10 4.2.7.2.686 [id number] 107 [id number] [facility] 2023-10-21 00:00:00 2023-10-21 09:13:17 Telephone Debbie Guidry [facility] 1.2.840.114 350.1.13.10 4.2.7.2.686 [id number] [facility] 2023-10-18 00:00:00 2023-10-18 14:43:22 Telephone Debbie Guidry [facility] 1.2.840.114 350.1.13.10 4.2.7.2.686 [id number] 107 [id number] [facility] 2023-10-14 08:15:00 2023-10-14 10:11:52 Outpatient R CARITO BARRERA [facility] [id number] [facility] 2023-10-14 08:15:00 2023-10-14 10:11:52 Training And Development Manager Visit Lab, [facility] Carito Barrera [facility] & CHILD [facility] 1..840.114 350.1.13.10 4.2.7.2.686 [id number] [facility] 2023-09-09 00:00:00 2023-10-12 18:07:46 Patient Secure Msg Carito Barrera [facility] 1..840.114 350.1.13.10 4.2.7.2.686 [id number] 107 [id number] [facility] 2023-10-11 10:30:00 2023-10-11 11:03:09 Outpatient JAKE ROTH [facility] [id number] [facility] 2023-10-11 10:30:00 2023-10-11 11:03:09 Telemedici ne Visit Zainab Oliver Joseph W [facility] 1..840.114 350.1.13.10 4.2.7.2.686 [id number] [facility] 2023-10-09 00:00:00 2023-10-09 08:10:17 Telephone Carito Barrera [facility] 1..840.114 350.1.13.10 4.2.7.2.686 [id number] 107 [id number] [facility] 2023-10-09 00:00:00 2023-10-09 07:49:34 Case Management CésarsivakumarliaCarito [facility] MATERNAL & CHILD [facility] 1.2.840.114 350.1.13.10 4.2.7.2.686 [id number] [facility] 2023-10-08 12:30:00 2023-10-08 13:00:51 [facility] [id number] 2023-10-08 12:30:00 2023-10-08 13:00:51 Routine Visit CésarsivakumarliaCarito [facility] & CHILD [facility] 1.2.840.114 350.1.13.10 4.2.7.2.686 [id number] [facility] 2023-09-17 15:00:00 2023-09-17 15:37:08 Outpatient R BRUCEKARYNCARITO [facility] [id number] [facility] 2023-09-17 15:00:00 2023-09-17 15:37:08 [facility] & CHILD [facility] 1.2.840.114 350.1.13.10 4.2.7.2.686 [id number] [facility] 2023-09-10 00:00:00 2023-09-10 00:00:00 Case Management OctavioCarito fitzgerald [facility] MATERNAL & CHILD [facility] 1.2.840.114 350.1.13.10 4.2.7.2.686 [id number] 107 [id number] [facility] 2023-09-09 13:00:00 2023-09-09 13:34:05 Training And Development Manager Visit Ultrasound, Natalya Ornelas [facility] MATERNAL & CHILD [facility] 1.2.840.114 350.1.13.10 [id number] [id number] [facility] 2023-09-09 13:00:00 2023-09-09 13:34:05 Outpatient NATALYA FISHMAN SANGEETA [facility] [id number] [facility] 2023-08-20 12:45:00 2023-08-20 13:43:07 Outpatient R CARITO BARRERA [facility] [id number] [facility] 2023-08-20 12:45:00 2023-08-20 13:43:07 Routine Visit Carito Barrera [facility] & CHILD [facility] 1.2.840.114 350.1.13.10 [id number] [id number] [facility] 2023-07-23 11:00:00 2023-07-23 11:30:38 Outpatient R CARITO BARRERA [facility] [id number] [facility] 2023-07-23 11:00:00 2023-07-23 11:30:38 Routine Visit Carito Barrera [facility] & CHILD [facility] 1.2.840.114 350.1.13.10 4.2.7.2.686 [id number] [facility] 2023-06-26 00:00:00 2023-06-26 00:00:00 [facility] & CHILD [facility] 1.2.840.114 350.1.13.10 4.2.7.2.686 [id number] [facility] 2023-06-25 13:45:00 2023-06-25 14:34:23 Outpatient R CARITO BARERRA [facility] [id number] [facility] 2023-06-25 13:45:00 2023-06-25 14:34:23 Initial Visit Carito Barrera [facility] 1.2840.114 350.1.13.10 4.2.7.2.686 [id number] [facility] 2023-06-24 00:00:00 2023-06-24 00:00:00 Orders Only Doctor Unassigned, [place] [facility] 1.2840.114 350.1.13.10 4.2.7.2.686 [id number] [facility] 2023-04-15 15:30:00 2023-04-15 16:01:09 Outpatient R VONDA STEWART MARISOL [facility] [id number] [facility] 2023-04-15 15:30:00 2023-04-15 16:01:09 [facility] 1.840.114 350.1.13.10 4.2.7.2.686 [id number] [facility] 2023-04-15 00:00:00 2023-04-15 00:00:00 Orders Only Doctor Unassigned, [place] [facility] 1.2840.114 350.1.13.10 4.2.7.2.686 [id number] [facility] 2023-04-01 12:20:00 2023-04-01 13:05:05 Outpatient R SHANNON EDDY [facility] [id number] [facility] 2023-04-01 12:20:00 2023-04-01 12:40:00 Urgent Care Shannon Eddy Unknown, Attending [facility] 1.2840.114 350.1.13.10 4.2.7.2.686 [id number] [facility] 2023-03-29 11:00:00 2023-03-29 11:17:57 Outpatient R REE Langford, VONDA JOSEI Primitivo VONDA [facility] [id number] [facility] 2023-03-29 11:00:00 2023-03-29 11:17:57 Office Visit Vonda Stewart [facility] N[facility] 1.84.114 350.1.13.10 4.2.7.2.686 [id number] [facility] 2023-03-29 00:00:00 2023-03-29 00:00:00 Orders Only Doctor Unassigned, [place] [facility] 1.284114 350.1.13.10 4.2.7.2.686 [id number] [facility] 2023-01-07 16:40:00 2023-01-07 16:52:58 Outpatient R MIGUEL ÁNGEL PALUMBO [facility] [id number] [facility] 2023-01-07 16:40:00 2023-01-07 16:52:58 Urgent Care Miguel Ángel Palumbo Unknown, Attending [facility] 1.84114 350.1.13.10 4.2.7.2.686 [id number] 370 [id number] [facility] 2023-01-07 00:00:00 2023-01-07 00:00:00 Orders Only Doctor Unassigned, [place] [facility] 1.84114 350.1.13.10 4.2.7.2.686 [id number] [facility] 2023-01-07 00:00:00 2023-01-07 00:00:00 Letter (Out) Miguel Ángel Palumbo [facility] 1.84.114 350.1.13.10 4.2.7.2.686 [id number] [facility] 2022-04-30 00:00:00 2022-04-30 00:00:00 Patient Secure Sheree Samuels [facility] BU[facility] 1..840.114 350.1.13.10 4.2.7.2.686 [id number] [facility] 2022-04-29 00:00:00 2022-04-29 00:00:00 Refroland Rodriguez Sheree [facility] BU[facility] 1.840.114 350.1.13.10 4.2.7.2.686 [id number] [facility] 2022-04-29 00:00:00 2022-04-29 00:00:00 Refroland Rodriguez [facility] 1.84.114 350.1.13.10 4.2.7.2.686 [id number] 134 [id number] [facility] 2022-04-15 10:00:00 2022-04-15 10:37:41 Outpatient R SHANNON EDDY [facility] [id number] [facility] 2022-04-15 10:00:00 2022-04-15 10:37:41 Urgent Care Meena Washington Unknown, Attending Surjit [facility] DEAN?[facility] 1.840.114 350.1.13.10 4.2.7.2.686 [id number] [facility] 2022-04-15 00:00:00 2022-04-15 00:00:00 Letter (Out) Meena Washington [facility] DEAN?[facility] 1..840.114 350.1.13.10 4.2.7.2.686 [id number] [facility] 2022-03-07 11:00:00 2022-03-07 11:20:00 Urgent Care Fredrick Acevedo Unknown, Attending [facility] 1.2.840.114 350.1.13.10 4.2.7.2.686 [id number] [facility] 2022-03-07 11:00:00 2022-03-07 11:00:00 Outpatient R DANITA ACEVEDOLITO [facility] [id number] [facility] 2022-03-07 00:00:00 2022-03-07 00:00:00 Letter (Out) Fredrick Acevedo [facility] 1.2.840.114 350.1.13.10 4.2.7.2.686 [id number] 370 [id number] [facility] 2022-01-29 00:00:00 2022-01-29 00:00:00 Case Management Jennifer [facility] 1..840.114 350.1.13.10 4.2.7.2.686 [id number] 134 [id number] [facility] 2022-01-29 00:00:00 2022-01-29 00:00:00 Patient Secure Msg Jennifer [facility] 1..840.114 350.1.13.10 4.2.7.2.686 [id number] [facility] 2021-12-06 00:00:00 2021-12-06 00:00:00 Patient Secure Msg Richard Canales [facility] 1.840.114 350.1.13.10 4.2.7.2.686 [id number] 134 [id number] [facility] 2021-11-27 00:00:00 2021-11-27 00:00:00 Case Management Richard Canales [facility] 1.2.840.114 350.1.13.10 4.2.7.2.686 [id number] 134 [id number] [facility] 2021-11-24 16:15:00 2021-11-24 16:15:00 Office Visit [facility] 1.2840.114 350.1.13.10 4.2.7.2.686 [id number] 134 [id number] [facility] 2021-11-24 16:15:00 2021-11-24 14:53:52 Outpatient R RICHARD CANALES [facility] [id number] [facility] 2021-11-24 00:00:00 2021-11-24 00:00:00 Patient Secure Msg Gayle Sawyer [facility] BU[facility] 1.2840.114 350.1.13.10 4.2.7.2.686 [id number] 134 [id number] [facility] 2021-08-16 00:00:00 2021-08-16 00:00:00 Patient Secure Msg Ashely Shepard [facility] 1.2840.114 350.1.13.10 4.2.7.2.686 [id number] 134 [id number] [facility] 2021-08-10 00:00:00 2021-08-10 00:00:00 Case Management Sheree Rodriguez [facility] 1.2840.114 350.1.13.10 4.2.7.2.686 [id number] 370 [id number] [facility] 2021-08-09 14:30:00 2021-08-09 15:21:31 [facility] 1.2840.114 350.1.13.10 4.2.7.2.686 [id number] 134 [id number] [facility] 2021-08-09 14:30:00 2021-08-09 15:21:31 Outpatient R JENNIFER [facility] [id number] [facility] 2021-08-09 14:30:00 2021-08-09 14:30:00 Outpatient R JENNIFER [facility] [id number] [facility] 2021-08-09 00:00:00 2021-08-09 00:00:00 Letter (Out) Jennifer [facility] NAL BUILD[facility] 1..840.114 350.1.13.10 4.2.7.2.686 [id number] 134 [id number] [facility] 2021-06-29 00:00:00 2021-06-29 00:00:00 Letter (Out) Rianna Venegas [facility] 1.840.114 350.1.13.10 4.2.7.2.686 [id number] [facility] 2021-06-28 09:20:00 2021-06-28 09:54:13 Outpatient R SHARON CARPIO III [facility] [id number] [facility] 2021-06-28 09:20:00 2021-06-28 09:40:00 Urgent Care Sharon Carpio Unknown, Attending Fredrick Acevedo [facility] 1..840.114 350.1.13.10 4.2.7.2.686 [id number] [facility] 2021-05-27 00:00:00 2021-05-27 00:00:00 Telephone Jenn Marie [facility] 1.84.114 350.1.13.10 4.2.7.2.686 [id number] [facility] 2021-05-26 11:45:00 2021-05-26 12:00:00 Laboratory Only Only, Ang Db Test Green, [facility] 1.2.840.114 350.1.13.10 4.2.7.2.686 [id number] 370 [id number] [facility] 2021-05-26 11:45:00 2021-05-26 11:45:00 Outpatient R MJ YOSVANY [facility] [id number] [facility] 2021-05-26 00:00:00 2021-05-26 00:00:00 Orders Only Doctor Unassigned, [place] [facility] 1.2.840.114 350.1.13.10 4.2.7.2.686 [id number] [facility] 2021-05-18 00:00:00 2021-05-18 00:00:00 Patient Secure Msg Jennifer [facility] BUILDING 1.2.840.114 350.1.13.10 4.2.7.2.686 [id number] 134 [id number] [facility] 2021-05-01 00:00:00 2021-05-01 00:00:00 Patient Secure Msg Jennifer [facility] BUILDING 1.2.840.114 350.1.13.10 4.2.7.2.686 [id number] 134 [id number] [facility] 2021-05-01 00:00:00 2021-05-01 00:00:00 Telephone Jennifer [facility] BUILDING 1.2.840.114 350.1.13.10 4.2.7.2.686 [id number] 134 [id number] [facility] 2021-05-01 00:00:00 2021-05-01 00:00:00 Patient Secure Msg Jennifer [facility] BUILDING 1.2.840.114 350.1.13.10 4.2.7.2.686 [id number] 134 [id number] [facility] 2021-02-03 00:00:00 2021-02-03 00:00:00 Patient Secure Msg Sheree Rodriguez [facility] 1.2.840.114 350.1.13.10 4.2.7.2.686 [id number] 134 [id number] [facility] 2020-09-07 00:00:00 2020-09-07 00:00:00 OFFICE VISIT EST PT LEVEL 3 STLMLC STLMLC [id number] [facility] 2020-08-29 13:15:00 2020-08-29 13:15:00 Outpatient R JENNIFERSHEREE [facility] [id number] [facility] 2020-08-29 12:34:09 2020-08-29 13:04:09 Telemedici ne Visit Sheree Rodriguez [facility] 1.2.840.114 350.1.13.10 4.2.7.2.686 [id number] 134 [id number] 2020-08-29 12:34:09 2020-08-29 13:04:09 Telemedici ne Visit Sheree Rodriguez [facility] 1.2.840.114 350.1.13.10 4.2.7.2.686 [id number] 134 [id number] [facility] 2020-08-22 00:00:00 2020-08-22 00:00:00 (TEL) STLMLC STLMLC [id number] [facility] 2020-08-16 00:00:00 2020-08-16 00:00:00 PREV VISIT NEW AGE 18-39 STLMLC STLMLC [id number] [facility] 2020-08-02 00:00:00 2020-08-02 00:00:00 Patient Outreach Arnaldo Brewster [facility] 1.2.840.114 350.1.13.10 4.2.7.2.686 [id number] [facility] 2020-08-02 00:00:00 2020-08-02 00:00:00 Patient Outreach Arnaldo Brewster [facility] 1.2.840.114 350.1.13.10 4.2.7.2.686 [id number] 2020-07-28 08:44:06 2020-07-28 09:14:06 Office Visit [facility] 1.2.840.114 350.1.13.10 4.2.7.2.686 [id number] 134 [id number] [facility] 2020-07-28 08:44:06 2020-07-28 09:14:06 Office Visit Sheree Rodriguez [facility] Building 1.2.840.114 350.1.13.10 4.2.7.2.686 [id number] 134 [id number] 2020-07-28 08:30:00 2020-07-28 08:30:00 Outpatient R SHEREE RODRIGUEZ [facility] [id number] [facility] Results Test Description Test Time Test Comments Results Result Co mments Source [facility] [id number] 01:53:50* Test Item Value Reference Range Interpretation Comme nts POCT Molecular FluA (test co de = 91274-7) Negative Negative POCT Molecular FluB (test co de = 03042-8) Negative Negative Lab Interpretation (test cod e = 12085-5) Normal [facility] [id number] 14:48:00* Test Item Value Reference Range Interpretation Comme nts POCT PREG (test code = 1605) Negative On board controls acceptable with C Line (test code = 3574) Yes POCT PREG LOT # (test code = 3575) POCT PREG TEST DATE ( test code = 3576) [facility] - SYPHILIS [id number] 14:54:55* Test Item Value Reference Range Interpretation Comme nts Syphilis IgG/IgM (test code = 16469-8) Non-reactive Non-reactive DIMITRY (test code = DIMITRY) Non-reactive - No serologic evidence of T. pallidum infection. Cannot exclude incubating or early syphilis. Submit a second specimen in 2-4 weeks if syphilis is clinically suspected. Equivocal - Further testing to follow. Reactive - Further testing to follow. Lab Interpretation (test code = 38846-5) Normal [facility] (D) IMMUNE [id number] 11:17:39* Test Item Value Reference Range Interpretation Comme nts RHIG CANDIDATE? (test code = 5188) No- see comment Patient is not a candidate for RhIg- Patient is Rh Positive.Performed at [facility] Laboratory Services - [facility] Blood [address] [place] [id number] Free: [phone] No. [id number] [facility] Cord [id number] 09:49:45* Test Item Value Reference Range Interpretation Comme [facility] VENOUS BASE EXCESS, CORD (te st code = 8629438059) -1.9 mEq/L VENOUS PH, CORD (test code = 9707179298) 7.34 7.25-7.45 VENOUS PC02, CORD (test code = 1283382813) 46 27-49 VENOUS PO2, CORD (test code = 0673484195) 25 17-41 VENOUS BICARBONATE, CORD (te st code = 1744466315) 24 12-29 QUES [facility] HospitalAr[facility]ial Cord [id number] 09:49:28* Test Item Value Reference Range Interpretation Comme [facility] BASE EXCESS, CORD (test code = 4996098298) -3.8 mEq/L QUES AC PH, CORD (BEAKER) (test c ode = 7492006221) 7.26 7.18-7.38 PC02, CORD (test code = 9413271632) 55 32-66 PO2, CORD (test code = 7845850184) 18 10-30 BICARBONATE, CORD (test code = 9254150621) 24 17-27 [facility] (AUTOMATED)2024-01-11 06:50:00* Test Item Value Reference Range Interpretation Comme [facility] POCT GLU (test code = 7463550175) 117 mg/dL 70-110 H Lab Interpretation (test cod e = 32757-0) Abnormal [facility])2024-01-11 03:15:31* Test Item Value Reference Range Interpretation Comme nts POCT GLU (test code = 8012806328) 132 mg/dL 70-110 H Lab Interpretation (test cod e = 93142-4) Abnormal [facility] [id number] 02:39:00 Jesus Manuel Baron MD ? ? 01/10/2024 11:58 PM Central Neuraxial Block Date/Time: 01/10/2024 9:39PM Performed by: Jesus Manuel Baron MDAuthorized by: Natalya Sheth MD ?Patient Location: OBReason for Block: OB request, Patient request, Labor analgesia, Surgical anesthesia and Post-op pain m anagementStaff: ?Anesthesiologist: Daryl Yun MD ?Resident/ASSESSMENT NURSE: Jesus Manuel Baron MD ?Performed by: resident/CRNAPreanesthetic [...] and TAM saline ?Guidance with: landmark technique}Epidural/Spinal [place] and/or Catheter: ?Epidural/Spinal Kit: BBraun ?Needle Type: [...] expectations; PCEA explained and fall precautions given. [facility] GLUCOSE (AUTOMATED)2024-01-10 22:39:30* Test Item Value Reference Range Interpretation Comme nts POCT GLU (test code = 2202347977) 110 mg/dL 70-110 Lab Interpretation (test cod e = 94893-4) Normal [facility] HospitalHepatitis B Surface [id number] 19:44:14 * Test Item Value Reference Range Interpretation Comme nts HBsAg Semi-Quantitative (ron t code = 5195-3) 0.11 Negative [facility]Type and Screen - ONCE [id number] 18:02:00 * Test Item Value Reference Range Interpretation Comme nts ABO & RH (test code = 20) A POSITIVE IAT (test code = 1185) Negative [facility] GLUCOSE (AUTOMATED)2024-01-10 17:53:29* Test Item Value Reference Range Interpretation Comme nts POCT GLU (test code = 3019289790) 94 mg/dL 70-110 Lab Interpretation (test cod e = 77368-6) Normal [facility] GLUCOSE (AUTOMATED)2024-01-10 13:33:25* Test Item Value Reference Range Interpretation Comme nts POCT GLU (test code = 9500053540) 142 mg/dL 70-110 H Lab Interpretation (test cod e = 31469-6) Abnormal [facility] URINALYSIS W SPECIFIC [id number] 12:56:00* Test Item Value Reference Range Interpretation [...] POCT U APPEAR (test code = 3267) [facility] URINALYSIS W SPECIFIC [id number] 12:49:00* Test Item Value Reference Range Interpretation [...] U APPEAR (test code = 3267) .. [facility] HospitalDIABETES TESTING [id number] 21:57:05 Ordered by an unspecified provider.[facility]PO[facility] URINALYSIS W SPECIFIC [id number] 12:38:00* Test Item Value Reference Range Interpretation [...] U APPEAR (test code = 3267) . [facility] URINALYSIS W SPECIFIC [id number] 12:26:00* Test Item Value Reference Range Interpretation [...] U APPEAR (test code = 3267) . [facility] URINALYSIS W SPECIFIC [id number] 11:57:00* Test Item Value Reference Range Interpretation [...] U APPEAR (test code = 3267) . [facility] URINALYSIS W SPECIFIC [id number] 12:23:00* Test Item Value Reference Range Interpretation [...] U APPEAR (test code = 3267) . [facility] URINALYSIS W SPECIFIC [id number] 21:00:00* Test Item Value Reference Range Interpretation [...] POCT U APPEAR (test code = 3267) [facility] URINALYSIS W SPECIFIC [id number] 20:17:00* Test Item Value Reference Range Interpretation [...] U APPEAR (test code = 3267) . [facility] URINALYSIS W SPECIFIC [id number] 13:50:00* Test Item Value Reference Range Interpretation [...] U APPEAR (test code = 3267) . [facility] URINALYSIS W SPECIFIC [id number] 20:12:00* Test Item Value Reference Range Interpretation [...] U APPEAR (test code = 3267) . [facility] URINALYSIS W SPECIFIC [id number] 13:16:00* Test Item Value Reference Range Interpretation [...] U APPEAR (test code = 3267) .. [facility] URINALYSIS W SPECIFIC [id number] 19:27:00* Test Item Value Reference Range Interpretation [...] POCT U APPEAR (test code = 3267) [facility] URINALYSIS W SPECIFIC [id number] 14:14:00* Test Item Value Reference Range Interpretation [...] U APPEAR (test code = 3267) .. [facility] GLUCOSE (AUTOMATED)2023-11-22 18:38:47* Test Item Value Reference Range Interpretation Comme nts POCT GLU (test code = 2869603225) 135 mg/dL 70-110 H Lab Interpretation (test cod e = 80979-0) Abnormal [facility] URINALYSIS W SPECIFIC [id number] 16:45:00* Test Item Value Reference Range Interpretation [...] POCT U APPEAR (test code = 3267) [facility] URINALYSIS W SPECIFIC [id number] 15:17:00* Test Item Value Reference Range Interpretation [...] POCT U APPEAR (test code = 3267) [facility] URINALYSIS W SPECIFIC [id number] 19:18:00* Test Item Value Reference Range Interpretation [...] POCT U APPEAR (test code = 3267) [facility] URINALYSIS W SPECIFIC [id number] 20:02:00* Test Item Value Reference Range Interpretation [...] POCT U APPEAR (test code = 3267) [facility] HospitalALPHA FETOPROTEIN-MATERNAL [id number] 17:54:20* Test Item Value Reference Range Interpretation Comme nts AFP-MS (test code = 0206741354) 35.2 ng/mL AFP-MS MoM (test code = 7193562240) 1.05 WEIGHT (test code = 9811463741) 233.375 lbs RACE (test code = 2454910139) Black GEST. AGE (test code = 7464387536) 17w4d INS. DEP (test code = 3203586976) No LMP (test code = 0144208018) [id number] US DATE (test code = 8172342076) PE DATE (test code = 7633042142) METHOD (test code = 8491218133) LMP MULT GEST (test code = 9579919449) No Down Syndrome History (test code = 4600404148) No NTD HX (test code = 0529961196) No INITAL OR REPEAT (test code = 9184018493) Initial Testing SMOKER (test code = 5484797950) No RH (test code = 8680721578) Positive OSB INTERP (test code = 4743290206) See Note The maternal ser um AFP result is NOT elevated for a of thisgestational age. The risk of an open neural tube defect is less thanthe screening cut-off. OSB RSK (test code = 8706884731) 1:8930 The risk of OSB is equal to 1:8930The OSB cut-off is 2.59 (1:104) OSB SCRN (test code = 7431826225) Negative [facility] W SPECIFIC [id number] 18:03:00* Test Item Value Reference Range Interpretation [...] U APPEAR (test code = 3267) . [facility] URINALYSIS W SPECIFIC [id number] 16:14:00* Test Item Value Reference Range Interpretation [...] U APPEAR (test code = 3267) . [facility] URINALYSIS W SPECIFIC [id number] 16:14:00* Test Item Value Reference Range Interpretation [...] U APPEAR (test code = 3267) . [facility] Urinalysis w/o Specific [id number] 19:20:00* Test Item Value Reference Range Interpretation [...] = 3257) trace Negative - Negati ve [facility] [id number] 19:19:00* Test Item Value Reference Range Interpretation Comme nts POCT PREG (test code = 1605) Positive On board controls acceptable with C Line (test code = 3574) Yes POCT PREG LOT # (test code = 3575) POCT PREG TEST DATE ( test code = 3576) [facility] [id number] 21:32:00* Test Item Value Reference Range Interpretation Comme nts POCT PREG (test code = 1605) Negative On board controls acceptable with C Line (test code = 3574) Yes POCT PREG LOT # (test code = 3575) POCT PREG TEST DATE ( test code = 3576) [facility] [id number] 21:32:00* Test Item Value Reference Range Interpretation Comme nts POCT PREG (test code = 1605) Negative On board controls acceptable with C Line (test code = 3574) Yes POCT PREG LOT # (test code = 3575) POCT PREG TEST DATE ( test code = 3576) [facility] MOLECULAR [id number] 18:53:30* Test Item Value Reference Range Interpretation Comme nts POCT Molecular FluB (test co de = 82379-9) Positive Negative A Lab Interpretation (test cod e = 34109-2) Abnormal [facility] SARS-COV-2 ANTIGEN (BINAX NOW)2023-01-07 21:49:00* Test Item Value Reference Range Interpretation Comme nts POCT SARS-COV-2 ANTIGEN (ron t code = 94502-9) Positive Not Detected A On board controls acceptable with C Line (test code = 3574) Yes Lab Interpretation (test cod e = 14107-1) Abnormal [facility] MOLECULAR [id number] 15:51:31* Test Item Value Reference Range Interpretation Comme nts POCT Molecular FluA (test co de = 11580-8) Negative Negative POCT Molecular FluB (test co de = 99791-9) Negative Negative Lab Interpretation (test cod e = 23705-9) Normal [facility] MOLECULAR [id number] 15:51:31* Test Item Value Reference Range Interpretation Comme nts POCT Molecular FluA (test co de = 13893-0) Negative Negative POCT Molecular FluB (test co de = 27842-0) Negative Negative Lab Interpretation (test cod e = 56935-0) Normal [facility] MOLECULAR [id number] 15:42:53* Test Item Value Reference Range Interpretation Comme nts POCT Molecular Strep (test c ode = 20575-1) Positive Negative A Lab Interpretation (test cod e = 75781-8) Abnormal [facility] MOLECULAR [id number] 15:42:53* Test Item Value Reference Range Interpretation Comme nts POCT Molecular Strep (test c ode = 94419-6) Positive Negative A Lab Interpretation (test cod e = 04091-5) Abnormal [facility] MOLECULAR [id number] 16:16:12* Test Item Value Reference Range Interpretation Comme nts POCT Molecular FluA (test co de = 84451-7) Positive Negative A Lab Interpretation (test cod e = [id number]) Abnormal [facility] History and Physical Notes Date/Time Note Provider [...] Hep B, Adol or Pedi Dosage 05/24/2016 [place] screen drawn, results pending. CCHD screen: passed [...] History: Diagnosis Date Anemia Mild Anxiety 07/21/2019 [place] [facility] / Chest Heaviness and Tightness BV [...] 4x daily 1 Kit 0 11/22/2023 Lancets (ONETOUCH ULTRASOFT LANCETS) Misc Check blood glucose 4x [...] Value Date/Time GLUF 98 10/14/2023 07:06 AM [id number] 176 (H) 10/14/2023 08:09 AM GLU3H 97 [...] Fluid, (-) Contractions, decreased Movement - SVE: / floating Plan: - Admit for IOL at 38 weeks due to DFM. Plan for FB and Pitocin - Epidural Plans: Desires Hx of shoulder - 30 second shoulder dystocia documented in 2017 delivery of G2 - relieved with Katherine [...] see the resident's note for additional details. [facility] - [facility] Procedure Notes Date/Time Note Provider Source 2024-01-10 21:57:50 Associated Order(s): Central Neuraxial Block Central Neuraxial Block Date/Time: 01/10/2024 9:39 PM Performed by: Jesus Manuel Baron MD Authorized by: Natalya Sheth MD Patient Location: OB Reason for Block: OB request, Patient request, Labor analgesia, Surgical anesthesia and Post-op pain management Staff: Anesthesiologist: Daryl Yun MD Resident/ASSESSMENT NURSE: Jesus Manuel Baron MD Performed by: resident/ASSESSMENT NURSE Preanesthetic Checklist: patient identified, IV checked, risks [...] TAM saline Guidance with: landmark technique} Epidural/Spinal [place] and/or Catheter: Epidural/Spinal Kit: BBraun Needle Type: [...] PCEA explained and fall precautions given. AN-ANESTHESIOLOGY [facility] 2024-01-10 16:08:44 Procedure(s): INSERT CERVICAL DILATOR Pre-Procedure [...] Vargas MD, PhD Obstetrics & Gynecology, PGY-2 [facility]
--- NOTE | 2024-04-27 20:49 | EDPHYS ---
Physician Documentation [facility] Name: Kera Deng Age: 33 yrs Sex: Female : 1990 Arrival Date: 04/27/2024 Time: 20:15 Bed IW4 Private MD: ED Physician Yony Gaytan HPI: 04/27 20:50 This 33 yrs old Black Female presents to ER via Ambulatory with complaints of Cough, sb4 Congestion, Facial Swelling, Fever. 20:51 cough, congestion, sore throat x 3 days. went to urgent care, had negative swabs. sb4 states that today she started experiencing right sided dental/gum pain. was unable to get a dentist appointment today. no trismus, no fever. Historical: - Allergies: 20:44 No Known Allergies; cm10 - PMHx: 20:44 Anemia; Anxiety; cm10 - Immunization history:: Adult Immunizations up to date. - Infectious Disease History:: Denies. - Social history:: Smoking status: Patient denies any tobacco usage or history of. ROS: 20:51 Constitutional: Negative for fever, chills, and weight loss, sb4 20:51 ENT: Positive for dental pain, 20:51 All other systems are negative, Exam: 20:51 Constitutional: This is a well developed, well nourished patient who is awake, alert, sb4 and in no acute distress. Head/Face: Normocephalic, atraumatic. Eyes: Extra-ocular motions intact. Periorbital areas with no swelling, redness, or edema. ENT: Mucous membranes moist. Respiratory: No increased work of breathing, no retractions or nasal flaring. Skin: Warm, dry with normal turgor. Normal color with no rashes, no lesions, and no evidence of cellulitis. 20:51 ENT: Dental exam: dental caries, that is mild, specifically in the lower right second bicuspid (#29), gum swelling, that is mild, Vital Signs: 20:42 BP 152 / 91; Pulse 100; Resp 16; Temp 99.8(O); Pulse Ox 100% on R/A; Weight 102.97 kg; cm10 Height 5 ft. 5 in. ; Pain 6/10; 20:42 Body Mass Index 37.77 (102.97 kg, 165.1 cm) cm10 20:42 Pain Scale: Adult cm10 MDM: 20:48 Medical Screening Exam initiated sb4 20:51 Data reviewed: vital signs, nurses notes, and as a result, I will discharge patient. sb4 Counseling: I had a detailed discussion with the patient and/or guardian regarding the historical points, exam findings, and any diagnostic results supporting the discharge/admit diagnosis, the need for outpatient follow up, a dentist, to return to the emergency department if symptoms worsen or persist or if there are any questions or concerns that arise at home. Administered Medications: 20:55 Drug: Amoxicillin-Clavulanate PO 875 mg PO once Route: PO; cm10 20:55 Follow up: Response: Medication administered at discharge. cm10 Disposition: 04/28 05:04 Co-signature as Attending Physician, Yony Gaytan MD I agree with the assessment sp4 and plan of care. I reviewed the patient's care provided by the Advanced Practice Provider and agree with the diagnosis and treatment plan. Disposition Summary: 04/27/24 20:48 Discharge Ordered Notes: Location: Home sb4 Problem: new sb4 Symptoms: have improved sb4 Condition: Stable sb4 Diagnosis - Dental caries, unspecified sb4 Followup: sb4 - With: Bayron Del Real DDS - When: 2 - 3 days - Reason: Recheck today's complaints, Re-evaluation by your physician Discharge Instructions: - Discharge Summary Sheet sb4 - Dental Caries, Adult sb4 - Dental Pain, [id number] sb4 Forms: - Antibiotic Education sb4 - Patient Portal Instructions sb4 - Leadership Thank You Letter sb4 Prescriptions: - Amoxicillin 875 mg Oral Tablet - take 1 tablet ORAL route every 12 hours for 10 days; 20 tablet; Refills: 0, sb4 Product Selection Permitted Signatures: Miin Rodney PA-C PA-C sb4 Yony Gaytan MD MD sp4 Christina West RN RN cm10
--- NOTE | 2024-04-27 20:49 | ER ---
Nurse's Notes [facility] Name: Kera Deng Age: 33 yrs Sex: Female : 1990 Arrival Date: 04/27/2024 Time: 20:15 Bed IW4 Private MD: Diagnosis: Dental caries, unspecified Presentation: 04/27 20:42 Chief complaint: Patient states: SORE THROAT ONSET LAST WEEK AND TOOTH PAIN ONSET cm10 TODAY. PT REPORTS THAT SHE HAS ALSO BEEN CONGESTED AND HAS HAD A PRODUCTIVE COUGH. Coronavirus screen: Client denies travel out of the [place] in the last 14 days. Ebola Screen: Patient denies travel to an Ebola-affected area in the 21 days before illness onset. No symptoms or risks identified at this time. Initial Sepsis Screen: Does the patient meet any 2 criteria? HR > 90 bpm. Does the patient have a suspected source of infection? No. Patient's initial sepsis screen is negative. Risk Assessment: Do you want to hurt yourself or someone else? Patient reports no desire to harm self or others. Onset of symptoms was April 27, 2024. 20:42 Method Of Arrival: Ambulatory cm10 20:42 Acuity: MEG 4 cm10 Triage Assessment: 20:44 General: Appears in no apparent distress. comfortable, Behavior is calm, cooperative. cm10 Neuro: No deficits noted. Level of Consciousness is awake, alert, obeys commands, Oriented to person, place, time, situation, Appropriate for age. Respiratory: No deficits noted. Airway is patent Respiratory effort is even, unlabored, Respiratory pattern is regular, symmetrical. Derm: No deficits noted. Skin is healthy with good turgor, Skin is pink, warm \T\ dry. Historical: - Allergies: 20:44 No Known Allergies; cm10 - PMHx: 20:44 Anemia; Anxiety; cm10 - Immunization history:: Adult Immunizations up to date. - Infectious Disease History:: Denies. - Social history:: Smoking status: Patient denies any tobacco usage or history of. Screenin:[facility] ED Fall Risk Assessment (Adult) History of falling in the last 3 months, cm10 including since admission No falls in past 3 months (0 pts) Confusion or Disorientation No (0 pts) Intoxicated or Sedated No (0 pts) Impaired Gait No (0 pts) Mobility Assist Device Used No (0 pt) Altered Elimination No (0 pt) Score/Fall Risk Level 0 - 2 = Low Risk Oriented to surroundings, Maintained a safe environment, Hourly rounding (assess needs \T\ fall precautionary measures) done. Abuse screen: Denies threats or abuse. Denies injuries from another. Nutritional screening: No deficits noted. Tuberculosis screening: No symptoms or risk factors identified. Vital Signs: 20:42 BP 152 / 91; Pulse 100; Resp 16; Temp 99.8(O); Pulse Ox 100% on R/A; Weight 102.97 kg; cm10 Height 5 ft. 5 in. ; Pain 6/10; 20:42 Body Mass Index 37.77 (102.97 kg, 165.1 cm) cm10 20:42 Pain Scale: Adult cm10 ED Course: 20:19 Patient arrived in ED. gm2 20:33 Mini Rodney PA-C is PHCP. sb4 20:33 Yony Gaytan MD is Attending Physician. sb4 20:44 Triage completed. cm10 20:44 Arm band placed on right wrist. Patient placed in waiting room. cm10 20:48 Bayron Del Real DDS is Referral Physician. sb4 20:48 Patient has correct armband on for positive identification. Provided Education on: ER cm10 PROCESS AND PROCEDURES.. 20:49 No provider procedures requiring assistance completed. Patient did not have IV access cm10 during this emergency room visit. Administered Medications: 20:55 Drug: Amoxicillin-Clavulanate PO 875 mg PO once Route: PO; cm10 20:55 Follow up: Response: Medication administered at discharge. cm10 Medication: 20:48 VIS not applicable for this client. cm10 Outcome: 20:48 Discharge ordered by . sb4 20:55 Discharged to home ambulatory, cm10 20:55 Condition: good 20:55 Discharge instructions given to patient, Instructed on discharge instructions, follow up and referral plans. medication usage, Demonstrated understanding of instructions, follow-up care, medications, Prescriptions given X 1, 20:55 Patient left the ED. cm10 Signatures: Mini Rodney PA-C PA-C sb4 Christina West RN RN melissa10 Lisa Yepez gm2
[2024-04-27] MEDS ORDERED: AMOX/K CLAV 875 MG TAB ONE (20:54)
[2024-04-27 21:08] VITALS: BP 152/91; TEMP 99.8; O2SAT 100
== END 2024-04-27 20:55 | disposition home or self-care (01) ==
LOC: ER 20:15
DX: K02.9 Dental caries, unspecified (principal)
CPT/HCPCS: 99283

== ENCOUNTER 2024-07-27 20:09 | Emergency (ER) | payer OTHER ==
--- OUTSIDE RECORDS SUMMARY | 2024-07-27 20:17 | XMS REPORT | Continuity of Care Document ---
Author Name Unknown Address [address] [place] [address] [facility] Address [address] [place] [address] Care Team Providers Care Personal Banker Name Role Phone Pcp, Patient Does Not Have A Primary Care Physic paul Davide Parmar Attending Clinician Unavailable Doctor Unassigned, [place] Attending Clinician U CARITO Young Attending Clinician Unavaila Heydi Chang Attending Clinician Unavailable Heydi GO Attending Clinician Unavailable Heydi Lamar Attending Clinician [phone] Yosvany Hahn Attending Clinician [phone] Unknown, Attending Attending Clinician UnavailYOSVANY Tang Attending Clinician Unavailable Preston Salazar Attending Clinician [phone] PRESTON ENGLAND Attending Clinician Unavailable VONDA GREER Attending Clinician VONDA Locke Attending Clinician Chayito Barrera CNM, Carito Issa Attending Clinician [phone] Lab, Ang-Rmchp Attending Clinician Unavailable GAMA THOMPSON Attending Clinician Unavailable Akinsipe WHCNP, Debbie Soria Attending Clinician + AKINCHERYL RUSSILOLA C Attending Clinician Unavail able NATALYA SHETH Attending Clinician Unavailable NATALYA SHETH Attending Clinician Unavailable NATALYA SHETH Attending Clinician Unavailable Natalya Sheth MD Attending Clinician [phone] Tod SMITH, Jesus Manuel Grady Attending Clinician [phone] Daryl Yun MD Attending Clinician [phone], Lillian Nst Ultrasound Attending Clinician Unavailable Carito Barrera CNM Attending Clinician [phone] BETTYE CAT Attending Clinician Unavailable BETTYE CAT Attending Clinician Unavailable Ultrasound, Phoebebernard Attending Clinician Unavaila ANDREW Guzman Attending Clinician Unavailable ANDREW CHARLES Attending Clinician Unavailable Lana Brooks DO Attending Clinician [phone] [facility]ending [facility]ician Unava ilable Chao JIANGP, Debbie Soria Attending Clinician + Lab, Ang-Rmchconor Attending Clinician Unavailable JAKE RYAN Attending Clinician Unavailable Zainab Oliver Attending Clinician UnavailJake Ferris MD Attending Clinician [phone] Doctor Unassigned, [place] Attending Clinician U SHANNON Park Attending Clinician Unavailable Shannon Eddy MD Attending Clinician [phone] Unknown, Attending Attending Clinician UnavailMIGUEL ÁNGEL Cowart Attending Clinician Unavailable Miguel Ángel Balderrama Attending Clinician [phone] SHEREE RODRIGUEZ Attending Clinician Unavailable Sheree Rodriguez PA-C Attending Clinician [phone] Meena Washington MD Attending Clinician Ebrajuan SENIOR IT AUDITOR, Fredrick Attending Clinician [phone] FREDRICK ACEVEDO Attending Clinician Unavailable Parker SMITH, Richard Attending Clinician [phone] RICHARD CANALES Attending Clinician Unavailable Silverio ROBLEDO, Gayle Attending Clinician Unavail jermaine Shepard RN, Ashely Issa Attending Clinician Unavailable Rubi ROBLEDO, Rianna Fitzgerald Attending Clinician Unavailab SHARON Hernandez III Attending Clinician Unavailprema Carpio III, MD, Sharon Soria Attending Clinician [phone] Jenn Marie RN Attending Clinician Unavaila ble Only, Ang Db Test Attending Clinician Unavailprema Singh SENIOR IT AUDITOR, Yosvany Attending Clinician [phone] Arnaldo Brewster DO Attending Clinician [phone] VONDA GREER Admitting Clinician NATALYA Mercado Admitting Clinician Unavailable Domenic SMITH, Natalya Admitting Clinician [phone] Payers Payer Name Policy Type Policy Number Effective Date Expirati on Date Source [facility] [id number] 2023 00:00:00 [employer] and [employer] Shield O C1 [id number] 2020 00:00:00 [facility] Problems Condition Name Condition Details Condition Category Status Onset Date Resolution Date Last Treatment Date Treating Clinician Comments Source Obesity (BMI 30-39.9) Obesity (BMI 30-39.9) Disease Active 2023-05 0-11 00:00: 00 [facility] Gestationa l diabetes mellitus (GDM) controlled on oral hypoglycem ic drug Gestationa l diabetes mellitus (GDM) controlled on oral hypoglycem ic drug Disease Active 10-17 00:00: 00 Overview: Formattin g of this note might be different from the original. Failed 3hr gtt 11/07 glyburide 2.5. 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 Disease Active 5-07 00:00: 00 [facility] Declines flu vaccine Declines flu vaccine Disease Active 2-13 00:00: 00 [facility] Generalize d anxiety disorder Generalize d anxiety disorder Disease Active 2022-05 2-04 00:00: 00 [facility] Obesity (BMI 30-39.9) Obesity (BMI 30-39.9) Disease Active 2022-05 00:00: 00 [facility] Anemia, Anemia, Disease Active 2015-05 00:00: 00 [facility] [id number] Panic disorder [episodic paroxysmal anxiety] Problem Active [facility] [id number] Other obesity due to excess calories Problem Active [facility] Obesity affecting Obesity affecting Disease Resolve d 2022-05 00:00: 00 2024-02-21 00:00:00 2024-02-21 09:45:38 [facility] Enlarged thyroid Enlarged thyroid Disease Resolve d 4-06 00:00: 00 2024-02-21 00:00:00 2024-02-21 09:45:36 [facility] (spontaneo us vaginal delivery) (spontaneo us vaginal delivery) Disease Resolve d 9- 00:00: 00 2024-01-31 00:00:00 2024-01-31 10:05:21 [facility] Single liveborn Single liveborn infant Disease Resolve d 9- 00:00: 00 2024-01-31 00:00:00 2024-01-31 10:05:22 [facility] Decreased movement affecting , antepartum Decreased movement affecting , antepartum Disease Resolve d 8-30 00:00: 00 2024-01-31 00:00:00 2024-01-31 10:05:08 [facility] History of hemorrhage History of hemorrhage Disease Resolve d 8-30 00:00: 00 2024-01-31 00:00:00 2024-01-31 10:05:10 [facility] History of shoulder dystocia in prior History of shoulder dystocia in prior Disease Resolve d 8-30 00:00: 00 2024-01-31 00:00:00 2024-01-31 10:05:17 [facility] Scoliosis, unspecifie d Scoliosis, unspecifie d Disease Resolve d 2-13 00:00: 00 2024-01-31 00:00:00 2024-01-31 11:39:57 [facility] 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 Address pp [facility] Abnormal maternal glucose tolerance, antepartum Abnormal maternal glucose tolerance, antepartum Disease Resolve d 6-07 00:00: 00 2023-11-01 00:00:00 2023-11-01 12:27:13 [facility] Cramping affecting , antepartum Cramping affecting , antepartum Disease Resolve d 2-13 00:00: 00 2023-08-21 00:00:00 2023-08-21 18:46:27 [facility] Back pain affecting Back pain affecting Disease Resolve d 2-13 00:00: 00 2023-08-21 00:00:00 2023-08-21 18:46:30 [facility] Nausea and vomiting during Nausea and vomiting during Disease Resolve d 2015-05 2- 00:00: 00 2023-08-21 00:00:00 2023-08-21 18:46:20 [facility] Nausea and vomiting during Nausea and vomiting during Disease Resolve d 2015-05 2- 00:00: 00 2023-08-21 00:00:00 2023-08-21 18:46:20 [facility] Mixed hyperlipid emia Mixed hyperlipid emia Disease Resolve d 2022-05 2-04 00:00: 00 2023-06-25 00:00:00 2023-06-25 13:30:25 [facility] Presence of of 52 mg levonorges trel-relea sing intrauteri ne device (IUD) Presence of of 52 mg levonorges trel-relea sing intrauteri ne device (IUD) Disease Resolve d 2017-05 0-24 00:00: 00 2023-06-25 00:00:00 2023-06-25 13:28:56 [facility] Back pain with right-side d sciatica Back pain with right-side d sciatica Disease Resolve d 6-01 00:00: 00 2023-06-25 00:00:00 2023-06-25 13:30:08 [facility] Fatigue, unspecifie d type Fatigue, unspecifie d type Disease Resolve d 4-06 00:00: 00 2023-06-25 00:00:00 2023-06-25 13:29:41 [facility] Family history of sickle cell trait Family history of sickle cell trait Disease Resolve d - 00:00: 00 2023-06-25 00:00:00 2023-06-25 13:30:23 [facility] History of abnormal cervical Pap smear History of abnormal cervical Pap smear Disease Resolve d 7- 00:00: 00 2023-06-25 00:00:00 2023-06-25 13:29:36 [facility] Acanthosis nigricans Acanthosis nigricans Disease Resolve d 2016-0 7-22 00:00: 00 2023-06-25 00:00:00 2023-06-25 13:30:09 [facility] Yeast infection Yeast infection Disease Resolve d 2017-0 4-04 00:00: 00 2023-04-15 00:00:00 2023-04-15 15:06:06 [facility] Term Term Disease Resolve d 2017-0 9-01 00:00: 00 2021-08-09 00:00:00 2021-08-09 15:41:42 [facility] Excessive weight gain affecting Excessive weight gain affecting Disease Resolve d 0 6-01 00:00: 00 2021-08-09 00:00:00 2021-08-09 15:41:47 [facility] UTI in UTI in Disease Resolve d 3-09 00:00: 00 2021-08-09 00:00:00 2021-08-09 15:42:02 [facility] Multiparit y Multiparit y Disease Resolve d 0 3-05 00:00: 00 2021-08-09 00:00:00 2021-08-09 15:41:57 [facility] History of induced hypertensi on History of induced hypertensi on Disease Resolve d 0 3-05 00:00: 00 2021-08-09 00:00:00 2021-08-09 15:41:55 [facility] Supervisio n of high-risk Supervisio n of high-risk Disease Resolve d 0 3-05 00:00: 00 2021-08-09 00:00:00 2021-08-09 15:41:54 [facility] Obesity affecting Obesity affecting Disease Resolve d 0 3-05 00:00: 00 2021-08-09 00:00:00 2021-08-09 15:41:58 [facility] Anemia complicati ng , third trimester Anemia complicati ng , third trimester Disease Resolve d 2015-05 1-10 00:00: 00 2021-08-09 00:00:00 2021-08-09 15:42:01 [facility] Full-term premature rupture of membranes Full-term premature rupture of membranes Disease Resolve d 2017-0 9-01 00:00: 00 2018-02-20 00:00:00 2018-02-20 14:29:46 [facility] 38 weeks gestation of 38 weeks gestation of Disease Resolve d 2017- 9-01 00:00: 00 2018-02-20 00:00:00 2018-02-20 14:29:46 [facility] headache in second trimester headache in second trimester Disease Resolve d 5-04 00:00: 00 2018-01-03 00:00:00 2018-01-03 15:31:08 [facility] High-risk , second trimester High-risk , second trimester Disease Resolve d 4-06 00:00: 00 2018-01-03 00:00:00 2018-01-03 15:31:14 [facility] Other immediate hemorrhage , with delivery Other immediate hemorrhage , with delivery Disease Resolve d 2-23 00:00: 00 2017-07-15 00:00:00 2017-07-15 11:10:45 [facility] Gestationa l hypertensi on, third trimester Gestationa l hypertensi on, third trimester Disease Resolve d 2015-05 2-30 00:00: 00 2017-07-15 00:00:00 2017-07-15 11:10:43 [facility] High-risk , third trimester High-risk , third trimester Disease Resolve d 2015-05 1-16 00:00: 00 2017-07-15 00:00:00 2017-07-15 11:10:40 [facility] History of chlamydia History of chlamydia Disease Resolve d -22 00:00: 00 2017-07-15 00:00:00 2017-07-15 11:10:31 [facility] Nausea and vomiting in prior to 22 weeks gestation Nausea and vomiting in prior to 22 weeks gestation Disease Resolve d 7- 00:00: 00 2017-07-15 00:00:00 2017-07-15 11:10:33 [facility] Slow transit constipati on Slow transit constipati on Disease Resolve d 12-01 00:00: 00 2017-07-15 00:00:00 2017-07-15 11:10:35 [facility] Nausea and vomiting in prior to 22 weeks gestation Nausea and vomiting in prior to 22 weeks gestation Disease Resolve d 12-01 00:00: 00 2017-07-15 00:00:00 2017-07-15 11:10:33 [facility] Elevated blood pressure affecting in third trimester, antepartum Elevated blood pressure affecting in third trimester, antepartum Disease Resolve d 2015-05 00:00: 00 2016-07-05 00:00:00 2016-07-05 15:50:43 [facility] Uterine size-date discrepanc y, antepartum , third trimester Uterine size-date discrepanc y, antepartum , third trimester Disease Resolve d 2015-05 00:00: 00 2016-07-05 00:00:00 2016-07-05 15:50:26 [facility] Excessive weight gain during , third trimester Excessive weight gain during , third trimester Disease Resolve d 2015-05 00:00: 00 2016-07-05 00:00:00 2016-07-05 15:50:49 [facility] Low back pain during in third trimester Low back pain during in third trimester Disease Resolve d 2015-05 00:00: 00 2016-07-05 00:00:00 2016-07-05 15:50:52 [facility] BV (bacterial vaginosis) BV (bacterial vaginosis) Disease Resolve d 12-05 00:00: 00 2016-07-05 00:00:00 2016-07-05 15:50:36 [facility] UTI in , first trimester UTI in , first trimester Disease Resolve d 12-01 00:00: 00 2016-07-05 00:00:00 2016-07-05 15:50:30 [facility] Vaginal discharge during in first trimester Vaginal discharge during in first trimester Disease Resolve d 12-01 00:00: 00 2016-07-05 00:00:00 2016-07-05 15:50:33 [facility] Liveborn , of correa , born in hospital by vaginal delivery Liveborn infant, of correa , born in hospital by vaginal delivery Disease Resolve d 05-25 00:00: 00 2016-05-31 00:00:00 2016-05-31 11:52:45 [facility] Third-stag e hemorrhage Third-stag e hemorrhage Disease Resolve d 05-25 00:00: 00 2016-05-31 00:00:00 2016-05-31 11:52:45 [facility] Uterine atony Uterine atony Disease Resolve d 05-25 00:00: 00 2016-05-31 00:00:00 2016-05-31 11:52:45 [facility] (spontaneo us vaginal delivery) (spontaneo us vaginal delivery) Disease Resolve d 05-25 00:00: 00 2016-05-31 00:00:00 2016-05-31 11:52:45 [facility] 37 weeks gestation of 37 weeks gestation of Disease Resolve d 05-23 00:00: 00 2016-05-31 00:00:00 2016-05-31 11:52:45 [facility] - induced hypertensi on in third trimester - induced hypertensi on in third trimester Disease Resolve d 2015-05 00:00: 00 2016-05-31 00:00:00 2016-05-31 11:52:45 [facility] 34 weeks gestation of 34 weeks gestation of Disease Resolve d 2015-05 00:00: 00 2016-05-31 00:00:00 2016-05-31 11:52:45 [facility] High-risk , second trimester High-risk , second trimester Disease Resolve d 12-29 00:00: 00 2016-03-28 00:00:00 2016-03-28 11:21:48 [facility] High-risk supervisio n, first trimester High-risk supervisio n, first trimester Disease Resolve d 12-01 00:00: 00 2015-12-30 00:00:00 2015-12-30 13:49:57 [facility] Allergies, Adverse Reactions, Alerts Allergy Name Allergy Type Status Severity Reaction(s) Onset Date Inactive Date Treating Clinician Comments Source NO KNOWN ALLERGIE S Drug Class Active [facility] Social History Social Habit Start Date Stop Date Quantity Comments Source ASSERTION 2023-05-03 00:00:00 [facility] History SDOH Alcohol Frequency [facility] History SDOH Alcohol Std Drinks [facility] History SDOH Alcohol Binge [facility] Gender identity [facility] of Tobacco Use [facility] Sex Assigned At [facility] History of Social function 2024-02-21 00:00:00 2024-02-21 00:00:00 [facility] Alcoholic beverage intake 2023-09-17 00:00:00 2023-09-17 00:00:00 Ex-drinker (finding) [facility] Alcohol intake 2023-08-20 00:00:00 2023-08-20 00:00:00 Ex-drinker (finding) [facility] Exposure to SARS-CoV-2 (event) 2022-04-05 00:00:00 2022-04-15 09:28:00 Not sure [facility] Tobacco use and exposure 2021-11-24 00:00:00 2021-11-24 00:00:00 Smokeless tobacco non-user [facility] Alcohol Comment 2015-05-19 00:00:00 2015-05-19 00:00:00 socially [facility] Smoking Status Start Date Stop Date Source Never smoked tobacco [facility] Medications Ordered Medication Name Filled Medication Name Start Date Stop Date Current Medication? Ordering Clinician Indication Dosage Frequency Signature (SIG) Comments Components Source methylpredn isolone sod succ (SOLU-MEDRO L) injection 125 mg 2023-05 01:30: 00 04-30 01:17 :00 No 125mg 125 mg, Intramuscu lar, ONCE, 1 dose, On Sat04/29/24 at 1930, ERMELINDA [facility] methylPREDN ISolone (MEDROL, CHARISSE,) 4 mg tablets 2023-0518 00:00: 00 Yes [id number] Take by mouth SEE-INSTRU CTIONS. follow package directions [facility] promethazin e-dextromet horphan 6.25-15 mg/5 mL syrup 2023-05-12 00:00: 00 Yes [id number] 5mL Take 5 mL by mouth 4 (four) times daily as needed for Cold symptoms. [facility] norethindro ne-e.estrad ioL-iron 1.5 mg-30 mcg (21)/75 mg (7) tablet 2023-05 00:00: 00 Yes [id number] 1{tbl} Take 1 tablet by mouth in the morning. [facility] vitamin w/FA tablet 01-11 00:00: 00 Yes [id number] 1{tbl} Take 1 tablet by mouth in the morning. [facility] docusate 100 mg capsule 01-11 00:00: 00 02-20 00:00 :00 No [id number] 200mg Take 2 capsules by mouth once daily as needed for Constipati on. [facility] ferrous sulfate 325 mg (65 mg iron) tablet 01-11 00:00: 00 02-20 00:00 :00 No [id number] 325mg Take 1 tablet by mouth in the morning. [facility] ibuprofen 800 mg tablet 01-11 00:00: 00 02-20 00:00 :00 No [id number] 800mg Take 1 tablet by mouth every 8 (eight) hours as needed (pain). Take with food or milk. [facility] rho(D) immune globulin (RHOPHYLAC) injection 300 mcg 01-10 11:11: 26 Yes 300ug [facility] ibuprofen (IBU) tablet 600 mg 01-10 11:11: 23 Yes 600mg 600 mg, Oral, Q6HPRN, Starting on 01/11/24 at 0611, Until Discontinu ed, Routine, Pain (scale 4-6) [facility] acetaminoph en (TYLENOL) tablet 650 mg 01-10 11:11: 23 Yes 650mg 650 mg, Oral, Q6HPRN, Starting on 01/11/24 at 0611, Until Discontinu ed, Routine, Pain (scale 1-3) [facility] diphenhydrA MINE (BENADRYL) tablet 25 mg 01-10 11:11: 23 Yes 25mg [facility] ondansetron (ZOFRAN (PF)) injection 4 mg 01-10 11:11: 23 Yes 4mg [facility] simethicone (GAS RELIEF (SIMETHICON E)) chewable tablet 160 mg 01-10 11:11: 23 Yes 160mg [facility] docusate (COLACE) capsule 200 mg 01-10 11:11: 23 Yes 200mg 200 mg, Oral, QDAILYPRN, Starting on Sat01/11/24 at 0611, Until Discontinu ed, Routine, Constipati on [facility] magnesium hydroxide (MILK OF MAGNESIA) 400 mg/5 mL suspension 30 mL 01-10 11:11: 23 Yes 30mL [facility] benzocaine- menthol (DERMOPLAST ) 20-0.5 % topical spray 01-10 11:11: 23 Yes Topical, PRN, Starting on Sat01/11/24 at 0611, Until Discontinu ed, Routine, Perineum discomfort [facility] morphine (2 mg/mL) injection 4 mg 01-10 08:30: 00 01-10 08:03 :00 No 4mg 4 mg, Slow IV Push, ONCE, 1 dose, On 01/11/24 at 0330, Routine [facility] ropivacaine 0.2 % (NAROPIN (PF)) epidural infusion 01-10 02:47: 00 01-10 12:32 :22 No Epidural, CONTINUOUS PRN, Starting on Sat01/10/24 at 2147, Until 01/11/24 at 0732, Routine, Intra-op [facility] lidocaine-e pinephrine (XYLOCAINE W/EPINEPHRI NE) 1.5 %-1:200,000 injection 01-10 02:42: 00 01-10 12:32 :22 No Epidural, ONCE INTRA PROCEDURE, Starting on Sat01/10/24 at 2142, Until 01/11/24 at 0732, Routine, Intra-op [facility] lactated ringers IV infusion 500 mL 01-10 01:45: 00 01-10 01:48 :11 No 500mL at 999 mL/hr, 500 mL, IV Infusion, ONCE, 1 dose, On Sat01/10/24 at 2045, Routine [facility] lactated ringers IV infusion 500 mL 01-10 00:48: 10 01-10 08:38 :09 No 500mL at 999 mL/hr, 500 mL, IV Infusion, PRN - SEE INSTRUCTIO NS, 1 dose, Starting on Sat01/10/24 at 1948, Until 01/11/24 at 0338, Routine [facility] sodium citrate-cit gretel acid (BICITRA) 500-334 mg/5 mL solution 30 mL 01-10 00:48: 10 01-10 01:46 :00 No 30mL 30 mL, Oral, PRE-PROCED URE ONCE, 1 dose, Starting on Sat01/10/24 at 1948, Until Sat01/10/24 at 2046, Routine, Surgery/Pr ocedure [facility] Sliding Scale Insulin-Reg ular 01-09 21:30: 00 01-10 11:11 :25 No Subcutaneo us, AC+HS, First dose on Sat01/10/24 at 1630, Until Discontinu ed, Routine [facility] oxytocin (PITOCIN) 30 units in NS 500 mL IV infusion 01-09 17:14: 10 01-10 11:11 :25 No 2mU/min at 2-40 mL/hr, IV Infusion, TITRATE, Starting on Sat01/10/24 at 1214, Until 8/31/24 at 0611, ERMELINDA [facility] D5W-LR IV infusion 1,000 mL 01-09 17:13: 16 01-10 11:11 :25 No 1000mL at 1-125 mL/hr, IV Infusion, TITRATE, Starting on Sat01/10/24 at 1213, Until 01/11/24 at 0611, Routine [facility] valACYclovi r (VALTREX) 500 mg tablet 12-26 00:00: 00 01-11 00:00 :00 No [id number] 500mg Take 1 tablet by mouth in the morning and 1 tablet in the evening. [facility] valACYclovi r (VALTREX) tablet 1,000 mg 11-21 21:40: 00 11-21 21:56 :00 No 1000mg 1,000 mg, Oral, ONCE NOW, 1 dose, On Sat11/22/23 at 1645, [facility] ondansetron (ZOFRAN) tablet 8 mg 11-21 21:25: 00 11-21 21:30 :00 No 8mg 8 mg, Oral, ONCE, 1 dose, On Sat11/22/23 at 1630, [facility] glyBURIDE 5 mg tablet 11-14 00:00: 00 01-11 00:00 :00 No [id number] 5mg Take 1 tablet by mouth at bedtime. [facility] glyBURIDE 2.5 mg tablet 11-07 00:00: 00 11-14 00:00 :00 No [id number] 2.5mg Take 1 tablet by mouth at bedtime. [facility] metroNIDAZO LE 500 mg tablet 11-04 00:00: 00 11-12 04:59 :00 No [id number] 500mg Take 1 tablet by mouth in the morning and 1 tablet in the evening. Do all this for 7 days. [facility] fluconazole (DIFLUCAN) 150 mg tablet 11-04 00:00: 00 11-05 04:59 :00 No [id number] 150mg Take 1 tablet by mouth once now for 1 dose. [facility] Blood-Gluco se Meter (ONETOUCH ULTRA2 METER) Kit 10-20 00:00: 00 01-11 00:00 :00 No [id number] Check blood glucose 4x daily [facility] blood sugar diagnostic (ONETOUCH ULTRA TEST) strip 10-20 00:00: 00 01-11 00:00 :00 No [id number] Check blood glucose 4x daily [facility] Lancets (ONETOUCH ULTRASOFT LANCETS) Misc 10-20 00:00: 00 01-11 00:00 :00 No [id number] Check blood glucose 4x daily [facility] Blood-Gluco se Meter (FREESTYLE LITE METER) Kit 10-17 00:00: 00 01-11 00:00 :00 No [id number] Check blood glucose 4x daily [facility] lancets (FREESTYLE LANCETS) 28 gauge Misc 10-17 00:00: 00 01-11 00:00 :00 No [id number] Check glucose 4x daily [facility] blood sugar diagnostic (FREESTYLE LITE STRIPS) strip 10-17 00:00: 00 01-11 00:00 :00 No [id number] Check blood glucose 4x daily [facility] SERTraline (ZOLOFT) 50 mg tablet 10-07 00:00: 00 01-11 00:00 :00 No [id number] 109 50mg Take 1 tablet by mouth in the morning. [facility] SERTraline (ZOLOFT) 50 mg tablet 09-16 00:00: 00 10-07 00:00 :00 No [id number] 109 50mg Take 1 tablet by mouth in the morning. [facility] Iron Fum & P-FA-Vit B & C No.9 (INTEGRA PLUS) 125 mg iron- 1 mg Cap 3-12 00:00: 00 01-11 00:00 :00 No [id number] 1{capsu le} Take 1 capsule by mouth in the morning. [facility] ZINC ACETATE ORAL 06-25 13:57: 10 06-25 00:00 :00 No Take by mouth. [facility] multivitami n with minerals (MULTI-SHREYAS MIN W/MINERALS ORAL) 06-25 13:56: 48 06-25 00:00 :00 No Take by mouth. [facility] ascorbic acid (VITAMIN C ORAL) 06-25 13:56: 36 06-25 00:00 :00 No Take by mouth. [facility] proMETHazin e 25 mg tablet 06-25 00:00: 00 01-11 00:00 :00 No [id number] 25mg Take 1 tablet by mouth every 4 (four) hours as needed for Nausea and Vomiting (N/V). [facility] PNV 67-iron ps-folate no.1-dha (VITAFOL ULTRA) 29 mg iron- 1 mg-200 mg Cap 06-25 00:00: 00 01-11 00:00 :00 No [id number] 1{capsu le} Take 1 capsule by mouth in the morning. [facility] levonorgest reL (MIRENA) 20 mcg/24 hours (7 yrs) 52 mg IUD 2022-05 15:06: 54 04-15 00:00 :00 No 1{devic e} 1 Device by Intrauteri ne route once now. Insertion - 8 [facility] norethindro ne-e.estrad ioL-iron (LOESTRIN FE 06/01) 1 mg-20 mcg (21)/75 mg (7) tablet 2022-05 00:00: 00 06-25 00:00 :00 No [id number] 1{tbl} Take 1 tablet by mouth in the morning. [facility] valACYclovi r (VALTREX) 1 gram tablet 2022-05 00:00: 00 06-25 00:00 :00 No [id number] 1g Take 1 tablet by mouth in the morning and 1 tablet in the evening. [facility] benzonatate 100 mg capsule 2022-05 00:00: 00 06-25 00:00 :00 No [id number] 200mg Take 2 capsules by mouth every 8 (eight) hours as needed for Cough. [facility] oseltamivir (TAMIFLU) 75 mg capsule 2022-05 00:00: 00 04-07 05:59 :00 No [id number] 75mg Take 1 capsule by mouth in the morning and 1 capsule in the evening. Do all this for 5 days. [facility] nirmatrelvi r-ritonavir (PAXLOVID) 300 mg (150 mg x 2)-100 mg tablet 01-07 00:00: 00 01-13 04:59 :00 No [id number] 3{tbl} Take 3 tablets by mouth in the morning and 3 tablets in the evening. Do all this for 5 days. [facility] valACYclovi r (VALTREX) 500 mg tablet 2021-05 00:00: 00 06-25 00:00 :00 No [id number] 500mg Take 1 tablet by mouth in the morning and 1 tablet in the evening. [facility] penicillin g proc & benzathine (BICILLIN C-R) 1,200,000 unit/ 2 mL(600k/600 k) injection 1.2 Million Units 2021-05 16:45: 00 04-15 16:08 :00 No [id number] 1.210 [facility] fexofenadin e-pseudoeph edrine 180-240 mg per 24 hr tablet 2021-05 00:00: 00 06-25 00:00 :00 No [id number] 1{tbl} Take 1 tablet by mouth in the morning. [facility] oseltamivir (TAMIFLU) 75 mg capsule 2021-05 0 00:00: 00 03-13 04:59 :00 No [id number] 75mg Take 1 capsule by mouth in the morning and 1 capsule in the evening. Do all this for 5 days. [facility] valACYclovi r (VALTREX) 500 mg tablet 9-19 00:00: 00 04-29 00:00 :00 No [id number] 500mg Take 1 tablet by mouth in the morning and 1 tablet in the evening. [facility] metroNIDAZO LE 500 mg tablet 18 00:00: 00 11-28 04:59 :00 No [id number] 2000mg Take 4 tablets by mouth once now for 1 dose. Do not drink alcohol while taking this medication . [facility] fluconazole (DIFLUCAN) 150 mg tablet 11-24 00:00: 00 11-29 04:59 :00 No [id number] 150mg Take 1 tablet by mouth every 72 (seventy-t wo) hours for 2 doses. [facility] metroNIDAZO LE 500 mg tablet 4-06 00:00: 00 11-27 00:00 :00 No [id number] 500mg Take 1 tablet by mouth every 12 (twelve) hours. [facility] metroNIDAZO LE 500 mg tablet 08-10 00:00: 00 11-27 00:00 :00 No [id number] 500mg Take 1 tablet by mouth every 12 (twelve) hours. [facility] levonorgest reL (MIRENA) 20 mcg/24 hours (7 yrs) 52 mg IUD 08-09 14:50: 12 Yes 1{devic e} 1 Device by Intrauteri ne route once now. Insertion - 8 [facility] multivitami n with minerals (MULTI-SHREYAS MIN W/MINERALS ORAL) 08-09 14:50: 12 Yes Take by mouth. [facility] nystatin 100,000 unit/gram powder 08-09 00:00: 00 06-25 00:00 :00 No [id number] Apply to area(s) 2 (two) times daily. [facility] Bactrim DS 800-160 MG Bactrim DS 800-160 MG 4-12 00:00: 00 08-27 00:00 :00 No 1{table t} BID Bactrim DS 800-160 MG ferrous sulfate 325 mg (65 mg iron) tablet 01-13 00:00: 00 11-24 00:00 :00 No 325mg Take 1 tablet by mouth 2 (two) times daily. [facility] ibuprofen 600 mg tablet 01-13 00:00: 00 11-24 00:00 :00 No 600mg Take 1 tablet by mouth every 6 (six) hours as needed for Pain (scale 1-3) or Pain (scale 4-6) (Pain). Take with food or milk. [facility] Sertraline HCl 25 MG Sertraline HCl 25 MG No 1{table t} QD Sertraline HCl 25 MG Lorazepam 0.5 MG Lorazepam 0.5 MG No 1{table t_at_be dtime_a s_neede d} QD Lorazepam 0.5 MG Immunizations Ordered Immunization Name Filled Immunization Name Date Status Comments Source [facility] 2024-01-12 00:00:00 Completed [facility] TDAP 2023-11-01 00:00:00 Completed [facility] MMR 2018-01-13 00:00:00 Completed [facility] MMR 2018-01-13 00:00:00 Completed [facility] MMR 2018-01-13 00:00:00 Completed [facility] MMR 2018-01-13 00:00:00 Completed [facility] MMR 2018-01-13 00:00:00 Completed [facility] MMR 2018-01-13 00:00:00 Completed [facility] MMR 2018-01-13 00:00:00 Completed [facility] MMR 2018-01-13 00:00:00 Completed [facility] MMR 2018-01-13 00:00:00 Completed [facility] MMR 2018-01-13 00:00:00 Completed [facility] MMR 2018-01-13 00:00:00 Completed [facility] MMR 2018-01-13 00:00:00 Completed [facility] MMR 2018-01-13 00:00:00 Completed [facility] MMR 2018-01-13 00:00:00 Completed [facility] TDAP 2017-11-12 00:00:00 Completed TDAP 2017-11-12 00:00:00 Completed [facility] TDAP 2017-11-12 00:00:00 Completed [facility] TDAP 2017-11-12 00:00:00 Completed [facility] TDAP 2017-11-12 00:00:00 Completed [facility] TDAP 2017-11-12 00:00:00 Completed [facility] TDAP 2017-11-12 00:00:00 Completed [facility] TDAP 2017-11-12 00:00:00 Completed [facility] TDAP 2017-11-12 00:00:00 Completed [facility] TDAP 2017-11-12 00:00:00 Completed [facility] TDAP 2017-11-12 00:00:00 Completed [facility] TDAP 2017-11-12 00:00:00 Completed [facility] TDAP 2017-11-12 00:00:00 Completed [facility] TDAP 2017-11-12 00:00:00 Completed [facility] TDAP 2016-03-15 00:00:00 Completed TDAP 2016-03-15 00:00:00 Completed [facility] TDAP 2016-03-15 00:00:00 Completed [facility] TDAP 2016-03-15 00:00:00 Completed [facility] TDAP 2016-03-15 00:00:00 Completed [facility] TDAP 2016-03-15 00:00:00 Completed [facility] TDAP 2016-03-15 00:00:00 Completed [facility] TDAP 2016-03-15 00:00:00 Completed [facility] TDAP 2016-03-15 00:00:00 Completed [facility] TDAP 2016-03-15 00:00:00 Completed [facility] TDAP 2016-03-15 00:00:00 Completed [facility] TDAP 2016-03-15 00:00:00 Completed [facility] TDAP 2016-03-15 00:00:00 Completed [facility] TDAP 2016-03-15 00:00:00 Completed [facility] Influenza Virus Vaccine Quad IM 3+ YRS 2016-02-24 00:00:00 Completed [facility] Influenza Virus Vaccine Quad IM 3+ YRS 2016-02-24 00:00:00 Completed [facility] Influenza Virus Vaccine Quad IM 3+ YRS 2016-02-24 00:00:00 Completed [facility] Influenza Virus Vaccine Quad IM 3+ YRS 2016-02-24 00:00:00 Completed [facility] Influenza Virus Vaccine Quad IM 3+ YRS 2016-02-24 00:00:00 Completed [facility] Influenza Virus Vaccine Quad IM 3+ YRS 2016-02-24 00:00:00 Completed [facility] Influenza Virus Vaccine Quad IM 3+ YRS 2016-02-24 00:00:00 Completed [facility] Influenza Virus Vaccine Quad IM 3+ YRS 2016-02-24 00:00:00 Completed [facility] Influenza Virus Vaccine Quad IM 3+ YRS 2016-02-24 00:00:00 Completed [facility] Influenza Virus Vaccine Quad IM 3+ YRS 2016-02-24 00:00:00 Completed [facility] Influenza Virus Vaccine Quad IM 3+ YRS 2016-02-24 00:00:00 Completed [facility] Influenza Virus Vaccine Quad IM 3+ YRS 2016-02-24 00:00:00 Completed [facility] Influenza Virus Vaccine Quad IM 3+ YRS 2016-02-24 00:00:00 Completed [facility] Influenza Virus Vaccine Quad IM 3+ YRS 2016-02-24 00:00:00 Completed [facility] Influenza Virus Vaccine Quad IM 3+ YRS Unknown Completed [facility] TDAP Unknown Completed [facility] MMR Unknown Completed [facility] Influenza Virus Vaccine Quad IM 3+ YRS Unknown Completed [facility] TDAP Unknown Completed [facility] MMR Unknown Completed [facility] Influenza Virus Vaccine Quad IM 3+ YRS Unknown Completed [facility] TDAP Unknown Completed [facility] MMR Unknown Completed [facility] Influenza Virus Vaccine Quad IM 3+ YRS Unknown Completed [facility] TDAP Unknown Completed [facility] MMR Unknown Completed [facility] Influenza Virus Vaccine Quad IM 3+ YRS Unknown Completed [facility] TDAP Unknown Completed [facility] MMR Unknown Completed [facility] Influenza Virus Vaccine Quad IM 3+ YRS Unknown Completed [facility] TDAP Unknown Completed [facility] MMR Unknown Completed [facility] Influenza Virus Vaccine Quad IM 3+ YRS Unknown Completed [facility] TDAP Unknown Completed [facility] MMR Unknown Completed [facility] Influenza Virus Vaccine Quad IM 3+ YRS Unknown Completed [facility] TDAP Unknown Completed [facility] MMR Unknown Completed [facility] Influenza Virus Vaccine Quad IM 3+ YRS Unknown Completed [facility] MMR Unknown Completed [facility] TDAP Unknown Completed [facility] Influenza Virus Vaccine Quad IM 3+ YRS Unknown Completed [facility] TDAP Unknown Completed [facility] MMR Unknown Completed [facility] Influenza Virus Vaccine Quad IM 3+ YRS Unknown Completed [facility] MMR Unknown Completed [facility] Influenza Virus Vaccine Quad IM 3+ YRS Unknown Completed [facility] TDAP Unknown Completed [facility] MMR Unknown Completed [facility] TDAP Unknown Completed [facility] Influenza Virus Vaccine Quad IM 3+ YRS Unknown Completed [facility] TDAP Unknown Completed [facility] MMR Unknown Completed [facility] Influenza Virus Vaccine Quad IM 3+ YRS Unknown Completed [facility] TDAP Unknown Completed [facility] MMR Unknown Completed [facility] Influenza Virus Vaccine Quad IM 3+ YRS Unknown Completed [facility] TDAP Unknown Completed [facility] MMR Unknown Completed [facility] Influenza Virus Vaccine Quad IM 3+ YRS Unknown Completed [facility] TDAP Unknown Completed [facility] MMR Unknown Completed [facility] Influenza Virus Vaccine Quad IM 3+ YRS Unknown Completed [facility] TDAP Unknown Completed [facility] MMR Unknown Completed [facility] Influenza Virus Vaccine Quad IM 3+ YRS Unknown Completed [facility] TDAP Unknown Completed [facility] MMR Unknown Completed [facility] Influenza Virus Vaccine Quad IM 3+ YRS Unknown Completed [facility] TDAP Unknown Completed [facility] MMR Unknown Completed [facility] Influenza Virus Vaccine Quad IM 3+ YRS Unknown Completed [facility] TDAP Unknown Completed [facility] MMR Unknown Completed [facility] Influenza Virus Vaccine Quad IM 3+ YRS Unknown Completed [facility] TDAP Unknown Completed [facility] MMR Unknown Completed [facility] Influenza Virus Vaccine Quad IM 3+ YRS Unknown Completed [facility] TDAP Unknown Completed [facility] MMR Unknown Completed [facility] Influenza Virus Vaccine Quad IM 3+ YRS Unknown Completed [facility] TDAP Unknown Completed [facility] MMR Unknown Completed [facility] Influenza Virus Vaccine Quad IM 3+ YRS Unknown Completed [facility] TDAP Unknown Completed [facility] MMR Unknown Completed [facility] Influenza Virus Vaccine Quad IM 3+ YRS Unknown Completed [facility] TDAP Unknown Completed [facility] MMR Unknown Completed [facility] Influenza Virus Vaccine Quad IM 3+ YRS Unknown Completed [facility] TDAP Unknown Completed [facility] MMR Unknown Completed [facility] Influenza Virus Vaccine Quad IM 3+ YRS Unknown Completed [facility] TDAP Unknown Completed [facility] MMR Unknown Completed [facility] Influenza Virus Vaccine Quad IM 3+ YRS Unknown Completed [facility] TDAP Unknown Completed [facility] MMR Unknown Completed [facility] Influenza Virus Vaccine Quad IM 3+ YRS Unknown Completed [facility] TDAP Unknown Completed [facility] MMR Unknown Completed [facility] Influenza Virus Vaccine Quad IM 3+ YRS Unknown Completed [facility] TDAP Unknown Completed [facility] MMR Unknown Completed [facility] Influenza Virus Vaccine Quad IM 3+ YRS Unknown Completed [facility] TDAP Unknown Completed [facility] MMR Unknown Completed [facility] Influenza Virus Vaccine Quad IM 3+ YRS Unknown Completed [facility] TDAP Unknown Completed [facility] MMR Unknown Completed [facility] Influenza Virus Vaccine Quad IM 3+ YRS Unknown Completed [facility] TDAP Unknown Completed [facility] MMR Unknown Completed [facility] Influenza Virus Vaccine Quad IM 3+ YRS Unknown Completed [facility] TDAP Unknown Completed [facility] MMR Unknown Completed [facility] Influenza Virus Vaccine Quad IM 3+ YRS Unknown Completed [facility] TDAP Unknown Completed [facility] MMR Unknown Completed [facility] Influenza Virus Vaccine Quad IM 3+ YRS Unknown Completed [facility] TDAP Unknown Completed [facility] MMR Unknown Completed [facility] Influenza Virus Vaccine Quad IM 3+ YRS Unknown Completed [facility] TDAP Unknown Completed [facility] MMR Unknown Completed [facility] Influenza Virus Vaccine Quad IM 3+ YRS Unknown Completed [facility] TDAP Unknown Completed [facility] MMR Unknown Completed [facility] Influenza Virus Vaccine Quad IM 3+ YRS Unknown Completed [facility] TDAP Unknown Completed [facility] MMR Unknown Completed [facility] Influenza Virus Vaccine Quad IM 3+ YRS Unknown Completed [facility] TDAP Unknown Completed [facility] MMR Unknown Completed [facility] Influenza Virus Vaccine Quad IM 3+ YRS Unknown Completed [facility] TDAP Unknown Completed [facility] MMR Unknown Completed [facility] Influenza Virus Vaccine Quad IM 3+ YRS Unknown Completed [facility] TDAP Unknown Completed [facility] MMR Unknown Completed [facility] Influenza Virus Vaccine Quad IM 3+ YRS Unknown Completed [facility] TDAP Unknown Completed [facility] MMR Unknown Completed [facility] Influenza Virus Vaccine Quad IM 3+ YRS Unknown Completed [facility] TDAP Unknown Completed [facility] MMR Unknown Completed [facility] Influenza Virus Vaccine Quad IM 3+ YRS Unknown Completed [facility] TDAP Unknown Completed [facility] MMR Unknown Completed [facility] Influenza Virus Vaccine Quad IM 3+ YRS Unknown Completed [facility] TDAP Unknown Completed [facility] MMR Unknown Completed [facility] Influenza Virus Vaccine Quad IM 3+ YRS Unknown Completed [facility] TDAP Unknown Completed [facility] MMR Unknown Completed [facility] Influenza Virus Vaccine Quad IM 3+ YRS Unknown Completed [facility] MMR Unknown Completed [facility] TDAP Unknown Completed [facility] Influenza Virus Vaccine Quad IM 3+ YRS Unknown Completed [facility] TDAP Unknown Completed [facility] MMR Unknown Completed [facility] Influenza Virus Vaccine Quad IM 3+ YRS Unknown Completed [facility] TDAP Unknown Completed [facility] MMR Unknown Completed [facility] Influenza Virus Vaccine Quad IM 3+ YRS Unknown Completed [facility] MMR Unknown Completed [facility] TDAP Unknown Completed [facility] Influenza Virus Vaccine Quad IM 3+ YRS Unknown Completed [facility] TDAP Unknown Completed [facility] MMR Unknown Completed [facility] Influenza Virus Vaccine Quad IM 3+ YRS Unknown Completed [facility] TDAP Unknown Completed [facility] MMR Unknown Completed [facility] Influenza Virus Vaccine Quad IM 3+ YRS Unknown Completed [facility] TDAP Unknown Completed [facility] MMR Unknown Completed [facility] Influenza Virus Vaccine Quad IM 3+ YRS Unknown Completed [facility] MMR Unknown Completed [facility] TDAP Unknown Completed [facility] Influenza Virus Vaccine Quad IM 3+ YRS Unknown Completed [facility] TDAP Unknown Completed [facility] MMR Unknown Completed [facility] Influenza Virus Vaccine Quad IM 3+ YRS Unknown Completed [facility] TDAP Unknown Completed [facility] MMR Unknown Completed [facility] Vital Signs Vital Name Observation Time Observation Value Comments S ource Systolic blood pressure 2024-04-30 01:16:00 146 mm[Hg] [facility] Diastolic blood pressure 2024-04-30 01:16:00 85 mm[Hg] [facility] Heart rate 2024-04-30 01:16:00 95 /min [facility] Body temperature 2024-04-30 01:16:00 37.44 Sally [facility] Respiratory rate 2024-04-30 01:16:00 15 /min [facility] Oxygen saturation in Arterial blood by Pulse oximetry 2024-04-30 01:16:00 100 /min [facility] Body height 2024-04-29 23:07:00 165.1 cm [facility] Body weight 2024-04-29 23:07:00 102.967 kg [facility] BMI 2024-04-29 23:07:00 37.77 kg/m2 [facility] Systolic blood pressure 2024-04-25 15:15:00 164 mm[Hg] [facility] Diastolic blood pressure 2024-04-25 15:15:00 89 mm[Hg] [facility] Heart rate 2024-04-25 15:15:00 111 /min [facility] Body temperature 2024-04-25 15:15:00 37 Sally [facility] Respiratory rate 2024-04-25 15:15:00 20 /min [facility] Body height 2024-04-25 15:15:00 165.1 cm [facility] Body weight 2024-04-25 15:15:00 102.785 kg [facility] BMI 2024-04-25 15:15:00 37.71 kg/m2 [facility] Oxygen saturation in Arterial blood by Pulse oximetry 2024-04-25 15:15:00 98 /min [facility] Systolic blood pressure 2024-04-24 01:33:00 137 mm[Hg] [facility] Diastolic blood pressure 2024-04-24 01:33:00 88 mm[Hg] [facility] Heart rate 2024-04-24 01:33:00 77 /min [facility] Body temperature 2024-04-24 01:33:00 37.06 Sally [facility] Respiratory rate 2024-04-24 01:33:00 15 /min [facility] Body height 2024-04-24 01:33:00 165.1 cm [facility] Body weight 2024-04-24 01:33:00 103.057 kg [facility] BMI 2024-04-24 01:33:00 37.81 kg/m2 [facility] Oxygen saturation in Arterial blood by Pulse oximetry 2024-04-24 01:33:00 98 /min [facility] Systolic blood pressure 2024-02-21 14:34:00 136 mm[Hg] [facility] Diastolic blood pressure 2024-02-21 14:34:00 89 mm[Hg] [facility] Heart rate 2024-02-21 14:34:00 73 /min [facility] Body temperature 2024-02-21 14:34:00 36.17 Sally [facility] Respiratory rate 2024-02-21 14:34:00 20 /min [facility] Body height 2024-02-21 14:34:00 165.1 cm [facility] Body weight 2024-02-21 14:34:00 104.923 kg [facility] BMI 2024-02-21 14:34:00 38.49 kg/m2 [facility] Systolic blood pressure 2024-01-31 15:23:00 112 mm[Hg] [facility] Diastolic blood pressure 2024-01-31 15:23:00 82 mm[Hg] [facility] Heart rate 2024-01-31 15:18:00 81 /min [facility] Body temperature 2024-01-31 15:18:00 36.06 Sally [facility] Respiratory rate 2024-01-31 15:18:00 18 /min [facility] Body height 2024-01-31 15:18:00 165.1 cm [facility] Body weight 2024-01-31 15:18:00 103.448 kg [facility] BMI 2024-01-31 15:18:00 37.95 kg/m2 [facility] Systolic blood pressure 2024-01-12 15:11:00 133 mm[Hg] [facility] Diastolic blood pressure 2024-01-12 15:11:00 88 mm[Hg] [facility] Heart rate 2024-01-12 15:11:00 86 /min [facility] Body temperature 2024-01-12 15:11:00 36.61 Sally [facility] Respiratory rate 2024-01-12 15:11:00 16 /min [facility] Oxygen saturation in Arterial blood by Pulse oximetry 2024-01-12 15:11:00 99 /min [facility] Body height 2024-01-10 17:20:00 165.1 cm [facility] Body weight 2024-01-10 17:20:00 113.399 kg [facility] BMI 2024-01-10 17:20:00 41.60 kg/m2 [facility] Systolic blood pressure 2024-01-10 12:40:00 131 mm[Hg] [facility] Diastolic blood pressure 2024-01-10 12:40:00 80 mm[Hg] [facility] Heart rate 2024-01-10 12:40:00 103 /min [facility] Body temperature 2024-01-10 12:40:00 36.22 Sally [facility] Respiratory rate 2024-01-10 12:40:00 17 /min [facility] Body height 2024-01-10 12:40:00 165.1 cm [facility] Body weight 2024-01-10 12:40:00 113.263 kg [facility] BMI 2024-01-10 12:40:00 41.55 kg/m2 [facility] Systolic blood pressure 2024-01-07 12:43:00 129 mm[Hg] [facility] Diastolic blood pressure 2024-01-07 12:43:00 78 mm[Hg] [facility] Heart rate 2024-01-07 12:43:00 98 /min [facility] Body temperature 2024-01-07 12:43:00 36.17 Sally [facility] Respiratory rate 2024-01-07 12:43:00 18 /min [facility] Body height 2024-01-07 12:43:00 165.1 cm [facility] Body weight 2024-01-07 12:43:00 112.095 kg [facility] BMI 2024-01-07 12:43:00 41.12 kg/m2 [facility] Systolic blood pressure 2024-01-03 12:36:00 126 mm[Hg] [facility] Diastolic blood pressure 2024-01-03 12:36:00 74 mm[Hg] [facility] Heart rate 2024-01-03 12:36:00 101 /min [facility] Body temperature 2024-01-03 12:36:00 36.39 Sally [facility] Respiratory rate 2024-01-03 12:36:00 18 /min [facility] Body height 2024-01-03 12:36:00 165.1 cm [facility] Body weight 2024-01-03 12:36:00 111.766 kg [facility] BMI 2024-01-03 12:36:00 41.00 kg/m2 [facility] Systolic blood pressure 2023-12-31 12:23:00 123 mm[Hg] [facility] Diastolic blood pressure 2023-12-31 12:23:00 73 mm[Hg] [facility] Heart rate 2023-12-31 12:23:00 104 /min [facility] Body temperature 2023-12-31 12:23:00 36 Sally [facility] Respiratory rate 2023-12-31 12:23:00 18 /min [facility] Body height 2023-12-31 12:23:00 165.1 cm [facility] Body weight 2023-12-31 12:23:00 112.175 kg [facility] BMI 2023-12-31 12:23:00 41.15 kg/m2 [facility] Systolic blood pressure 2023-12-27 12:00:00 125 mm[Hg] [facility] Diastolic blood pressure 2023-12-27 12:00:00 79 mm[Hg] [facility] Heart rate 2023-12-27 12:00:00 111 /min [facility] Body temperature 2023-12-27 11:53:00 35.83 Sally [facility] Respiratory rate 2023-12-27 11:53:00 18 /min [facility] Body height 2023-12-27 11:53:00 165.1 cm [facility] Body weight 2023-12-27 11:53:00 112.52 kg [facility] BMI 2023-12-27 11:53:00 41.28 kg/m2 [facility] Systolic blood pressure 2023-12-24 12:19:00 138 mm[Hg] [facility] Diastolic blood pressure 2023-12-24 12:19:00 86 mm[Hg] [facility] Heart rate 2023-12-24 12:19:00 102 /min [facility] Body temperature 2023-12-24 12:19:00 35.5 Sally [facility] Respiratory rate 2023-12-24 12:19:00 18 /min [facility] Body height 2023-12-24 12:19:00 165.1 cm [facility] 2023-12-24 12:19:00 112.764 kg [facility] BMI 2023-12-24 12:19:00 41.37 kg/m2 [facility] Systolic blood pressure 2023-12-19 19:47:00 122 mm[Hg] [facility] Diastolic blood pressure 2023-12-19 19:47:00 77 mm[Hg] [facility] Heart rate 2023-12-19 19:47:00 100 /min [facility] Body temperature 2023-12-19 19:47:00 36.22 Sally [facility] Body height 2023-12-19 19:47:00 165.1 cm [facility] Body weight 2023-12-19 19:47:00 112.764 kg [facility] BMI 2023-12-19 19:47:00 41.37 kg/m2 [facility] Systolic blood pressure 2023-12-17 20:17:00 128 mm[Hg] [facility] Diastolic blood pressure 2023-12-17 20:17:00 74 mm[Hg] [facility] Heart rate 2023-12-17 20:17:00 91 /min [facility] Body temperature 2023-12-17 20:17:00 36.17 Sally [facility] Respiratory rate 2023-12-17 20:17:00 20 /min [facility] Body height 2023-12-17 20:17:00 165.1 cm [facility] Body weight 2023-12-17 20:17:00 112.492 kg [facility] BMI 2023-12-17 20:17:00 41.27 kg/m2 [facility] Systolic blood pressure 2023-12-13 13:40:00 117 mm[Hg] [facility] Diastolic blood pressure 2023-12-13 13:40:00 75 mm[Hg] [facility] Heart rate 2023-12-13 13:40:00 108 /min [facility] Body temperature 2023-12-13 13:40:00 36.39 Sally [facility] Respiratory rate 2023-12-13 13:40:00 17 /min [facility] Body weight 2023-12-13 13:40:00 110.451 kg [facility] BMI 2023-12-13 13:40:00 40.52 kg/m2 [facility] Systolic blood pressure 2023-12-10 20:07:00 123 mm[Hg] [facility] Diastolic blood pressure 2023-12-10 20:07:00 78 mm[Hg] [facility] Heart rate 2023-12-10 20:07:00 113 /min [facility] Body temperature 2023-12-10 20:03:00 36.22 Sally [facility] Respiratory rate 2023-12-10 20:03:00 18 /min [facility] Body height 2023-12-10 20:03:00 165.1 cm [facility] Body weight 2023-12-10 20:03:00 110.876 kg [facility] BMI 2023-12-10 20:03:00 40.68 kg/m2 [facility] Systolic blood pressure 2023-12-06 13:15:00 124 mm[Hg] [facility] Diastolic blood pressure 2023-12-06 13:15:00 75 mm[Hg] [facility] Heart rate 2023-12-06 13:15:00 102 /min [facility] Body temperature 2023-12-06 13:15:00 35.56 Sally [facility] Respiratory rate 2023-12-06 13:15:00 20 /min [facility] Body height 2023-12-06 13:15:00 165.1 cm [facility] Body weight 2023-12-06 13:15:00 110.819 kg [facility] BMI 2023-12-06 13:15:00 40.66 kg/m2 [facility] Systolic blood pressure 2023-12-03 19:53:00 126 mm[Hg] [facility] Diastolic blood pressure 2023-12-03 19:53:00 81 mm[Hg] [facility] Heart rate 2023-12-03 19:53:00 116 /min [facility] Body temperature 2023-12-03 19:53:00 36.33 Sally [facility] Respiratory rate 2023-12-03 19:53:00 18 /min [facility] Body height 2023-12-03 19:53:00 165.1 cm [facility] Body weight 2023-12-03 19:53:00 109.856 kg [facility] BMI 2023-12-03 19:53:00 40.30 kg/m2 [facility] Systolic blood pressure 2023-11-27 14:03:00 127 mm[Hg] [facility] Diastolic blood pressure 2023-11-27 14:03:00 75 mm[Hg] [facility] Heart rate 2023-11-27 14:03:00 96 /min [facility] Body temperature 2023-11-27 14:02:00 35.94 Sally [facility] Respiratory rate 2023-11-27 14:02:00 18 /min [facility] Body height 2023-11-27 14:02:00 165.1 cm [facility] Body weight 2023-11-27 14:02:00 108.183 kg [facility] BMI 2023-11-27 14:02:00 39.69 kg/m2 [facility] Systolic blood pressure 2023-11-22 21:31:00 127 mm[Hg] [facility] Diastolic blood pressure 2023-11-22 21:31:00 64 mm[Hg] [facility] Respiratory rate 2023-11-22 21:31:00 16 /min [facility] Heart rate 2023-11-22 21:30:00 98 /min [facility] Oxygen saturation in Arterial blood by Pulse oximetry 2023-11-22 21:30:00 100 /min [facility] Body temperature 2023-11-22 19:00:00 36.61 Sally [facility] Body height 2023-11-22 18:37:00 165.1 cm [facility] Body weight 2023-11-22 18:37:00 108.636 kg [facility] BMI 2023-11-22 18:37:00 39.85 kg/m2 [facility] Systolic blood pressure 2023-11-15 16:13:00 117 mm[Hg] [facility] Diastolic blood pressure 2023-11-15 16:13:00 81 mm[Hg] [facility] Heart rate 2023-11-15 16:13:00 110 /min [facility] Body temperature 2023-11-15 16:13:00 36.11 Sally [facility] Respiratory rate 2023-11-15 16:13:00 18 /min [facility] Body height 2023-11-15 16:13:00 165.1 cm [facility] Body weight 2023-11-15 16:13:00 109.572 kg [facility] BMI 2023-11-15 16:13:00 40.20 kg/m2 [facility] Systolic blood pressure 2023-11-08 15:57:00 115 mm[Hg] [facility] Diastolic blood pressure 2023-11-08 15:57:00 77 mm[Hg] [facility] Heart rate 2023-11-08 15:57:00 107 /min [facility] Body temperature 2023-11-08 15:54:00 36.11 [facility] Respiratory rate 2023-11-08 15:54:00 20 /min [facility] Body height 2023-11-08 15:54:00 165.1 cm [facility] Body weight 2023-11-08 15:54:00 110.252 kg [facility] BMI 2023-11-08 15:54:00 40.45 kg/m2 [facility] Systolic blood pressure 2023-11-01 15:19:00 138 mm[Hg] [facility] Diastolic blood pressure 2023-11-01 15:19:00 80 mm[Hg] [facility] Heart rate 2023-11-01 15:19:00 109 /min [facility] Body temperature 2023-11-01 15:07:00 35.89 Sally [facility] Respiratory rate 2023-11-01 15:07:00 20 /min [facility] Body height 2023-11-01 15:07:00 165.1 cm [facility] Body weight 2023-11-01 15:07:00 109.487 kg [facility] BMI 2023-11-01 15:07:00 40.17 kg/m2 [facility] Body temperature 2023-10-24 15:18:00 36.06 Sally [facility] Respiratory rate 2023-10-24 15:18:00 18 /min [facility] Body height 2023-10-24 15:18:00 165.1 cm [facility] Body weight 2023-10-24 15:18:00 109.374 kg [facility] BMI 2023-10-24 15:18:00 40.13 kg/m2 [facility] Systolic blood pressure 2023-10-08 17:39:00 128 mm[Hg] [facility] Diastolic blood pressure 2023-10-08 17:39:00 79 mm[Hg] [facility] Heart rate 2023-10-08 17:39:00 116 /min [facility] Body temperature 2023-10-08 17:39:00 36.33 Sally [facility] Respiratory rate 2023-10-08 17:39:00 18 /min [facility] Body height 2023-10-08 17:39:00 165.1 cm [facility] Body weight 2023-10-08 17:39:00 109.181 kg [facility] BMI 2023-10-08 17:39:00 40.05 kg/m2 [facility] Systolic blood pressure 2023-09-17 20:04:00 127 mm[Hg] [facility] Diastolic blood pressure 2023-09-17 20:04:00 74 mm[Hg] [facility] o [facility] Heart rate 2023-09-17 20:04:00 115 /min [facility] Body temperature 2023-09-17 20:01:00 36.22 Sally [facility] Respiratory rate 2023-09-17 20:01:00 20 /min [facility] Body height 2023-09-17 20:01:00 165.1 cm [facility] Body weight 2023-09-17 20:01:00 107.729 kg [facility] BMI 2023-09-17 20:01:00 39.52 kg/m2 [facility] Systolic blood pressure 2023-08-20 18:03:00 137 mm[Hg] [facility] o [facility] Diastolic blood pressure 2023-08-20 18:03:00 78 mm[Hg] [facility] Heart rate 2023-08-20 18:03:00 110 /min [facility] Body temperature 2023-08-20 18:03:00 36.72 Sally [facility] Respiratory rate 2023-08-20 18:03:00 17 /min [facility] Body height 2023-08-20 18:03:00 165.1 cm [facility] Body weight 2023-08-20 18:03:00 105.858 kg [facility] BMI 2023-08-20 18:03:00 38.84 kg/m2 [facility] Systolic blood pressure 2023-07-23 16:05:00 115 mm[Hg] [facility] Diastolic blood pressure 2023-07-23 16:05:00 77 mm[Hg] [facility] Heart rate 2023-07-23 16:05:00 121 /min [facility] Body temperature 2023-07-23 16:05:00 36.39 Sally [facility] Respiratory rate 2023-07-23 16:05:00 17 /min [facility] Body height 2023-07-23 16:05:00 165.1 cm [facility] Body weight 2023-07-23 16:05:00 103.602 kg [facility] BMI 2023-07-23 16:05:00 38.01 kg/m2 [facility] Systolic blood pressure 2023-06-25 19:25:00 138 mm[Hg] [facility] Diastolic blood pressure 2023-06-25 19:25:00 80 mm[Hg] [facility] Heart rate 2023-06-25 19:25:00 116 /min [facility] Body temperature 2023-06-25 19:25:00 36.56 Sally [facility] Respiratory rate 2023-06-25 19:25:00 19 /min [facility] Body height 2023-06-25 19:25:00 165.1 cm [facility] Body weight 2023-06-25 19:25:00 103.783 kg [facility] BMI 2023-06-25 19:25:00 38.07 kg/m2 [facility] Systolic blood pressure 2023-04-15 21:34:00 134 mm[Hg] [facility] Diastolic blood pressure 2023-04-15 21:34:00 88 mm[Hg] [facility] Heart rate 2023-04-15 21:33:00 102 /min [facility] Body temperature 2023-04-15 21:33:00 36.5 Sally [facility] Respiratory rate 2023-04-15 21:33:00 18 /min [facility] Body height 2023-04-15 21:33:00 165.1 cm [facility] Body weight 2023-04-15 21:33:00 100.608 kg [facility] BMI 2023-04-15 21:33:00 36.91 kg/m2 [facility] Oxygen saturation in Arterial blood by Pulse oximetry 2023-04-15 21:33:00 99 /min [facility] Systolic blood pressure 2023-04-01 18:38:00 118 mm[Hg] [facility] Diastolic blood pressure 2023-04-01 18:38:00 82 mm[Hg] [facility] Heart rate 2023-04-01 18:38:00 92 /min [facility] Body temperature 2023-04-01 18:38:00 37.11 Sally [facility] Respiratory rate 2023-04-01 18:38:00 18 /min [facility] Body weight 2023-04-01 18:38:00 101.334 kg [facility] BMI 2023-04-01 18:38:00 37.18 kg/m2 [facility] Oxygen saturation in Arterial blood by Pulse oximetry 2023-04-01 18:38:00 92 /min [facility] Systolic blood pressure 2023-03-29 16:56:00 119 mm[Hg] [facility] Diastolic blood pressure 2023-03-29 16:56:00 73 mm[Hg] [facility] Heart rate 2023-03-29 16:56:00 105 /min [facility] Body weight 2023-03-29 16:56:00 99.882 kg [facility] BMI 2023-03-29 16:56:00 36.64 kg/m2 [facility] Systolic blood pressure 2023-01-07 21:48:00 122 mm[Hg] [facility] Diastolic blood pressure 2023-01-07 21:48:00 81 mm[Hg] [facility] Heart rate 2023-01-07 21:48:00 112 /min [facility] Body temperature 2023-01-07 21:48:00 37.28 Sally [facility] Respiratory rate 2023-01-07 21:48:00 20 /min [facility] Body weight 2023-01-07 21:48:00 102.059 kg [facility] BMI 2023-01-07 21:48:00 37.44 kg/m2 [facility] Oxygen saturation in Arterial blood by Pulse oximetry 2023-01-07 21:48:00 99 /min [facility] Systolic blood pressure 2022-04-15 15:33:00 120 mm[Hg] [facility] Diastolic blood pressure 2022-04-15 15:33:00 78 mm[Hg] [facility] Heart rate 2022-04-15 15:33:00 122 /min [facility] Body temperature 2022-04-15 15:33:00 37.83 Sally [facility] Respiratory rate 2022-04-15 15:33:00 17 /min [facility] Body height 2022-04-15 15:33:00 165.1 cm [facility] Body weight 2022-04-15 15:33:00 96.934 kg [facility] BMI 2022-04-15 15:33:00 35.56 kg/m2 [facility] Oxygen saturation in Arterial blood by Pulse oximetry 2022-04-15 15:33:00 98 /min [facility] Systolic blood pressure 2022-03-07 16:02:00 116 mm[Hg] [facility] Diastolic blood pressure 2022-03-07 16:02:00 73 mm[Hg] [facility] Heart rate 2022-03-07 16:02:00 88 /min [facility] Body temperature 2022-03-07 16:02:00 36.89 Sally [facility] Respiratory rate 2022-03-07 16:02:00 18 /min [facility] Body height 2022-03-07 16:02:00 165.1 cm [facility] Body weight 2022-03-07 16:02:00 96.701 kg [facility] BMI 2022-03-07 16:02:00 35.48 kg/m2 [facility] Oxygen saturation in Arterial blood by Pulse oximetry 2022-03-07 16:02:00 100 /min [facility] Systolic blood pressure 2021-11-24 19:33:00 138 mm[Hg] [facility] Diastolic blood pressure 2021-11-24 19:33:00 81 mm[Hg] [facility] Heart rate 2021-11-24 19:33:00 103 /min [facility] Body temperature 2021-11-24 19:33:00 36.89 Sally [facility] Respiratory rate 2021-11-24 19:33:00 18 /min [facility] Body height 2021-11-24 19:33:00 165.1 cm [facility] Body weight 2021-11-24 19:33:00 99.791 kg [facility] BMI 2021-11-24 19:33:00 36.61 kg/m2 [facility] height 2020-09-07 16:30:00 65 [in_i] Commo n [facility] weight 2020-09-07 16:30:00 211.9 [lb_av] Co mmon [facility] temperature 2020-09-07 16:30:00 96.9 [degF] Com [facility] bmi 2020-09-07 16:30:00 35.26 kg/m2 Comm on [facility] oximetry 2020-09-07 16:30:00 98 % Commo n [facility] respiratory rate 2020-09-07 16:30:00 17 /min Common [facility] blood pressure systolic 2020-09-07 16:30:00 127 mm[Hg] Common [facility] blood pressure diastolic 2020-09-07 16:30:00 69 mm[Hg] [facility] height 2020-08-16 14:40:00 65 [in_i] Commo n [facility] weight 2020-08-16 14:40:00 211.6 [lb_av] Co mmon [facility] temperature 2020-08-16 14:40:00 97.3 [degF] Com mon [facility] bmi 2020-08-16 14:40:00 35.21 kg/m2 Comm on [facility] oximetry 2020-08-16 14:40:00 100 % Commo n [facility] respiratory rate 2020-08-16 14:40:00 17 /min Common [facility] blood pressure systolic 2020-08-16 14:40:00 125 mm[Hg] [facility] blood pressure diastolic 2020-08-16 14:40:00 75 mm[Hg] [facility] Procedures Procedure Date / Time Performed Performing Clinician Source RAPID STREP SCREEN FOR GROUP A 2024-04-29 23:47:00 Heydi Go [facility] INFLUENZA A/B RSV COVID NAAT 2024-04-29 23:47:00 Heydi Go [facility] POCT MOLECULAR STREP 2024-04-25 15:15:00 Unknown, Atte yordan [facility] POCT MOLECULAR FLU 2024-04-24 01:41:00 Unknown, Attend ing [facility] POCT TEST 2024-02-21 14:48:00 Karyn Barrera [facility] CBC WITH DIFF 2024-01-12 09:10:00 Temo Javier [facility] VENOUS CORD GAS 2024-01-11 09:21:00 Felicia Stubbs [facility] POCT GLUCOSE (AUTOMATED) 2024-01-11 06:49:00 Jhon Sheth lea [facility] POCT GLUCOSE (AUTOMATED) 2024-01-11 03:05:00 Jhon Sheth [facility] CENTRAL NEURAXIAL BLOCK 2024-01-11 02:39:00 Jesus Manuel Benson [facility] POCT GLUCOSE (AUTOMATED) 2024-01-10 22:38:00 Jhon Sheth lea [facility] HEPATITIS B SURFACE ANTIGEN 2024-01-10 17:47:00 Felicia Stubbs [facility] HB ABO GROUPING 2024-01-10 17:47:00 Felicia Stubbs [facility] RHO (D) IMMUNE GLOBULIN 2024-01-10 17:47:00 Demetrice Sawyer [facility] SYPHILIS IGG/IGM 2024-01-10 17:47:00 [facility]) 2024-01-10 17:44:00 Jhon Sheth [facility] NON-STRESS TEST 2024-01-10 13:51:19 Celso Guidry [facility] POCT GLUCOSE (AUTOMATED) 2024-01-10 13:30:00 Dbebie Guidry [facility] POCT URINALYSIS 2024-01-10 12:55:00 Carito Barrera [facility] NON-STRESS TEST 2024-01-07 13:59:47 Sherry Barrera [facility] POCT URINALYSIS 2024-01-07 12:49:00 Carito Barrera [facility] DIABETES TESTING REPORTS 2024-01-06 21:57:05 Doc tor Unassigned, [place] [facility] NON-STRESS TEST 2024-01-03 13:15:22 Sherry Barrera [facility] POCT URINALYSIS 2024-01-03 00:00:00 Carito Barrera [facility] NON-STRESS TEST 2023-12-31 12:58:47 Sherry Barrera [facility] POCT URINALYSIS 2023-12-31 12:26:00 Carito Barrera [facility] DIABETES TESTING REPORTS 2023-12-27 16:07:35 Doc tor Unassigned, [place] [facility] NON-STRESS TEST 2023-12-27 12:43:16 Sherry Barrera [facility] POCT URINALYSIS 2023-12-27 11:57:00 Carito Barrera [facility] NON-STRESS TEST 2023-12-24 16:30:21 Sherry Barrera [facility] POCT URINALYSIS 2023-12-24 12:22:00 Carito Barrera [facility] DME/SUPPLY JUSTIFICATION 2023-12-20 15:07:47 Doc tor Unassigned, [place] [facility] NON-STRESS TEST 2023-12-20 00:53:32 Sherry Barrera [facility] POCT URINALYSIS 2023-12-19 20:58:00 Carito Barrera [facility] NON-STRESS TEST 2023-12-17 21:09:44 Sherry Barrera [facility] POCT URINALYSIS 2023-12-17 20:17:00 Carito Barrera [facility] DIABETES TESTING REPORTS 2023-12-13 18:19:24 Doc tor Unassigned, [place] [facility] NON-STRESS TEST 2023-12-13 16:41:14 Sherry Barrera [facility] DME/SUPPLY JUSTIFICATION 2023-12-13 14:25:21 Doc tor Unassigned, [place] [facility] POCT URINALYSIS 2023-12-13 00:00:00 Carito Barrera [facility] DIABETES TESTING REPORTS 2023-12-12 22:20:56 Doc tor Unassigned, [place] [facility] NON-STRESS TEST 2023-12-10 23:29:50 Sherry Barrera [facility] POCT URINALYSIS 2023-12-10 20:12:00 Carito Barrera [facility] SECOND AND THIRD TRIMESTER ULTRASOUND 2023-12-07 15:22:00 Carito Barrera [facility] DIABETES TESTING REPORTS 2023-12-06 21:37:20 Doc tor Unassigned, [place] [facility] NON-STRESS TEST 2023-12-06 20:29:19 Sherry Barrera [facility] POCT URINALYSIS 2023-12-06 13:16:00 Carito Barrera [facility] NON-STRESS TEST 2023-12-03 20:59:50 Sherry Barrera [facility] DIABETES TESTING REPORTS 2023-12-03 20:16:43 Doc tor Unassigned, [place] [facility] POCT URINALYSIS 2023-12-03 19:27:00 Carito Barrera [facility] DIABETES TESTING REPORTS 2023-12-02 21:56:46 Doc tor Unassigned, [place] [facility] POCT URINALYSIS 2023-11-27 14:14:00 Carito Barrera [facility] SGOT (ASPARTATE AMINO TRANSFER) 2023-11-22 20:05:00 [facility] CREATININE 2023-11-22 20:05:00 [facility] ALANINE AMINO TRANSFERASE(SGPT 2023-11-22 20:05:00 [facility] LACTATE DEHYDROGENASE 2023-11-22 20:05:00 [facility] URIC ACID 2023-11-22 20:05:00 [facility] COMP. METABOLIC PANEL (60888) 2023-11-22 20:05:00 [facility] CBC WITH DIFF 2023-11-22 20:05:00 [facility] PROTEIN CREAT RATIO URINE RANDOM 2023-11-22 20:05:00 [facility] POCT GLUCOSE (AUTOMATED) 2023-11-22 18:36:00 Doc tor Unassigned, [place] [facility] POCT URINALYSIS 2023-11-15 16:43:00 Carito Barrera [facility] DIABETES TESTING REPORTS 2023-11-12 12:09:40 Doc tor Unassigned, [place] [facility] TDAP VACCINE, >11 YRS, IM 2023-11-01 15:43:35 Carito Barrera [facility] POCT URINALYSIS 2023-11-01 15:17:00 Carito Barrera [facility] 3 HR GLUCOSE TOLERANCE TEST 2023-10-14 15:09:00 Carito Barrera [facility] 2 HR GLUCOSE TOLERANCE TEST 2023-10-14 14:09:00 Carito Barrera [facility] 1 HR GLUCOSE TOLERANCE TEST 2023-10-14 13:09:00 Carito Barrera [facility] GLUCOSE FASTING 2023-10-14 12:06:00 Carito Barrera [facility] 3 HR GLUCOSE TOLERANCE PANEL 2023-10-14 12:06:00 Carito Barrera [facility] POCT URINALYSIS 2023-10-08 19:18:00 Carito Barrera [facility] POCT URINALYSIS 2023-09-17 20:02:00 Carito Barrera [facility] NIPT - NON-INVASIVE TEST RESULTS 2023-09-17 15:15:37 Doctor Unassigned, [place] [facility] SECOND AND THIRD TRIMESTER ULTRASOUND 2023-09-09 19:40:46 Carito Barrera [facility] ALPHA FETOPROTEIN-MATERNAL SER 2023-08-20 18:45:00 Carito Barrera [facility] POCT URINALYSIS 2023-08-20 18:03:00 Carito Barrera [facility] POCT URINALYSIS 2023-07-23 00:00:00 Carito Barrera [facility] GLUCOSE 1 HOUR POST PRANDIAL 2023-06-25 20:26:00 Carito Barrera [facility] THYROID STIMULATING HORMONE 2023-06-25 20:26:00 Carito Barrera [facility] CBC WITH DIFF 2023-06-25 20:26:00 Carito Barrera [facility] HEPATITIS B SURFACE ANTIGEN 2023-06-25 20:26:00 Carito Barrera [facility] HCV ANTIBODY 2023-06-25 20:26:00 [facility] 2023-06-25 20:26:00 Carito Barrera [facility] HIV 1/2 AG-AB WITH REFLEX 2023-06-25 20:26:00 Carito Barrera [facility] POCT TEST 2023-06-25 19:19:00 Karyn Barrera [facility] POCT URINALYSIS W/O SPECIFIC GRAVITY 2023-06-25 19:19:00 Carito Barrera [facility] REPORT OF 2023-06-24 06:01:00 Doctor Venus cuadra, [place] [facility] PAP SMEAR-LIQUID BASED-CP 2023-04-15 21:58:[address] [facility] CONSENT FOR CONTRACEPTION 2023-04-15 06:01:00 Doctor Unassigned, [place] [facility] POCT TEST 2023-04-15 00:00:00 Alivia Vonda [facility] POCT MOLECULAR FLU 2023-04-01 18:49:00 Unknown, Attend [facility] CONSENT FOR CONTRACEPTION 2023-03-29 06:01:00 Doctor Unassigned, [place] [facility] CONSENT/REFUSAL FOR DIAGNOSIS AND TREATMENT 2023-01-07 21:41:16 Doctor Unassigned, [place] [facility] ASSIGNMENT OF BENEFITS 2023-01-07 21:41:00 Docto r Unassigned, [place] [facility] POCT SARS-COV-2 ANTIGEN (BINAX NOW) 2023-01-07 21:34:00 Miguel Ángel Palumbo [facility] POCT MOLECULAR FLU 2022-04-15 15:39:00 Unknown, Attend [facility] POCT MOLECULAR STREP 2022-04-15 15:38:00 Unknown, Roz farr [facility] POCT MOLECULAR FLU 2022-03-07 16:11:00 Unknown, Attend [facility] Encounters Start Date/Time End Date/Time Encounter Type Admission Type Attending [facility] Care Facility Care Department Encounter ID Source 2023-11-22 17:14:51 Outpatient X [facility] [id number] [facility] 2021-06-07 13:12:47 [facility] [id number] [facility] 2021-06-07 12:57:23 [facility] [id number] [facility] 2021-06-07 12:50:05 Outpatient Parmar, [facility] [id number] [facility] 2021-06-07 12:48:30 Outpatient Ghulam [facility] [id number] [facility] 2023-09-17 00:00:00 2024-06-27 07:50:31 Orders Only Doctor Unassigned, [place] Doctor Unassigned, [place] [facility] 1.2.840.114 350.1.13.10 4.2.7.2.686 [id number] [facility] 2023-11-12 00:00:00 2024-06-27 07:23:58 Orders Only Doctor Unassigned, [place] Doctor Unassigned, [place] [facility] 1.2.840.114 350.1.13.10 4.2.7.2.686 [id number] [facility] 2023-12-02 00:00:00 2024-06-27 07:15:48 Orders Only Doctor Unassigned, [place] Doctor Unassigned, [place] [facility] 1.2.840.114 350.1.13.10 4.2.7.2.686 [id number] [facility] 2023-12-03 00:00:00 2024-06-27 07:15:04 Orders Only Doctor Unassigned, [place] Doctor Unassigned, [place] [facility] 1.2.840.114 350.1.13.10 4.2.7.2.686 [id number] [facility] 2023-12-06 00:00:00 2024-06-27 07:14:02 Orders Only Doctor Unassigned, [place] Doctor Unassigned, [place] [facility] 1.2.840.114 350.1.13.10 4.2.7.2.686 [id number] [facility] 2023-12-12 00:00:00 2024-06-27 07:12:44 Orders Only Doctor Unassigned, [place] Doctor Unassigned, [place] [facility] 1.2.840.114 350.1.13.10 4.2.7.2.686 [id number] [facility] 2023-12-13 00:00:00 2024-06-27 07:12:10 Orders Only Doctor Unassigned, [place] Doctor Unassigned, [place] [facility] 1.2.840.114 350.1.13.10 4.2.7.2.686 [id number] [id number] [facility] 2023-12-13 00:00:00 2024-06-27 07:12:09 Orders Only Doctor Unassigned, [place] Doctor Unassigned, [place] [facility] 1.2.840.114 350.1.13.10 4.2.7.2.686 [id number] [facility] 2023-12-20 00:00:00 2024-06-27 07:10:03 Orders Only Doctor Unassigned, [place] Doctor Unassigned, [place] [facility] 1.2.840.114 350.1.13.10 4.2.7.2.686 [id number] [id number] [facility] 2023-12-27 00:00:00 2024-06-27 07:06:24 Orders Only Doctor Unassigned, [place] Doctor Unassigned, [place] [facility] 1.2.840.114 350.1.13.10 4.2.7.2.686 [id number] [facility] 2024-05-19 07:45:00 2024-05-19 07:45:00 Outpatient R CARITO BARRERA [facility] [id number] [facility] 2024-04-29 17:05:00 2024-04-29 19:40:00 Emergency X Heydi GO K [facility] E[facility] [id number] [facility] 2024-04-29 17:05:00 2024-04-29 19:40:00 Emergency Heydi Go [facility] 1..114 350.1.13.10 4.2.7.2.686 [id number] [facility] 2024-04-25 09:00:00 2024-04-25 09:20:00 Urgent Care Yosvany Singh Unknown, Attending [facility] 1.84.114 350.1.13.10 4.2.7.2.686 [id number] [facility] 2024-04-25 09:00:00 2024-04-25 09:00:00 Outpatient R FRANCISCO YOSVANY [facility] [id number] [facility] 2024-04-23 19:40:00 2024-04-23 20:00:00 Urgent Care [place] Johnston Unknown, Attending [facility] 1.84.114 350.1.13.10 4.2.7.2.686 [id number] [facility] 2024-04-23 19:40:00 2024-04-23 19:40:00 Outpatient R PRESTON ENGLAND [facility] [id number] [facility] 2024-02-27 00:00:00 2024-02-27 13:09:13 Patient Secure Carito Vazquez [facility] TEACHING SUPERVISOR [facility] 1.84.114 350.1.13.10 4.2.7.2.686 [id number] 107 [id number] [facility] 2024-02-26 08:15:00 2024-02-26 10:20:01 Outpatient R CARITO BARRERA [facility] [id number] [facility] 2024-02-26 08:15:00 2024-02-26 10:20:01 Fire Alarm Inspector [facility] TEACHING SUPERVISOR [facility] CHILD [facility] 1.840.114 350.1.13.10 4.2.7.2.686 [id number] 107 [id number] [facility] 2024-02-21 09:15:00 2024-02-21 09:54:53 Outpatient R CARITO BARRERA [facility] [id number] [facility] 2024-02-21 09:15:00 2024-02-21 09:54:53 Office Visit Carito Barrera [facility] TEACHING SUPERVISOR [facility] 1.840.114 350.1.13.10 4.2.7.2.686 [id number] 107 [id number] [facility] 2023-12-26 00:00:00 2024-02-01 18:25:33 Patient Secure Msg Carito Barrera [facility] TEACHING SUPERVISOR [facility] 1..840.114 350.1.13.10 4.2.7.2.686 [id number] [facility] 2024-01-31 10:15:00 2024-01-31 10:46:29 Outpatient R CARITO BARRERA [facility] [id number] [facility] 2024-01-31 10:15:00 2024-01-31 10:46:29 Routine Visit Carito Barrera [facility] TEACHING SUPERVISOR [facility] 1.840.114 350.1.13.10 4.2.7.2.686 [id number] 107 [id number] [facility] 2024-01-14 00:00:00 2024-01-14 15:21:19 Telephone Debbie Guidry [facility] TEACHING SUPERVISOR [facility] 1..840.114 350.1.13.10 4.2.7.2.686 [id number] [facility] 2024-01-14 08:00:00 2024-01-14 08:00:00 Outpatient R DEBBIE GUIDRY [facility] [id number] [facility] 2024-01-10 11:13:00 2024-01-12 13:41:00 Inpatient NATALYA FISHMAN SANGEETA JAIN, SANGEETA [facility] [id number] [facility] 2024-01-10 11:13:00 2024-01-12 13:41:00 Hospital Encounter Natalya Sheth [facility] 1..840.114 350.1.13.10 4.2.7.2.686 [id number] [facility] 2024-01-10 20:55:00 2024-01-11 05:22:00 Anesthesia Event Jesus Manuel Baron Daniel [facility] 1..840.114 350.1.13.10 4.2.7.2.686 [id number] [facility] 2024-01-10 07:45:00 2024-01-10 08:53:17 Outpatient R DEBBIE GUIDRY [facility] [id number] [facility] 2024-01-10 07:45:00 2024-01-10 08:53:17 Routine Visit Debbie Guidry [facility] TEACHING SUPERVISOR [facility] 1..840.114 350.1.13.10 4.2.7.2.686 [id number] 107 [id number] [facility] 2024-01-07 07:30:00 2024-01-07 08:31:05 Outpatient R CARITO BARRERA [facility] [id number] [facility] 2024-01-07 07:30:00 2024-01-07 08:31:05 Routine Visit Carito Barrera [facility] TEACHING SUPERVISOR [facility] 1.2.840.114 350.1.13.10 4.2.7.2.686 [id number] 107 [id number] [facility] 2024-01-03 08:00:00 2024-01-03 08:15:31 Outpatient R CARITO BARRERA [facility] [id number] [facility] 2024-01-03 08:00:00 2024-01-03 08:15:31 Routine Visit 1, Ang-Rmchp Nst Ultrasound Carito Barrera 1, Ang-Rmchp Nst Ultrasound [facility] TEACHING SUPERVISOR [facility] 1.2.840.114 350.1.13.10 4.2.7.2.686 [id number] 107 [id number] [facility] 2024-01-03 06:45:00 2024-01-03 08:15:21 Routine Visit Carito Barrera [facility] TEACHING SUPERVISOR [facility] 1.2.840.114 350.1.13.10 4.2.7.2.686 [id number] 107 [id number] [facility] 2023-12-31 07:00:00 2023-12-31 07:57:21 Outpatient R CARITO BARRERA [facility] [id number] [facility] 2023-12-31 07:00:00 2023-12-31 07:57:21 Routine Visit CésarCarito resendez [facility] TEACHING SUPERVISOR [facility] 1.2.840.114 350.1.13.10 4.2.7.2.686 [id number] 107 [id number] [facility] 2023-12-27 06:45:00 2023-12-27 07:50:24 Outpatient R CÉSARKARYN RESENDEZNDA [facility] [id number] [facility] 2023-12-27 06:45:00 2023-12-27 07:50:24 Routine Visit Bruce Carito Issa [facility] TEACHING SUPERVISOR [facility] & CHILD [facility] 1.2.840.114 350.1.13.10 4.2.7.2.686 [id number] 107 [id number] [facility] 2023-12-26 00:00:00 2023-12-26 07:16:31 Patient Secure Msg [facility] SUPERVISOR [facility] 1.2.840.114 350.1.13.10 4.2.7.2.686 [id number] [facility] 2023-12-24 07:00:00 2023-12-24 08:25:27 Outpatient R CÉSARKARYN RESENDEZNDA [facility] [id number] [facility] 2023-12-24 07:00:00 2023-12-24 08:25:27 Routine Visit OctavioEva fitzgeralda Maegan [facility] TEACHING [facility] 1.2.840.114 350.1.13.10 4.2.7.2.686 [id number] 107 [id number] [facility] 2023-12-19 14:45:00 2023-12-19 16:20:41 Outpatient R OCTAVIOKARYN FitzgeraldNDA [facility] [id number] [facility] 2023-12-19 14:45:00 2023-12-19 16:20:41 Routine Visit Bruce Carito Maegan [facility] TEACHING SUPERVISOR [facility] 1.2840.114 350.1.13.10 4.2.7.2.686 [id number] [facility] 2023-12-17 14:45:00 2023-12-17 15:54:15 Outpatient R CARITO BARRERA [facility] [id number] [facility] 2023-12-17 14:45:00 2023-12-17 15:54:15 Routine Visit CésarCarito resendez Maegan [facility] TEACHING SUPERVISOR [facility] 1.2.840.114 350.1.13.10 4.2.7.2.686 [id number] 107 [id number] [facility] 2023-12-13 08:45:00 2023-12-13 09:20:29 Outpatient R CARITO BARRERA [facility] [id number] [facility] 2023-12-13 08:45:00 2023-12-13 09:20:29 Routine Visit [facility]ardipti [facility] TEACHING SUPERVISOR [facility] 1..840.114 350.1.13.10 4.2.7.2.686 [id number] 107 [id number] [facility] 2023-12-10 15:30:00 2023-12-10 15:41:54 Outpatient R CARITO BARRERA [facility] [id number] [facility] 2023-12-10 15:30:00 2023-12-10 15:41:54 Routine Visit Octaviolia Carito [facility] TEACHING SUPERVISOR [facility]ILD [facility] 1.2.840.114 350.1.13.10 4.2.7.2.686 [id number] 107 [id number] [facility] 2023-12-08 00:00:00 2023-12-08 17:24:36 Case Management C[facility]ardipti [facility] TEACHING SUPERVISOR [facility] 1.2.840.114 350.1.13.10 4.2.7.2.686 [id number] 107 [id number] [facility] 2023-12-07 10:15:00 2023-12-07 10:23:36 Outpatient P BETTYE CAT FARANAK [facility] [id number] [facility] 2023-12-07 10:15:00 2023-12-07 10:23:36 Fire Alarm Inspector Visit Ultrasound, Herbert-bernard Betyte Cat [facility] TEACHING SUPERVISOR [facility] CHILD [facility] 1..840.114 350.1.13.10 4.2.7.2.686 [id number] [facility] 2023-12-06 07:15:00 2023-12-06 08:53:07 Outpatient R ANDREW CHARLES JELISA [facility] [id number] [facility] 2023-12-06 07:15:00 2023-12-06 08:53:07 Routine Visit Carito Barrera Jelisa [facility] TEACHING SUPERVISOR [facility] ..840.114 350.1.13.10 4.2.7.2.686 [id number] 107 [id number] [facility] 2023-12-03 14:45:00 2023-12-03 15:31:27 Outpatient R CARITO BARRERA [facility] [id number] [facility] 2023-12-03 14:45:00 2023-12-03 15:31:27 Routine Visit Carito Barrera [facility] TEACHING SUPERVISOR [facility] ..840.114 350.1.13.10 4.2.7.2.686 [id number] 107 [id number] [facility] 2023-11-27 09:00:00 2023-11-27 09:32:41 Outpatient R CARITO BARRERA [facility] [id number] [facility] 2023-11-27 09:00:00 2023-11-27 09:32:41 Routine Visit Carito Barrera [facility] TEACHING SUPERVISOR [facility] 1.2.840.114 350.1.13.10 4.2.7.2.686 [id number] 107 [id number] [facility] 2023-10-17 00:00:00 2023-11-23 18:25:06 Patient Secure Msg Carito Barrera [facility] TEACHING SUPERVISOR [facility] 1.2.840.114 350.1.13.10 4.2.7.2.686 [id number] 107 [id number] [facility] 2023-11-22 13:39:00 2023-11-22 17:05:00 Outpatient X REE Langford, VONDA CONTRERAS [facility] [id number] [facility] 2023-11-22 13:39:00 2023-11-22 17:05:00 Emergency Lana Brooks Marisol [facility] 1..840.114 350.1.13.10 4.2.7.2.686 [id number] [facility] 2023-11-21 11:00:00 2023-11-21 11:00:00 Outpatient CARITO FONTANA [facility] [id number] [facility] 2023-11-15 11:15:00 2023-11-15 11:36:59 Outpatient R CARITO BARRERA [facility] [id number] [facility] 2023-11-15 11:15:00 2023-11-15 11:36:59 Routine Visit Carito Barrera [facility] TEACHING SUPERVISOR [facility] 1..840.114 350.1.13.10 4.2.7.2.686 [id number] [facility] 2023-11-08 10:30:00 2023-11-08 11:19:34 Outpatient CARITO FONTANA [facility] [id number] [facility] 2023-11-08 10:30:00 2023-11-08 11:19:34 Routine Visit Carito Barrera [facility] TEACHING SUPERVISOR [facility] 1.2.840.114 350.1.13.10 4.2.7.2.686 [id number] 107 [id number] [facility] 2023-11-05 00:00:00 2023-11-05 06:47:48 Case Management Carito Barrera [facility] TEACHING SUPERVISOR [facility] 1.2.840.114 350.1.13.10 4.2.7.2.686 [id number] 107 [id number] [facility] 2023-11-01 10:30:00 2023-11-01 11:16:27 Outpatient R CARITO BARRERA [facility] [id number] [facility] 2023-11-01 10:30:00 2023-11-01 11:16:27 Routine Visit Carito Barrera [facility] TEACHING SUPERVISOR [facility] 1.2.840.114 350.1.13.10 4.2.7.2.686 [id number] 107 [id number] [facility] 2023-10-24 10:30:00 2023-10-24 10:45:00 Nurse Visit Visit, Ang-Rmchp Nurse Debbie Guidry [facility] TEACHING [facility] 1.2.840.114 350.1.13.10 4.2.7.2.686 [id number] 107 [id number] [facility] 2023-10-24 10:30:00 2023-10-24 10:30:00 Outpatient R DEBBIE GUIDRY [facility] [id number] [facility] 2023-10-22 10:00:00 2023-10-22 10:00:00 Outpatient R [facility] [id number] [facility] 2023-10-21 00:00:00 2023-10-21 12:22:46 Patient Secure Msg Carito Barrera [facility] 1.2.840.114 350.1.13.10 4.2.7.2.686 [id number] 107 [id number] [facility] 2023-10-21 00:00:00 2023-10-21 12:20:02 Telephone Debbie Guidry [facility] 1.2.840.114 350.1.13.10 4.2.7.2.686 [id number] 107 [id number] [facility] 2023-10-21 00:00:00 2023-10-21 09:13:17 Telephone Debbie Guidry [facility] [employer] [facility] 1.2.840.114 350.1.13.10 4.2.7.2.686 [id number] 107 [id number] [facility] 2023-10-18 00:00:00 2023-10-18 14:43:22 Telephone Debbie Guidry [facility] [employer] [facility] 1.2.840.114 350.1.13.10 4.2.7.2.686 [id number] 107 [id number] [facility] 2023-10-14 08:15:00 2023-10-14 10:11:52 Outpatient R CARITO BARRERA [facility] [id number] [facility] 2023-10-14 08:15:00 2023-10-14 10:11:52 Fire Alarm Inspector Visit Lab, Ang-Rmchp Carito Barrera [facility] [employer] [facility] 1.2.840.114 350.1.13.10 4.2.7.2.686 [id number] 107 [id number] [facility] 2023-09-09 00:00:00 2023-10-12 18:07:46 Patient Secure Msg Carito Barrera [facility] 1.2.840.114 350.1.13.10 4.2.7.2.686 [id number] 107 [id number] [facility] 2023-10-11 10:30:00 2023-10-11 11:03:09 Outpatient JAKE ROTH [facility] [id number] [facility] 2023-10-11 10:30:00 2023-10-11 11:03:09 Telemedici ne Visit Zainab Oliver Joseph W [facility] [facility] 1.2.840.114 350.1.13.10 4.2.7.2.686 [id number] [facility] 2023-10-09 00:00:00 2023-10-09 08:10:17 Telephone Carito Barrera [facility] TEACHING SUPERVISOR [facility] 1.2.840.114 350.1.13.10 4.2.7.2.686 [id number] [facility] 2023-10-09 00:00:00 2023-10-09 07:49:34 Case Management Carito Barrera [facility] TEACHING SUPERVISOR [facility] 1.2.840.114 350.1.13.10 4.2.7.2.686 [id number] [facility] 2023-10-08 12:30:00 2023-10-08 13:00:51 Outpatient R CARITO BARRERA [facility] [id number] [facility] 2023-10-08 12:30:00 2023-10-08 13:00:51 Routine Visit Carito Barrera [facility] TEACHING SUPERVISOR [facility] 1.2.840.114 350.1.13.10 4.2.7.2.686 [id number] [facility] 2023-09-17 15:00:00 2023-09-17 15:37:08 Outpatient R CARITO BARRERA [facility] [id number] [facility] 2023-09-17 15:00:00 2023-09-17 15:37:08 Routine Visit Carito Barrera [facility] TEACHING SUPERVISOR [facility] 1.2.840.114 350.1.13.10 4.2.7.2.686 [id number] 107 [id number] [facility] 2023-09-10 00:00:00 2023-09-10 00:00:00 Case Management [facility] 1.2840.114 350.1.13.10 4.2.7.2.686 [id number] 107 [id number] [facility] 2023-09-09 13:00:00 2023-09-09 13:34:05 Fire Alarm Inspector Visit Ultrasound, Boogie Ornelaseeta [facility] TEACHING SUPERVISOR [facility] 1.20.114 350.1.13.10 4.2.7.2.686 [id number] [facility] 2023-09-09 13:00:00 2023-09-09 13:34:05 [facility] [id number] [facility] 2023-08-20 12:45:00 2023-08-20 13:43:07 [facility] [id number] [facility] 2023-08-20 12:45:00 2023-08-20 13:43:07 Routine Visit Carito Barrera [facility] TEACHING SUPERVISOR [facility] 1.2840.114 350.1.13.10 4.2.7.2.686 [id number] [facility] 2023-07-23 11:00:00 2023-07-23 11:30:38 Outpatient R CÉSARDIPTI CARITO [facility] [id number] [facility] 2023-07-23 11:00:00 2023-07-23 11:30:38 Routine Visit Césardipti Carito Issa [facility] TEACHING SUPERVISOR [facility] 1.2840.114 350.1.13.10 4.2.7.2.686 [id number] [facility] 2023-06-26 00:00:00 2023-06-26 00:00:00 Patient Secure Msg C[facility]ardipti [facility] TEACHING SUPERVISOR [facility] 1.0.114 350.1.13.10 4.2.7.2.686 [id number] 107 [id number] [facility] 2023-06-25 13:45:00 2023-06-25 14:34:23 Outpatient R CÉSARDIPTI CARITO [facility] [id number] [facility] 2023-06-25 13:45:00 2023-06-25 14:34:23 Initial Visit CésarKaryn resendezadis Issa [facility] TEACHING SUPERVISOR [facility] 1.0.114 350.1.13.10 4.2.7.2.686 [id number] [facility] 2023-06-24 00:00:00 2023-06-24 00:00:00 Orders Only Doctor Unassigned, [place] [facility] 1.0.114 350.1.13.10 4.2.7.2.686 [id number] [facility] 2023-04-15 15:30:00 2023-04-15 16:01:09 Outpatient R VONDA STEWART MARISOL [facility] [id number] [facility] 2023-04-15 15:30:00 2023-04-15 16:01:09 Office Visit Vonda Stewart [facility] 1.284.114 350.1.13.10 4.2.7.2.686 [id number] [facility] 2023-04-15 00:00:00 2023-04-15 00:00:00 Orders Only Doctor Unassigned, [place] [facility] 1.2.114 350.1.13.10 4.2.7.2.686 [id number] [facility] 2023-04-01 12:20:00 2023-04-01 13:05:05 Outpatient R SHANNON EDDY [facility] [id number] [facility] 2023-04-01 12:20:00 2023-04-01 12:40:00 Urgent Care Shannon Eddy Unknown, Attending [facility] 1.84.114 350.1.13.10 4.2.7.2.686 [id number] [facility] 2023-03-29 11:00:00 2023-03-29 11:17:57 Outpatient R VONDA STEWART [facility] [id number] [facility] 2023-03-29 11:00:00 2023-03-29 11:17:57 Office Visit Donna Stewartsol [facility] 1.84.114 350.1.13.10 4.2.7.2.686 [id number] [facility] 2023-03-29 00:00:00 2023-03-29 00:00:00 Orders Only Doctor Unassigned, [place] [facility] 1.2.114 350.1.13.10 4.2.7.2.686 [id number] [facility] 2023-01-07 16:40:00 2023-01-07 16:52:58 Outpatient R ESTER PALUMBOJUAN [facility] [id number] [facility] 2023-01-07 16:40:00 2023-01-07 16:52:58 Urgent Care Miguel Ángel Palumbo Unknown, Attending [facility] 1.2840.114 350.1.13.10 4.2.7.2.686 [id number] 370 [id number] [facility] 2023-01-07 00:00:00 2023-01-07 00:00:00 Orders Only Doctor Unassigned, [place] [facility] 1.2840.114 350.1.13.10 4.2.7.2.686 [id number] [facility] 2023-01-07 00:00:00 2023-01-07 00:00:00 Letter (Out) Palumbo, Miguel Ángel [facility] 1.2840.114 350.1.13.10 4.2.7.2.686 [id number] [facility] 2022-04-30 00:00:00 2022-04-30 00:00:00 Patient Secure Les [facility] BUILDING 1.2.840.114 350.1.13.10 4.2.7.2.686 [id number] 134 [id number] [facility] 2022-04-29 00:00:00 2022-04-29 00:00:00 Refill Les [facility] BUILDING 1.2.840.114 350.1.13.10 4.2.7.2.686 [id number] 134 [id number] [facility] 2022-04-29 00:00:00 2022-04-29 00:00:[address] [facility] 1..840.114 350.1.13.10 4.2.7.2.686 [id number] 134 [id number] [facility] 2022-04-15 10:00:00 2022-04-15 10:37:41 Outpatient R SURJIT [facility] [id number] [facility] 2022-04-15 10:00:00 2022-04-15 10:37:41 Urgent Care FelixMeena Caio, Attending Surjit [facility] 1..840.114 350.1.13.10 4.2.7.2.686 [id number] [facility] 2022-04-15 00:00:00 2022-04-15 00:00:00 Letter (Out) [facility] 1.2.840.114 350.1.13.10 4.2.7.2.686 [id number] 370 [id number] [facility] 2022-03-07 11:00:00 2022-03-07 11:20:00 Urgent Care Fredrick Acevedo, Attending [facility] 1..840.114 350.1.13.10 4.2.7.2.686 [id number] 370 [id number] [facility] 2022-03-07 11:00:00 2022-03-07 11:00:00 Outpatient R FREDRICK ACEVEDO [facility] [id number] [facility] 2022-03-07 00:00:00 2022-03-07 00:00:00 Letter (Out) [facility] 1.2.840.114 350.1.13.10 4.2.7.2.686 [id number] 370 [id number] [facility] 2022-01-29 00:00:00 2022-01-29 00:00:00 Case Management Sheree Rodriguez [facility] 1.2.840.114 350.1.13.10 4.2.7.2.686 [id number] [facility] 2022-01-29 00:00:00 2022-01-29 00:00:00 Patient Secure Msg Les [facility] BUILDING 1.2.840.114 350.1.13.10 4.2.7.2.686 [id number] 134 [id number] [facility] 2021-12-06 00:00:00 2021-12-06 00:00:00 Patient Secure Msg Richard Canales [facility] 1.2.840.114 350.1.13.10 4.2.7.2.686 [id number] 134 [id number] [facility] 2021-11-27 00:00:00 2021-11-27 00:00:00 Case Management Richard Canales [facility] 1.2.840.114 350.1.13.10 4.2.7.2.686 [id number] 134 [id number] [facility] 2021-11-24 16:15:00 2021-11-24 16:15:00 Office Visit Richard Canales [facility] 1.2.840.114 350.1.13.10 4.2.7.2.686 [id number] 134 [id number] [facility] 2021-11-24 16:15:00 2021-11-24 14:53:52 Outpatient R RICHARD CANALES [facility] [id number] [facility] 2021-11-24 00:00:00 2021-11-24 00:00:00 Patient Secure Msg Gayle Sawyer [facility] 1.2.840.114 350.1.13.10 4.2.7.2.686 [id number] 134 [id number] [facility] 2021-08-16 00:00:00 2021-08-16 00:00:00 Patient Secure Msg Ashely Shepard [facility] 1.2840.114 350.1.13.10 4.2.7.2.686 [id number] 134 [id number] [facility] 2021-08-10 00:00:00 2021-08-10 00:00:00 Case Management Sheree Rodriguez [facility] 1.2840.114 350.1.13.10 4.2.7.2.686 [id number] [facility] 2021-08-09 14:30:00 2021-08-09 15:21:31 Office Visit Sheree Rodriguez [facility] 1..840.114 350.1.13.10 4.2.7.2.686 [id number] 134 [id number] [facility] 2021-08-09 14:30:00 2021-08-09 15:21:31 Outpatient R SHEREE RODRIGUEZ [facility] [id number] [facility] 2021-08-09 14:30:00 2021-08-09 14:30:00 Outpatient R SHEREE RODRIGUEZ [facility] [id number] [facility] 2021-08-09 00:00:00 2021-08-09 00:00:00 Letter (Out) Sheree Rodriguez [facility] 1.2.840.114 350.1.13.10 4.2.7.2.686 [id number] 134 [id number] [facility] 2021-06-29 00:00:00 2021-06-29 00:00:00 Letter (Out) Rianna Venegas [facility] 1.2.114 350.1.13.10 4.2.7.2.686 [id number] [facility] 2021-06-28 09:20:00 2021-06-28 09:54:13 Outpatient R SHARON CARPIO III [facility] [id number] [facility] 2021-06-28 09:20:00 2021-06-28 09:40:00 Urgent Care Sharon Carpio Unknown, Attending Fredrikc Acevedo [facility] 1.284114 350.1.13.10 4.2.7.2.686 [id number] 370 [id number] [facility] 2021-05-27 00:00:00 2021-05-27 00:00:00 Telephone Jenn Marie [facility] 1.2114 350.1.13.10 4.2.7.2.686 [id number] [facility] 2021-05-26 11:45:00 2021-05-26 12:00:00 Laboratory Only Only, Ang Db Test Francisco [facility] 1.84.114 350.1.13.10 4.2.7.2.686 [id number] 370 [id number] [facility] 2021-05-26 11:45:00 2021-05-26 11:45:00 Outpatient R FRANCISCO YOSVANY [facility] [id number] [facility] 2021-05-26 00:00:00 2021-05-26 00:00:00 Orders Only Doctor Unassigned, [place] [facility] 1.284.114 350.1.13.10 4.2.7.2.686 [id number] [facility] 2021-05-18 00:00:00 2021-05-18 00:00:00 Patient Secure Msg Sheree Rodriguez [facility] 1.2.840.114 350.1.13.10 4.2.7.2.686 [id number] 134 [id number] [facility] 2021-05-01 00:00:00 2021-05-01 00:00:00 Patient Secure Msg Sheree Rodriguez [facility] 1.2.840.114 350.1.13.10 4.2.7.2.686 [id number] 134 [id number] [facility] 2021-05-01 00:00:00 2021-05-01 00:00:00 Telephone Sheree Rodriguez [facility] 1.2.840.114 350.1.13.10 4.2.7.2.686 [id number] 134 [id number] [facility] 2021-05-01 00:00:00 2021-05-01 00:00:00 Patient Secure Msg Sheree Rodriguez [facility] 1.2.840.114 350.1.13.10 4.2.7.2.686 [id number] 134 [id number] [facility] 2021-02-03 00:00:00 2021-02-03 00:00:00 Patient Secure Msg Sheree Rodriguez [facility] Building 1.2.840.114 350.1.13.10 4.2.7.2.686 [id number] 134 [id number] [facility] 2020-09-07 00:00:00 2020-09-07 00:00:00 OFFICE VISIT EST PT LEVEL 3 STLMLC STLMLC [id number] [facility] 2020-08-29 13:15:00 2020-08-29 13:15:00 Outpatient R SHEREE RODRIGUEZ [facility] [id number] [facility] 2020-08-29 12:34:09 2020-08-29 13:04:09 Telemedici ne Visit Sheree Rodriguez [facility] 1.2.840.114 350.1.13.10 4.2.7.2.686 [id number] 134 [id number] 2020-08-29 12:34:09 2020-08-29 13:04:09 Telemedici ne Visit Sheree Rodriguez [facility] 1.2.840.114 350.1.13.10 4.2.7.2.686 [id number] 134 [id number] [facility] 2020-08-22 00:00:00 2020-08-22 00:00:00 (TEL) STLMLC STLMLC [id number] [facility] 2020-08-16 00:00:00 2020-08-16 00:00:00 PREV VISIT NEW AGE 18-39 STLMLC STLMLC [id number] [facility] 2020-08-02 00:00:00 2020-08-02 00:00:00 Patient Outreach Ney Arnaldo Decker [facility] 1.2.840.114 350.1.13.10 4.2.7.2.686 [id number] 2020-08-02 00:00:00 2020-08-02 00:00:00 Patient Outreach Ney Arnaldo Decker [facility] 1.2.840.114 350.1.13.10 4.2.7.2.686 [id number] [facility] 2020-07-28 08:44:06 2020-07-28 09:14:06 Office Visit Sheree Rodriguez [facility] 1.2.840.114 350.1.13.10 4.2.7.2.686 [id number] 134 [id number] 2020-07-28 08:44:06 2020-07-28 09:14:06 Office Visit Sheree Rodriguez [facility] Сергей Fernandes [facility] 1.2.840.114 350.1.13.10 4.2.7.2.686 [id number] [facility] 2020-07-28 08:30:00 2020-07-28 08:30:00 Outpatient R SHEREE RODRIGUEZ [facility] [id number] [facility] Results Test Description Test Time Test Comments Results Result Co mments Source [facility] Molecular [id number] 01:53:50* Test Item Value Reference Range Interpretation Comme nts POCT Molecular FluA (test co de = 31646-5) Negative Negative POCT Molecular FluB (test co de = 11282-2) Negative Negative Lab Interpretation (test cod e = 15371-1) Normal [facility] Rmjo0040-02-21 14:48:00* Test Item Value Reference Range Interpretation Comme nts POCT PREG (test code = 1605) Negative On board controls acceptable with C Line (test code = 3574) Yes POCT PREG LOT # (test code = 3575) POCT PREG TEST DATE ( test code = 3576) [facility] ONLY - SYPHILIS IGG/[id number] 14:54:55* Test Item Value Reference Range Interpretation Comme nts Syphilis IgG/IgM (test code = 84833-7) Non-reactive Non-reactive DIMITRY (test code = DIMITRY) Non-reactive - No serologic evidence of T. pallidum infection. Cannot exclude incubating or early syphilis. Submit a second specimen in 2-4 weeks if syphilis is clinically suspected. Equivocal - Further testing to follow. Reactive - Further testing to follow. Lab Interpretation (test code = 04828-6) Normal [facility] (D) IMMUNE [id number] 11:17:39* Test Item Value Reference Range Interpretation Comme nts RHIG CANDIDATE? (test code = 5188) No- see comment Patient is not a candidate for RhIg- Patient is Rh Positive.Performed at [facility] Laboratory Services - [facility] Blood [address] [address]Twxl Free: [phone] No. [id number] [facility]land[facility]ous Cord [id number] 09:49:45* Test Item Value Reference Range Interpretation Comme nts VENOUS BASE EXCESS, CORD (te st code = 8066687709) -1.9 mEq/L VENOUS PH, CORD (test code = 1413288106) 7.34 7.25-7.45 VENOUS PC02, CORD (test code = 6582103683) 46 27-49 VENOUS PO2, CORD (test code = 5732786672) 25 17-41 VENOUS BICARBONATE, CORD (te st code = 5681559683) 24 12-29 QUES [facility]land[facility] Cord [id number] 09:49:28* Test Item Value Reference Range Interpretation Comme nts BASE EXCESS, CORD (test code = 9397610187) -3.8 mEq/L QUES AC PH, CORD (BEAKER) (test c ode = 2199102547) 7.26 7.18-7.38 PC02, CORD (test code = 6685376848) 55 32-66 PO2, CORD (test code = 3379482565) 18 10-30 BICARBONATE, CORD (test code = 4326276674) 24 17-27 [facility] GLUCOSE (AUTOMATED)2024-01-11 06:50:00* Test Item Value Reference Range Interpretation Comme nts POCT GLU (test code = 6926073199) 117 mg/dL 70-110 H Lab Interpretation (test cod e = 75995-9) Abnormal [facility] GLUCOSE (AUTOMATED)2024-01-11 03:15:31* Test Item Value Reference Range Interpretation Comme nts POCT GLU (test code = 5021997369) 132 mg/dL 70-110 H Lab Interpretation (test cod e = 12345-1) Abnormal [facility] Neuraxial Dszoa2581-02-73 02:39:00 Jesus Manuel Baron MD ? ? 01/10/2024 11:58 PM Central Neuraxial Block Date/Time: 01/10/2024 9:39PM Performed by: Jesus Manuel Baron, MDAuthorized by: Natalya Sheth MD ?Patient Location: OBReason for Block: OB request, Patient request, Labor analgesia, Surgical anesthesia and Post-op pain m dorotheagementStaff: ?Anesthesiologist: Daryl Yun MD ?Resident/JIGSAWYER: Jesus Manuel Baron MD ?Performed by: resident/CRNAPreanesthetic [...] and TAM saline ?Guidance with: landmark technique}Epidural/Spinal [place] and/or Catheter: ?Epidural/Spinal Kit: BBraun ?Needle Type: [...] expectations; PCEA explained and fall precautions given. [facility] GLUCOSE (AUTOMATED)2024-01-10 22:39:30* Test Item Value Reference Range Interpretation Comme nts POCT GLU (test code = 1477346300) 110 mg/dL 70-110 Lab Interpretation (test cod e = 59235-0) Normal [facility]landHepatitis B Surface [id number] 19:44:14 * Test Item Value Reference Range Interpretation Comme nts HBsAg Semi-Quantitative (ron t code = 5195-3) 0.11 Negative [facility]landType and Screen - ONCE [id number] 18:02:00 * Test Item Value Reference Range Interpretation Comme nts ABO & RH (test code = 20) A POSITIVE IAT (test code = 1185) Negative [facility] GLUCOSE (AUTOMATED)2024-01-10 17:53:29* Test Item Value Reference Range Interpretation Comme nts POCT GLU (test code = 5724005096) 94 mg/dL 70-110 Lab Interpretation (test cod e = 56064-0) Normal [facility] GLUCOSE (AUTOMATED)2024-01-10 13:33:25* Test Item Value Reference Range Interpretation Comme nts POCT GLU (test code = 3474459052) 142 mg/dL 70-110 H Lab Interpretation (test cod e = 98258-9) Abnormal [facility] URINALYSIS W SPECIFIC [id number] 12:56:00* Test Item Value Reference Range Interpretation [...] POCT U APPEAR (test code = 3267) [facility] URINALYSIS W SPECIFIC [id number] 12:49:00* Test Item Value Reference Range Interpretation [...] U APPEAR (test code = 3267) .. [facility]land[facility]ABET[facility] TESTING [id number] 21:57:05 Ordered by an unspecified provider.[facility] [id number] 12:38:00* Test Item Value Reference Range Interpretation [...] U APPEAR (test code = 3267) . [facility]landPOCT URINALYSIS W SPECIFIC [id number] 12:26:00* Test Item Value Reference Range Interpretation [...] U APPEAR (test code = 3267) . [facility]AB[facility] TESTING [id number] 16:07:35 Ordered by an unspecified provider.[facility] URINALYSIS W SPECIFIC [id number] 11:57:00* Test Item Value Reference Range Interpretation [...] U APPEAR (test code = 3267) . [facility] URINALYSIS W SPECIFIC [id number] 12:23:00* Test Item Value Reference Range Interpretation [...] U APPEAR (test code = 3267) . [facility]landDME/SUPPLY [id number] 15:07:47 Ordered by an unspecified provider.[facility] URINALYSIS W SPECIFIC [id number] 21:00:00* Test Item Value Reference Range Interpretation [...] POCT U APPEAR (test code = 3267) [facility] URINALYSIS W SPECIFIC [id number] 20:17:00* Test Item Value Reference Range Interpretation [...] U APPEAR (test code = 3267) . [facility] TESTING [id number] 18:19:24 Ordered by an unspecified provider.[facility]landDME/SUPPLY [id number] 14:25:21Ordered by an unspecified provider.[facility] URINALYSIS W SPECIFIC [id number] 13:50:00* Test Item Value Reference Range Interpretation [...] U APPEAR (test code = 3267) . [facility] TESTING [id number] 22:20:56 Ordered by an unspecified provider.[facility] URINALYSIS W SPECIFIC [id number] 20:12:00* Test Item Value Reference Range Interpretation [...] U APPEAR (test code = 3267) . [facility] TESTING [id number] 21:37:20 Ordered by an unspecified provider.[facility] URINALYSIS W SPECIFIC [id number] 13:16:00* Test Item Value Reference Range Interpretation [...] U APPEAR (test code = 3267) .. [facility] TESTING [id number] 20:16:43 Ordered by an unspecified provider.[facility]landPO[facility] URINALYSIS W SPECIFIC [id number] 19:27:00* Test Item Value Reference Range Interpretation [...] POCT U APPEAR (test code = 3267) [facility] TESTING [id number] 21:56:46 Ordered by an unspecified provider.[facility] W SPECIFIC [id number] 14:14:00* Test Item Value Reference Range Interpretation [...] U APPEAR (test code = 3267) .. [facility] GLUCOSE (AUTOMATED)2023-11-22 18:38:47* Test Item Value Reference Range Interpretation Comme nts POCT GLU (test code = 3578196694) 135 mg/dL 70-110 H Lab Interpretation (test cod e = 46851-7) Abnormal [facility] URINALYSIS W SPECIFIC [id number] 16:45:00* Test Item Value Reference Range Interpretation [...] POCT U APPEAR (test code = 3267) [facility] [id number] 12:09:40 Ordered by an unspecified provider.[facility] URINALYSIS W SPECIFIC [id number] 15:17:00* Test Item Value Reference Range Interpretation [...] POCT U APPEAR (test code = 3267) [facility] URINALYSIS W SPECIFIC [id number] 19:18:00* Test Item Value Reference Range Interpretation [...] POCT U APPEAR (test code = 3267) [facility] URINALYSIS W SPECIFIC [id number] 20:02:00* Test Item Value Reference Range Interpretation [...] POCT U APPEAR (test code = 3267) [facility]-INVASIVE [facility] RESULTS 2023-09-17 15:15:37Ordered by an unspecified provider.[facility] FETOPROTEIN-MATERNAL [id number] 17:54:20* Test Item Value Reference Range Interpretation Comme nts AFP-MS (test code = 0891701967) 35.2 ng/mL AFP-MS MoM (test code = 7918053875) 1.05 WEIGHT (test code = 1320257241) 233.375 lbs RACE (test code = 2844088878) Black GEST. AGE (test code = 0500767733) 17w4d INS. DEP (test code = 9525644463) No LMP (test code = 6071010095) [id number] US DATE (test code = 2136641871) PE DATE (test code = 9824536413) METHOD (test code = 7536788117) LMP MULT GEST (test code = 1293704940) No Down Syndrome History (test code = 2253168545) No NTD HX (test code = 7521676975) No INITAL OR REPEAT (test code = 5025031063) Initial Testing SMOKER (test code = 3756773615) No RH (test code = 0314487773) Positive OSB INTERP (test code = 6748419148) See Note The maternal ser um AFP result is NOT elevated for a of thisgestational age. The risk of an open neural tube defect is less thanthe screening cut-off. OSB RSK (test code = 3370111541) 1:8930 The risk of OSB is equal to 1:8930The OSB cut-off is 2.59 (1:104) OSB SCRN (test code = 5463222453) Negative [facility] URINALYSIS W SPECIFIC [id number] 18:03:00* Test Item Value Reference Range Interpretation [...] U APPEAR (test code = 3267) . [facility] URINALYSIS W SPECIFIC [id number] 16:14:00* Test Item Value Reference Range Interpretation [...] U APPEAR (test code = 3267) . [facility] URINALYSIS W SPECIFIC [id number] 16:14:00* Test Item Value Reference Range Interpretation [...] U APPEAR (test code = 3267) . [facility] Urinalysis w/o Specific [id number] 19:20:00* Test Item Value Reference Range Interpretation [...] = 3257) trace Negative - [id number] 19:19:00* Test Item Value Reference Range Interpretation Comme nts POCT PREG (test code = 1605) Positive On board controls acceptable with C Line (test code = 3574) Yes POCT PREG LOT # (test code = 3575) POCT PREG TEST DATE ( test code = 3576) [facility] [id number] 21:32:00* Test Item Value Reference Range Interpretation Comme nts POCT PREG (test code = 1605) Negative On board controls acceptable with C Line (test code = 3574) Yes POCT PREG LOT # (test code = 3575) POCT PREG TEST DATE ( test code = 3576) [facility] [id number] 21:32:00* Test Item Value Reference Range Interpretation Comme nts POCT PREG (test code = 1605) Negative On board controls acceptable with C Line (test code = 3574) Yes POCT PREG LOT # (test code = 3575) POCT PREG TEST DATE ( test code = 3576) [facility] MOLECULAR [id number] 18:53:30* Test Item Value Reference Range Interpretation Comme nts POCT Molecular FluB (test co de = 97112-1) Positive Negative A Lab Interpretation (test cod e = 34807-1) Abnormal [facility] SARS-COV-2 ANTIGEN (BINAX NOW)2023-01-07 21:49:00* Test Item Value Reference Range Interpretation Comme nts POCT SARS-COV-2 ANTIGEN (ron t code = 07196-5) Positive Not Detected A On board controls acceptable with C Line (test code = 3574) Yes Lab Interpretation (test cod e = 66700-3) Abnormal [facility] MOLECULAR [id number] 15:51:31* Test Item Value Reference Range Interpretation Comme nts POCT Molecular FluA (test co de = 89192-4) Negative Negative POCT Molecular FluB (test co de = 44058-8) Negative Negative Lab Interpretation (test cod e = 68757-5) Normal [facility] MOLECULAR [id number] 15:51:31* Test Item Value Reference Range Interpretation Comme nts POCT Molecular FluA (test co de = 57335-6) Negative Negative POCT Molecular FluB (test co de = 85423-9) Negative Negative Lab Interpretation (test cod e = 72870-9) Normal [facility] MOLECULAR [id number] 15:42:53* Test Item Value Reference Range Interpretation Comme nts POCT Molecular Strep (test c ode = 89871-1) Positive Negative A Lab Interpretation (test cod e = 91453-9) Abnormal [facility] MOLECULAR [id number] 15:42:53* Test Item Value Reference Range Interpretation Comme nts POCT Molecular Strep (test c ode = 16415-1) Positive Negative A Lab Interpretation (test cod e = 63468-1) Abnormal [facility] MOLECULAR [id number] 16:16:12* Test Item Value Reference Range Interpretation Comme nts POCT Molecular FluA (test co de = 63500-6) Positive Negative A Lab Interpretation (test cod e = 99097-3) Abnormal [facility] History and Physical Notes Date/Time Note Provider [...] History: Diagnosis Date Anemia Mild Anxiety 07/21/2019 [place] [facility] / Chest Heaviness and Tightness BV [...] ?C (97.8 ?F)] Temp source: Oral (01/09 113) Pulse: [91-103] Resp: [17-20] SpO2: [100 %] [...] Value Date/Time GLUF 98 10/14/2023 07:06 AM SMTU6VS 176 (H) 10/14/2023 08:09 AM GLU3H 97 [...] see the resident's note for additional details. [facility] Procedure Notes Date/Time Note Provider Source 2024-01-10 21:57:50 Associated Order(s): Central Neuraxial Block Central Neuraxial Block Date/Time: 01/10/2024 9:39 PM Performed by: Jesus Manuel Baron MD Authorized by: Natalya Sheth MD Patient Location: OB Reason for Block: OB request, Patient request, Labor analgesia, Surgical anesthesia and Post-op pain management Staff: Anesthesiologist: Daryl Yun MD Resident/JIGSAWYER: Jesus Manuel Baron MD Performed by: resident/JIGSAWYER Preanesthetic Checklist: patient identified, IV checked, risks [...] TAM saline Guidance with: landmark technique} Epidural/Spinal [place] and/or Catheter: Epidural/Spinal Kit: Rodolfo Needle Type: Tuohy Needle Gauge: 17 G [...] PCEA explained and fall precautions given. AN-ANESTHESIOLOGY [facility] 2024-01-10 16:08:44 Procedure(s): INSERT CERVICAL DILATOR Pre-Procedure [...] Please use the table below for: SVE 3/50/-3 CERVIX: Consistency: moderately soft; Position: median, Station: [...] Vargas MD, PhD Obstetrics & Gynecology, PGY-2 [facility] Notes Date/Time Note Provider Source 2024-04-29 19:25:00 Pt discharged with diagnosis of tonsillitis. Printed and verbal instructions reviewed with and given to pt. Prescriptions given x 1. Pt verbalized understanding of teaching, medication, and recommended follow-up. Denies questions or concerns at this time. Pt ambulatory at discharge. Appears in no apparent distress. No ataxia noted. WAREHOUSE CONSULTANT Miryam Paulson RN [facility] 2024-04-29 17:02:43 Sore throat, congestion, right ear pain for a few days. No chest pain, no fevers, hasn't been around anyone sick. HX: denies. WAREHOUSE CONSULTANT Mellisa Fam RN [facility] 2024-01-14 15:21:12 Noted. Deidra Marie LVN [facility] 2024-01-14 15:12:45 Tiffany will call patient she has the paperwork. Onelia Acevedo [facility] 2024-01-14 15:01:22 Patient stated she needed her short term disability paperwork filled out by the end of this week. Stated her job has faxed over paperwork and stated another DESIZING MACHINE OPERATOR HEAD END can fill out since her DESIZING MACHINE OPERATOR HEAD END is not in clinic. Informed her will route message but can not guarantee paper work will be filled out by another DESIZING MACHINE OPERATOR HEAD END and might need to wait until her DESIZING MACHINE OPERATOR HEAD END is back. Pt verbalized understanding. [facility] 2024-01-14 14:42:40 Pt is requesting call back, states spoke with someone about forms. Please call back [phone] (home) ASHLEY Gould [facility] 2024-01-12 12:36:47 Problem: Falls, Risk of Goal: Absence of falls Outcome: Adequate for discharge Problem: Discharge Planning - Goal: Adequate for discharge Outcome: Adequate for discharge Goal: Mood stable Outcome: Adequate for discharge Problem: Complications of hemorrhage (risk or actual) Goal: Absence of active bleeding Outcome: Adequate for discharge Goal: Absence of complications Outcome: Adequate for discharge [facility] 2024-01-12 12:02:09 Images from the original note were not included. This note was copied from a baby's chart. Assessment (most recent) Assessment - 01/12/24 1145 General Information Visit Follow-up Percent of weight loss- Infant 2.55 Breast Pump Has Infant Oral Assessment Oral assessment Deferred Date of 01/11/24 Time of 0408 Infant location Mother Baby Unit mother is hold swaddled; having just finished feeding a bottle of formula Breast Assessment Breast Assessment Deferred Day Porter Observation Pumping No Reported reports has not breastfed yet today. States she hopes to begin breastpumping once she gets home. Follow up Mom will call staff;[facility] warmline;[facility] office Recommended Feeding Plan Recommended feeding plan Frequent bgyn-la-tuzn time with parents;On-demand , 8-12 times in 24 hours not to exceed 6 hours between feeds;Mother choosing to supplement with formula after breastfeeds;Offer both breasts prior to formula supplementation;Pump/hand express minimum 8 times in 24 hours including nights. Pump for 15-25 min. OTHER $ SERVICES Follow-up Swetha YOON, RNC-OB, IBCLC Swetha Garcia RN [facility] 2024-01-12 05:19:22 Problem: Falls, Risk of Goal: Absence of falls Outcome: Progressing as expected Problem: Discharge Planning - Goal: Adequate for discharge Outcome: Progressing as expected Goal: Mood stable Outcome: Progressing as expected Problem: Complications of hemorrhage (risk or actual) Goal: Absence of active bleeding Outcome: Progressing as expected Goal: Absence of complications Outcome: Progressing as expected [facility] 2024-01-11 09:30:00 Images from the original note were not included. This note was copied from a baby's chart. Assessment (most recent) Assessment - 01/11/24 0930 General Information Visit Initial grandmother at bedside and involved in this visit Number of voids last 24 hours- Infant 0 Number of stools last 24 hours- Infant 0 Mom's age (years) 33 years Gestational age 39 weeks 3 Parity 3 Living Children 3 Feeding plan Breast Breastfeed previously No Used pump previously No Planned maternity leave 6 Weeks Breast Pump Ordered from [place] Breast Pump [employer] Medicaid;[place] Delivery method Risk factors GDM;Obesity enlarged thyroid; HSV DM controlled by Meds Oral Assessment Date of 01/11/24 Time of 0408 location Mother Baby Unit attempting to breastfeed [...] to and beyond 1 year with complimentary foods;Infant hunger cues;On-demand feeds at least 8 or more over 24 hours;Diaper counts/color;Benefits of breastmilk;Hand expression;Risk of formula supplementation;Delay of pacifier/artificial nipples up to 4 weeks;Benefits of skin to skin contact;Encouraged rooming-in;Waking techniques;Signs of an effective latch;Infant stomach size;Paced bottle feeding;Burping;How to obtain pump for after discharge Handouts given [place] Day Porter Observation Assist with latch came from complex nursery with no feeds Position left side Football;Infant latched effectively;Suckled in coordinated bursts;Audible swallows;Nipple rounded upon release 30 minutes Interventions Taught hand expression was skin to skin; deep latch video Follow up Follow up in hospital Recommended Feeding Plan Recommended feeding plan On-demand , 8-12 times in 24 hours not to exceed 6 hours between feeds;Frequent kfpj-xr-ypla time with parents OTHER $ SERVICES Initial Marilyn Hernadez RN, BSN, IBCLC Marilyn Hernadez RN [facility] 2024-01-11 08:40:50 Problem: Falls, Risk of Goal: Absence of falls Outcome: Progressing as expected Problem: Discharge Planning - Goal: Adequate for discharge Outcome: Progressing as expected Goal: Mood stable Outcome: Progressing as expected Problem: Complications of hemorrhage (risk or actual) Goal: Absence of active bleeding Outcome: Progressing as expected Goal: Absence of complications Outcome: Progressing as expected Kristan Antoine RN [facility] 2024-01-11 07:32:31 Patient: Kera Tracy Procedure Summary [...] status: acceptable Hydration status: acceptable AN-ANESTHESIOLOGY ANESTHESIOLOGIST [facility] 2024-01-11 06:23:08 Problem: Falls, Risk of Goal: [...] Goal: Reduction in pain sensation Outcome: Resolved [facility] 2024-01-11 04:24:43 DELIVERY BY SPONTANEOUS VAGINAL DELIVERY Delivery Date: 01/11/2024 Delivery Time: 4:08 AM Review the Delivery Report for details. The patient was admitted to the Labor & Delivery unit for IOL at 38w1d due to DFM. Delivery Physician: Leticia Taylor MD OB Faculty: Bettye Cat MD Crewman Armoured Personnel Carrier [id number] Resident: Demetrice Javier MD Intrapartum Anesthesia/Analgesia: Epidural [...] umbilical cord was clamped, cut and the was handed off the field to the [...] was present for delivery of a viable infant. No complications noted. Bettye Cat MD OG-OBSTETRICS & GYNECOLOGY [facility] 2024-01-10 21:52:32 Name/ MRN / Age / Gender: Kera Tracy, [id number] 33 year old female BMI: Estimated body [...] (physical exam) Anesthesia Preop: Chart Review and Hkll-ef-Csod [facility] Communication: 33F at 38w0d by d/u(20) requesting [...] ROS Endo/Other Comments: No results found for: "ZBWAVWH2D" HGB A1C Date Value Ref Range Status 11/15/2023 5.4 4.0 - 5.7 % Final (+) Diabetes Mellitus Other TEACHING SUPERVISOR Comments: 33 year old female at 38w0d [...] to surgery. Hold on DOS. Phentermine: Alert [facility] anesthesiologist SGLT2 Inhibitors: "gliflozins" to be held [...] EXTRACTION Bilateral wisdom teeth TOOTH EXTRACTION 2014 Anesthesia Physical Exam General no apparent distress [...] Epidural Anesthesia plan discussed with: patient or correspondence representative Post-Operative Analgesia: routine analgesia & antiemetics Recovery Plan: LDR Additional comments: [facility] 2024-01-10 20:04:35 Problem: Intrapartum process (including labor pain) Goal: Absence of or reduction of complications of labor 01/10/2024 2004 by Arcelia Vásquez RN Outcome: Progressing as expected 01/10/2024 2004 by Arcelia Vásquez RN Outcome: Progressing as expected Goal: Able to cope with pain 01/10/20242003 by Arcelia Vásquez RN Outcome: Progressing as expected 01/10/20242003 by Arcelia Vásquez RN Outcome: Progressing as expected Goal: Adequate to move to next level of care 01/10/20242003 by Arcelia Vásquez RN Outcome: Progressing as expected 01/10/2024 2004 by Arcelia Vásquez RN Outcome: Progressing as expected Goal: Reduction in pain sensation 01/10/20242003 by Arcelia Vásquez RN Outcome: Progressing as expected 01/10/20242003 by Arcelia Vásquez RN Outcome: Progressing as expected Problem: Falls, Risk of Goal: Absence of falls 01/10/20242003 by Arcelia Vásquez RN Outcome: Progressing as expected 01/10/20242003 by Arcelia Vásquez RN Outcome: Progressing as expected T Arcelia Vásquez RN [facility] 2024-01-10 14:17:54 Problem: Intrapartum process (including labor pain) Goal: Absence of or reduction of complications of labor Outcome: Progressing as expected Goal: Able to cope with pain Outcome: Progressing as expected Goal: Adequate to move to next level of care Outcome: Progressing as expected Goal: Reduction in pain sensation Outcome: Progressing as expected [facility] 2023-11-22 13:45:05 Called report to Annel ROBLEDO. Dr. Pérez wants patient to be evaluated by L&D. Patient blood pressure still elevated and reports of lightheadedness. [facility] 2023-11-22 13:36:51 Patient arrived in wheelchair c/o of feeling faint this morning. Patient was able to ambulate around a store when she started to feel like she was going to pass out. Complaining mid back pain. 31 weeks. G3. Blood sugar 135 Karina Escalante RN [facility] 2023-10-21 12:22:53 Pt notified via [place]. Deidra Marie DEVELOPMENT MANAGER [facility] 2023-10-21 12:16:00 Supplies sent to pharmacy on file NONA Agarwal 10/21/2023 12:19 PM [facility] 2023-10-21 09:05:26 Pharmacy stated supplies are not covered and needs to be changed to one touch ultra or one touch verio. Order resent to pharmacy, pt notified. Deidra Marie DEVELOPMENT MANAGER [facility] 2023-10-18 14:46:45 Patient diagnosed with GDM per provider. Advised patient that blood glucose monitor and supplies have been sent to her pharmacy on file. Advised patient that she will need to come in for a diabetic teaching as a nurse visit with supplies from pharmacy. Patient verbalizes understanding. Appt scheduled. Caitlyn Wills RN 10/18/23 2:46 PM Caitlyn Wills RN [facility] 2023-10-18 14:39:51 Please notify the patient she failed her 3hr gtt, she is now considered GDM, please have her picking machine operator helper her supplies, RTC for diabetic education and labs NONA Agarwal 10/18/2023 2:40 PM [facility] 2023-10-09 08:06:37 Patient informed of results and need for 3 hr gtt. Lab appt made for 10/13 at 7 am, informed to be fasting, verbalized understanding. Deidra Marie LVN [facility] 2023-10-09 07:49:46 Please call patient and set up 3 hour gtt [facility] 2023-07-23 11:00:00 Addended by: CARITO BARRERA CNM on: 07/23/2023 01:36 PM Modules accepted: Level of Service [facility]
[2024-07-27] MEDS ORDERED: methocarbamoL 500 MG TAB ONE (20:55)
[2024-07-27] MEDS ORDERED: KETOROLAC 30 MG/ML INJ ONE (20:55)
[2024-07-27] MEDS ORDERED: ACETAMINOPHEN 500 MG TAB ONE (20:55)
--- NOTE | 2024-07-27 21:27 | RAD REPORT ---
EXAMINATION: Shoulder Right 2+ Views CLINICAL INDICATION: Female, 34 years old. shoulder pain RIGHT COMPARISON: No prior exam. FINDINGS: No acute fracture. No malalignment/dislocation. No significant focal degenerative change. Other: n/a IMPRESSION: No acute osseous abnormality.
--- NOTE | 2024-07-27 21:31 | ER ---
Nurse's Notes [facility] Name: Kera Deng Age: 34 yrs Sex: Female : 1990 Arrival Date: 07/27/2024 Time: 20:09 Bed 23 Private MD: Diagnosis: Sprain of shoulder joint Presentation: 07/27 20:14 Chief complaint: Patient states: I have right shoulder pain for one week. Coronavirus bm8 screen: Vaccine status: At this time, the client does not indicate any symptoms associated with coronavirus-19. Ebola Screen: Patient negative for fever greater than or equal to 101.5 degrees Fahrenheit, and additional compatible Ebola Virus Disease symptoms Patient denies exposure to infectious person. Patient denies travel to an Ebola-affected area in the 21 days before illness onset. No symptoms or risks identified at this time. 20:14 Method Of Arrival: Ambulatory 8 20:14 Initial Sepsis Screen: Does the patient meet any 2 criteria? No. Patient's initial bm8 sepsis screen is negative. Does the patient have a suspected source of infection? No. Patient's initial sepsis screen is negative. Risk Assessment: Do you want to hurt yourself or someone else? Patient reports no desire to harm self or others. Onset of symptoms was July 20, 2024. 20:14 Acuity: MEG 3 bm8 Triage Assessment: 20:25 General: Appears in no apparent distress. comfortable, Behavior is crying. Pain: bm8 Complains of pain in right shoulder Pain currently is 3 out of 10 on a pain scale. EENT: No deficits noted. No signs and/or symptoms were reported regarding the EENT system. Neuro: No deficits noted. Level of Consciousness is awake, alert, obeys commands, Oriented to person, place, time, situation, Appropriate for age. Cardiovascular: Capillary refill < 3 seconds in bilateral fingers Patient's skin is warm and dry. Respiratory: Airway is patent Respiratory effort is even, unlabored. Musculoskeletal: Circulation, motion, and sensation intact. Capillary refill < 3 seconds, in bilateral fingers. Range of motion: intact in all extremities, Reports pain in right shoulder. 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 - Infectious Disease History:: Denies. - Social history:: Smoking status: Patient denies any tobacco usage or history of. Screenin:15 [facility] ED Fall Risk Assessment (Adult) History of falling in the last 3 months, jb4 including since admission No falls in past 3 months (0 pts) Confusion or Disorientation No (0 pts) Intoxicated or Sedated No (0 pts) Impaired Gait No (0 pts) Mobility Assist Device Used No (0 pt) Altered Elimination No (0 pt) Score/Fall Risk Level 0 - 2 = Low Risk Oriented to surroundings, Maintained a safe environment. Abuse screen: Denies threats or abuse. Nutritional screening: No deficits noted. Tuberculosis screening: No symptoms or risk factors identified. Assessment: 21:15 Reassessment: Patient appears in no apparent distress at this time. Patient and/or jb4 family updated on plan of care and expected duration. Pain level reassessed. Patient is alert, oriented x 3, equal unlabored respirations, skin warm/dry/pink. Vital Signs: 20:14 BP 144 / 89; Pulse 109; Resp 18; Temp 98.12; Pulse Ox 100% ; Weight 102.97 kg; Height 5 bm8 ft. 5 in. ; Pain 3/10; 21:38 BP 140 / 79; Pulse 91; Resp 16; Pulse Ox 99% on R/A; jb4 20:14 Body Mass Index 37.77 (102.97 kg, 165.1 cm) bm8 20:14 Pain Scale: Adult bm8 ED Course: 20:11 Patient arrived in ED. jj6 20:12 Stewart Joseph MD is Attending Physician. ec2 20:25 Triage completed. bm8 20:25 Arm band placed on right wrist. bm8 21:15 Rufus Lawton, VENKAT is Primary Nurse. jb4 21:15 Patient has correct armband on for positive identification. Bed in low position. Call jb4 light in reach. Side rails up X 1. Provided Education on: plan of care. 21:15 No provider procedures requiring assistance completed. Patient did not have IV access jb4 during this emergency room visit. 21:20 Shoulder Right (2 View) XRAY In Process Unspecified. EDMS Administered Medications: 21:02 Drug: Methocarbamol PO 500 mg PO once Route: PO; jb4 21:39 Follow up: Response: No adverse reaction; Marked relief of symptoms; Pain is decreased jb4 21:03 Drug: Ketorolac IM 30 mg IM once Route: IM; Site: right deltoid; jb4 21:39 Follow up: Response: No adverse reaction; Marked relief of symptoms; Pain is decreased jb4 21:03 Drug: Acetaminophen PO 1000 mg PO once Route: PO; jb4 21:39 Follow up: Response: No adverse reaction; Marked relief of symptoms; Pain is decreased jb4 Medication: 21:38 VIS not applicable for this client. jb4 Outcome: 21:30 Discharge ordered by . [email or web address] 21:38 Discharged to home ambulatory, jb4 21:38 Condition: stable 21:38 Discharge instructions given to patient, Instructed on discharge instructions, follow up and referral plans. no drinking with medication, no driving heavy equipment, medication usage, Demonstrated understanding of instructions, follow-up care, medications, Prescriptions given X 1, 21:39 Patient left the ED. jb4 Signatures: Dispatcher [employer] EDRufus English RN RN jb4 Beata Shore jj6 Stewart Joseph MD MD ec2 Wellington Brower RN RN bm8
--- NOTE | 2024-07-27 21:31 | EDPHYS ---
Physician Documentation [facility] Name: Kera Deng Age: 34 yrs Sex: Female : 1990 Arrival Date: 07/27/2024 Time: 20:09 Bed 23 Private MD: ED Physician Stewart Joseph HPI: 07/27 20:39 This 34 yrs old Black Female presents to ER via Ambulatory with complaints of Shoulder ec2 Pain, RIGHT SHOULDER. 20:39 Patient arrives today for evaluation of right shoulder pain and anxiety. Patient ec2 reports that she has right shoulder pain also into the right chest and the right breast, states that the pain is worse with movement, worse with lifting up her young child. Patient reports that she is especially concerned regarding her anxiety and was thinking that maybe she had breast cancer however has not felt any lumps or skin changes in the breast. No fevers or chills, no falls injuries or trauma.. 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 - Infectious Disease History:: Denies. - Social history:: Smoking status: Patient denies any tobacco usage or history of. ROS: 20:40 Constitutional: as per hpi ec2 Exam: 20:40 Constitutional: GEN: NAD Head: atraumatic Eyes: EOMI Ears: External ears are ec2 normal. CV: regular rate LUNGS: no respiratory distress ABD: non-distended SKIN: no evidence of rashes, chest wall examination performed under supervision, thu Hurst, no appreciable masses right breast without erythema MSK: no evidence of trauma Vital Signs: 20:14 BP 144 / 89; Pulse 109; Resp 18; Temp 98.12; Pulse Ox 100% ; Weight 102.97 kg; Height 5 bm8 ft. 5 in. ; Pain 3/10; 21:38 BP 140 / 79; Pulse 91; Resp 16; Pulse Ox 99% on R/A; jb4 20:14 Body Mass Index 37.77 (102.97 kg, 165.1 cm) bm8 20:14 Pain Scale: Adult bm8 MDM: 20:26 Medical Screening Exam initiated ec2 20:45 Data reviewed: vital signs, nurses notes. ec2 21:30 ED course: Shoulder x-ray without traumatic pathology appreciated. Will discharge home, ec2 suspect musculoskeletal strain. Return precautions given.. 07/27 20:35 Order name: Shoulder Right (2 View) XRAY; Complete Time: 21:30 ec2 Administered Medications: 21:02 Drug: Methocarbamol PO 500 mg PO once Route: PO; jb4 21:39 Follow up: Response: No adverse reaction; Marked relief of symptoms; Pain is decreased jb4 21:03 Drug: Ketorolac IM 30 mg IM once Route: IM; Site: right deltoid; jb4 21:39 Follow up: Response: No adverse reaction; Marked relief of symptoms; Pain is decreased jb4 21:03 Drug: Acetaminophen PO 1000 mg PO once Route: PO; jb4 21:39 Follow up: Response: No adverse reaction; Marked relief of symptoms; Pain is decreased jb4 Disposition Summary: 07/27/24 21:30 Discharge Ordered Notes: Location: Home ec2 Condition: Stable ec2 Diagnosis - Sprain of shoulder joint ec2 Followup: ec2 - With: Private Physician - When: - Reason: Re-evaluation by your physician Discharge Instructions: - Discharge Summary Sheet ec2 - Shoulder Sprain ec2 Forms: - Medication Reconciliation Form ec2 - Antibiotic Education ec2 - Prescription Opioid Use ec2 - Patient Portal Instructions ec2 - Leadership Thank You Letter ec2 Prescriptions: - methocarbamol 500 mg Oral tablet - take 1 tablet ORAL route 4 times per day; 15 tablet; Refills: 0, Product ec2 Selection Permitted Signatures: Dispatcher [employer] EDMS Rufus Lawton, RN RN jb4 Stewart Joseph MD MD ec2 Wellington Brower, RN RN bm8 Corrections: (The following items were deleted from the chart) 20:35 20:35 Shoulder Right 2 View+[email or web address] ordered. EDMS EDMS 20:45 20:40 Constitutional: GEN: NAD Head: atraumatic Eyes: EOMI Ears: External ears are ec2 normal. CV: regular rate LUNGS: no respiratory distress ABD: non-distended SKIN: no evidence of rashes MSK: no evidence of trauma ec2
[2024-07-27 22:06] VITALS: BP 140/79; O2SAT 99
== END 2024-07-27 21:39 | disposition home or self-care (01) ==
LOC: ER 20:09
DX: S43.401A Unspecified sprain of right shoulder joint, initial encounter (principal)
CPT/HCPCS: 96372; 99284